=== PATIENT | female | born 1960 | race Caucasian/White ===

== ENCOUNTER 2017-03-30 12:33 | Inpatient (IN) | payer OTHER, MEDICAID, MEDICARE ==
[2017-03-30] VITALS (10 sets, daily range): BP systolic 124–192; BP diastolic 80–114; PULSE 90–115; RESP 10–28; TEMP 98.6–99.6; O2SAT 87–97
[~2017-03-30] VITALS: Ht 167.6 cm; Wt 62.5 kg
[~2017-03-30 12:33] MED LIST: DICL75 PO; HYDR-4347 PO; METO25 PO; OMEP20TA39 PO; PERC5TAB12 PO; VALI10TA PO; ZOFR4TAB3 SL
[2017-03-30] MEDS ORDERED: DIAZ10 PO (13:11)
[2017-03-30] MEDS ORDERED: METO50TA PO (13:19)
[2017-03-30] MEDS ORDERED: ZOFR4TAB PO (13:19)
[2017-03-30] MEDS ORDERED: LORCET HD PO (13:19)
[2017-03-30] MEDS ORDERED: DICL75TA PO (13:19)
[2017-03-30] MEDS ORDERED: OMEP40CA2 PO (13:19)
[2017-03-30] MEDS ORDERED: ALBU.5I NEB (13:22)
[2017-03-30] MEDS ORDERED: VENTAER INH (13:22)
[2017-03-30] MEDS ORDERED: SPIRCAP INH (13:22)
[2017-03-30] MEDS ORDERED: PRED10 PO (13:22)
[2017-03-30] MEDS ORDERED: CEPH-460 PO (13:22)
--- NOTE | 2017-03-30 13:46 | PD ---
HPI Chief Complaint: Abdominal Pain Time Seen by Provider: 13:07 Travel History International Travel<30 days: No Contact w/Intl Traveler<30days: No Traveled to known affect area: No History of Present Illness HPI This 57-year-old female is complaining of abdominal pain. She has a history of Crohn's disease for 38 years. She is having pain throughout her abdomen. She says that her face and hands up and cramping. She had been to Dr. Doshi recently and was diagnosed with neuropathy. She had a very low B12 level and has been on B12 recently. She is having green diarrhea. She is on prednisone for her Crohn's disease which she takes on an as-needed basis. She had been on baclofen for about 2 weeks for pain control. She stopped it last Monday, she is complaining of spasms in her hands and her feet which have been going on for about a day. She does have a history of pancreatitis. She does drink alcohol. She has been taking some Valium for the spasm. PFS Past Medical History Arthritis: Yes Asthma: No Autoimmune Disease: No Blood Disorders: No Anxiety: Yes Depression: No Heart Rhythm Problems: No Cancer: No Cardiac Catheterization: No Cardiovascular Problems: No High Cholesterol: Yes Chemotherapy: No Chest Pain: No Congestive Heart Failure: No COPD: Yes Cerebrovascular Accident: No Diabetes: No Diminished Hearing: No Gastrointestinal Disorders: Yes (Crohn's disease) GERD: Yes Genitourinary: No Headaches: No Hepatitis: No Hiatal Hernia: No Hypertension: Yes Implanted Vascular Access Dvce: Yes Kidney Stones: No Musculoskeletal: No Neurologic: No Psychiatric: No Reproductive: Yes (NOVASURE - uterine ablation) Respiratory: Yes Immunizations Current: Yes Migraines: No Myocardial Infarction: No Pancreatitis: Yes Radiation Therapy: No Renal Failure: No Seizures: No Sickle Cell Disease: No Sleep Apnea: No Ulcer: No Tetanus Vaccination: Unknown Influenza Vaccination: Yes ?: Not Menopausal: Yes Tubal Ligation: Yes Past Surgical History Abdominal Surgery: Yes (Bowel resection X's 3) Appendectomy: Yes (appendix removed during bowel resection surgery) Cardiac Surgery: No Cholecystectomy: No Coronary Artery Bypass Graft: No Ear Surgery: No Endocrine Surgery: No Eye Surgery: No Gynecologic Surgery: Yes (UTERINE WALL SURGERY, TUBAL LIGATION ) Oral Surgery: Yes (RIGHT FACIAL RECONSTRUCTION) Thoracic Surgery: No Other Surgery: Yes (Port placement MELENOMA FACE) Family History Family Myocardial Infarction: Yes (father) Social History Alcohol Use: Yes (2 DAILY) Tobacco Use: Yes (3 cigarettes daily) Substance Use: No Allergies-Medications (Allergen,Severity, Reaction): Coded Allergies: Sulfa (Verified Allergy, Severe, "Shock", nausea, rash, 03/30/17) Uncoded Allergies: HUMIRA (Allergy, Unknown, SKIN LESIONS, 03/30/17) Reported Meds & Prescriptions Reported Meds & Active Scripts Active Reported Albuterol Neb (Albuterol Sulfate) 2.5 Mg/0.5 Ml Neb 2.5 Mg NEB Q4HR NEB PRN Note: The Albuterol Sulfate Inhalation Solution is concentrated and must be diluted. Read complete instructions carefully before using. Spiriva Handihaler (Tiotropium Inh) 18 Mcg Cap 18 Mcg INH DAILY 1 capsule = 18 mcg Ventolin Hfa 18 GM Inh (Albuterol Sulfate) 90 Mcg/Act Aer 2 Puff INH Q4-6H PRN Prednisone 10 Mg Tab 10 Mg PO TID Keflex (Cephalexin) 500 Mg Capsule 500 Mg PO DAILY Zofran (Ondansetron HCl) 4 Mg Tab 4 Mg PO Q6HR PRN Omeprazole 40 Mg Cap 40 Mg PO DAILY Metoprolol Tartrate 50 Mg Tab 50 Mg PO BID [Lorcet Hd] 1 Tab PO QID Diclofenac Sodium DR (Diclofenac Sodium) 75 Mg Tabdr 75 Mg PO BID Valium (Diazepam) 10 Mg Tab 10 Mg PO TID Review of Systems General / Constitutional: No: Fever, Chills Eyes: No: Diploplia, Blurred Vision HENT: No: Headaches Cardiovascular: No: Chest Pain or Discomfort Respiratory: No: Cough Gastrointestinal: Positive: Diarrhea, Abdominal Pain Genitourinary: No: Urgency, Frequency Musculoskeletal: Positive: Myalgias, Cramping Skin: No Rash, No Itching Neurologic: Positive: Weakness Psychiatric: No: Anxiety, Depression Hematologic/Lymphatic: No: Easy Bruising Physical Exam Narrative GENERAL: Well-developed female. She is complaining of pain SKIN: Focused skin assessment warm/dry. HEAD: Atraumatic. Normocephalic. EYES: Pupils equal and round. No scleral icterus. No injection or drainage. ENT: No nasal bleeding or discharge. Mucous membranes pink and moist. NECK: Trachea midline. No JVD. CARDIOVASCULAR: Regular rate and rhythm. No murmur appreciated. RESPIRATORY: No accessory muscle use. Clear to auscultation. Breath sounds equal bilaterally. GASTROINTESTINAL: Abdomen there are multiple midline scars. She complains of some tenderness to palpation in all quadrants. There is no rigidity. Bowel sounds are active. MUSCULOSKELETAL: No obvious deformities. No clubbing. No cyanosis. No edema. NEUROLOGICAL: Awake and alert. No obvious cranial nerve deficits. Motor grossly within normal limits. Normal speech. He is having spasm of the hands and feet PSYCHIATRIC: Appropriate mood and affect; insight and judgment normal. Data Data Last Documented VS Vital Signs Date Time Temp Pulse Resp B/P Pulse Ox O2 Delivery O2 Flow Rate FiO2 03/30/17 14:39 98 18 124/80 95 Room Air 03/30/17 12:50 98.6 Orders Complete Blood Count With Diff (03/30/17 13:41) Comprehensive Metabolic Panel (03/30/17 13:41) Prothrombin Time / Inr (Pt) (03/30/17 13:41) Act Partial Throm Time (Ptt) (03/30/17 13:41) Urinalysis - C+S If Indicated (03/30/17 13:41) Magnesium (Mg) (03/30/17 13:41) Enteric Path (Stool) (03/30/17 13:41) Chest, Single Ap (03/30/17 13:41) Ct Abd/Pel W Iv Contrast(Rout) (03/30/17 13:41) Sodium Chlor 0.9% 1000 Ml Inj (Ns 1000 M (03/30/17 14:00) Ondansetron Inj (Zofran Inj) (03/30/17 14:00) Hydromorphone Pf Inj (Dilaudid Pf Inj) (03/30/17 14:00) Potassium Chlor 20 Meq Premix (Kcl 20 Me (03/30/17 14:44) Calcium Gluconate Inj (Calcium Gluconate (03/30/17 14:45) Magnesium Sulfate 1 Gm Premix (Magnesium (03/30/17 15:00) Lipase (03/30/17 14:55) Hydromorphone Pf Inj (Dilaudid Pf Inj) (03/30/17 15:00) Electrocardiogram (03/30/17 15:09) Labs Laboratory Tests Test 03/30/17 13:30 White Blood Count 10.3 TH/MM3 Red Blood Count 3.06 MIL/MM3 Hemoglobin 11.2 GM/DL Hematocrit 33.5 % Mean Corpuscular Volume 109.6 FL Mean Corpuscular Hemoglobin 36.8 PG Mean Corpuscular Hemoglobin 33.5 % Concent Red Cell Distribution Width 16.7 % Platelet Count 140 TH/MM3 Mean Platelet Volume 7.7 FL Neutrophils (%) (Auto) 79.9 % Lymphocytes (%) (Auto) 12.0 % Monocytes (%) (Auto) 6.9 % Eosinophils (%) (Auto) 0.9 % Basophils (%) (Auto) 0.3 % Neutrophils # (Auto) 8.2 TH/MM3 Lymphocytes # (Auto) 1.2 TH/MM3 Monocytes # (Auto) 0.7 TH/MM3 Eosinophils # (Auto) 0.1 TH/MM3 Basophils # (Auto) 0.0 TH/MM3 CBC Comment DIFF FINAL Differential Comment Prothrombin Time 11.6 SEC Prothromb Time International 1.0 RATIO Ratio Activated Partial 42.5 SEC Thromboplast Time Urine Color YELLOW Urine Turbidity CLEAR Urine pH 6.0 Urine Specific [place] 1.021 Urine Protein 30 mg/dL Urine Glucose (UA) NEG mg/dL Urine Ketones NEG mg/dL Urine Occult Blood NEG Urine Nitrite NEG Urine Bilirubin NEG Urine Leukocyte Esterase TRACE Urine RBC 0-3 /hpf Urine WBC 6-8 /hpf Urine Squamous Epithelial 0-5 /hpf Cells Microscopic Urinalysis Comment CULT NOT INDICATED Sodium Level 142 MEQ/L Potassium Level 2.6 MEQ/L Chloride Level 100 MEQ/L Carbon Dioxide Level 33.1 MEQ/L Anion Gap 9 MEQ/L Blood Urea Nitrogen 3 MG/DL Creatinine 0.68 MG/DL Estimat Glomerular Filtration 89 ML/MIN Rate Random Glucose 98 MG/DL Calcium Level 6.3 MG/DL Protein Corrected Calcium 6.5 MG/DL Magnesium Level 0.8 MG/DL Total Bilirubin 1.2 MG/DL Aspartate Amino Transf 32 U/L (AST/SGOT) Alanine Aminotransferase 13 U/L (ALT/SGPT) Alkaline Phosphatase 105 U/L Total Protein 6.6 GM/DL Albumin 2.9 GM/DL [facility] Medical Decision Making Medical Screen Exam Complete: Yes Emergency Medical Condition: Yes Medical Record Reviewed: Yes Differential Diagnosis Differential includes electrolyte imbalance, drug withdrawal, Crohn's disease, Narrative Course Lab work shows sodium 142. Potassium is 2.6. Calcium is 6.3 with magnesium of 0.8. Patient has multiple left-sided abnormalities most likely related to her short bowel syndrome and diarrhea. Case was discussed with Dr. Boudreaux and she will be admitted to intensive care at [place]. Our Scanner is down and she is being sent to [place] for a CT of the abdomen and pelvis Diagnosis Primary Impression: Hypocalcemia Additional Impressions: Hypomagnesemia Short bowel syndrome Admitting Information Admitting Physician Requests: Admit Denys Salomon MD Mar 30, 2017 13:45
[2017-03-30 13:56] LABS: AUTOMATED NEUTROPHIL # 8.2 TH/MM3 (1.8-7.7); BASOPHIL % 0.3 % (0.0-2.0); EOSINOPHIL # 0.1 TH/MM3 (0-0.4); EOSINOPHIL % 0.9 % (0.0-4.0); HEMATOCRIT 33.5 % (35.0-46.0); HEMO FLAGS DIFF FINAL; LYMPHOCYTE # 1.2 TH/MM3 (1.0-4.8); MEAN CELL VOLUME 109.6 FL (80.0-100.0); MEAN CORPUSCULAR HEMOGLOBIN 36.8 PG (27.0-34.0); MEAN CORPUSCULAR HGB CONC 33.5 % (32.0-36.0); MONO % 6.9 % (0.0-8.0); NEUT % 79.9 % (16.0-70.0); PLATELET COUNT 140 TH/MM3 (150-450); RED BLOOD COUNT 3.06 MIL/MM3 (4.00-5.30); RED CELL DISTRIBUTION WIDTH 16.7 % (11.6-17.2); WHITE BLOOD COUNT 10.3 TH/MM3 (4.0-11.0)
[2017-03-30 13:58] LABS: BLOOD, URINE NEG (NEG); GLUCOSE,URINE NEG (NEG); KETONE, URINE NEG (NEG); NITRITE,URINE NEG (NEG)
[2017-03-30] MEDS ORDERED: ONDANSETRON HCL 4 MG/2 ML VIAL IV PUSH ONE (14:00)
[2017-03-30] MEDS ORDERED: HYDROmorphone HCL PF 1 MG/ML VIAL IV PUSH ONE ×2 (14:00→15:00)
[2017-03-30] MEDS ORDERED: SODIUM CHLOR 0.9% 1000 ML INJ 1,000 ML IV SCH (14:00)
[2017-03-30 14:11] LABS: APTT (PATIENT) 42.5 SEC (24.3-30.1); PROTHROMBIN TIME - PATIENT 11.6 SEC (9.8-11.6)
[2017-03-30 14:16] LABS: COMMENT (UR) CULT NOT INDICATED; CULTURE IF INDICATED CULT NOT INDICATED; RBC, URINE 0-3 /hpf (0-3); SQUAMOUS EPITHELIAL CELL URINE 0-5 /hpf (0-5); URINE COLOR YELLOW (YELLW/STRAW)
[2017-03-30 14:34] LABS: BICARBONATE 33.1 MEQ/L (21.0-32.0); MAGNESIUM 0.8 MG/DL (1.5-2.5); TOTAL BILIRUBIN ADULT 1.2 MG/DL (0.2-1.0)
[2017-03-30 14:38] LABS: CALCIUM-PROTEIN CORRECTED 6.5 MG/DL (8.5-10.1); POTASSIUM 2.6 MEQ/L (3.5-5.1)
--- NOTE | 2017-03-30 14:38 | RADHPO ---
EXAM DATE/TIME: 03/30/2017 14:11 [facility] COMPARISON: No previous studies available for comparison. INDICATIONS : Chest pain, short of breath. MEDICAL HISTORY : Crohn's disease. neuropathy SURGICAL HISTORY : Colon resection. ENCOUNTER: Initial ACUITY: 1 week PAIN SCORE: 7/10 LOCATION: Bilateral chest FINDINGS: There is a left subclavian [id number] in place with tip near the AC junction. Lungs are clear with out significant focal pleural or parenchymal opacities. Cardiomediastinal contours are within normal limits. Bony thorax is intact. CONCLUSION: 1. No acute cardiopulmonary disease. Mandeep Wadsworth MD on March 30, 2017 at 14:35 Board Certified Radiologist. This report was verified electronically.
[2017-03-30] MEDS ORDERED: POTASSIUM CHLOR 20 MEQ PREMIX 100 ML IV STA (14:44)
[2017-03-30] MEDS ORDERED: CALCIUM GLUCONATE INJ 1 GM in DEXTROSE 5% IN WATER 100ML INJ 100 ML IV ONE ×2 (14:45)
[2017-03-30] MEDS ORDERED: MAGNESIUM SULFATE 1 GM PREMIX 100 ML IV ONE (15:00)
[2017-03-30] MEDS ORDERED: CHLORHEXIDINE GLUCONATE 2 % 1 PACK (2 CLOTHS) TOP PRN (15:30)
[2017-03-30] MEDS ORDERED: SODIUM CHLORIDE 0.9% FLUSH 10 ML FLUSH IV FLUSH PRN (15:30)
[2017-03-30] MEDS ORDERED: ACETAMINOPHEN 325 MG TAB PO PRN (15:30)
[2017-03-30] MEDS ORDERED: MISCELLANEOUS NURSING INFORMATION XX SCH (15:30)
[2017-03-30] MEDS ORDERED: METOCLOPRAMIDE HCL 10 MG/2 ML VIAL IV PRN (15:30)
[2017-03-30] MEDS ORDERED: ONDANSETRON HCL 4 MG/2 ML VIAL IV PRN (15:30)
[2017-03-30] MEDS ORDERED: POTASSIUM PHOSPHATE MONOBASIC 500 MG TAB PO/TUBE PRN (16:00)
[2017-03-30] MEDS ORDERED: POTASSIUM CHLOR 20 MEQ PREMIX 100 ML IV PRN ×2 (16:00)
[2017-03-30] MEDS ORDERED: POTASSIUM CHLORIDE 25 MEQ EFFERVESCENT TAB PO PRN (16:00)
[2017-03-30] MEDS ORDERED: MAGNESIUM OXIDE 400 MG TAB PO PRN (16:00)
[2017-03-30] MEDS: MAGNESIUM SULFATE 1 GM PREMIX 100 ML IV SCH ×2 (16:00→17:00)
[2017-03-30] MEDS ORDERED: MAGNESIUM SULFATE INJ 4 GM in SODIUM CHLORIDE 0.9% INJ 92 ML IV PRN (16:00)
[2017-03-30] MEDS ORDERED: MAGNESIUM SULFATE INJ 2 GM in SODIUM CHLORIDE 0.9% INJ 96 ML IV PRN (16:00)
[2017-03-30] MEDS ORDERED: SODIUM PHOSPHATE INJ 30 MMOL in SODIUM CHLOR 0.9% 250 ML INJ 240 ML IV PRN (16:00)
[2017-03-30] MEDS ORDERED: POTASSIUM PHOSPHATE INJ 30 MMOL in SODIUM CHLOR 0.9% 250 ML INJ 250 ML IV PRN (16:00)
[2017-03-30] MEDS ORDERED: POTASSIUM CHLOR 40 MEQ PREMIX 100 ML IV PRN ×2 (16:00)
[2017-03-30] MEDS ORDERED: POTASSIUM PHOSPHATE MONOBASIC 500 MG TAB PO PRN (16:00)
[2017-03-30] MEDS ORDERED: CALCIUM CHLORIDE IV SCH (17:00)
[2017-03-30] MEDS ORDERED: SODIUM CHLOR 0.9% IV SCH (17:00)
[2017-03-30] MEDS ORDERED: IOHEXOL 350 MG/ML 10 ML VIAL (for RAD DIAG) IV ONE (17:13)
[2017-03-30] MEDS ORDERED: CALCIUM CHLORIDE INJ 2 GM in DEXTROSE 5% IN WATER 100ML INJ 100 ML IV ONE ×2 (17:15)
[2017-03-30] MEDS: PANTOPRAZOLE SODIUM 40 MG VIAL IV SCH (17:30)
[2017-03-30] MEDS: ENOXAPARIN SODIUM 40 MG/0.4 ML SYRINGE SQ SCH (17:32)
--- NOTE | 2017-03-30 18:00 | RADRPT ---
EXAM DATE/TIME: 03/30/2017 16:39 [facility] COMPARISON: No previous studies available for comparison. INDICATIONS : History of crohns,diffuse abdomen pain,green dirrhea. IV CONTRAST: 70 cc Omnipaque 350 (iohexol) IV ORAL CONTRAST: No oral contrast ingested. RADIATION DOSE: 9.96 CTDIvol (mGy) MEDICAL HISTORY : Hypertension. Chronic obstructive pulmonary disease. Pancreatitis.Crohns disease SURGICAL HISTORY : Appendectomy. Bowel resection.uterine surgery ENCOUNTER: Initial ACUITY: 1 day PAIN SCALE: 7/10 LOCATION: Abdomen TECHNIQUE: Volumetric scanning of the abdomen and pelvis was performed. Using automated exposure control and ad justment of the mA and/or kV according to patient size, radiation dose was kept as low as reasonably achievable to obtain optimal diagnostic quality images. FINDINGS: LOWER LUNGS: Patchy airspace disease medially in the left base. LIVER: Homogeneous density without lesion. There is no dilation of the biliary tree. No calcified gallston es. SPLEEN: Normal size without lesion. PANCREAS: Within normal limits. KIDNEYS: Normal in size and shape. There is no mass, stone or hydronephrosis. ADRENAL GLANDS: Within normal limits. VASCULAR: There is no aortic aneurysm. BOWEL/MESENTERY: Findings of prior bowel surgery with surgical clips in the mid mesentery and a ring of surgical stapl es in a bowel loop to the left of midline in the mid. No obstruction. The terminal ileum is decompres sed but there are no robert-enteric or pericolonic inflammatory changes to suggest active inflammatory process. ABDOMINAL WALL: Within normal limits. RETROPERITONEUM: There is no lymphadenopathy. BLADDER: No wall thickening or mass. REPRODUCTIVE: Within normal limits. INGUINAL: There is no lymphadenopathy or hernia. MUSCULOSKELETAL: Within normal limits for patient age. CONCLUSION: 1. Postsurgical changes and surgical clips in the mid mesentery and findings of prior bowel surgery l eft para midline. 2. No traction. Terminal ileum is decompressed but there are no perienteric or pericolonic inflammato ry changes to suggest an active enteritis. 3. Patchy airspace disease medially in the left base. This is rather linear and may represent atelect asis although an early infiltrate cannot be excluded. Jerman Herron MD on March 30, 2017 at 17:47 Board Certified Radiologist. This report was verified electronically.
--- NOTE | 2017-03-30 18:14 | HHI.HP ---
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 Patient presented to the ER today with worsening abdominal pain going on for about 5 days along with his past symptoms and tingling over her face and extremities which has been going on for 5 days as well. 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 She was noted to be hypocalcemic and hypomagnesemia as well as hypokalemic in the ER. Patient states that she has tried to 18 bouts of diarrhea daily secondary to her Crohn's and short bowel syndrome. I was contacted by ER physician and accepted patient for admission. On my arrival patient had been [facility] scan and evaluated her subsequently following her arrival at around 5:40 PM. Up to that point she had received potassium and magnesium IV piggyback however had not received any calcium gluconate. At the time of evaluation she denied any chest pain or shortness of breath. Denied any nausea or vomiting. Denied any hematemesis or melena. Denied any fever or chills. Patient has been on prednisone for Crohn's disease and has seen Dr. Tavera from GI regularly for her Crohn's disease. She stated that she takes Valium for spasms and baclofen at times however has stopped the baclofen for a few weeks. History PFSH Past Medical History Arthritis: Yes Asthma: No Autoimmune Disease: No Blood Disorders: No Anxiety: Yes Depression: No Heart Rhythm Problems: No Cancer: No Cardiac Catheterization: No Cardiovascular Problems: No High Cholesterol: Yes Chemotherapy: No Chest Pain: No Congestive Heart Failure: No COPD: Yes Cerebrovascular Accident: No Diabetes: No Diminished Hearing: No Gastrointestinal Disorders: Yes (Crohn's disease) GERD: Yes Genitourinary: No Headaches: No Hepatitis: No Hiatal Hernia: No Hypertension: Yes Implanted Vascular Access Dvce: Yes Kidney Stones: No Musculoskeletal: No Neurologic: No Psychiatric: No Reproductive: Yes (NOVASURE - uterine ablation) Respiratory: Yes Immunizations Current: Yes Migraines: No Myocardial Infarction: No Pancreatitis: Yes Radiation Therapy: No Renal Failure: No Seizures: No Sickle Cell Disease: No Sleep Apnea: No Ulcer: No Tetanus Vaccination: Unknown Influenza Vaccination: Yes ?: Not Menopausal: Yes Tubal Ligation: Yes Past Surgical History Abdominal Surgery: Yes (Bowel resection X's 3) Appendectomy: Yes (appendix removed during bowel resection surgery) Cardiac Surgery: No Cholecystectomy: No Coronary Artery Bypass Graft: No Ear Surgery: No Endocrine Surgery: No Eye Surgery: No Gynecologic Surgery: Yes (UTERINE WALL SURGERY, TUBAL LIGATION ) Oral Surgery: Yes (RIGHT FACIAL RECONSTRUCTION) Thoracic Surgery: No Other Surgery: Yes (Port placement MELENOMA FACE) Family History Family Myocardial Infarction: Yes (father) Social History Alcohol Use: Yes (2 DAILY) Tobacco Use: Yes (3 cigarettes daily) Substance Use: No Allergies-Medications Allergies-Medications (Allergen,Severity, Reaction): Coded Allergies: Sulfa (Verified Allergy, Severe, "Shock", nausea, rash, 03/30/17) Uncoded Allergies: HUMIRA (Allergy, Unknown, SKIN LESIONS, 03/30/17) Reported Meds & Prescriptions Reported Meds & Active Scripts Active Reported Albuterol Neb (Albuterol Sulfate) 2.5 Mg/0.5 Ml Neb 2.5 Mg NEB Q4HR NEB PRN Note: The Albuterol Sulfate Inhalation Solution is concentrated and must be diluted. Read complete instructions carefully before using. Spiriva Handihaler (Tiotropium Inh) 18 Mcg Cap 18 Mcg INH DAILY 1 capsule = 18 mcg Ventolin Hfa 18 GM Inh (Albuterol Sulfate) 90 Mcg/Act Aer 2 Puff INH Q4-6H PRN Prednisone 10 Mg Tab 10 Mg PO TID Keflex (Cephalexin) 500 Mg Capsule 500 Mg PO DAILY Zofran (Ondansetron HCl) 4 Mg Tab 4 Mg PO Q6HR PRN Omeprazole 40 Mg Cap 40 Mg PO DAILY Metoprolol Tartrate 50 Mg Tab 50 Mg PO BID [Lorcet Hd] 1 Tab PO QID Diclofenac Sodium DR (Diclofenac Sodium) 75 Mg Tabdr 75 Mg PO BID Valium (Diazepam) 10 Mg Tab 10 Mg PO TID ROS Review of Systems General / Constitutional: No: Fever, Chills Eyes: No: Diploplia, Blurred Vision HENT: No: Headaches Cardiovascular: No: Chest Pain or Discomfort Respiratory: No: Cough Gastrointestinal: Positive: Diarrhea, Abdominal Pain Genitourinary: No: Urgency, Frequency Musculoskeletal: Positive: Myalgias, Cramping Skin: No Rash, No Itching Neurologic: Positive: Weakness Psychiatric: No: Anxiety, Depression Hematologic/Lymphatic: No: Easy Bruising Review of Systems ROS As per history of present illness otherwise negative. Physical Exam Vital Signs Vital Signs Date Time Temp Pulse Resp B/P Pulse Ox O2 Delivery O2 Flow Rate FiO2 03/30/17 14:39 98 18 124/80 95 Room Air 03/30/17 12:50 98.6 115 15 141/101 95 Physical Exam GENERAL: Well-developed female. She is complaining of abdominal pain SKIN: Focused skin assessment warm/dry. HEAD: Atraumatic. Normocephalic. EYES: Pupils equal and round. No scleral icterus. No injection or drainage. ENT: No nasal bleeding or discharge. Tongue dry. NECK: Trachea midline. No JVD. CARDIOVASCULAR: Regular rate and rhythm. No murmur appreciated. RESPIRATORY: No accessory muscle use. Clear to auscultation. Breath sounds equal bilaterally. GASTROINTESTINAL: Abdomen there are multiple midline scars. Tenderness all over her abdomen with minimal guarding. There is no rigidity. Bowel sounds are active. MUSCULOSKELETAL: No obvious deformities. No clubbing. No cyanosis. No edema. NEUROLOGICAL: Awake and alert. No obvious cranial nerve deficits. Motor grossly within normal limits. Normal speech. Negative Chvostek's/ Trousseau's sign. DTR +/+ bilaterally, no hyperreflexia noted, plantars downgoing bilaterally. PSYCHIATRIC: Appropriate mood and affect; insight and judgment normal. Laboratory Laboratory Tests Test 03/30/17 13:30 White Blood Count 10.3 Red Blood Count 3.06 Hemoglobin 11.2 Hematocrit 33.5 Mean Corpuscular Volume 109.6 Mean Corpuscular Hemoglobin 36.8 Mean Corpuscular Hemoglobin 33.5 Concent Red Cell Distribution Width 16.7 Platelet Count 140 Mean Platelet Volume 7.7 Neutrophils (%) (Auto) 79.9 Lymphocytes (%) (Auto) 12.0 Monocytes (%) (Auto) 6.9 Eosinophils (%) (Auto) 0.9 Basophils (%) (Auto) 0.3 Neutrophils # (Auto) 8.2 Lymphocytes # (Auto) 1.2 Monocytes # (Auto) 0.7 Eosinophils # (Auto) 0.1 Basophils # (Auto) 0.0 CBC Comment DIFF FINAL Differential Comment Prothrombin Time 11.6 Prothromb Time International 1.0 Ratio Activated Partial 42.5 Thromboplast Time Urine Color YELLOW Urine Turbidity CLEAR Urine pH 6.0 Urine Specific [place] 1.021 Urine Protein 30 Urine Glucose (UA) NEG Urine Ketones NEG Urine Occult Blood NEG Urine Nitrite NEG Urine Bilirubin NEG Urine Leukocyte Esterase TRACE Urine RBC 0-3 Urine WBC 6-8 Urine Squamous Epithelial 0-5 Cells Microscopic Urinalysis Comment CULT NOT INDICATED Sodium Level 142 Potassium Level 2.6 Chloride Level 100 Carbon Dioxide Level 33.1 Anion Gap 9 Blood Urea Nitrogen 3 Creatinine 0.68 Estimat Glomerular Filtration 89 Rate Random Glucose 98 Calcium Level 6.3 Protein Corrected Calcium 6.5 Phosphorus Level 4.3 Magnesium Level 0.8 Total Bilirubin 1.2 Aspartate Amino Transf 32 (AST/SGOT) Alanine Aminotransferase 13 (ALT/SGPT) Alkaline Phosphatase 105 Total Protein 6.6 Albumin 2.9 Lipase 63 Date/Time Procedure Status Source Growth 03/30/17 13:08 Received Stool Stool Pending Result Diagram: 03/30/17 1330 03/30/[address] Abd/Pelvis: No evidence of pericolonic or perienteric inflammation. Postsurgical changes. Terminal ileum decompressed. Last Impressions Chest X-Ray 03/30/17 1341 Signed Impressions: Service Date/Time: , March 30, 2017 14:11 - CONCLUSION: 1. No acute cardiopulmonary disease. 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 Replete calcium magnesium and potassium. Patient is on parenteral B-12 as outpatient. Cardiovascular: IV hydration, watch for hypotension. EKG shows sinus rhythm at 98/m. QTc 462 ms Pulmonary: Bronchodilators as needed. Breathing comfortably. GI/liver: Follow up CT abdomen pelvis. GI consult with Dr. Godoy for probable Crohn's disease exacerbation and short-bowel syndrome. Will continue by mouth diet Renal/: IV hydration, strict intake output, monitor and replete electrolytes, follow BUN/creatinine ID: Watch for fever. Hold off on antibiotics at this time. Heme: Follow CBC. Macrocytosis secondary to B-12 deficiency. Continue parenteral B-12. Endocrine: Check vitamin D2, D3, intact PTH. Calcium supplementation ordered. 2 g IV calcium chloride stat ordered earlier along with 1 g calcium gluconate ordered by the ER physician. We'll continue normal saline with calcium chloride as maintenance IV fluid. Check serial calcium and magnesium levels along with other electrolytes. Prophylaxis: PPI/SCDs/Lovenox We'll transfer to hospitalist service in a.m. for further medical management. Discussed with Dr. Estevez. Time spent on critical care excluding procedures 45 minutes Lito Brock MD Mar 30, 2017 18:13
[2017-03-30] MEDS: SODIUM CHLORIDE 0.9% FLUSH 10 ML FLUSH IV FLUSH SCH (21:00)
[2017-03-30 21:27] LABS: BICARBONATE 30.9 MEQ/L (21.0-32.0); MAGNESIUM 1.3 MG/DL (1.5-2.5)
[2017-03-30 21:29] LABS: POTASSIUM 2.6 MEQ/L (3.5-5.1)
[2017-03-30] MEDS: CALCIUM CARBONATE 1.25 GM (CA 500 MG) TAB PO SCH (21:38)
[2017-03-30] MEDS: cloNIDine HCL 0.1 MG TAB PO PRN (21:39)
[2017-03-30] MEDS: MESALAMINE HD 800 MG DELAYED RELEASE TAB PO SCH (21:39)
[2017-03-30] MEDS: ACETAMINOPHEN/HYDROcodone 325 MG/5 MG TAB PO PRN (21:40)
[2017-03-30 21:47] LABS: CALCIUM-PROTEIN CORRECTED 12.5 MG/DL (8.5-10.1)
[2017-03-30] MEDS: HYDROmorphone HCL PF 1 MG/ML VIAL IV PRN (23:18)
[2017-03-31] VITALS (28 sets, daily range): BP systolic 95–152; BP diastolic 69–96; PULSE 80–128; RESP 12–27; TEMP 98–99.1; O2SAT 86–100
[2017-03-31] MEDS: HYDROmorphone HCL PF 1 MG/ML VIAL IV PRN ×7 (02:36→22:29)
[2017-03-31] MEDS: CHLORHEXIDINE GLUCONATE 2 % 1 PACK (2 CLOTHS) TOP SCH (04:00)
[2017-03-31] MEDS: RESP: ALBUTEROL 2.5 MG/IPRATROPIUM 0.5 MG NEB (PRN) INH ×3 (04:41→19:51)
[2017-03-31 04:57] LABS: AUTOMATED NEUTROPHIL # 5.3 TH/MM3 (1.8-7.7); BASOPHIL % 0.4 % (0.0-2.0); EOSINOPHIL # 0.2 TH/MM3 (0-0.4); EOSINOPHIL % 2.3 % (0.0-4.0); HEMATOCRIT 33.7 % (35.0-46.0); LYMPH % 10.8 % (9.0-44.0); LYMPHOCYTE # 0.7 TH/MM3 (1.0-4.8); MEAN CELL VOLUME 108.6 FL (80.0-100.0); MEAN CORPUSCULAR HEMOGLOBIN 35.8 PG (27.0-34.0); MEAN CORPUSCULAR HGB CONC 32.9 % (32.0-36.0); MONO % 6.9 % (0.0-8.0); NEUT % 79.6 % (16.0-70.0); PLATELET COUNT 158 TH/MM3 (150-450); RED CELL DISTRIBUTION WIDTH 15.6 % (11.6-17.2); WHITE BLOOD COUNT 6.7 TH/MM3 (4.0-11.0)
[2017-03-31 04:59] LABS: HEMO FLAGS DIFF FINAL
[2017-03-31 05:16] LABS: BICARBONATE 33.3 MEQ/L (21.0-32.0); MAGNESIUM 1.8 MG/DL (1.5-2.5); POTASSIUM 3.9 MEQ/L (3.5-5.1)
[2017-03-31 05:20] LABS: TOTAL BILIRUBIN ADULT 1.9 MG/DL (0.2-1.0)
[2017-03-31] MEDS: MESALAMINE HD 800 MG DELAYED RELEASE TAB PO SCH ×3 (05:36→21:26)
[2017-03-31] MEDS ORDERED: MAGNESIUM SULFATE 1 GM PREMIX 100 ML IV ONE (06:45)
[2017-03-31] MEDS: SODIUM CHLORIDE 0.9% FLUSH 10 ML FLUSH IV FLUSH SCH ×2 (08:05→21:26)
[2017-03-31] MEDS: CALCIUM CARBONATE 1.25 GM (CA 500 MG) TAB PO SCH (08:05)
[2017-03-31] MEDS: PANTOPRAZOLE SODIUM 40 MG VIAL IV SCH (08:07)
[2017-03-31] MEDS: SODIUM CHLOR 0.9% 1000 ML INJ 1,000 ML IV SCH ×3 (08:09→21:32)
[2017-03-31] MEDS: METOPROLOL TARTRATE 50 MG TAB PO SCH ×2 (08:27→21:26)
--- NOTE | 2017-03-31 10:37 | HHI.PR ---
Subjective Remarks in no acute distress. has some generalized weakness. still with diarrhea and mild abdominal pain. no fever. d/w the RN and no acute issues over night. Objective Vitals Vital Signs Date Time Temp Pulse Resp B/P Pulse Ox O2 Delivery O2 Flow Rate FiO2 03/31/17 09:00 128 16 114/75 87 03/31/17 09:00 15 03/31/17 08:00 98.5 104 13 124/91 98 03/31/17 08:00 103 03/31/17 07:58 97 Nasal Cannula 2.00 03/31/17 07:00 104 12 136/90 95 03/31/17 06:00 101 13 144/96 93 03/31/17 06:00 101 03/31/17 05:00 108 15 147/95 92 03/31/17 04:00 98.0 106 15 136/90 95 03/31/17 04:00 106 03/31/17 03:00 104 17 132/91 96 03/31/17 02:00 98 03/31/17 02:00 98 16 126/93 95 03/31/17 01:00 88 24 115/76 95 03/31/17 00:00 92 03/31/17 00:00 98.7 92 14 130/91 97 03/30/17 23:00 104 25 134/89 97 03/30/17 22:40 15 03/30/17 22:00 102 12 147/92 95 03/30/17 22:00 102 03/30/17 21:00 114 28 179/114 95 03/30/17 20:00 106 03/30/17 20:00 99.6 106 13 173/110 91 03/30/17 19:43 95 Nasal Cannula 2.00 03/30/17 19:42 87 21 03/30/17 19:39 104 10 192/113 94 03/30/17 18:06 90 18 143/97 94 Room Air 03/30/17 14:39 98 18 124/80 95 Room Air 03/30/17 12:50 98.6 115 15 141/101 95 I/O 03/30/17 03/30/17 03/30/17 03/31/17 03/31/17 03/31/17 07:00 15:00 23:00 07:00 15:00 23:00 Intake Total 1200 ml 1300 ml Output Total 200 ml Balance 1000 ml 1300 ml Intake Oral 500 ml IV Total 1200 ml 800 ml Output Stool Total 200 ml # Voids 6 4 Result Diagram: 03/31/17 0430 03/31/17 0430 Imaging Last Impressions Chest X-Ray 03/30/17 1341 Signed Impressions: Service Date/Time: March 14:11 - CONCLUSION: 1. No acute cardiopulmonary disease. Mandeep Wadsworth MD Abdomen/Pelvis CT 03/30/17 1341 Signed Impressions: Service Date/Time: March 16:39 - CONCLUSION: 1. Postsurgical changes and surgical clips in the mid mesentery and findings of prior bowel surgery left para midline. 2. No traction. Terminal ileum is decompressed but there are no perienteric or pericolonic inflammatory changes to suggest an active enteritis. 3. Patchy airspace disease medially in the left base. This is rather linear and may represent atelectasis although an early infiltrate cannot be excluded. Jerman Herron MD Objective Remarks GENERAL: This is a well-nourished, well-developed patient, in no apparent distress. CARDIOVASCULAR: Regular rate and regular rhythm without murmurs, gallops, or rubs. RESPIRATORY: Clear to auscultation. Breath sounds equal bilaterally. No wheezes , rales, or rhonchi. GASTROINTESTINAL: Abdomen soft, non-tender, nondistended. Normal, active bowel sounds MUSCULOSKELETAL: Extremities without clubbing, cyanosis, or edema. NEURO: Alert & Oriented x4 to person, place, time, situation. Moves all ext x4 Procedures none Medications and IVs Current Medications Sodium Chloride (NS 1000 ml Inj) 1,000 ml @ 100 mls/hr Q10H IV Last administered on 03/30/17 14:05; Start 03/30/17 at 14:00; Stop 03/30/17 at 18:54; Status DC Ondansetron HCl (Zofran Inj) 4 mg ONCE ONCE IV PUSH Last administered on 14:06; Start 03/30/17 at 14:00; Stop 03/30/17 at 14:01; Status DC Hydromorphone HCl 1 mg 1 mg ONCE ONCE IV PUSH Last administered on 03/30/17 14 :05; Start 03/30/17 at 14:00; Stop 03/30/17 at 14:01; Status DC Potassium Chloride 100 ml @ 50 mls/hr BOLUS STAT IV Last administered on 15:20; Start 03/30/17 at 14:44; Stop 03/30/17 at 16:43; Status DC Calcium Gluconate 1 gm/Dextrose 110 ml @ 110 mls/hr ONCE ONCE IV Last administered on 03/30/17 18:00; Start 03/30/17 at 14:45; Stop 03/30/17 at 15:44; Status DC Magnesium Sulfate/ Dextrose (Magnesium Sulfate 1 Gm Premix) 100 ml @ 100 mls/ hr ONCE ONCE IV Last administered on 03/30/17 15:21; Start 03/30/17 at 15:00; Stop 03/30/17 at 15:59; Status DC Hydromorphone HCl (Dilaudid Pf Inj) 1 mg ONCE ONCE IV PUSH Last administered on 03/30/17 15:26; Start 03/30/17 at 15:00; Stop 03/30/17 at 15:01; Status DC Sodium Chloride (NS Flush) 2 ml UNSCH PRN IV FLUSH FLUSH AFTER USING IV ACCESS ; Start 03/30/17 at 15:30 Sodium Chloride (NS Flush) 2 ml BID IV FLUSH Last administered on 03/31/17 08: 05; Start 03/30/17 at 21:00 Acetaminophen (Tylenol) 650 mg Q6H PRN PO HEADACHE AND/OR FEVER >101F; Start at 15:30 Acetaminophen/ Hydrocodone Bitart ([place] 5-325 Mg) 1 tab Q4H PRN PO PAIN SCALE 1 TO 5 Last administered on 03/30/17 21:40; Start 03/30/17 at 15:30 Pantoprazole Sodium (Protonix Inj) 40 mg DAILY IV Last administered on 08:07; Start 03/30/17 at 16:00 Ondansetron HCl (Zofran Inj) 4 mg Q6H PRN IV NAUSEA OR VOMITING; Start 03/30/17 at 15:30 Metoclopramide HCl (Reglan Inj) 10 mg Q6H PRN IV NAUSEA OR VOMITING; Start 03/30 at 15:30 Albuterol/ Ipratropium (Duoneb Neb) 1 ampule Q2HR NEB PRN INH WHEEZING Last administered on 03/31/17 07:57; Start 03/30/17 at 15:30 Enoxaparin Sodium (Lovenox Inj) 40 mg Q24H SQ Last administered on 03/30/17 17: 32; Start 03/30/17 at 16:00 Miscellaneous Information 1 Q361D XX Last administered on 03/30/17 08:00; Start 03/30/17 at 15:30 Chlorhexidine Gluconate (Chlorhexidine 2% Cloth) 3 pack Taper DAILY@04 TOP Last administered on 03/31/17 04:00; Start 03/31/17 at 04:00; Stop 03/27/18 at 03 :59 Chlorhexidine Gluconate (Chlorhexidine 2% Cloth) 3 pack UNSCH PRN TOP HYGIENIC CARE; Start 03/30/17 at 15:30 Calcium Carbonate 1000 mg 1,000 mg BID PO Last administered on 03/31/17 08:05; Start 03/30/17 at 21:00 Magnesium Sulfate/ Dextrose 100 ml @ 100 mls/hr Q1H IV ; Start 03/30/17 at 16:00 ; Stop 03/30/17 at 17:59; Status DC Calcium Chloride 5 gm/Sodium Chloride 1,050 ml @ 250 mls/hr Q4H12M IV Last administered on 03/30/17 17:45; Start 03/30/17 at 17:00; Stop 03/31/17 at 06:26; Status DC Potassium Chloride 100 ml @ 50 mls/hr Q2H PRN IV For Potassium 2.8 - 3.2 mEq/ L Last administered on 03/31/17 00:30; Start 03/30/17 at 16:00 Potassium Chloride (KCl 20 Meq Premix Inj) 100 ml @ 50 mls/hr Q2H PRN IV For Potassium 2.8 - 3.2 mEq/L; Start 03/30/17 at 16:00 Potassium Bicarb/ Potassium Chloride 50 meq 50 meq UNSCH PRN PO For Potassium 3.3 - 3.5 mEq/L; Start 03/30/17 at 16:00 Potassium Chloride 100 ml @ 25 mls/hr UNSCH PRN IV For Potassium 3.3 - 3.5 mEq /L; Start 03/30/17 at 16:00 Potassium Chloride 100 ml @ 50 mls/hr Q2H PRN IV For Potassium 3.3 - 3.5 mEq/L ; Start 03/30/17 at 16:00 Magnesium Sulfate/ Sodium Chloride (Magnesium Sulfate Inj/NS Inj) 100 ml @ 50 mls/hr UNSCH PRN IV For Magnesium 0.9 - 1.1 mg/dL; Start 03/30/17 at 16:00 Magnesium Oxide 800 mg 800 mg UNSCH PRN PO For Magnesium 1.2 - 1.6 mg/dL; Start 03/30/17 at 16:00 Magnesium Sulfate/ Sodium Chloride (Magnesium Sulfate Inj/NS Inj) 100 ml @ 50 mls/hr UNSCH PRN IV For Magnesium 1.2 - 1.6 mg/dL Last administered on 23:12; Start 03/30/17 at 16:00 Potassium Phosphate 2000 mg 2,000 mg Q4H PRN PO For Phosphorus < 2.5 mg/dL; Start 03/30/17 at 16:00 Sodium Phosphate/ Sodium Chloride (Sodium Phosphate Inj/NS 250 ml Inj) 250 ml @ 42 mls/hr UNSCH PRN IV For Phosphorus < 2.5 mg/dL; Start 03/30/17 at 16:00 Potassium Phosphate 2000 mg 2,000 mg UNSCH PRN PO/TUBE SEE LABEL COMMENTS; Start 03/30/17 at 16:00 Potassium Phosphate 30 mmol/ Sodium Chloride 260 ml @ 42 mls/hr UNSCH PRN IV SEE LABEL COMMENTS; Start 03/30/17 at 16:00 Calcium Chloride/ Dextrose (Calcium Chloride Inj/D5W 100 ml Inj) 120 ml @ 120 mls/hr STAT ONCE IV Last administered on 03/30/17 17:46; Start 03/30/17 at 17: 15; Stop 03/30/17 at 18:14; Status DC Iohexol (Omnipaque 350 Inj) 70 ml STK-MED ONCE IV ; Start 03/30/17 at 17:13; Stop 03/30/17 at 17:14; Status DC Mesalamine (Asacol Hd Dr) 1,600 mg Q8HR PO Last administered on 03/31/17 05:36 ; Start 03/30/17 at 22:00 Hydromorphone HCl (Dilaudid Pf Inj) 1 mg Q3H PRN IV PAIN 6-10 Last administered on 03/31/17 08:28; Start 03/30/17 at 20:45 Clonidine (Catapres) 0.1 mg Q6H PRN PO SBP > 180, DBP > 100 Last administered on 03/30/17 21:39; Start 03/30/17 at 20:45 Metoprolol Tartrate 50 mg 50 mg BID PO Last administered on 03/30/17 22:00; Start 03/31/17 at 21:20; Stop 03/31/17 at 21:20; Status DC Sodium Chloride 1,000 ml @ 125 mls/hr Q8H IV Last administered on 03/31/17 08: 09; Start 03/31/17 at 06:30 Magnesium Sulfate/ Dextrose (Magnesium Sulfate 1 Gm Premix) 100 ml @ 100 mls/ hr ONCE ONCE IV Last administered on 03/31/17 08:04; Start 03/31/17 at 06:45; Stop 03/31/17 at 07:44; Status DC Metoprolol Tartrate (Lopressor) 50 mg BID PO Last administered on 03/31/17 08: 27; Start 03/31/17 at 09:00 A/P Assessment and Plan A/P - Abdominal pain secondary to Crohn's disease with short-bowel syndrome started on Asacol- continue with supportive care and pain control- GI consulted. Hypocalcemia on presentation - now with hypercalcemia hold calcium supplements- continue IV fluid and check the level tomorrow. Hypokalemia-resolved Hypomagnesemia-resolved COPD with no exacerbation; on neb treatment- keep on oxygen as needed to keep O2 sat >90% hypertension; resumed metoprolol- will monitor and adjust the regimen as needed. Peripheral neuropathy secondary to B-12 deficiency- check the level DVT prophylaxis with lovenox consulted PT transfer to telemetry. d/w the Alanis Douglas MD Mar 31, 2017 10:37
--- NOTE | 2017-03-31 12:49 | EKG ---
Date Performed: 03/30/2017 Time Performed: 15:24:08 PTAGE: 57 years EKG: Sinus rhythm Extensive ST-T changes suggest myocardial injury/ischemia Abnormal ECG Artifact precludes accurate a ssessment ST Depression appears to be more prominent since prior tracing PREVIOUS TRACING : 05/20/2013 16.57 DOCTOR: Marco A Marinelli Interpretating Date/Time 03/31/2017 12:48:44
[2017-03-31 12:57] LABS: POTASSIUM 3.3 MEQ/L (3.5-5.1)
[2017-03-31 14:00] LABS: BICARBONATE 31.4 MEQ/L (21.0-32.0); MAGNESIUM 1.7 MG/DL (1.5-2.5)
[2017-03-31] MEDS: ENOXAPARIN SODIUM 40 MG/0.4 ML SYRINGE SQ SCH (15:24)
--- NOTE | 2017-03-31 17:43 | MB ---
cc: DAT HUDSON M.D., NIMISH K. MD DATE OF CONSULTATION: 03/30/2017 DATE OF : 1960. REFERRING PHYSICIAN Dr. Brock REASON FOR REFERRAL History of Crohn's disease, diarrhea. Thank you for the consultation. HISTORY OF PRESENT ILLNESS A pleasant 67-year-old lady who is known to have Crohn's disease for 38 years. The patient has multiple episodes of bowel resections (at least three times) because of the Crohn's disease, her last one a few years ago. She is being followed by Dr. Godoy. She was taking Remicade but she developed an allergy to it and recently she has been on budesonide, according to her that has been tapered off. The patient stated that in the last five days she started having a tingly symptom with a symptom of neuropathy in her extremities and her head with significant diarrhea. She was found to have electrolyte imbalance. She also is known to have B12 deficiency and vitamin D deficiency because of short gut syndrome. The patient stated that she had about 18 bowel movements in the last few days. She was in the ER a few weeks ago and she had been treated with antibiotic for upper respiratory infection. The patient is laying in bed, comfortable. She denied nausea or vomiting, no hematemesis, no fever. She denied any blood in her stool but she feels weak and very agitated with some tingling of her fingers and her skull. PAST MEDICAL HISTORY Significant for - 1. Reflux symptoms. 2. COPD. 3. Hypercholesterolemia. 4. Arthritis. 5. Pancreatitis. 6. Crohn's diseas. PAST SURGICAL HISTORY 1. Bowel resection x3. 2. Appendectomy. 3. Uterine wall surgery with tubal ligation. 4. Facial reconstruction. 5. Port placement for melanoma of the face. SOCIAL HISTORY Positive for tobacco a small amount and two alcohol drinks a day. FAMILY HISTORY Significant for coronary artery disease. ALLERGIES HUMIRA AND SULFA. REVIEW OF SYSTEMS All 12-point negative except HPI. MEDICATIONS Reviewed in the chart including Prednisone 10 mg t.i.d. PHYSICAL EXAMINATION GENERAL: Alert, oriented, in no acute distress. VITAL SIGNS: Stable. HEAD, EYES, EARS, NOSE AND THROAT: Pupils round and reactive to light. NECK: Supple. CHEST: Clear to auscultation and percussion. CARDIAC: Regular rate and rhythm. ABDOMEN: Soft, nondistended. Positive bowel sounds. Mild discomfort. EXTREMITIES: No edema, clubbing or cyanosis. NEUROLOGIC: Intact with good range of motion. PSYCHIATRIC: Appropriate. LABORATORY DATA Sodium 140, potassium 2.6, BUN 4, creatinine 0.63, calcium 12. Liver functions: Total bilirubin 1.2, AST 32, ALT 13, lipase 63. White count 10.3, hemoglobin 11.2, platelets 140. INR 1.0. IMAGING CT scan: Postsurgical changes. No peritoneal inflammation. ASSESSMENT AND PLAN A 57-year-old lady with Crohn's disease. She has diarrhea which is above her normal where she had usually three to four loose bowels and now she has 15-18 in the last few days with electrolyte imbalance. She is being admitted to the ICU by Dr. Brock for replacement and hydration. I recommend checking stool for C. diff and because she was recently on antibiotic also need to rule other etiology for infection. This could be Crohn's disease exacerbation which does not seem the cause because the patient already on prednisone, she does not have abdominal pain and no blood in the stool, but we will keep that in mind. If the stool cultures are negative and she continues to have symptoms by tomorrow, we have to start her on other medication such as Solu-Medrol or antibiotic if there is any infection. We will continue supportive care and we will see the patient tomorrow. MD PATY Taylor/AMY /3:08 PM /5:18 PM
[2017-03-31] MEDS ORDERED: HYDR-3578 PO (21:12)
[2017-03-31] MEDS ORDERED: METOPROLOL TARTRATE 50 MG TAB PO SCH (21:20)
[2017-04-01] VITALS (26 sets, daily range): BP systolic 121–164; BP diastolic 75–97; PULSE 75–106; RESP 12–40; TEMP 97.9–98.7; O2SAT 84–100
[2017-04-01] MEDS: RESP: ALBUTEROL 2.5 MG/IPRATROPIUM 0.5 MG NEB (PRN) INH ×3 (02:54→16:57)
[2017-04-01] MEDS: HYDROmorphone HCL PF 1 MG/ML VIAL IV PRN ×5 (03:20→22:31)
[2017-04-01] MEDS: CHLORHEXIDINE GLUCONATE 2 % 1 PACK (2 CLOTHS) TOP SCH (04:00)
[2017-04-01 04:46] LABS: AUTOMATED NEUTROPHIL # 2.6 TH/MM3 (1.8-7.7); BASOPHIL % 0.5 % (0.0-2.0); EOSINOPHIL # 0.1 TH/MM3 (0-0.4); EOSINOPHIL % 4.3 % (0.0-4.0); HEMATOCRIT 26.9 % (35.0-46.0); HEMO FLAGS DIFF FINAL; LYMPH % 13.7 % (9.0-44.0); LYMPHOCYTE # 0.5 TH/MM3 (1.0-4.8); MEAN CELL VOLUME 108.5 FL (80.0-100.0); MEAN CORPUSCULAR HEMOGLOBIN 36.6 PG (27.0-34.0); MEAN CORPUSCULAR HGB CONC 33.7 % (32.0-36.0); MONO % 7.6 % (0.0-8.0); NEUT % 73.9 % (16.0-70.0); PLATELET COUNT 135 TH/MM3 (150-450); RED BLOOD COUNT 2.48 MIL/MM3 (4.00-5.30); RED CELL DISTRIBUTION WIDTH 15.7 % (11.6-17.2); WHITE BLOOD COUNT 3.5 TH/MM3 (4.0-11.0)
[2017-04-01 04:55] LABS: CHLORIDE 107 MEQ/L (98-107); POTASSIUM 3.1 MEQ/L (3.5-5.1); SODIUM (NA) 144 MEQ/L (136-145)
[2017-04-01 05:07] LABS: ALKALINE PHOSPHATASE 87 U/L (45-117); ALT (GPT) 14 U/L (10-53); ANION GAP 4 MEQ/L (5-15); AST (GOT) 36 U/L (15-37); BICARBONATE 33.2 MEQ/L (21.0-32.0); BLOOD UREA NITROGEN 1 MG/DL (7-18); GLOMERULAR FILTRATION RATE 113 ML/MIN (>89); MAGNESIUM 1.3 MG/DL (1.5-2.5); TOTAL BILIRUBIN ADULT 0.9 MG/DL (0.2-1.0)
[2017-04-01] MEDS: MESALAMINE HD 800 MG DELAYED RELEASE TAB PO SCH ×3 (05:34→21:25)
[2017-04-01] MEDS: SODIUM CHLOR 0.9% 1000 ML INJ 1,000 ML IV SCH ×3 (05:34→22:31)
[2017-04-01] MEDS ORDERED: POTASSIUM CHLORIDE 20 MEQ CONTROLLED RELEASE TAB PO ONE (06:00)
[2017-04-01] MEDS ORDERED: MAGNESIUM SULFATE 1 GM PREMIX 100 ML IV ONE (06:00)
--- NOTE | 2017-04-01 09:53 | HHI.PR ---
Subjective Remarks looks and feels better today. has mild abdominal pain. no BM since last night. no fever, nausea or vomiting. Objective Vitals Vital Signs Date Time Temp Pulse Resp B/P Pulse Ox O2 Delivery O2 Flow Rate FiO2 04/01/17 08:25 98 Nasal Cannula 4.00 04/01/17 06:02 84 15 149/90 98 04/01/17 06:00 94 04/01/17 05:02 90 14 123/77 96 04/01/17 04:02 97.9 102 24 131/87 84 04/01/17 04:00 102 04/01/17 03:02 90 37 152/97 96 04/01/17 02:02 78 15 124/82 98 04/01/17 02:00 79 04/01/17 01:02 80 13 132/93 97 04/01/17 00:02 98.7 78 14 127/81 100 04/01/17 00:00 75 03/31/17 23:02 80 15 106/74 97 03/31/17 22:02 102 27 128/77 91 03/31/17 22:00 109 03/31/17 21:02 100 12 108/72 96 03/31/17 20:02 98.8 100 27 133/84 96 03/31/17 20:00 97 03/31/17 19:51 97 Nasal Cannula 4.00 03/31/17 19:02 90 18 142/87 97 03/31/17 18:00 92 03/31/17 18:00 96 17 95/70 98 03/31/17 17:00 100 17 111/73 86 03/31/17 16:00 99.1 91 18 142/95 100 03/31/17 16:00 18 03/31/17 16:00 91 03/31/17 15:00 94 15 134/84 99 03/31/17 15:00 99 03/31/17 14:00 97 03/31/17 14:00 96 27 152/92 98 03/31/17 13:00 95 21 133/69 97 03/31/17 12:00 95 03/31/17 12:00 98.3 95 20 137/80 96 03/31/17 11:00 92 20 125/88 96 03/31/17 10:00 89 03/31/17 10:00 112 03/31/17 10:00 112 20 122/79 96 I/O 03/31/17 03/31/17 03/31/17 04/01/17 04/01/17 04/01/17 07:00 15:00 23:00 07:00 15:00 23:00 Intake Total 1300 ml 1275 ml 1000 ml 824 ml Output Total 575 ml 800 ml 400 ml Balance 1300 ml 700 ml 200 ml 424 ml Intake Oral 500 ml 450 ml 1000 ml IV Total 800 ml 825 ml 824 ml Output Urine Total 575 ml 800 ml 400 ml # Voids 4 3 Result Diagram: 04/01/17 0419 04/01/17 0419 Imaging Last Impressions Chest X-Ray 03/30/17 1341 Signed Impressions: Service Date/Time: March 14:11 - CONCLUSION: 1. No acute cardiopulmonary disease. Mandeep Wadsworth MD Abdomen/Pelvis CT 03/30/17 1341 Signed Impressions: Service Date/Time: March 16:39 - CONCLUSION: 1. Postsurgical changes and surgical clips in the mid mesentery and findings of prior bowel surgery left para midline. 2. No traction. Terminal ileum is decompressed but there are no perienteric or pericolonic inflammatory changes to suggest an active enteritis. 3. Patchy airspace disease medially in the left base. This is rather linear and may represent atelectasis although an early infiltrate cannot be excluded. Jerman Herron MD Objective Remarks GENERAL: This is a well-nourished, well-developed patient, in no apparent distress. CARDIOVASCULAR: Regular rate and regular rhythm without murmurs, gallops, or rubs. RESPIRATORY: occasional cough- diminished air entry in bases. GASTROINTESTINAL: Abdomen soft, non-tender, nondistended. Normal, active bowel sounds MUSCULOSKELETAL: Extremities without clubbing, cyanosis, or edema. NEURO: Alert & Oriented x4 to person, place, time, situation. Moves all ext x4 Procedures none Medications and IVs Current Medications Sodium Chloride (NS 1000 ml Inj) 1,000 ml @ 100 mls/hr Q10H IV Last administered on 03/30/17t 14:05; Start 03/30/17 at 14:00; Stop 03/30/17 at 18:54; Status DC Ondansetron HCl (Zofran Inj) 4 mg ONCE ONCE IV PUSH Last administered on 14:06; Start 03/30/17 at 14:00; Stop 03/30/17 at 14:01; Status DC Hydromorphone HCl 1 mg 1 mg ONCE ONCE IV PUSH Last administered on 03/30/17 14 :05; Start 03/30/17 at 14:00; Stop 03/30/17 at 14:01; Status DC Potassium Chloride 100 ml @ 50 mls/hr BOLUS STAT IV Last administered on 15:20; Start 03/30/17 at 14:44; Stop 03/30/17 at 16:43; Status DC Calcium Gluconate 1 gm/Dextrose 110 ml @ 110 mls/hr ONCE ONCE IV Last administered on 03/30/17 18:00; Start 03/30/17 at 14:45; Stop 03/30/17 at 15:44; Status DC Magnesium Sulfate/ Dextrose (Magnesium Sulfate 1 Gm Premix) 100 ml @ 100 mls/ hr ONCE ONCE IV Last administered on 03/30/17 15:21; Start 03/30/17 at 15:00; Stop 03/31/17 at 10:34; Status DC Hydromorphone HCl (Dilaudid Pf Inj) 1 mg ONCE ONCE IV PUSH Last administered on 03/30/17 15:26; Start 03/30/17 at 15:00; Stop 03/30/17 at 15:01; Status DC Sodium Chloride (NS Flush) 2 ml UNSCH PRN IV FLUSH FLUSH AFTER USING IV ACCESS ; Start 03/30/17 at 15:30 Sodium Chloride (NS Flush) 2 ml BID IV FLUSH Last administered on 03/31/17 21: 26; Start 03/30/17 at 21:00 Acetaminophen (Tylenol) 650 mg Q6H PRN PO HEADACHE AND/OR FEVER >101F; Start at 15:30 Acetaminophen/ Hydrocodone Bitart ([place] 5-325 Mg) 1 tab Q4H PRN PO PAIN SCALE 1 TO 5 Last administered on 03/30/17 21:40; Start 03/30/17 at 15:30 Pantoprazole Sodium (Protonix Inj) 40 mg DAILY IV Last administered on 08:07; Start 03/30/17 at 16:00 Ondansetron HCl (Zofran Inj) 4 mg Q6H PRN IV NAUSEA OR VOMITING; Start 03/30/17 at 15:30 Metoclopramide HCl (Reglan Inj) 10 mg Q6H PRN IV NAUSEA OR VOMITING; Start 03/30 at 15:30 Albuterol/ Ipratropium (Duoneb Neb) 1 ampule Q2HR NEB PRN INH WHEEZING Last administered on 04/01/17 08:21; Start 03/30/17 at 15:30 Enoxaparin Sodium (Lovenox Inj) 40 mg Q24H SQ Last administered on 03/31/17 15: 24; Start 03/30/17 at 16:00 Miscellaneous Information 1 Q361D XX Last administered on 03/30/17 08:00; Start 03/30/17 at 15:30 Chlorhexidine Gluconate (Chlorhexidine 2% Cloth) 3 pack Taper DAILY@04 TOP Last administered on 04/01/17 04:00; Start 03/31/17 at 04:00; Stop 03/27/18 at 03 :59 Chlorhexidine Gluconate (Chlorhexidine 2% Cloth) 3 pack UNSCH PRN TOP HYGIENIC CARE; Start 03/30/17 at 15:30 Calcium Carbonate 1000 mg 1,000 mg BID PO Last administered on 03/31/17 08:05; Start 03/30/17 at 21:00; Status Hold Magnesium Sulfate/ Dextrose 100 ml @ 100 mls/hr Q1H IV ; Start 03/30/17 at 16:00 ; Stop 03/30/17 at 17:59; Status DC Calcium Chloride 5 gm/Sodium Chloride 1,050 ml @ 250 mls/hr Q4H12M IV Last administered on 03/30/17 17:45; Start 03/30/17 at 17:00; Stop 03/31/17 at 06:26; Status DC Potassium Chloride 100 ml @ 50 mls/hr Q2H PRN IV For Potassium 2.8 - 3.2 mEq/ L Last administered on 03/31/17 00:30; Start 03/30/17 at 16:00; Stop 03/31/17 at 10:34; Status DC Potassium Chloride (KCl 20 Meq Premix Inj) 100 ml @ 50 mls/hr Q2H PRN IV For Potassium 2.8 - 3.2 mEq/L; Start 03/30/17 at 16:00; Stop 03/31/17 at 10:34; Status DC Potassium Bicarb/ Potassium Chloride 50 meq 50 meq UNSCH PRN PO For Potassium 3.3 - 3.5 mEq/L; Start 03/30/17 at 16:00; Stop 03/31/17 at 10:34; Status DC Potassium Chloride 100 ml @ 25 mls/hr UNSCH PRN IV For Potassium 3.3 - 3.5 mEq /L; Start 03/30/17 at 16:00; Stop 03/31/17 at 10:34; Status DC Potassium Chloride 100 ml @ 50 mls/hr Q2H PRN IV For Potassium 3.3 - 3.5 mEq/L ; Start 03/30/17 at 16:00; Stop 03/31/17 at 10:35; Status DC Magnesium Sulfate/ Sodium Chloride (Magnesium Sulfate Inj/NS Inj) 100 ml @ 50 mls/hr UNSCH PRN IV For Magnesium 0.9 - 1.1 mg/dL; Start 03/30/17 at 16:00; Stop 03/31/17 at 10:35; Status DC Magnesium Oxide 800 mg 800 mg UNSCH PRN PO For Magnesium 1.2 - 1.6 mg/dL; Start 03/30/17 at 16:00; Stop 03/31/17 at 10:35; Status DC Magnesium Sulfate/ Sodium Chloride (Magnesium Sulfate Inj/NS Inj) 100 ml @ 50 mls/hr UNSCH PRN IV For Magnesium 1.2 - 1.6 mg/dL Last administered on t 23:12; Start 03/30/17 at 16:00; Stop 03/31/17 at 10:35; Status DC Potassium Phosphate 2000 mg 2,000 mg Q4H PRN PO For Phosphorus < 2.5 mg/dL; Start 03/30/17 at 16:00; Stop 03/31/17 at 10:35; Status DC Sodium Phosphate/ Sodium Chloride (Sodium Phosphate Inj/NS 250 ml Inj) 250 ml @ 42 mls/hr UNSCH PRN IV For Phosphorus < 2.5 mg/dL; Start 03/30/17 at 16:00 Potassium Phosphate 2000 mg 2,000 mg UNSCH PRN PO/TUBE SEE LABEL COMMENTS; Start 03/30/17 at 16:00; Stop 03/31/17 at 10:35; Status DC Potassium Phosphate 30 mmol/ Sodium Chloride 260 ml @ 42 mls/hr UNSCH PRN IV SEE LABEL COMMENTS; Start 03/30/17 at 16:00; Stop 03/31/17 at 10:35; Status DC Calcium Chloride/ Dextrose (Calcium Chloride Inj/D5W 100 ml Inj) 120 ml @ 120 mls/hr STAT ONCE IV Last administered on 03/30/17 17:46; Start 03/30/17 at 17: 15; Stop 03/30/17 at 18:14; Status DC Iohexol (Omnipaque 350 Inj) 70 ml STK-MED ONCE IV ; Start 03/30/17 at 17:13; Stop 03/30/17 at 17:14; Status DC Mesalamine (Asacol Hd Dr) 1,600 mg Q8HR PO Last administered on 04/01/17 05:34 ; Start 03/30/17 at 22:00 Hydromorphone HCl (Dilaudid Pf Inj) 1 mg Q3H PRN IV PAIN 6-10 Last administered on 04/01/17 06:06; Start 03/30/17 at 20:45 Clonidine (Catapres) 0.1 mg Q6H PRN PO SBP > 180, DBP > 100 Last administered on 03/30/17 21:39; Start 03/30/17 at 20:45 Metoprolol Tartrate 50 mg 50 mg BID PO Last administered on 03/30/17 22:00; Start 03/31/17 at 21:20; Stop 03/31/17 at 21:20; Status DC Sodium Chloride 1,000 ml @ 125 mls/hr Q8H IV Last administered on 04/01/17 05: 34; Start 03/31/17 at 06:30 Magnesium Sulfate/ Dextrose (Magnesium Sulfate 1 Gm Premix) 100 ml @ 100 mls/ hr ONCE ONCE IV Last administered on 03/31/17 08:04; Start 03/31/17 at 06:45; Stop 03/31/17 at 10:35; Status DC Metoprolol Tartrate (Lopressor) 50 mg BID PO Last administered on 03/31/17 21: 26; Start 03/31/17 at 09:00 Potassium Chloride 40 meq 40 meq ONCE ONCE PO Last administered on 04/01/17 06 :04; Start 04/01/17 at 06:00; Stop 04/01/17 at 06:01; Status DC Magnesium Sulfate/ Dextrose (Magnesium Sulfate 1 Gm Premix) 100 ml @ 100 mls/ hr ONCE ONCE IV Last administered on 04/01/17 06:05; Start 04/01/17 at 06:00; Stop 04/01/17 at 06:59; Status DC A/P Assessment and Plan A/P - Abdominal pain secondary to Crohn's disease with short-bowel syndrome started on Asacol- continue with supportive care and pain control- GI consult appreciated. Hypocalcemia on presentation - now with hypercalcemia- this has resolved resume calcium supplements- Hypokalemia-will replace. Hypomagnesemia-will replace. COPD with no exacerbation; on neb treatment- keep on oxygen as needed to keep O2 sat >90% hypertension; resumed metoprolol- will monitor and adjust the regimen as needed. Peripheral neuropathy secondary to B-12 deficiency- DVT prophylaxis with lovenox consulted PT for transfer to telemetry. Alanis Estrada MD Apr 01, 2017 09:53 Alanis Estrada MD Apr 01, 2017 09:53
[2017-04-01] MEDS ORDERED: POTASSIUM CHLORIDE 10 MEQ CONTROLLED RELEASE TAB PO ONE ×2 (10:00→14:00)
[2017-04-01] MEDS: ACETAMINOPHEN/HYDROcodone 325 MG/5 MG TAB PO PRN ×3 (11:23→21:28)
[2017-04-01] MEDS: METOPROLOL TARTRATE 50 MG TAB PO SCH ×2 (13:37→21:25)
[2017-04-01] MEDS: PANTOPRAZOLE SODIUM 40 MG VIAL IV SCH (13:37)
[2017-04-01] MEDS: SODIUM CHLORIDE 0.9% FLUSH 10 ML FLUSH IV FLUSH SCH ×2 (16:47→21:26)
[2017-04-01] MEDS: ENOXAPARIN SODIUM 40 MG/0.4 ML SYRINGE SQ SCH (16:50)
[2017-04-01] MEDS: BENZONATATE 100 MG CAP PO PRN (17:16)
[2017-04-01] MEDS: CALCIUM CARBONATE 1.25 GM (CA 500 MG) TAB PO SCH (21:00)
--- NOTE | 2017-04-02 00:06 | HHI.GIFU ---
Subjective Remarks feels better today no more diarrhea, less abdominal pain Objective Vitals I&O Vital Signs Date Time Temp Pulse Resp B/P Pulse Ox O2 Delivery O2 Flow Rate FiO2 04/01/17 23:01 22 04/01/17 23:00 88 04/01/17 22:30 80 17 134/86 93 04/01/17 22:28 10 04/01/17 22:00 106 40 164/95 88 04/01/17 21:30 98 31 163/89 93 04/01/17 21:00 86 12 131/81 88 04/01/17 20:57 77 04/01/17 20:00 98.4 86 20 136/87 93 04/01/17 19:38 98 Nasal Cannula 2.00 04/01/17 15:30 98.5 84 21 152/89 95 04/01/17 13:02 97.9 86 20 140/76 96 04/01/17 12:00 84 04/01/17 10:30 98 22 121/75 99 04/01/17 08:25 98 Nasal Cannula 4.00 04/01/17 08:02 98.1 88 22 140/88 97 04/01/17 08:00 92 04/01/17 06:02 84 15 149/90 98 04/01/17 06:00 94 04/01/17 05:02 90 14 123/77 96 04/01/17 04:02 97.9 102 24 131/87 84 04/01/17 04:00 102 04/01/17 03:02 90 37 152/97 96 04/01/17 02:02 78 15 124/82 98 04/01/17 02:00 79 04/01/17 01:02 80 13 132/93 97 04/01/17 00:02 98.7 78 14 127/81 100 04/01/17 00:00 75 I/O 03/31/17 03/31/17 03/31/17 04/01/17 04/01/17 04/01/17 07:00 15:00 23:00 07:00 15:00 23:00 Intake Total 1300 ml 1275 ml 1000 ml 824 ml 2656 ml 952 ml Output Total 575 ml 800 ml 400 ml 750 ml Balance 1300 ml 700 ml 200 ml 424 ml 1906 ml 952 ml Intake Oral 500 ml 450 ml 1000 ml 1550 ml 360 ml IV Total 800 ml 825 ml 824 ml 1106 ml 592 ml Output Urine Total 575 ml 800 ml 400 ml 750 ml # Voids 4 3 2 # Bowel Movements 0 Laboratory Laboratory Tests Test 04/01/17 04:19 White Blood Count 3.5 Red Blood Count 2.48 Hemoglobin 9.1 Hematocrit 26.9 Mean Corpuscular Volume 108.5 Mean Corpuscular Hemoglobin 36.6 Mean Corpuscular Hemoglobin 33.7 Concent Red Cell Distribution Width 15.7 Platelet Count 135 Mean Platelet Volume 7.8 Neutrophils (%) (Auto) 73.9 Lymphocytes (%) (Auto) 13.7 Monocytes (%) (Auto) 7.6 Eosinophils (%) (Auto) 4.3 Basophils (%) (Auto) 0.5 Neutrophils # (Auto) 2.6 Lymphocytes # (Auto) 0.5 Monocytes # (Auto) 0.3 Eosinophils # (Auto) 0.1 Basophils # (Auto) 0.0 CBC Comment DIFF FINAL Differential Comment Sodium Level 144 Potassium Level 3.1 Chloride Level 107 Carbon Dioxide Level 33.2 Anion Gap 4 Blood Urea Nitrogen 1 Creatinine 0.55 Estimat Glomerular Filtration 113 Rate Random Glucose 91 Calcium Level 8.3 Phosphorus Level 3.4 Magnesium Level 1.3 Total Bilirubin 0.9 Aspartate Amino Transf 36 (AST/SGOT) Alanine Aminotransferase 14 (ALT/SGPT) Alkaline Phosphatase 87 Total Protein 5.4 Albumin 2.2 Date/Time Procedure Status Source Growth 03/30/17 19:00 Cryptosporidium Exam Resulted Stool Stool Pending 03/30/17 19:00 Stool Pus ([facility]) - Final Resulted Stool Stool NO WBC'S SEEN 03/30/17 19:00 Giardia Antigen ([facility]LMA) Resulted Stool Stool Pending 03/30/17 13:08 - Final Complete Stool Stool NO ENTERIC PATHOGENS DETECTED BY PCR... Physical Exam HEENT: Pupils round and reactive to light; normocephalic; atraumatic; no jaundice. Throat is clear. NECK: Neck is supple, no JVD, no lymphadenopathy. CHEST: Chest is clear to auscultation and percussion. CARDIAC: Regular rate and rhythm with no murmur gallop or rubs. ABDOMEN: Soft, nondistended, nontender; no hepatosplenomegaly; bowel sounds are present in all four quadrants. EXTREMITIES: No clubbing, cyanosis, or edema. SKIN: Normal; no rash; no jaundice. MANAGER DEVELOPMENTAL: No focal deficits; alert and oriented times three. Assessment and Plan Plan patient is doing well no diarrhea and minimal abdominal discomfort most likely no flare up of Crohn,s Dx and most likely gastroenteritis continue Asacol support care RTC in in 1 WK Wood Meek MD Apr 02, 2017 00:06
[2017-04-02] MEDS: RESP: ALBUTEROL 2.5 MG/IPRATROPIUM 0.5 MG NEB (PRN) INH ×2 (00:34→08:03)
[2017-04-02 01:09] VITALS: BP 149/102; PULSE 86; RESP 18; TEMP 98.3; O2SAT 97
[2017-04-02] MEDS: HYDROmorphone HCL PF 1 MG/ML VIAL IV PRN ×3 (02:04→12:34)
[2017-04-02 04:00] VITALS: BP 174/109; PULSE 86; RESP 26; TEMP 98.4; O2SAT 96
[2017-04-02] MEDS: CHLORHEXIDINE GLUCONATE 2 % 1 PACK (2 CLOTHS) TOP SCH (04:00)
[2017-04-02 04:19] LABS: POTASSIUM 3.5 MEQ/L (3.5-5.1)
[2017-04-02 04:23] LABS: BICARBONATE 30.3 MEQ/L (21.0-32.0); MAGNESIUM 1.4 MG/DL (1.5-2.5)
[2017-04-02] MEDS: cloNIDine HCL 0.1 MG TAB PO PRN (04:39)
[2017-04-02] MEDS: ACETAMINOPHEN/HYDROcodone 325 MG/5 MG TAB PO PRN ×3 (04:39→12:26)
[2017-04-02] MEDS: BENZONATATE 100 MG CAP PO PRN (04:43)
[2017-04-02] MEDS: MESALAMINE HD 800 MG DELAYED RELEASE TAB PO SCH (05:33)
[2017-04-02] MEDS: SODIUM CHLOR 0.9% 1000 ML INJ 1,000 ML IV SCH (06:26)
[2017-04-02 07:00] VITALS: PULSE 81
[2017-04-02 08:00] VITALS: BP 133/92; PULSE 81; RESP 24; TEMP 98.3; O2SAT 98
[2017-04-02 08:04] VITALS: O2SAT 97
[2017-04-02] MEDS: CALCIUM CARBONATE 1.25 GM (CA 500 MG) TAB PO SCH (09:00)
[2017-04-02] MEDS: MAGNESIUM SULFATE 1 GM PREMIX 100 ML IV SCH ×2 (10:16→12:26)
[2017-04-02] MEDS: METOPROLOL TARTRATE 50 MG TAB PO SCH (10:18)
[2017-04-02] MEDS: SODIUM CHLORIDE 0.9% FLUSH 10 ML FLUSH IV FLUSH SCH (10:19)
[2017-04-02] MEDS: PANTOPRAZOLE SODIUM 40 MG VIAL IV SCH (10:19)
--- NOTE | 2017-04-02 10:48 | HHI.PR ---
Subjective Remarks in no acute distress. no further diarrhea. no fever. abdominal pain is fairly better. d/w the RN. Objective Vitals Vital Signs Date Time Temp Pulse Resp B/P Pulse Ox O2 Delivery O2 Flow Rate FiO2 04/02/17 08:04 97 Nasal Cannula 2.00 04/02/17 06:03 12 04/02/17 05:39 16 04/02/17 04:00 98.4 86 26 174/109 96 04/02/17 01:09 98.3 86 18 149/102 97 04/01/17 23:00 88 04/01/17 22:30 80 17 134/86 93 04/01/17 22:00 106 40 164/95 88 04/01/17 21:30 98 31 163/89 93 04/01/17 21:00 86 12 131/81 88 04/01/17 20:57 77 04/01/17 20:00 98.4 86 20 136/87 93 04/01/17 19:38 98 Nasal Cannula 2.00 04/01/17 15:30 98.5 84 21 152/89 95 04/01/17 13:02 97.9 86 20 140/76 96 04/01/17 12:00 84 I/O 04/01/17 04/01/17 04/01/17 04/02/17 04/02/17 04/02/17 07:00 15:00 23:00 07:00 15:00 23:00 Intake Total 824 ml 2656 ml 952 ml 1451 ml Output Total 400 ml 750 ml Balance 424 ml 1906 ml 952 ml 1451 ml Intake Oral 1550 ml 360 ml 650 ml IV Total 824 ml 1106 ml 592 ml 801 ml Output Urine Total 400 ml 750 ml # Voids 2 4 # Bowel Movements 0 0 Result Diagram: 04/01/17 0419 04/02/17 0400 Imaging Last Impressions Chest X-Ray 03/30/17 1341 Signed Impressions: Service Date/Time: March 14:11 - CONCLUSION: 1. No acute cardiopulmonary disease. Mandeep Wadsworth MD Abdomen/Pelvis CT 03/30/17 1341 Signed Impressions: Service Date/Time: March 16:39 - CONCLUSION: 1. Postsurgical changes and surgical clips in the mid mesentery and findings of prior bowel surgery left para midline. 2. No traction. Terminal ileum is decompressed but there are no perienteric or pericolonic inflammatory changes to suggest an active enteritis. 3. Patchy airspace disease medially in the left base. This is rather linear and may represent atelectasis although an early infiltrate cannot be excluded. Jerman Herron MD Objective Remarks GENERAL: This is a well-nourished, well-developed patient, in no apparent distress. CARDIOVASCULAR: Regular rate and regular rhythm without murmurs, gallops, or rubs. RESPIRATORY: occasional cough- diminished air entry in bases. mild bilateral wheezing. GASTROINTESTINAL: Abdomen soft, non-tender, nondistended. Normal, active bowel sounds MUSCULOSKELETAL: Extremities without clubbing, cyanosis, or edema. NEURO: Alert & Oriented x4 to person, place, time, situation. Moves all ext x4 Procedures none Medications and IVs Current Medications Sodium Chloride (NS 1000 ml Inj) 1,000 ml @ 100 mls/hr Q10H IV Last administered on 03/30/17 14:05; Start 03/30/17 at 14:00; Stop 03/30/17 at 18:54; Status DC Ondansetron HCl (Zofran Inj) 4 mg ONCE ONCE IV PUSH Last administered on 14:06; Start 03/30/17 at 14:00; Stop 03/30/17 at 14:01; Status DC Hydromorphone HCl 1 mg 1 mg ONCE ONCE IV PUSH Last administered on 03/30/17 14 :05; Start 03/30/17 at 14:00; Stop 03/30/17 at 14:01; Status DC Potassium Chloride 100 ml @ 50 mls/hr BOLUS STAT IV Last administered on 15:20; Start 03/30/17 at 14:44; Stop 03/30/17 at 16:43; Status DC Calcium Gluconate 1 gm/Dextrose 110 ml @ 110 mls/hr ONCE ONCE IV Last administered on 03/30/17 18:00; Start 03/30/17 at 14:45; Stop 03/30/17 at 15:44; Status DC Magnesium Sulfate/ Dextrose (Magnesium Sulfate 1 Gm Premix) 100 ml @ 100 mls/ hr ONCE ONCE IV Last administered on 03/30/17 15:21; Start 03/30/17 at 15:00; Stop 03/31/17 at 10:34; Status DC Hydromorphone HCl (Dilaudid Pf Inj) 1 mg ONCE ONCE IV PUSH Last administered on 03/30/17 15:26; Start 03/30/17 at 15:00; Stop 03/30/17 at 15:01; Status DC Sodium Chloride (NS Flush) 2 ml UNSCH PRN IV FLUSH FLUSH AFTER USING IV ACCESS ; Start 03/30/17 at 15:30 Sodium Chloride (NS Flush) 2 ml BID IV FLUSH Last administered on 04/02/17 10: 19; Start 03/30/17 at 21:00 Acetaminophen (Tylenol) 650 mg Q6H PRN PO HEADACHE AND/OR FEVER >101F; Start at 15:30 Acetaminophen/ Hydrocodone Bitart ([place] 5-325 Mg) 1 tab Q4H PRN PO PAIN SCALE 1 TO 5 Last administered on 04/01/17 16:51; Start 03/30/17 at 15:30 Pantoprazole Sodium (Protonix Inj) 40 mg DAILY IV Last administered on 10:19; Start 03/30/17 at 16:00 Ondansetron HCl (Zofran Inj) 4 mg Q6H PRN IV NAUSEA OR VOMITING; Start 03/30/17 at 15:30 Metoclopramide HCl (Reglan Inj) 10 mg Q6H PRN IV NAUSEA OR VOMITING; Start 03/30 at 15:30 Albuterol/ Ipratropium (Duoneb Neb) 1 ampule Q2HR NEB PRN INH WHEEZING Last administered on 04/02/17 08:03; Start 03/30/17 at 15:30 Enoxaparin Sodium (Lovenox Inj) 40 mg Q24H SQ Last administered on 04/01/17 16: 50; Start 03/30/17 at 16:00 Miscellaneous Information 1 [id number] XX Last administered on 03/30/17 08:00; Start 03/30/17 at 15:30 Chlorhexidine Gluconate (Chlorhexidine 2% Cloth) 3 pack Taper DAILY@04 TOP Last administered on 04/02/17 04:00; Start 03/31/17 at 04:00; Stop 03/27/18 at 03 :59 Chlorhexidine Gluconate (Chlorhexidine 2% Cloth) 3 pack UNSCH PRN TOP HYGIENIC CARE; Start 03/30/17 at 15:30 Calcium Carbonate 1000 mg 1,000 mg BID PO Last administered on 04/01/17 21:00; Start 03/30/17 at 21:00 Magnesium Sulfate/ Dextrose 100 ml @ 100 mls/hr Q1H IV ; Start 03/30/17 at 16:00 ; Stop 03/30/17 at 17:59; Status DC Calcium Chloride 5 gm/Sodium Chloride 1,050 ml @ 250 mls/hr Q4H12M IV Last administered on 03/30/17 17:45; Start 03/30/17 at 17:00; Stop 03/31/17 at 06:26; Status DC Potassium Chloride 100 ml @ 50 mls/hr Q2H PRN IV For Potassium 2.8 - 3.2 mEq/ L Last administered on 03/31/17 00:30; Start 03/30/17 at 16:00; Stop 03/31/17 at 10:34; Status DC Potassium Chloride (KCl 20 Meq Premix Inj) 100 ml @ 50 mls/hr Q2H PRN IV For Potassium 2.8 - 3.2 mEq/L; Start 03/30/17 at 16:00; Stop 03/31/17 at 10:34; Status DC Potassium Bicarb/ Potassium Chloride 50 meq 50 meq UNSCH PRN PO For Potassium 3.3 - 3.5 mEq/L; Start 03/30/17 at 16:00; Stop 03/31/17 at 10:34; Status DC Potassium Chloride 100 ml @ 25 mls/hr UNSCH PRN IV For Potassium 3.3 - 3.5 mEq /L; Start 03/30/17 at 16:00; Stop 03/31/17 at 10:34; Status DC Potassium Chloride 100 ml @ 50 mls/hr Q2H PRN IV For Potassium 3.3 - 3.5 mEq/L ; Start 03/30/17 at 16:00; Stop 03/31/17 at 10:35; Status DC Magnesium Sulfate/ Sodium Chloride (Magnesium Sulfate Inj/NS Inj) 100 ml @ 50 mls/hr UNSCH PRN IV For Magnesium 0.9 - 1.1 mg/dL; Start 03/30/17 at 16:00; Stop 03/31/17 at 10:35; Status DC Magnesium Oxide 800 mg 800 mg UNSCH PRN PO For Magnesium 1.2 - 1.6 mg/dL; Start 03/30/17 at 16:00; Stop 03/31/17 at 10:35; Status DC Magnesium Sulfate/ Sodium Chloride (Magnesium Sulfate Inj/NS Inj) 100 ml @ 50 mls/hr UNSCH PRN IV For Magnesium 1.2 - 1.6 mg/dL Last administered on 23:12; Start 03/30/17 at 16:00; Stop 03/31/17 at 10:35; Status DC Potassium Phosphate 2000 mg 2,000 mg Q4H PRN PO For Phosphorus < 2.5 mg/dL; Start 03/30/17 at 16:00; Stop 03/31/17 at 10:35; Status DC Sodium Phosphate/ Sodium Chloride (Sodium Phosphate Inj/NS 250 ml Inj) 250 ml @ 42 mls/hr UNSCH PRN IV For Phosphorus < 2.5 mg/dL; Start 03/30/17 at 16:00 Potassium Phosphate 2000 mg 2,000 mg UNSCH PRN PO/TUBE SEE LABEL COMMENTS; Start 03/30/17 at 16:00; Stop 03/31/17 at 10:35; Status DC Potassium Phosphate 30 mmol/ Sodium Chloride 260 ml @ 42 mls/hr UNSCH PRN IV SEE LABEL COMMENTS; Start 03/30/17 at 16:00; Stop 03/31/17 at 10:35; Status DC Calcium Chloride/ Dextrose (Calcium Chloride Inj/D5W 100 ml Inj) 120 ml @ 120 mls/hr STAT ONCE IV Last administered on 03/30/17 17:46; Start 03/30/17 at 17: 15; Stop 03/30/17 at 18:14; Status DC Iohexol (Omnipaque 350 Inj) 70 ml STK-MED ONCE IV ; Start 03/30/17 at 17:13; Stop 03/30/17 at 17:14; Status DC Mesalamine (Asacol Hd Dr) 1,600 mg Q8HR PO Last administered on 04/02/17 05:33 ; Start 03/30/17 at 22:00 Hydromorphone HCl (Dilaudid Pf Inj) 1 mg Q3H PRN IV BREAKTHROUGH PAIN Last administered on 04/02/17 05:33; Start 03/30/17 at 20:45 Clonidine (Catapres) 0.1 mg Q6H PRN PO SBP > 180, DBP > 100 Last administered on 04/02/17 04:39; Start 03/30/17 at 20:45 Metoprolol Tartrate 50 mg 50 mg BID PO Last administered on 03/30/17 22:00; Start 03/31/17 at 21:20; Stop 03/31/17 at 21:20; Status DC Sodium Chloride 1,000 ml @ 125 mls/hr Q8H IV Last administered on 04/02/17 06: 26; Start 03/31/17 at 06:30 Magnesium Sulfate/ Dextrose (Magnesium Sulfate 1 Gm Premix) 100 ml @ 100 mls/ hr ONCE ONCE IV Last administered on 03/31/17 08:04; Start 03/31/17 at 06:45; Stop 03/31/17 at 10:35; Status DC Metoprolol Tartrate (Lopressor) 50 mg BID PO Last administered on 04/02/17 10: 18; Start 03/31/17 at 09:00 Potassium Chloride 40 meq 40 meq ONCE ONCE PO Last administered on 04/01/17 06 :04; Start 04/01/17 at 06:00; Stop 04/01/17 at 06:01; Status DC Magnesium Sulfate/ Dextrose (Magnesium Sulfate 1 Gm Premix) 100 ml @ 100 mls/ hr ONCE ONCE IV Last administered on 04/01/17 06:05; Start 04/01/17 at 06:00; Stop 04/01/17 at 06:59; Status DC Potassium Chloride (KCl) 30 meq ONCE ONCE PO Last administered on 04/01/17 11: 24; Start 04/01/17 at 10:00; Stop 04/01/17 at 10:13; Status DC Potassium Chloride (KCl) 30 meq ONCE ONCE PO Last administered on 04/01/17 16: 51; Start 04/01/17 at 14:00; Stop 04/01/17 at 14:01; Status DC Acetaminophen/ Hydrocodone Bitart ([place] 5-325 Mg) 2 tab Q4H PRN PO PAIN 6-10 Last administered on 04/02/17 10:17; Start 04/01/17 at 11:00 Benzonatate 200 mg 200 mg Q8H PRN PO COUGH Last administered on 04/02/17 04:43 ; Start 04/01/17 at 16:30 Magnesium Sulfate/ Dextrose (Magnesium Sulfate 1 Gm Premix) 100 ml @ 100 mls/ hr Q1H IV Last administered on 04/02/17 10:16; Start 04/02/17 at 06:45; Stop 04/02/17 at 08:44; Status DC A/P Assessment and Plan A/P - Abdominal pain secondary to Crohn's disease with short-bowel syndrome started on Asacol- continue with supportive care and pain control- GI consult appreciated. f/u with GI as outpatient. Hypocalcemia on presentation - now with hypercalcemia- this has resolved resume calcium supplements- Hypokalemia-replaced. Hypomagnesemia-replaced. COPD with mild exacerbation ; on neb treatment- keep on oxygen as needed to keep O2 sat >90% walk test today. hypertension; resumed metoprolol- will monitor and adjust the regimen as needed. Peripheral neuropathy secondary to B-12 deficiency- DVT prophylaxis with lovenox consulted PT for transfer to telemetry. Discharge Planning dc home - likely later today if BP is better. see med list. f/u; pcp and GI. d/w the patient and RN. time spent 31 min. Alanis Estrada MD Apr 02, 2017 10:48
[2017-04-02] MEDS ORDERED: MESA1TAB2 PO (10:51)
[2017-04-02] MEDS ORDERED: MAGN400C2 PO (10:51)
[2017-04-02] MEDS ORDERED: POTA-163 PO (10:51)
--- NOTE | 2017-04-02 10:52 | HHI.DS ---
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 Patient presented to the ER today with worsening abdominal pain going on for about 5 days along with his past symptoms and tingling over her face and extremities which has been going on for 5 days as well. 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 She was noted to be hypocalcemic and hypomagnesemia as well as hypokalemic in the ER. Patient states that she has tried to 18 bouts of diarrhea daily secondary to her Crohn's and short bowel syndrome. I was contacted by ER physician and accepted patient for admission. On my arrival patient had been sent to the [facility] for a CAT scan and evaluated her subsequently following her arrival at around 5:40 PM. Up to that point she had received potassium and magnesium IV piggyback however had not received any calcium gluconate. At the time of evaluation she denied any chest pain or shortness of breath. Denied any nausea or vomiting. Denied any hematemesis or melena. Denied any fever or chills. Patient has been on prednisone for Crohn's disease and has seen Dr. Tavera from GI regularly for her Crohn's disease. She stated that she takes Valium for spasms and baclofen at times however has stopped the baclofen for a few weeks. History PFSH Past Medical History Arthritis: Yes Asthma: No Autoimmune Disease: No Blood Disorders: No Anxiety: Yes Depression: No Heart Rhythm Problems: No Cancer: No Cardiac Catheterization: No Cardiovascular Problems: No High Cholesterol: Yes Chemotherapy: No Chest Pain: No Congestive Heart Failure: No COPD: Yes Cerebrovascular Accident: No Diabetes: No Diminished Hearing: No Gastrointestinal Disorders: Yes (Crohn's disease) GERD: Yes Genitourinary: No Headaches: No Hepatitis: No Hiatal Hernia: No Hypertension: Yes Implanted Vascular Access Dvce: Yes Kidney Stones: No Musculoskeletal: No Neurologic: No Psychiatric: No Reproductive: Yes (NOVASURE - uterine ablation) Respiratory: Yes Immunizations Current: Yes Migraines: No Myocardial Infarction: No Pancreatitis: Yes Radiation Therapy: No Renal Failure: No Seizures: No Sickle Cell Disease: No Sleep Apnea: No Ulcer: No Tetanus Vaccination: Unknown Influenza Vaccination: Yes ?: Not Menopausal: Yes Tubal Ligation: Yes Past Surgical History Abdominal Surgery: Yes (Bowel resection X's 3) Appendectomy: Yes (appendix removed during bowel resection surgery) Cardiac Surgery: No Cholecystectomy: No Coronary Artery Bypass Graft: No Ear Surgery: No Endocrine Surgery: No Eye Surgery: No Gynecologic Surgery: Yes (UTERINE WALL SURGERY, TUBAL LIGATION ) Oral Surgery: Yes (RIGHT FACIAL RECONSTRUCTION) Thoracic Surgery: No Other Surgery: Yes (Port placement MELENOMA FACE) Family History Family Myocardial Infarction: Yes (father) Social History Alcohol Use: Yes (2 DAILY) Tobacco Use: Yes (3 cigarettes daily) Substance Use: No Allergies-Medications Allergies-Medications (Allergen,Severity, Reaction): Coded Allergies: Sulfa (Verified Allergy, Severe, "Shock", nausea, rash, 03/30/17) Uncoded Allergies: HUMIRA (Allergy, Unknown, SKIN LESIONS, 03/30/17) Reported Meds & Prescriptions Reported Meds & Active Scripts Active Reported Albuterol Neb (Albuterol Sulfate) 2.5 Mg/0.5 Ml Neb 2.5 Mg NEB Q4HR NEB PRN Note: The Albuterol Sulfate Inhalation Solution is concentrated and must be diluted. Read complete instructions carefully before using. Spiriva Handihaler (Tiotropium Inh) 18 Mcg Cap 18 Mcg INH DAILY 1 capsule = 18 mcg Ventolin Hfa 18 GM Inh (Albuterol Sulfate) 90 Mcg/Act Aer 2 Puff INH Q4-6H PRN Prednisone 10 Mg Tab 10 Mg PO TID Keflex (Cephalexin) 500 Mg Capsule 500 Mg PO DAILY Zofran (Ondansetron HCl) 4 Mg Tab 4 Mg PO Q6HR PRN Omeprazole 40 Mg Cap 40 Mg PO DAILY Metoprolol Tartrate 50 Mg Tab 50 Mg PO BID [Lorcet Hd] 1 Tab PO QID Diclofenac Sodium DR (Diclofenac Sodium) 75 Mg Tabdr 75 Mg PO BID Valium (Diazepam) 10 Mg Tab 10 Mg PO TID ROS Review of Systems General / Constitutional: No: Fever, Chills Eyes: No: Diploplia, Blurred Vision HENT: No: Headaches Cardiovascular: No: Chest Pain or Discomfort Respiratory: No: Cough Gastrointestinal: Positive: Diarrhea, Abdominal Pain Genitourinary: No: Urgency, Frequency Musculoskeletal: Positive: Myalgias, Cramping Skin: No Rash, No Itching Neurologic: Positive: Weakness Psychiatric: No: Anxiety, Depression Hematologic/Lymphatic: No: Easy Bruising CBC/BMP: 04/01/17 0419 04/02/17 0400 Significant Findings Laboratory Tests Test 03/30/17 03/30/17 03/31/17 03/31/17 13:30 20:50 04:30 12:40 Red Blood Count 3.06 MIL/MM3 3.10 MIL/MM3 (4.00-5.30) (4.00-5.30) Hemoglobin 11.2 GM/DL 11.1 GM/DL (11.6-15.3) (11.6-15.3) Hematocrit 33.5 % 33.7 % (35.0-46.0) (35.0-46.0) Mean Corpuscular Volume 109.6 FL 108.6 FL (80.0-100.0) (80.0-100.0) Mean Corpuscular Hemoglobin 36.8 PG 35.8 PG (27.0-34.0) (27.0-34.0) Platelet Count 140 TH/MM3 (150-450) Neutrophils (%) (Auto) 79.9 % 79.6 % (16.0-70.0) (16.0-70.0) Neutrophils # (Auto) 8.2 TH/MM3 (1.8-7.7) Activated Partial 42.5 SEC Thromboplast Time (24.3-30.1) Urine Protein 30 mg/dL (NEG-TRACE) Urine Leukocyte Esterase TRACE (NEG) Urine WBC 6-8 /hpf (0-5) Potassium Level 2.6 MEQ/L 2.6 MEQ/L 3.3 MEQ/L (3.5-5.1) (3.5-5.1) (3.5-5.1) Carbon Dioxide Level 33.1 MEQ/L 33.3 MEQ/L (21.0-32.0) (21.0-32.0) Blood Urea Nitrogen 3 MG/DL (7-18) 4 MG/DL (7-18) 4 MG/DL (7-18) 3 MG/DL (7-18) Calcium Level 6.3 MG/DL 12.0 MG/DL 12.3 MG/DL 10.5 MG/DL (8.5-10.1) (8.5-10.1) (8.5-10.1) (8.5-10.1) Protein Corrected Calcium 6.5 MG/DL 12.5 MG/DL (8.5-10.1) (8.5-10.1) Magnesium Level 0.8 MG/DL 1.3 MG/DL (1.5-2.5) (1.5-2.5) Total Bilirubin 1.2 MG/DL 1.9 MG/DL (0.2-1.0) (0.2-1.0) Albumin 2.9 GM/DL 2.6 GM/DL (3.4-5.0) (3.4-5.0) Lipase 63 U/L (73-393) Lymphocytes # (Auto) 0.7 TH/MM3 (1.0-4.8) Anion Gap 4 MEQ/L (5-15) Phosphorus Level 6.5 MG/DL (2.5-4.9) Aspartate Amino Transf 42 U/L (15-37) (AST/SGOT) Total Protein 6.3 GM/DL (6.4-8.2) Vitamin B12 Level GREATER THAN 2000 PG/ML (193-986) Test 04/01/17 04/02/17 04:19 04:00 White Blood Count 3.5 TH/MM3 (4.0-11.0) Red Blood Count 2.48 MIL/MM3 (4.00-5.30) Hemoglobin 9.1 GM/DL (11.6-15.3) Hematocrit 26.9 % (35.0-46.0) Mean Corpuscular Volume 108.5 FL (80.0-100.0) Mean Corpuscular Hemoglobin 36.6 PG (27.0-34.0) Platelet Count 135 TH/MM3 (150-450) Neutrophils (%) (Auto) 73.9 % (16.0-70.0) Eosinophils (%) (Auto) 4.3 % (0.0-4.0) Lymphocytes # (Auto) 0.5 TH/MM3 (1.0-4.8) Potassium Level 3.1 MEQ/L (3.5-5.1) Carbon Dioxide Level 33.2 MEQ/L (21.0-32.0) Anion Gap 4 MEQ/L (5-15) Blood Urea Nitrogen 1 MG/DL (7-18) 1 MG/DL (7-18) Calcium Level 8.3 MG/DL 7.8 MG/DL (8.5-10.1) (8.5-10.1) Magnesium Level 1.3 MG/DL 1.4 MG/DL (1.5-2.5) (1.5-2.5) Total Protein 5.4 GM/DL (6.4-8.2) Albumin 2.2 GM/DL (3.4-5.0) Chloride Level 109 MEQ/L (98-107) Imaging Last Impressions Chest X-Ray 03/30/171 Signed Impressions: Service Date/Time: March 14:11 - CONCLUSION: 1. No acute cardiopulmonary disease. Mandeep Wadsworth MD Abdomen/Pelvis CT 03/30/171340 Signed Impressions: Service Date/Time: March 16:39 - CONCLUSION: 1. Postsurgical changes and surgical clips in the mid mesentery and findings of prior bowel surgery left para midline. 2. No traction. Terminal ileum is decompressed but there are no perienteric or pericolonic inflammatory changes to suggest an active enteritis. 3. Patchy airspace disease medially in the left base. This is rather linear and may represent atelectasis although an early infiltrate cannot be excluded. Jerman Herron MD PE at Discharge GENERAL: This is a well-nourished, well-developed patient, in no apparent distress. CARDIOVASCULAR: Regular rate and regular rhythm without murmurs, gallops, or rubs. RESPIRATORY: occasional cough- diminished air entry in bases. GASTROINTESTINAL: Abdomen soft, non-tender, nondistended. Normal, active bowel sounds MUSCULOSKELETAL: Extremities without clubbing, cyanosis, or edema. NEURO: Alert & Oriented x4 to person, place, time, situation. Moves all ext x4 Hospital Course - Abdominal pain secondary to Crohn's disease with short-bowel syndrome started on Asacol- continue with supportive care and pain control- GI consult appreciated. f/u with GI as outpatient. Hypocalcemia on presentation - now with hypercalcemia- this has resolved resume calcium supplements- Hypokalemia-replaced. Hypomagnesemia-replaced. COPD with no exacerbation; on neb treatment- keep on oxygen as needed to keep O2 sat >90% hypertension; resumed metoprolol- will monitor and adjust the regimen as needed. Peripheral neuropathy secondary to B-12 deficiency- DVT prophylaxis with lovenox consulted PT Pt Condition on Discharge: Fair Discharge Disposition: Discharge Home Discharge Time: > 30 minutes Discharge Instructions DIET: Follow Instructions for: Heart Healthy Diet Activities you can perform: Regular-No Restrictions Follow up Referrals: Gastroenterology PCP Follow-up New Medications: Magnesium Oxide (Magnesium Oxide) 400 Mg Cap 400 MG PO BID low magnesium Days 3 Ref 0 TAB Potassium Chloride ER (Potassium Chloride ER) 20 Meq Tab 20 MEQ PO DAILY Electrolyte Replacement Days 5 Ref [address] (Mesalamine DR) 800 Mg Tab 1600 MG PO Q8HR colitis Days 14 Ref 0 TAB Continued Medications: Albuterol 18 GM Inh (Ventolin Hfa 18 GM Inh) 90 Mcg/Act Aer 2 PUFF INH Q4-6H PRN SHORTNESS OF BREATH #1 Ref 0 INHALER Albuterol Neb (Albuterol Neb) 2.5 Mg/0.5 Ml Neb 2.5 MG NEB Q4HR NEB Note: The Albuterol Sulfate Inhalation Solution is concentrated and must be diluted. Read complete instructions carefully before using. PRN SHORTNESS OF BREATH EA Cephalexin (Keflex) 500 Mg Capsule 500 MG PO DAILY Infection Ref 0 CAP Diazepam (Valium) 10 Mg Tab 10 MG PO TID Ref [address] Sodium [address] (Diclofenac Sodium DR) 75 Mg Tabdr 75 MG PO BID #60 Ref 0 TAB Hydrocodone-Acetaminophen (Lorcet Hd 10-325 mg) 1 Tab Tab 1 TAB PO QID Metoprolol Tartrate (Metoprolol Tartrate) 50 Mg Tab 50 MG PO BID #60 Ref 0 TAB Omeprazole (Omeprazole) 40 Mg Cap 40 MG PO DAILY #30 Ref 0 CAP Ondansetron (Zofran) 4 Mg Tab 4 MG PO Q6HR PRN NAUSEA OR VOMITING Ref 0 TAB Prednisone (Prednisone) 10 Mg Tab 10 MG PO TID Ref 0 TAB Tiotropium Inh (Spiriva Handihaler) 18 Mcg Cap 18 MCG INH DAILY 1 capsule = 18 mcg COPD #30 Ref 0 CAP Alanis Estrada MD Apr 02, 2017 10:52 Alanis Estrada MD Apr 02, 2017 10:52
--- NOTE | 2017-04-02 10:52 | HHI.DCPOC ---
Discharge Care Plan Diagnosis: (1) Short bowel syndrome (2) Hypomagnesemia (3) Hypocalcemia Your Health Problems Are: Irregular Bowel Function Goals to Promote Your Health * To prevent worsening of your condition and complications * To maintain your health at the optimal level Directions to Meet Your Goals Take your medications as prescribed Follow your dietary instruction Follow activity as directed Keep your appointments as scheduled Take your immunizations and boosters as scheduled If your symptoms worsen call your PCP, if no PCP go to Urgent Care Center or Emergency Room Smoking is Dangerous to Your Health. Avoid second hand smoke Call the 24-hour hour crisis hotline for domestic abuse at Alanis Estrada MD Apr 02, 2017 10:52
[2017-04-02 12:00] VITALS: BP 155/88; PULSE 99; RESP 22; TEMP 97.9; O2SAT 93
[2017-04-02] MEDS ORDERED: RESP: ALBUTEROL 2.5 MG/IPRATROPIUM 0.5 MG NEB (SCH) NEB (14:00)
[2017-04-02] MEDS ORDERED: HYDROmorphone HCL PF 1 MG/ML VIAL IV PRN (16:00)
== END 2017-04-02 16:30 | disposition home or self-care (01) | DRG 386 ==
LOC: PHED 12:33 → PHEDA 15:36 → PHICU 19:30
PROVIDERS: ADMIT Internal Medicine; ATTEND Internal Medicine
DX: K50.90 Crohn's disease, unspecified, without complications (principal); K91.2 Postsurgical malabsorption, not elsewhere classified; E53.8 Deficiency of other specified B group vitamins; E55.9 Vitamin D deficiency, unspecified; I10 Essential (primary) hypertension; E83.42 Hypomagnesemia; E83.51 Hypocalcemia; G62.9 Polyneuropathy, unspecified; J44.9 Chronic obstructive pulmonary disease, unspecified; K21.9 Gastro-esophageal reflux disease without esophagitis; F17.210 Nicotine dependence, cigarettes, uncomplicated; E87.6 Hypokalemia
CPT/HCPCS: 71010; 74177; 80048; 80053; 81001; 82306; 82607; 82652; 83690; 83735; 83970; 84100; 84155; 85025; 85610; 85730; 87205; 87328; 87329; 87506; 87641; 93005; 94620; 94640; 94664; 96361; 96365; 96375; 96376; C9113; J0610; J1170; J1650; J2405; J3475; J3480; J7030; Q9967

== ENCOUNTER 2017-06-20 07:51 | Emergency (ER) | payer OTHER, MEDICAID ==
[~2017-06-20] VITALS: Ht 167.6 cm; Wt 58.0 kg
[~2017-06-20 07:51] MED LIST changes: +ALBU.5I NEB; +CEPH-460 PO; +DIAZ10 PO; -DICL75 PO; +DICL75TA PO; +HYDR-3578 PO; -HYDR-4347 PO; +MAGN400C2 PO; +MESA1TAB2 PO; -METO25 PO; +METO50TA PO; -OMEP20TA39 PO; +OMEP40CA2 PO; -PERC5TAB12 PO; +POTA-163 PO; +PRED10 PO; +SPIRCAP INH; -VALI10TA PO; +VENTAER INH; +ZOFR4TAB PO; -ZOFR4TAB3 SL
[2017-06-20] MEDS ORDERED: IOHEXOL 350 MG/ML 10 ML VIAL (for RAD DIAG) IVCONTRAST ONE (07:52)
[2017-06-20 07:53] VITALS: BP 180/94; PULSE 87; RESP 18; TEMP 98; O2SAT 96
[2017-06-20] MEDS ORDERED: DIAZ10 PO (08:07)
[2017-06-20] MEDS ORDERED: ATOR10TA15 PO (08:10)
[2017-06-20] MEDS ORDERED: SODIUM CHLOR 0.9% 1000 ML INJ 1,000 ML IV SCH (08:15)
[2017-06-20] MEDS ORDERED: ONDANSETRON HCL 4 MG/2 ML VIAL IVP ONE (08:15)
[2017-06-20] MEDS ORDERED: HYDROmorphone HCL PF 1 MG/ML VIAL IVS ONE (08:15)
--- NOTE | 2017-06-20 08:20 | PD ---
HPI Chief Complaint: Abdominal Pain Time Seen by Provider: 08:08 Travel History International Travel<30 days: No Contact w/Intl Traveler<30days: No Traveled to known affect area: No History of Present Illness HPI 57yo F with PMH of Crohns disease (follows with GI Dr. Godoy), chronic pain on hydrocodone, short bowel syndrome s/p 3 bowel resections secondary to bowel obstruction here with c/o epigastric abdominal pain that radiates to the back. States she had pancreatitis before and feels similar. Pain started this morning associated with nausea and NBNB vomiting. States she took hydrocodone but vomited it out. Had nonbloody diarrhea this morning. Pt has chronic diarrhea. +Chills. Denies any fever, chest pain, sob, dysuria, hematuria. PFSH Past Medical History Arthritis: Yes Asthma: Yes Autoimmune Disease: No Blood Disorders: No Anxiety: Yes Depression: No Heart Rhythm Problems: No Cancer: No Cardiac Catheterization: No Cardiovascular Problems: No High Cholesterol: Yes Chemotherapy: No Chest Pain: No Congestive Heart Failure: No COPD: Yes Cerebrovascular Accident: No Diabetes: No Diminished Hearing: No Endocrine: No Gastrointestinal Disorders: Yes (Crohn's disease) GERD: No Genitourinary: No Headaches: No Hepatitis: No Hiatal Hernia: No Hypertension: Yes Immune Disorder: No Implanted Vascular Access Dvce: Yes Kidney Stones: No Musculoskeletal: No Neurologic: No Psychiatric: No Reproductive: No Respiratory: Yes (COPD) Immunizations Current: Yes Migraines: No Myocardial Infarction: No Pancreatitis: Yes Radiation Therapy: No Renal Failure: No Seizures: No Sickle Cell Disease: No Sleep Apnea: No Ulcer: No Menopausal: Yes Tubal Ligation: Yes Past Surgical History Abdominal Surgery: Yes (Bowel resection) AICD: No Appendectomy: Yes (appendix removed during bowel resection surgery) Arteriovenous Shunt: No Cardiac Surgery: No Cholecystectomy: No Coronary Artery Bypass Graft: No Ear Surgery: No Endocrine Surgery: No Eye Surgery: No Genitourinary Surgery: No Gynecologic Surgery: No Insulin Pump: No Joint Replacement: No Oral Surgery: No Pacemaker: No Thoracic Surgery: No Other Surgery: Yes (Port placement MELENOMA FACE) Social History Alcohol Use: Yes (2 DAILY) Tobacco Use: Yes (3 cigarettes daily) Substance Use: No Allergies-Medications (Allergen,Severity, Reaction): Coded Allergies: Sulfa (Sulfonamide Antibiotics) (Unverified Allergy, Severe, "Shock", nausea, rash, 06/20/17) Uncoded Allergies: HUMIRA (Allergy, Unknown, SKIN LESIONS, 03/30/17) Reported Meds & Prescriptions Reported Meds & Active Scripts Active Zofran Odt (Ondansetron Odt) 4 Mg Tab 4 Mg SL Q12HR PRN Magnesium Oxide 400 Mg Cap 400 Mg PO BID 3 Days Potassium Chloride ER (Potassium Chloride) 20 Meq Tab 20 Meq PO DAILY 5 Days Reported Atorvastatin (Atorvastatin Calcium) 10 Mg Tab 10 Mg PO HS Valium (Diazepam) 10 Mg Tab 10 Mg PO HS PRN Lorcet Hd 10-325 mg (Hydrocodone-Acetaminophen) 1 Tab Tab 1 Tab PO QID Albuterol Neb (Albuterol Sulfate) 2.5 Mg/0.5 Ml Neb 2.5 Mg NEB Q4HR NEB PRN Note: The Albuterol Sulfate Inhalation Solution is concentrated and must be diluted. Read complete instructions carefully before using. Spiriva Handihaler (Tiotropium Inh) 18 Mcg Cap 18 Mcg INH DAILY 1 capsule = 18 mcg Ventolin Hfa 18 GM Inh (Albuterol Sulfate) 90 Mcg/Act Aer 2 Puff INH Q4-6H PRN Prednisone 10 Mg Tab 10 Mg PO TID Omeprazole 40 Mg Cap 40 Mg PO DAILY Metoprolol Tartrate 50 Mg Tab 50 Mg PO BID Review of Systems Except as stated in HPI: all other systems reviewed are Neg Physical Exam Narrative GENERAL: 57yo F in moderate distress. SKIN: Focused skin assessment warm/dry. HEAD: Atraumatic. Normocephalic. CARDIOVASCULAR: Regular rate and rhythm. No murmur appreciated. RESPIRATORY: No accessory muscle use. Clear to auscultation. Breath sounds equal bilaterally. GASTROINTESTINAL: Abdomen soft, Diffuse ttp. No rebound tenderness. Nondistended. MUSCULOSKELETAL: No obvious deformities. No clubbing. No cyanosis. No edema. NEUROLOGICAL: Awake and alert. No obvious cranial nerve deficits. Motor grossly within normal limits. Normal speech. PSYCHIATRIC: Appropriate mood and affect; insight and judgment normal. Data Data Last Documented VS Vital Signs Date Time Temp Pulse Resp B/P (MAP) Pulse Ox O2 Delivery O2 Flow Rate FiO2 06/20/17 08:58 20 06/20/17 08:38 83 163/98 (119) Room Air 06/20/17 08:22 99 06/20/17 07:53 98.0 Orders Orders Complete Blood Count With Diff (06/20/17 08:15) Comprehensive Metabolic Panel (06/20/17 08:15) Lipase (06/20/17 08:15) Prothrombin Time / Inr (Pt) (06/20/17 08:15) Act Partial Throm Time (Ptt) (06/20/17 08:15) Urinalysis - C+S If Indicated (06/20/17 08:15) Ct Abd/Pel W Iv Contrast(Rout) (06/20/17 08:15) Iv Access Insert/Monitor (06/20/17 08:15) Ecg Monitoring (06/20/17 08:15) Oximetry (06/20/17 08:15) Ondansetron Inj (Zofran Inj) (06/20/17 08:15) Sodium Chlor 0.9% 1000 Ml Inj (Ns 1000 M (06/20/17 08:15) Sodium Chloride 0.9% Flush (Ns Flush) (06/20/17 08:15) Hydromorphone Pf Inj (Dilaudid Pf Inj) (06/20/17 08:15) Magnesium (Mg) (06/20/17 08:20) Magnesium Sulfate 1 Gm Premix (Magnesium (06/20/17 09:30) Hydromorphone Pf Inj (Dilaudid Pf Inj) (06/20/17 09:45) Iohexol 350 Inj (Omnipaque 350 Inj) (06/20/17 07:52) Labs Laboratory Tests Test 06/20/17 08:33 06/20/17 09:18 White Blood Count 5.8 TH/MM3 Red Blood Count 3.69 MIL/MM3 Hemoglobin 13.4 GM/DL Hematocrit 38.9 % Mean Corpuscular Volume 105.2 FL Mean Corpuscular Hemoglobin 36.3 PG Mean Corpuscular Hemoglobin Concent 34.5 % Red Cell Distribution Width 15.9 % Platelet Count 151 TH/MM3 Mean Platelet Volume 7.7 FL Neutrophils (%) (Auto) 76.7 % Lymphocytes (%) (Auto) 17.2 % Monocytes (%) (Auto) 4.6 % Eosinophils (%) (Auto) 0.9 % Basophils (%) (Auto) 0.6 % Neutrophils # (Auto) 4.4 TH/MM3 Lymphocytes # (Auto) 1.0 TH/MM3 Monocytes # (Auto) 0.3 TH/MM3 Eosinophils # (Auto) 0.1 TH/MM3 Basophils # (Auto) 0.0 TH/MM3 CBC Comment DIFF FINAL Differential Comment Prothrombin Time 11.7 SEC Prothromb Time International Ratio 1.1 RATIO Activated Partial Thromboplast Time 41.7 SEC Blood Urea Nitrogen 13 MG/DL Creatinine 0.64 MG/DL Random Glucose 105 MG/DL Total Protein 6.5 GM/DL Albumin 3.2 GM/DL Calcium Level 7.6 MG/DL Alkaline Phosphatase 118 U/L Aspartate Amino Transf (AST/SGOT) 72 U/L Alanine Aminotransferase (ALT/SGPT) 28 U/L Total Bilirubin 0.5 MG/DL Sodium Level 138 MEQ/L Potassium Level 3.6 MEQ/L Chloride Level 104 MEQ/L Carbon Dioxide Level 22.6 MEQ/L Anion Gap 11 MEQ/L Estimat Glomerular Filtration Rate 95 ML/MIN Magnesium Level 1.2 MG/DL Lipase 200 U/L Urine Color YELLOW Urine Turbidity CLEAR Urine pH 5.5 Urine Specific [place] 1.021 Urine Protein TRACE mg/dL Urine Glucose (UA) NEG mg/dL Urine Ketones 10 mg/dL Urine Occult Blood NEG Urine Nitrite NEG Urine Bilirubin NEG Urine Urobilinogen LESS THAN 2.0 MG/DL Urine Leukocyte Esterase NEG Urine RBC LESS THAN 1 /hpf Urine WBC 1 /hpf Urine Squamous Epithelial Cells 1 /hpf Urine Bacteria RARE /hpf Urine Hyaline Casts 27 /lpf Urine Mucus FEW /lpf Microscopic Urinalysis Comment CULT NOT INDICATED MDM Medical Decision Making Medical Screen Exam Complete: Yes Emergency Medical Condition: Yes Differential Diagnosis Acute pancreatitis vs. partial obstruction vs. electrolyte abnormality Narrative Course 57yo F with crohns disease and chronic pain here with abdominal pain and nausea. Labs reviewed, no leukocytosis. Lipase normal. Magnesium low at 1.2, replaced with magnesium sulfate. UA showed trace ketones. WBC 1. Culture not indicated. CTa/p showed bowel wall thickening involving the large bowel entirely as well as the distal small bowel. Cholelithiasis and hepatic steatosis. Stable dilatation of common bile duct. No adjacent inflammatory changes seen. Pt states she has had the wall thickening before and it is not new. Pt given IV dilaudid and pain has resolved. Attempted to call Dr. Godoy but he is not waterfront director. Pt states she will follow up with Dr. Godoy as an outpatient and has phenergan for nausea. Nausea has resolved. Tolerating PO. Return precautions given. Diagnosis Primary Impression: Abdominal pain Qualified Codes: R10.13 - Epigastric pain Patient Instructions: General Instructions Departure Forms: Tests/Procedures Additional Instructions: Please follow up with Dr. Godoy as soon as possible. Return to the ED if symptoms worsen. Med/Other Pt SpecificInfo: Prescription(s) given Scripts Ondansetron Odt (Zofran Odt) 4 Mg Tab 4 MG SL Q12HR Y for Nausea/Vomiting, #10 TAB 0 Refills Prov: Jania Hicks DO 06/20/17 Disposition: 01 DISCHARGE HOME Condition: Stable Jania Hicks DO Jun 20, 2017 08:20
[2017-06-20 08:22] VITALS: BP 174/111; PULSE 97; RESP 24; O2SAT 99
[2017-06-20 08:38] VITALS: BP 163/98; PULSE 83; RESP 20
[2017-06-20] MEDS: SODIUM CHLORIDE 0.9% FLUSH 10 ML FLUSH IV FLUSH PRN ×2 (08:38→10:12)
[2017-06-20 08:51] LABS: AUTOMATED NEUTROPHIL # 4.4 TH/MM3 (1.8-7.7); BASOPHIL % 0.6 % (0.0-2.0); EOSINOPHIL # 0.1 TH/MM3 (0-0.4); EOSINOPHIL % 0.9 % (0.0-4.0); HEMATOCRIT 38.9 % (35.0-46.0); HEMO FLAGS DIFF FINAL; LYMPH % 17.2 % (9.0-44.0); MEAN CELL VOLUME 105.2 FL (80.0-100.0); MEAN CORPUSCULAR HEMOGLOBIN 36.3 PG (27.0-34.0); MEAN CORPUSCULAR HGB CONC 34.5 % (32.0-36.0); MONO % 4.6 % (0.0-8.0); NEUT % 76.7 % (16.0-70.0); PLATELET COUNT 151 TH/MM3 (150-450); RED BLOOD COUNT 3.69 MIL/MM3 (4.00-5.30); RED CELL DISTRIBUTION WIDTH 15.9 % (11.6-17.2); WHITE BLOOD COUNT 5.8 TH/MM3 (4.0-11.0)
[2017-06-20 09:02] LABS: APTT (PATIENT) 41.7 SEC (24.3-30.1); INTERNATIONAL NORMALIZED RATIO 1.1 RATIO; PROTHROMBIN TIME - PATIENT 11.7 SEC (9.8-11.6)
[2017-06-20 09:09] LABS: ALKALINE PHOSPHATASE 118 U/L (45-117); TOTAL BILIRUBIN ADULT 0.5 MG/DL (0.2-1.0)
[2017-06-20 09:12] LABS: ALT (GPT) 28 U/L (10-53); ANION GAP 11 MEQ/L (5-15); AST (GOT) 72 U/L (15-37); BICARBONATE 22.6 MEQ/L (21.0-32.0); BLOOD UREA NITROGEN 13 MG/DL (7-18); CHLORIDE 104 MEQ/L (98-107); GLOMERULAR FILTRATION RATE 95 ML/MIN (>89); POTASSIUM 3.6 MEQ/L (3.5-5.1); SODIUM (NA) 138 MEQ/L (136-145)
[2017-06-20] MEDS ORDERED: MAGNESIUM SULFATE 1 GM PREMIX 100 ML IV ONE (09:30)
[2017-06-20 09:40] LABS: BACTERIA, URINE RARE /hpf; BLOOD, URINE NEG (NEG); COMMENT (UR) CULT NOT INDICATED; CULTURE IF INDICATED CULT NOT INDICATED; GLUCOSE,URINE NEG (NEG); HYALINE CAST, URINE 27 /lpf (RARE); KETONE, URINE 10 mg/dL (NEG); MUCUS URINE FEW /lpf (OCC); NITRITE,URINE NEG (NEG); PH, URINE 5.5 (5.0-8.5); SQUAMOUS EPITHELIAL CELL URINE 1 /hpf (0-5); URINE COLOR YELLOW (YELLW/STRAW)
[2017-06-20] MEDS ORDERED: HYDROmorphone HCL PF 1 MG/ML VIAL IV PUSH ONE (09:45)
--- NOTE | 2017-06-20 10:02 | RADRPT ---
EXAM DATE/TIME: 06/20/2017 09:33 [facility] COMPARISON: CT ABDOMEN & PELVIS W CONTRAST, March 30, 2017, 16:39. INDICATIONS : Generalized abdominal pain. History of Crohns disease with 3 small bowel obstructions. IV CONTRAST: 95 cc Omnipaque 350 (iohexol) IV ORAL CONTRAST: No oral contrast ingested. RADIATION DOSE: 9.96 CTDIvol (mGy) MEDICAL HISTORY : Crohn's disease. Hypertension. Pancreatitis. SURGICAL HISTORY : Appendectomy. Colon resection. ENCOUNTER: Initial ACUITY: 1 day PAIN SCALE: 5/10 LOCATION: Bilateral abdomen TECHNIQUE: Volumetric scanning of the abdomen and pelvis was performed. Using automated exposure control and ad justment of the mA and/or kV according to patient size, radiation dose was kept as low as reasonably achievable to obtain optimal diagnostic quality images. DICOM format image data is available electro nically for review and comparison. FINDINGS: No pleural or pericardial effusions. The density of the liver is decreased consistent with hepatic st eatosis. Cholelithiasis is identified with numerous gallstones in the dependent portion of the gallbl adder. The kidneys, spleen, pancreas, adrenal glands are unremarkable. Urinary bladder is normal. The patient is status post appendectomy. The uterus, bilateral ovaries are normal in appearance. There i s mild circumferential bowel wall thickening involving the large bowel from the rectum to the ascendi ng colon. There are no adjacent inflammatory changes seen. There is thickening of the distal ileum. T here is an anastomotic staple line involving jejunal loops in the left upper quadrant with adjacent s urgical clips. Lung bases are clear. Osseous structures demonstrate degenerative changes of the spine . There is mild dilatation of the common bile duct identified and this is stable up to 11.4 mm. CONCLUSION: Bowel wall thickening involving the large bowel entirely as well as the distal small bowel. Cholelith iasis and hepatic steatosis. Stable dilatation of the common bile duct. José Tamez MD on June 20, 2017 at 9:58 Board Certified Radiologist. This report was verified electronically.
[2017-06-20] MEDS ORDERED: ZOFR4TAB3 SL (10:57)
[2017-06-20 11:19] VITALS: BP 140/92; PULSE 87; RESP 16; O2SAT 96
== END 2017-06-20 11:52 | disposition home or self-care (01) ==
LOC: NEPC 07:51
DX: R10.13 Epigastric pain (principal); K50.90 Crohn's disease, unspecified, without complications; J45.909 Unspecified asthma, uncomplicated; I10 Essential (primary) hypertension; E78.00 Pure hypercholesterolemia, unspecified; F17.210 Nicotine dependence, cigarettes, uncomplicated
CPT/HCPCS: 74177; 80053; 81001; 83690; 83735; 85025; 85610; 85730; 96361; 96374; 96375; 99285; J1170; J1642; J2405; J3475; J7030; Q9967

== ENCOUNTER 2018-04-20 22:04 | Inpatient (IN) ==
[2018-04-28] MEDS ORDERED: oxyCODONE/Acetaminophen 10/325 Tablet ONE (23:38)
[2018-04-29] MEDS ORDERED: Heparin Central Flush 100 UNIT/ML 5 ML Vial IV.FLUSH SCH (00:01)
[2018-04-29] MEDS ORDERED: Phenol 1.4% 180 ML Spray Bottle OROPHARYNG PRN (00:01)
[2018-04-29] MEDS ORDERED: Chlorhexidine Gluconate 2% 1 Pack (2 Cloths) TOPICAL PRN (00:01)
[2018-04-29] MEDS ORDERED: Bisacodyl 10 MG Supp RECTAL PRN (00:01)
[2018-04-29] MEDS ORDERED: Metoprolol Tartrate 25 MG Tablet PO PRN (00:01)
[2018-04-29] MEDS ORDERED: Acetaminophen 325 MG Tablet PO PRN (00:01)
[2018-04-29] MEDS ORDERED: Sodium Chlor 0.9% Inj 500 ML IV.SIG PRN (01:00)
[2018-04-29] MEDS: Morphine Inj 4 MG/ML Vial IV.PUSH PRN ×5 (02:37→22:17)
[2018-04-29] MEDS: oxyCODONE/Acetaminophen 10/325 Tablet PO PRN ×3 (05:59→20:28)
[2018-04-29 08:18] LABS: Hematocrit 30.4 % (35.0-46.0); Hemoglobin 10.5 gm/dL (11.6-15.3); Mean Corpuscular HGB Conc 34.7 % (32.0-36.0); Mean Corpuscular Hemoglobin 37.6 pg (27.0-34.0); Mean Corpuscular Volume 108.4 fL (80.0-100.0); Platelet Count 230 th/mm3 (150-450)
[2018-04-29 08:40] LABS: Anion Gap 12 meq/L (5-15); Blood Urea Nitrogen 9 mg/dL (7-18); Calcium 8.4 mg/dL (8.5-10.1); Carbon Dioxide 27.3 meq/L (21.0-32.0); Chloride 108 meq/L (98-107); Glomerular Filtration Rate Greater Than 89 mL/min (>89); Glucose,Random 74 mg/dL (74-106); Potassium 3.4 meq/L (3.5-5.1); Sodium 147 meq/L (136-145)
[2018-04-29] MEDS: predniSONE 5 MG Tablet PO SCH (11:50)
[2018-04-29] MEDS: amLODIPine 10 MG Tablet PO SCH (11:50)
[2018-04-29] MEDS: Metoprolol Tartrate 50 MG Tablet PO SCH ×2 (11:51→20:27)
[2018-04-29] MEDS: Senna/Docusate Sodium 8.6/50 MG Tablet PO SCH ×2 (11:52→20:30)
[2018-04-29] MEDS: SODIUM CHLOR 0.9% IV.SIG SCH ×2 (12:03→23:00)
[2018-04-29] MEDS: VORICONAZOLE IV.SIG SCH ×2 (12:03→23:00)
--- NOTE | 2018-04-29 13:39 | P.PN ---
Subjective Interval history: Mrs. Sin was afebrile with stable vital signs overnight. Patient reports that she has continued pain which is predominately in her abdomen; she reports that her pain is controlled as an outpatient by her Hvac Mechanic. No recent vomiting or diarrhea; improving. Patient states that she feels improved relative to when she was first hospitalized; she no longer feels as if she has the "flu." Patient states that it is difficult for her to eat and she is concerned she would not absorb oral antifungal medications. Patient ambulating well. No respiratory, bowel, or urinary concerns Physical Exam Vital signs: Vital Signs 04/29/18 00:00 04/29/18 04:00 04/29/18 08:00 Temperature 97.4 F L 97.8 F 98.3 F Pulse Rate 72 65 62 Respiratory Rate 16 16 18 Blood Pressure 108/76 103/75 105/68 Pulse Oximetry 97 96 94 L 04/29/18 12:00 Temperature 98.3 F Pulse Rate Respiratory Rate 18 Blood Pressure 104/63 Pulse Oximetry Intake & Output 04/28/18 04/29/18 04/29/18 18:59 06:59 18:59 Intake Total 461 / 461 Balance 461 / 461 Weight 54.5 kg 54.1 kg Intake: Oral 461 / 461 Other: # Voids 4 Narrative: GENERAL: no apparent distress, resting in bed Skin: R IJ. No visible lesions CARDIOVASCULAR: Normal rate and regular rhythm without murmurs. Normal peripheral perfusion RESPIRATORY: CTAB; normal rate GASTROINTESTINAL: Abdomen soft, non-tender, non-distended. Normal active bowel sounds MUSCULOSKELETAL: Extremities without edema. Grossly normal ROM and motor function NEURO: Alert & Oriented. Grossly normal cranial nerves. grossly normal peripheral sensory/motor function PSYCH: Appropriate mood and affect Results - Labs CBC & Chem 7: 04/29/18 07:25 04/29/18 07:25 Laboratory Results - last 24 hr 04/27/18 04/27/18 04/29/18 08:07 08:07 07:25 WBC 5.6 5.0 RBC 2.98 L 2.80 L Hgb 10.9 L 10.5 L Hct 32.4 L 30.4 L MCV 108.5 H 108.4 H MCH 36.6 H 37.6 H MCHC 33.7 34.7 RDW 13.2 13.0 Plt Count 241 230 MPV 8.0 8.0 Sodium 145 Potassium 3.5 Chloride 107 Carbon Dioxide 29.0 Anion Gap 9 BUN 7 Creatinine 0.71 Estimated GFR 84 L Random Glucose 72 L Calcium 8.5 04/29/18 07:25 WBC RBC Hgb Hct MCV MCH MCHC RDW Plt Count MPV Sodium 147 H Potassium 3.4 L Chloride 108 H Carbon Dioxide 27.3 Anion Gap 12 BUN 9 Creatinine 0.65 Estimated GFR Random Glucose 74 Calcium 8.4 L - Procedures 04/25- R IJ placed Assessment and Plan - Assessment (1) Fungemia Code(s): B49 - Unspecified mycosis Status: Acute (2) CD (Crohn's disease) Code(s): K50.90 - Crohn's disease, unspecified, without complications Status: Acute (3) Short bowel syndrome Code(s): K91.2 - Postsurgical malabsorption, not elsewhere classified Status: Acute (4) Vomiting Code(s): R11.10 - Vomiting, unspecified Status: Resolved - Plan Fungemia Impression: Patient with multiple blood cultures and port culture growing Imelda Guilliermondii until port removed 04/25; subsequent cultures negative. Immunosuppression from biologic agent (Entyvio) and intermittent Prednisone TTE and OZIEL- no vegetations -ID consulted -IV voriconazole -Monitor sensitivities, cultures Crohns disease/Short gut syndrome Impression: Currently on steroids and vedolizumab -Patient of advanced gastroenterology/Dr. Godoy -Continue home dose chronic pain medications -Continue to follow/support nutrition Nausea/vomiting/Abdominal pain Impression: resolved n/v. Abd pain near baseline. Barium swallow- small esophageal web. Minimal supraglottic larynx w/o tracheal aspiration. GERD, hiatal hernia. -GI consulted -Plan for EGD/colonoscopy as outpatient -Continue ARABELLA, PPI, PO Prednisone (5mg daily for COPD per EMR) Electrolyte abnormalities Impression: Patient with hypomagnesia, hypokalemia, hypocalcemia on admission -resolved with replacement; continue to monitor CV -Continue Metoprolol 50mg BID, Norvasc 10mg daily Anemia Hgb 12.9 04/20-> 10.5 today -Will monitor Hgb DVT PPX-SCD's -Discussed chemical PPX; will reconsider tomorrow Discharge Planning: Continue IV antifungal. Follow sensitivities and repeat blood cultures. Follow ID recommendations
[2018-04-30] MEDS: oxyCODONE/Acetaminophen 10/325 Tablet PO PRN ×3 (02:55→20:35)
[2018-04-30] MEDS: Morphine Inj 4 MG/ML Vial IV.PUSH PRN ×2 (04:46→12:52)
[2018-04-30 06:54] LABS: Hematocrit 32.4 % (35.0-46.0); Hemoglobin 10.9 gm/dL (11.6-15.3); Mean Corpuscular HGB Conc 33.6 % (32.0-36.0); Mean Corpuscular Hemoglobin 36.7 pg (27.0-34.0); Mean Corpuscular Volume 109.2 fL (80.0-100.0); Mean Platelet Volume 8.6 fL (7.0-11.0); Platelet Count 252 th/mm3 (150-450); Red Blood Count 2.96 mil/mm3 (4.00-5.30); Red Cell Distribution Width 13.1 % (11.6-17.2); White Blood Count 5.7 th/mm3 (4.0-11.0)
[2018-04-30 07:36] LABS: Albumin 3.1 g/dL (3.4-5.0); Anion Gap 13 meq/L (5-15); Aspartate Aminotransferase 84 U/L (15-37); Blood Urea Nitrogen 10 mg/dL (7-18); Calcium 8.8 mg/dL (8.5-10.1); Carbon Dioxide 25.2 meq/L (21.0-32.0); Chloride 105 meq/L (98-107); Glomerular Filtration Rate Greater Than 89 mL/min (>89); Glucose,Random 91 mg/dL (74-106); Magnesium 1.5 mg/dL (1.5-2.5); Sodium 143 meq/L (136-145)
[2018-04-30 07:37] LABS: Alanine Aminotransferase 52 U/L (10-53)
[2018-04-30 07:39] LABS: Alkaline Phosphatase 265 U/L (45-117); Total Protein 6.1 g/dL (6.4-8.2)
[2018-04-30] MEDS: SODIUM CHLOR 0.9% IV.SIG SCH (09:55)
[2018-04-30] MEDS: VORICONAZOLE IV.SIG SCH (09:55)
[2018-04-30] MEDS: predniSONE 5 MG Tablet PO SCH (09:56)
[2018-04-30] MEDS: Senna/Docusate Sodium 8.6/50 MG Tablet PO SCH ×2 (09:56→20:38)
[2018-04-30] MEDS: Metoprolol Tartrate 50 MG Tablet PO SCH ×2 (09:56→20:40)
[2018-04-30] MEDS: amLODIPine 10 MG Tablet PO SCH (09:56)
--- NOTE | 2018-04-30 12:17 | P.PN ---
Subjective Interval history: Mrs. Sin was afebrile with stable vital signs overnight. Patient has continued abdominal pain; she also reports continued difficulty swallowing. She has been able to eat some foods during hospitalization. Patient frustrated about her pain regimen; she reports having persistent upper abdominal pain and feels that her pain with swallowing is worsening. Patient also frustrated regarding her sleep and requests starting home Melatonin. Normal bowel movements. No respiratory concerns. Physical Exam Vital signs: Vital Signs 04/29/18 16:00 04/29/18 20:00 04/30/18 00:00 Temperature 98.1 F 98.6 F 98.0 F Pulse Rate 73 68 80 Respiratory Rate 18 18 18 Blood Pressure 126/79 111/65 109/71 Pulse Oximetry 98 98 96 04/30/18 05:54 04/30/18 08:00 Temperature 97.5 F L 98.2 F Pulse Rate 71 77 Respiratory Rate 18 18 Blood Pressure 130/81 111/67 Pulse Oximetry 99 96 Intake & Output 04/29/18 04/30/18 04/30/18 18:59 06:59 18:59 Intake Total 840 / 840 220 / 220 Balance 840 / 840 220 / 220 Weight 55.1 kg Intake: IV 100 / 100 100 / 100 VFend Inj 200 MG In NS Inj 100 100 / 100 100 / 100 ML @ 100 mls/hr IV.SIG Q12H [facility]ERY Rx#:[id number] Oral 740 / 740 120 / 120 Other: # Voids 7 3 # Bowel Movements 1 Narrative: General: Patient appears comfortable; no obvious pain HEENT: normocephalic; atraumatic; slim body build no obvious icterus CHEST: Even, unlabored, no shortness of breath CARDIAC: Regular rate and rhythm, S1-S2 ABDOMEN: Soft, nondistended, nontender to light palpation; no hepatosplenomegaly ; bowel sounds are present. EXTREMITIES: normal SKIN: Normal; no rash; no jaundice IMPLEMENTATION COORDINATOR:Alert and oriented Results - Labs CBC & Chem 7: 04/30/18 04:45 04/30/18 04:45 Laboratory Results - last 24 hr 04/29/18 04/30/18 04/30/18 07:25 04:45 04:45 WBC 5.7 RBC 2.96 L Hgb 10.9 L Hct 32.4 L MCV 109.2 H MCH 36.7 H MCHC 33.6 RDW 13.1 Plt Count 252 MPV 8.6 Sodium 143 Potassium 3.0 L Chloride 105 Carbon Dioxide 25.2 Anion Gap 13 BUN 10 Creatinine 0.59 Estimated GFR Greater than 89 Greater than 89 Random Glucose 91 Calcium 8.8 Magnesium 1.5 Total Bilirubin 0.2 AST 84 H ALT 52 Alkaline Phosphatase 265 H Total Protein 6.1 L Albumin 3.1 L - Procedures 04/25- R IJ placed Assessment and Plan - Assessment (1) Fungemia Code(s): B49 - Unspecified mycosis Status: Acute (2) CD (Crohn's disease) Code(s): K50.90 - Crohn's disease, unspecified, without complications Status: Acute (3) Short bowel syndrome Code(s): K91.2 - Postsurgical malabsorption, not elsewhere classified Status: Acute (4) Vomiting Code(s): R11.10 - Vomiting, unspecified Status: Resolved - Plan Fungemia Impression: Patient with multiple blood cultures and port culture growing Imelda Guilliermondii until port removed 04/25. Immunosuppression from biologic agent (Entyvio) and intermittent Prednisone TTE and OZIEL- no vegetations -ID consulted -Will transition to oral Voriconazole (equal bioavailability with IV; guilliermondi is resistant to other antifungal agents) -Monitor sensitivities, cultures to completion -04/28 fungal culture negative x2 days -Will attempt to avoid IV lines on discharge Crohns disease/Short gut syndrome Impression: Currently on steroids and vedolizumab -Patient of advanced gastroenterology/Dr. Godoy -Continue pain control -Continue Percocet q6hrs PRN -Will switch from Morphine 4mg IV q4 for BRKP to 1.5mg Dilaudid IV q 4hrs while inpatient per discussion with patient -Continue to follow/support nutrition Nausea/vomiting/Abdominal pain Impression: resolved n/v. Abd pain persistent. C/P CT w/o acute process LFT's with mild ALKP, transaminase abnormalities Barium swallow- small esophageal web. Minimal supraglottic larynx w/o tracheal aspiration. GERD, hiatal hernia. -GI consulted -Plan for EGD/colonoscopy as outpatient -Continue ARABELLA, PPI, PO Prednisone (5mg daily for COPD per EMR) Electrolyte abnormalities Impression: Patient with hypomagnesia, hypokalemia, hypocalcemia on admission -resolved with replacement; continue to monitor -Discussed with ID, will monitor need for oral repletion to determine whether IV administration is needed at discharge CV -Continue Metoprolol 50mg BID, Norvasc 10mg daily Anemia Hgb 12.9 04/20-> 10.5 today -Will monitor Hgb DVT PPX-SCD's -Discussed chemical PPX; will reconsider tomorrow Discharge Planning: Continue IV antifungal. Follow sensitivities and repeat blood cultures. Follow ID recommendations
[2018-04-30] MEDS: HYDROmorphone PF Inj 2 MG/ML Vial IV.PUSH PRN ×2 (17:38→23:01)
--- NOTE | 2018-04-30 19:38 | P.PNID ---
Subjective Remarks: Ms. Sin is a 58-year-old female with past medical history significant for Crohn's disease for the last 40 years, who has been on steroids for the most part of her disease. Patient also reports being on Humira in the past but had side effects from it and it was discontinued. Patient more recently was started on Entyvio infusions. Last infusion was on 04/05/2018. She has also been on electrolyte and nutritional supplements using the borderline at home. 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 Patient also reports that she had a port in the past that had to be removed because it was not a PowerPort. She denies any infections related to that prior port. In general she denies any infections despite having port for a long period of time. Patient reports that after she received Entyvio infusion she felt better and her GI symptoms had resolved. Thereafter approximately 1 week prior to admission she started developing nausea vomiting chills fevers and night sweats. Patient was admitted and underwent workup for possible sepsis including blood cultures blood cultures are positive for yeast infectious diseases consulted for management of the same. Overnight events reviewed. Temps ok C/O abdominal pain, her Crohns pain. Saw her earlier in the hallways and at nurses station and appeared comfortable. RN informs me patient eating her meals with no issues. Tolerating other oral meds. Power port placed 2014 and now removed. Doppler US no DVT in BUE OZEIL negative. Port cath tip positive for Imelda G as well. Antibiotics: Voriconazole IV Lines: CL site ok. Prior port site ok. Past Medical History: reviewed Allergies/Adverse Reactions: Allergies Sulfa (Sulfonamide Antibiotics) Allergy (Severe, Verified 04/28/18 12:16) "Shock", nausea, rash HUMIRA Allergy (Unknown, Uncoded 04/28/18 12:16) SKIN LESIONS Objective Vital Signs 04/29/18 20:00 04/30/18 00:00 04/30/18 05:54 Temperature 98.6 F 98.0 F 97.5 F L Pulse Rate 68 80 71 Respiratory Rate 18 18 18 Blood Pressure 111/65 109/71 130/81 Pulse Oximetry 98 96 99 04/30/18 08:00 04/30/18 12:00 04/30/18 16:00 Temperature 98.2 F 98.4 F 98.3 F Pulse Rate 77 68 67 Respiratory Rate 18 Blood Pressure 111/67 118/71 115/72 Pulse Oximetry 96 94 L 98 Intake & Output 04/30/18 04/30/18 05/01/18 06:59 18:59 06:59 Intake Total 220 / 220 580 / 580 Balance 220 / 220 580 / 580 Weight 55.1 kg Intake: IV 100 / 100 100 / 100 VFend Inj 200 MG In NS Inj 100 100 / 100 100 / 100 ML @ 100 mls/hr IV.SIG Q12H [facility]ERY Rx#:[id number] Oral 120 / 120 480 / 480 Other: # Voids 3 4 Lab - Hematology Results 04/27/18 04/29/18 04/30/18 08:07 07:25 04:45 WBC 5.6 5.0 5.7 RBC 2.98 L 2.80 L 2.96 L Hgb 10.9 L 10.5 L 10.9 L Hct 32.4 L 30.4 L 32.4 L MCV 108.5 H 108.4 H 109.2 H MCH 36.6 H 37.6 H 36.7 H MCHC 33.7 34.7 33.6 RDW 13.2 13.0 13.1 Plt Count 241 230 252 MPV 8.0 8.0 8.6 Lab - Chemistry Results 04/27/18 04/29/18 04/30/18 08:07 07:25 04:45 Sodium 145 147 H 143 Potassium 3.5 3.4 L 3.0 L Chloride 107 108 H 105 Carbon Dioxide 29.0 27.3 25.2 Anion Gap 9 12 13 BUN 7 9 10 Creatinine 0.71 0.65 0.59 Estimated GFR 84 L Greater than 89 Greater than 89 Random Glucose 72 L 74 91 Calcium 8.5 8.4 L 8.8 Magnesium 1.5 Total Bilirubin 0.2 AST 84 H ALT 52 Alkaline Phosphatase 265 H Total Protein 6.1 L Albumin 3.1 L Physical Exam: GENERAL: Awake and alert, NAD SKIN: No rashes, ecchymoses or lesions. Cool and dry. HEAD: Atraumatic. Normocephalic. No temporal or scalp tenderness. EYES: Pupils equal round and reactive. Extraocular motions intact. No scleral icterus. No injection or drainage. ENT: Nose without bleeding, purulent drainage or septal hematoma. Throat without erythema, tonsillar hypertrophy or exudate. No oral thrush. NECK: Trachea midline. Supple, nontender, no meningeal signs. CARDIOVASCULAR: HS audible. RESPIRATORY: Clear to auscultation. Breath sounds equal bilaterally. No wheezes , rales, or rhonchi. GASTROINTESTINAL: Abdomen soft, non-tender, nondistended. Surgical scars ok. MUSCULOSKELETAL: Extremities without clubbing, cyanosis, or edema. NEUROLOGICAL: Awake and alert. Non focal Psych cooperative Prior port site ok. Assessment and Plan - Plan High grade Fungemia in a patient with port, now appears controlled post removal of port. Port catheter infected. Imelda guilliermondii fungemia. Crohn's disease on Entyvio infusions which is a biological agent Immune compromised status Was on prednisone off and on Recommendations: Continue voriconazole for Imelda guilliermondii. Based on literature review Imelda guilliermondii is resistant to echinocandins, fluconazole and Ampho. dw micro to send for fungal susceptibilities to specialty lab. Would prefer oral voriconazole as possible DC on oral antifungal due to equal IV and oral bioavailability. Also concern for nephrotoxicity with IV formulation of voriconazole. Voriconazole seems only one that may work. Await fungal sensitivity testing Monitor progress Explained plan to the patient, and answered all her questions dw : would like to avoid IV lines on discharge, would like to assess degree of electrolyte imbalance in hospital and assess need for IV infusions as outpatient. Left message for GI her primary to discuss this further. Concern the port or PICC will get reinfected and lead to endocarditis or endopthalmitis.
[2018-04-30 21:53] LABS: Calcium 8.7 mg/dL (8.5-10.1); Carbon Dioxide 25.1 meq/L (21.0-32.0); Potassium 3.8 meq/L (3.5-5.1)
[2018-04-30] MEDS: Voriconazole 200 MG Tablet PO SCH (22:09)
[2018-05-01] MEDS: oxyCODONE/Acetaminophen 10/325 Tablet PO PRN ×4 (01:20→23:42)
[2018-05-01] MEDS: Melatonin 5 MG Tablet PO PRN (01:26)
[2018-05-01] MEDS: HYDROmorphone PF Inj 2 MG/ML Vial IV.PUSH PRN ×4 (05:48→21:24)
[2018-05-01] MEDS: amLODIPine 10 MG Tablet PO SCH (08:21)
[2018-05-01] MEDS: Voriconazole 200 MG Tablet PO SCH ×2 (08:22→21:22)
[2018-05-01] MEDS: predniSONE 5 MG Tablet PO SCH (08:23)
[2018-05-01] MEDS: Metoprolol Tartrate 50 MG Tablet PO SCH ×2 (08:23→21:22)
[2018-05-01] MEDS: Pantoprazole Inj 40 MG Vial IV.PUSH SCH (08:23)
[2018-05-01] MEDS: Senna/Docusate Sodium 8.6/50 MG Tablet PO SCH ×2 (08:24→21:22)
--- NOTE | 2018-05-01 16:23 | P.PN ---
Subjective Interval history: Mrs. Sin was afebrile with stable vital signs overnight (error on pulse oximetry 05/01 at 1200). Patient reports continued abdominal pain and esophageal pain; she acknowledges that she does not seem to show signs of pain. Patient reports continued poor oral intake but normal bowel movements. No respiratory concerns. Normal urination. Discussed home use of port; patient estimates that she uses approximately weekly for electrolyte replacement. She does not generally take oral supplements but is agreeable to. Physical Exam Vital signs: Vital Signs 04/30/18 20:00 05/01/18 00:00 05/01/18 04:00 Temperature 98.2 F 98.0 F 98.0 F Pulse Rate 74 68 71 Respiratory Rate 17 17 16 Blood Pressure 125/79 97/58 L 94/61 L Pulse Oximetry 99 97 97 05/01/18 04:19 05/01/18 08:00 05/01/18 12:00 Temperature 98.3 F 98 F Pulse Rate 73 72 Respiratory Rate 20 18 20 Blood Pressure 120/66 106/65 Pulse Oximetry 96 68 L Intake & Output 04/30/18 05/01/18 05/01/18 18:59 06:59 18:59 Intake Total 580 / 580 720 / 720 Balance 580 / 580 720 / 720 Weight 55.1 kg Intake: IV 100 / 100 VFend Inj 200 MG In NS Inj 100 100 / 100 ML @ 100 mls/hr IV.SIG Q12H [facility] Rx#:[id number] Oral 480 / 480 720 / 720 Other: # Voids 4 4 Results - Labs CBC & Chem 7: 04/30/18 04:45 04/30/18 20:50 Laboratory Results - last 24 hr 04/30/18 20:50 Sodium 142 Potassium 3.8 D Chloride 107 Carbon Dioxide 25.1 Anion Gap 10 BUN 10 Creatinine 0.78 Estimated GFR 75 L Random Glucose 103 Calcium 8.7 - Procedures 04/25- R IJ placed Assessment and Plan - Assessment (1) Fungemia Code(s): B49 - Unspecified mycosis Status: Acute (2) CD (Crohn's disease) Code(s): K50.90 - Crohn's disease, unspecified, without complications Status: Acute (3) Short bowel syndrome Code(s): K91.2 - Postsurgical malabsorption, not elsewhere classified Status: Acute (4) Vomiting Code(s): R11.10 - Vomiting, unspecified Status: Resolved - Plan Fungemia Impression: Patient with multiple blood cultures and port culture growing Imelda Guilliermondii until port removed 04/25. Immunosuppression from biologic agent (Entyvio) and intermittent Prednisone TTE and OZIEL- no vegetations -ID consulted -Transitioned to oral Voriconazole (equal bioavailability with IV; guilliermondi is resistant to other antifungal agents) -Monitor sensitivities, cultures to completion -04/28 fungal culture negative x2 days -Per discussion between Dr. Brock and Dr. Godoy, patient has had life threatening hypokalemia previously Crohns disease/Short gut syndrome Impression: Currently on steroids and vedolizumab -Patient of advanced gastroenterology/Dr. Godoy -Continue pain control -Continue Percocet q6hrs PRN -Will BRKP to 1.5 _> 2mg Dilaudid IV q 4hrs while inpatient per discussion with patient -Continue to follow/support nutrition Nausea/vomiting/Abdominal pain Impression: resolved n/v. Abd pain persistent. C/P CT w/o acute process LFT's with mild ALKP, transaminase abnormalities Barium swallow- small esophageal web. Minimal supraglottic larynx w/o tracheal aspiration. GERD, hiatal hernia. -GI consulted -Plan for EGD/colonoscopy as outpatient -Continue ARABELLA, PPI, PO Prednisone (5mg daily for COPD per EMR) Electrolyte abnormalities Impression: Patient with hypomagnesia, hypokalemia, hypocalcemia on admission -resolved with replacement; continue to monitor -Discussed with ID; patient has had prior life threatening hypokalemia so will monitor need for oral repletion to determine whether IV administration is needed at discharge -Patient agreeable to oral supplementation; will plan to initiate CV -Continue Metoprolol 50mg BID -Will hold Norvasc 10mg daily due to hypotension Anemia Hgb 12.9 04/20-> 10.5 04/30 -Will monitor Hgb DVT PPX-SCD's -Discussed chemical PPX; will reconsider Discussed Condition With: Dr. Brock Discharge Planning: Continue oral voriconazole. Follow sensitivities and repeat blood cultures. Follow ID recommendations
--- NOTE | 2018-05-01 16:24 | P.PNID ---
Infectious Disease Brief Note dw patients RN for the day: he informs me patient tolerating diet and medications orally. Continue Voriconazole oral dw : patient has had life threatening hypokalemia in past. Will need some iV access on discharge. No PICC or port till cleared by ID. Vital Signs - 24 hr 04/30/18 20:00 05/01/18 00:00 05/01/18 04:00 Temperature 98.2 F 98.0 F 98.0 F Pulse Rate 74 68 71 Respiratory Rate 17 17 16 Blood Pressure 125/79 97/58 L 94/61 L Pulse Oximetry 99 97 97 05/01/18 04:19 05/01/18 08:00 05/01/18 12:00 Temperature 98.3 F 98 F Pulse Rate 73 72 Respiratory Rate 20 18 20 Blood Pressure 120/66 106/65 Pulse Oximetry 96 68 L Laboratory Results - last 24 hr 04/30/18 20:50 Sodium 142 Potassium 3.8 D Chloride 107 Carbon Dioxide 25.1 Anion Gap 10 BUN 10 Creatinine 0.78 Estimated GFR 75 L Random Glucose 103 Calcium 8.7
[2018-05-02] MEDS: HYDROmorphone PF Inj 2 MG/ML Vial IV.PUSH PRN ×5 (02:39→19:56)
[2018-05-02] MEDS: oxyCODONE/Acetaminophen 10/325 Tablet PO PRN ×3 (06:11→18:55)
[2018-05-02 07:43] LABS: Baso # (Auto) 0.1 th/mm3 (0.0-0.2); Baso % (Auto) 0.9 % (0.0-2.0); Eos # (Auto) 0.2 th/mm3 (0.0-0.4); Eos % (Auto) 2.8 % (0.0-4.0); Hematocrit 31.1 % (35.0-46.0); Hemoglobin 10.8 gm/dL (11.6-15.3); Lymph # (Auto) 1.7 th/mm3 (1.0-4.8); Lymph % (Auto) 23.4 % (9.0-44.0); Mean Corpuscular HGB Conc 34.8 % (32.0-36.0); Mean Corpuscular Hemoglobin 37.5 pg (27.0-34.0); Mean Corpuscular Volume 107.8 fL (80.0-100.0); Mean Platelet Volume 8.5 fL (7.0-11.0); Mono # (Auto) 0.6 th/mm3 (0.0-0.9); Mono % (Auto) 8.5 % (0.0-8.0); Neut # (Auto) 4.5 th/mm3 (1.8-7.7); Neut % (Auto) 64.4 % (16.0-70.0); Platelet Count 229 th/mm3 (150-450); Red Blood Count 2.89 mil/mm3 (4.00-5.30); White Blood Count 7.1 th/mm3 (4.0-11.0)
[2018-05-02 08:04] LABS: Alanine Aminotransferase 36 U/L (10-53); Albumin 3.1 g/dL (3.4-5.0); Anion Gap 13 meq/L (5-15); Aspartate Aminotransferase 49 U/L (15-37); Blood Urea Nitrogen 11 mg/dL (7-18); Calcium 8.6 mg/dL (8.5-10.1); Carbon Dioxide 24.3 meq/L (21.0-32.0); Chloride 107 meq/L (98-107); Glomerular Filtration Rate 75 mL/min (>89); Glucose,Random 84 mg/dL (74-106); Potassium 3.6 meq/L (3.5-5.1); Sodium 144 meq/L (136-145)
[2018-05-02 08:30] LABS: Alkaline Phosphatase 223 U/L (45-117); Folate 9.5 ng/mL (3.1-17.5); Total Protein 6.1 g/dL (6.4-8.2); Vitamin B12 906 pg/mL (193-986)
[2018-05-02] MEDS: predniSONE 5 MG Tablet PO SCH (09:55)
[2018-05-02] MEDS: Metoprolol Tartrate 50 MG Tablet PO SCH ×2 (09:57→20:03)
[2018-05-02] MEDS: amLODIPine 10 MG Tablet PO SCH (09:57)
[2018-05-02] MEDS: Pantoprazole Inj 40 MG Vial IV.PUSH SCH (09:58)
[2018-05-02] MEDS: Senna/Docusate Sodium 8.6/50 MG Tablet PO SCH ×2 (09:59→20:04)
[2018-05-02] MEDS: Voriconazole 200 MG Tablet PO SCH ×2 (10:05→20:03)
--- NOTE | 2018-05-02 14:46 | P.PN ---
Subjective Interval history: Mrs. Sin was afebrile with stable vital signs overnight (low respiratory rate documented 05/02 at 0700; will confirm that it is a documentation error). Patient reports continued abdominal pain and difficulty swallowing. Patient has decreased appetite. Normal stools. No respiratory or urinary concerns. Patient reports increase in nasal discharge/allergies while in the hospital. Physical Exam Vital signs: Vital Signs 05/01/18 16:00 05/01/18 20:00 05/02/18 00:00 Temperature 98.1 F 98.3 F 98 F Pulse Rate 69 87 74 Respiratory Rate 18 16 18 Blood Pressure 111/59 L 103/69 116/83 Pulse Oximetry 96 99 05/02/18 03:53 05/02/18 07:00 05/02/18 07:45 Temperature 98.1 F Pulse Rate 68 Respiratory Rate 16 7 L 7 L Blood Pressure 114/72 Pulse Oximetry 97 05/02/18 08:00 05/02/18 12:00 Temperature 97.5 F L 98.3 F Pulse Rate 72 70 Respiratory Rate 18 18 Blood Pressure 123/61 106/68 Pulse Oximetry 96 96 Intake & Output 05/01/18 05/02/18 05/02/18 18:59 06:59 18:59 Weight 56 kg Narrative: General: Patient appears comfortable; no obvious pain HEENT: normocephalic; atraumatic. EOM grossly intact CHEST: Even, unlabored, no shortness of breath CARDIAC: Regular rate and rhythm, S1-S2 ABDOMEN: Soft, nondistended, nontender to light palpation; no hepatosplenomegaly ; bowel sounds are present. EXTREMITIES: normal SKIN: Normal; no rash; no jaundice COMPUTER APPLICATION DEVELOPER:Alert and oriented Results - Labs CBC & Chem 7: 05/02/18 07:25 05/02/18 07:25 Laboratory Results - last 24 hr 05/02/18 05/02/18 07:25 07:25 WBC 7.1 RBC 2.89 L Hgb 10.8 L Hct 31.1 L MCV 107.8 H MCH 37.5 H MCHC 34.8 RDW 13.0 Plt Count 229 MPV 8.5 Neut % (Auto) 64.4 Lymph % (Auto) 23.4 [place] % (Auto) 8.5 H Eos % (Auto) 2.8 Baso % (Auto) 0.9 Neut # (Auto) 4.5 Lymph # (Auto) 1.7 [place] # (Auto) 0.6 Eos # (Auto) 0.2 Baso # (Auto) 0.1 WBC Differential . Differential Comment Auto diff final Sodium 144 Potassium 3.6 Chloride 107 Carbon Dioxide 24.3 Anion Gap 13 BUN 11 Creatinine 0.78 Estimated GFR 75 L Random Glucose 84 Calcium 8.6 Total Bilirubin 0.3 AST 49 H ALT 36 Alkaline Phosphatase 223 H Total Protein 6.1 L Albumin 3.1 L Vitamin B12 906 Folate 9.5 - Procedures 04/25- R IJ placed Assessment and Plan - Assessment (1) Fungemia Code(s): B49 - Unspecified mycosis Status: Acute (2) CD (Crohn's disease) Code(s): K50.90 - Crohn's disease, unspecified, without complications Status: Acute (3) Short bowel syndrome Code(s): K91.2 - Postsurgical malabsorption, not elsewhere classified Status: Acute (4) Vomiting Code(s): R11.10 - Vomiting, unspecified Status: Resolved - Plan Fungemia Impression: Patient with multiple blood cultures and port culture growing Imelda Guilliermondii until port removed 04/25. Immunosuppression from biologic agent (Entyvio) and intermittent Prednisone TTE and OZIEL- no vegetations -ID consulted -Transitioned to oral Voriconazole (equal bioavailability with IV; guilliermondi is resistant to other antifungal agents) -Monitor sensitivities, cultures to completion -04/28 fungal culture negative x4 days -Per discussion between Dr. Brock and Dr. Goody, patient has had life threatening hypokalemia previously Crohns disease/Short gut syndrome Impression: Currently on steroids and vedolizumab -Patient of advanced gastroenterology/Dr. Godoy -Continue pain control -Continue Percocet q6hrs PRN -Continue 2mg Dilaudid IV q 4hrs while inpatient per discussion with patient -Continue to follow/support nutrition Nausea/vomiting/Abdominal pain Impression: resolved n/v. Abd pain persistent. C/P CT w/o acute process LFT's with mild ALKP, transaminase abnormalities Barium swallow- small esophageal web. Minimal supraglottic larynx w/o tracheal aspiration. GERD, hiatal hernia. -GI consulted -Plan for EGD/colonoscopy as outpatient -Continue ARABELLA, PPI, PO Prednisone (5mg daily for COPD per EMR) Electrolyte abnormalities Impression: Patient with hypomagnesia, hypokalemia, hypocalcemia on admission -resolved with replacement; continue to monitor -Discussed with ID; patient has had prior life threatening hypokalemia so will monitor need for oral repletion to determine whether IV administration is needed at discharge -Patient agreeable to oral supplementation; will plan to initiate CV -Continue Metoprolol 50mg BID -Will hold Norvasc 10mg daily due to hypotension Anemia Hgb 12.9 04/20-> 10.8 05/02 -Will monitor Hgb -Will add Benadryl PRN for allergies DVT PPX-SCD's -Discussed chemical PPX; will reconsider Discharge Planning: Continue oral voriconazole. Follow sensitivities and repeat blood cultures. Follow ID recommendations
[2018-05-03] MEDS: Melatonin 5 MG Tablet PO PRN (00:15)
[2018-05-03] MEDS: HYDROmorphone PF Inj 2 MG/ML Vial IV.PUSH PRN ×5 (00:15→22:28)
[2018-05-03] MEDS: oxyCODONE/Acetaminophen 10/325 Tablet PO PRN ×4 (01:37→21:02)
[2018-05-03 06:25] LABS: Baso # (Auto) 0.1 th/mm3 (0.0-0.2); Baso % (Auto) 1.1 % (0.0-2.0); Eos # (Auto) 0.1 th/mm3 (0.0-0.4); Eos % (Auto) 1.8 % (0.0-4.0); Hematocrit 31.8 % (35.0-46.0); Hemoglobin 10.7 gm/dL (11.6-15.3); Lymph # (Auto) 1.7 th/mm3 (1.0-4.8); Mean Corpuscular HGB Conc 33.6 % (32.0-36.0); Mean Corpuscular Hemoglobin 36.1 pg (27.0-34.0); Mean Corpuscular Volume 107.4 fL (80.0-100.0); Mean Platelet Volume 8.5 fL (7.0-11.0); Mono # (Auto) 0.7 th/mm3 (0.0-0.9); Mono % (Auto) 8.5 % (0.0-8.0); Neut # (Auto) 5.5 th/mm3 (1.8-7.7); Neut % (Auto) 67.6 % (16.0-70.0); Platelet Count 215 th/mm3 (150-450); Red Blood Count 2.96 mil/mm3 (4.00-5.30); Red Cell Distribution Width 12.8 % (11.6-17.2); White Blood Count 8.1 th/mm3 (4.0-11.0)
[2018-05-03 06:38] LABS: Alanine Aminotransferase 33 U/L (10-53); Albumin 3.3 g/dL (3.4-5.0); Anion Gap 10 meq/L (5-15); Aspartate Aminotransferase 42 U/L (15-37); Blood Urea Nitrogen 12 mg/dL (7-18); Calcium 8.1 mg/dL (8.5-10.1); Chloride 109 meq/L (98-107); Glomerular Filtration Rate 83 mL/min (>89); Glucose,Random 73 mg/dL (74-106); Potassium 3.8 meq/L (3.5-5.1); Sodium 144 meq/L (136-145)
[2018-05-03 06:41] LABS: Alkaline Phosphatase 204 U/L (45-117); Total Protein 6.3 g/dL (6.4-8.2)
[2018-05-03] MEDS: Voriconazole 200 MG Tablet PO SCH ×2 (08:52→21:03)
[2018-05-03] MEDS: predniSONE 5 MG Tablet PO SCH (08:53)
[2018-05-03] MEDS: Metoprolol Tartrate 50 MG Tablet PO SCH ×2 (08:53→22:27)
[2018-05-03] MEDS: Pantoprazole Inj 40 MG Vial IV.PUSH SCH (08:55)
[2018-05-03] MEDS: amLODIPine 10 MG Tablet PO SCH (09:01)
[2018-05-03] MEDS: Senna/Docusate Sodium 8.6/50 MG Tablet PO SCH ×2 (09:02→21:06)
--- NOTE | 2018-05-03 09:50 | P.PN ---
Subjective Interval history: Mrs. Sni was afebrile with stable vital signs overnight. Patient reports continued abdominal and esophageal pain but states that they are both tolerable and slightly improved. Patient has been able to eat some. No chest pain or shortness of breath. Patient reports continued anxiety about whether she will have a port at discharge due to her concern for abnormal electrolytes at home. Patient reports understanding concern for fungal infection. Physical Exam Vital signs: Vital Signs 05/02/18 12:00 05/02/18 20:06 05/03/18 00:00 Temperature 98.3 F 98 F 97.9 F Pulse Rate 70 77 94 H Respiratory Rate 18 18 16 Blood Pressure 106/68 125/89 130/79 Pulse Oximetry 96 97 95 05/03/18 04:00 Temperature 97.5 F L Pulse Rate 81 Respiratory Rate 16 Blood Pressure 110/67 Pulse Oximetry 95 Intake & Output 05/02/18 05/03/18 05/03/18 18:59 06:59 18:59 Weight 55.5 kg Narrative: General: NAD; no obvious pain HEENT: EOM grossly intact CARDIAC: Regular rate and rhythm; normal peripheral perfusion Respiratory: CTAB; normal rate ABDOMEN: Soft, nondistended, nontender to light palpation; no hepatosplenomegaly ; bowel sounds are present. EXTREMITIES: Ambulating normally. Grossly normal ROM and motor function SKIN: No visible rashes/lesions Neuro: Grossly normal CN; grossly normal peripheral motor/sensory function Results - Labs CBC & Chem 7: 05/03/18 05:53 05/03/18 05:53 Laboratory Results - last 24 hr 05/03/18 05/03/18 05:53 05:53 WBC 8.1 RBC 2.96 L Hgb 10.7 L Hct 31.8 L MCV 107.4 H MCH 36.1 H MCHC 33.6 RDW 12.8 Plt Count 215 MPV 8.5 Neut % (Auto) 67.6 Lymph % (Auto) 21.0 [place] % (Auto) 8.5 H Eos % (Auto) 1.8 Baso % (Auto) 1.1 Neut # (Auto) 5.5 Lymph # (Auto) 1.7 [place] # (Auto) 0.7 Eos # (Auto) 0.1 Baso # (Auto) 0.1 WBC Differential . 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 Immunosuppression from biologic agent (Entyvio) and intermittent Prednisone TTE and OZIEL- no vegetations -ID consulted -Transitioned to oral Voriconazole (equal bioavailability with IV; guilliermondi is resistant to other antifungal agents) -Monitor sensitivities, cultures to completion -04/28 fungal culture negative x4 days -Per discussion between Dr. Brock and Dr. Godoy, patient has had life threatening hypokalemia previously -Per review of ID note today, patient will have central line removed prior to discharge and continued antifungal treatment. If blood cultures negative x72hrs after central line removal, patient can have outpatient PICC. Ideally no port 2+ weeks Crohns disease/Short gut syndrome Impression: Currently on steroids and vedolizumab -Patient of advanced gastroenterology/Dr. Godoy -Continue pain control -Continue Percocet q6hrs PRN -Continue 2mg Dilaudid IV q 4hrs while inpatient per discussion with patient -Continue to follow/support nutrition Nausea/vomiting/Abdominal pain Impression: resolved n/v. Abd pain persistent. C/P CT w/o acute process LFT's with mild ALKP, transaminase abnormalities Barium swallow- small esophageal web. Minimal supraglottic larynx w/o tracheal aspiration. GERD, hiatal hernia. -GI consulted -Plan for EGD/colonoscopy as outpatient -Continue ARABELLA, PPI, PO Prednisone (5mg daily for COPD per EMR) Electrolyte abnormalities 7/5- Mg 1.3 Impression: Patient with hypomagnesia, hypokalemia, hypocalcemia on admission. -resolved with replacement; continue to monitor -Discussed with ID; patient has had prior life threatening hypokalemia so will monitor need for oral repletion to determine whether IV administration is needed at discharge -Patient agreeable to oral supplementation; will plan to initiate -Will add oral magnesium CV -Continue Metoprolol 50mg BID -Will hold Norvasc 10mg daily due to hypotension Anemia Hgb stable ~10.5-11 -Will monitor Hgb -Will add Benadryl PRN for allergies DVT PPX-SCD's -Discussed chemical PPX; will reconsider Discharge Planning: Continue oral voriconazole. Follow sensitivities and repeat blood cultures. Follow ID recommendations
--- NOTE | 2018-05-03 19:02 | P.PNID ---
Subjective Remarks: Ms. Sin is a 58-year-old female with past medical history significant for Crohn's disease for the last 40 years, who has been on steroids for the most part of her disease. Patient also reports being on Humira in the past but had side effects from it and it was discontinued. Patient more recently was started on Entyvio infusions. Last infusion was on 04/05/2018. She has also been on electrolyte and nutritional supplements using the borderline at home. 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 Patient also reports that she had a port in the past that had to be removed because it was not a PowerPort. She denies any infections related to that prior port. In general she denies any infections despite having port for a long period of time. Patient reports that after she received Entyvio infusion she felt better and her GI symptoms had resolved. Thereafter approximately 1 week prior to admission she started developing nausea vomiting chills fevers and night sweats. Patient was admitted and underwent workup for possible sepsis including blood cultures blood cultures are positive for yeast infectious diseases consulted for management of the same. Overnight events reviewed. Temps ok C/O abdominal pain, her Crohns pain. When asked her to move for examining back she jumped up to move her gown and bend forward and appeared comfortable. Tolerating diet and oral meds. Blood cultures from 04/25 last positive the day the port removed. Patient has a CL placed on same day will remove it 2-3 days prior. Power port placed 2014 and now removed. Doppler US no DVT in BUE OZIEL negative. Port cath tip positive for Imelda G as well. Antibiotics: Voriconazole oral Lines: CL site ok. Prior port site ok. Past Medical History: reviewed Allergies/Adverse Reactions: Allergies Sulfa (Sulfonamide Antibiotics) Allergy (Severe, Verified 04/28/18 12:16) "Shock", nausea, rash HUMIRA Allergy (Unknown, Uncoded 04/28/18 12:16) SKIN LESIONS Objective Vital Signs 05/02/18 20:06 05/03/18 00:00 05/03/18 04:00 Temperature 98 F 97.9 F 97.5 F L Pulse Rate 77 94 H 81 Respiratory Rate 18 16 16 Blood Pressure 125/89 130/79 110/67 Pulse Oximetry 97 95 95 05/03/18 08:00 05/03/18 12:00 05/03/18 16:00 Temperature 98.2 F 98.3 F 98.6 F Pulse Rate 71 73 82 Respiratory Rate 18 18 Blood Pressure 102/63 99/75 L 111/83 Pulse Oximetry 98 96 97 Intake & Output 05/02/18 05/03/18 05/03/18 18:59 06:59 18:59 Intake Total 960 / 960 Balance 960 / 960 Weight 55.5 kg Intake: Oral 960 / 960 Other: # Voids 12 Lab - Hematology Results 05/02/18 05/03/18 07:25 05:53 WBC 7.1 8.1 RBC 2.89 L 2.96 L Hgb 10.8 L 10.7 L Hct 31.1 L 31.8 L MCV 107.8 H 107.4 H MCH 37.5 H 36.1 H MCHC 34.8 33.6 RDW 13.0 12.8 Plt Count 229 215 MPV 8.5 8.5 Neut % (Auto) 64.4 67.6 Lymph % (Auto) 23.4 21.0 [place] % (Auto) 8.5 H 8.5 H Eos % (Auto) 2.8 1.8 Baso % (Auto) 0.9 1.1 Neut # (Auto) 4.5 5.5 Lymph # (Auto) 1.7 1.7 [place] # (Auto) 0.6 0.7 Eos # (Auto) 0.2 0.1 Baso # (Auto) 0.1 0.1 WBC Differential . . Differential Comment Auto diff final Auto diff final Lab - Chemistry Results 05/02/18 05/03/18 05/03/18 07:25 05:53 15:12 Sodium 144 144 Potassium 3.6 3.8 Chloride 107 109 H Carbon Dioxide 24.3 25.0 Anion Gap 13 10 BUN 11 12 Creatinine 0.78 0.72 Estimated GFR 75 L 83 L Random Glucose 84 73 L Calcium 8.6 8.1 L Magnesium 1.3 L Total Bilirubin 0.3 0.2 AST 49 H 42 H ALT 36 33 Alkaline Phosphatase 223 H 204 H Total Protein 6.1 L 6.3 L Albumin 3.1 L 3.3 L Vitamin B12 906 Folate 9.5 Physical Exam: GENERAL: Awake and alert, NAD SKIN: No rashes, ecchymoses or lesions. Cool and dry. HEAD: Atraumatic. Normocephalic. No temporal or scalp tenderness. EYES: Pupils equal round and reactive. Extraocular motions intact. No scleral icterus. No injection or drainage. ENT: Nose without bleeding, purulent drainage or septal hematoma. Throat without erythema, tonsillar hypertrophy or exudate. No oral thrush. NECK: Trachea midline. Supple, nontender, no meningeal signs. CARDIOVASCULAR: HS audible. RESPIRATORY: Clear to auscultation. Breath sounds equal bilaterally. No wheezes , rales, or rhonchi. GASTROINTESTINAL: Abdomen soft, non-tender, nondistended. Surgical scars ok. MUSCULOSKELETAL: Extremities without clubbing, cyanosis, or edema. NEUROLOGICAL: Awake and alert. Non focal Psych cooperative Prior port site ok. Assessment and Plan - Plan High grade Fungemia in a patient with port, now appears controlled post removal of port. Port catheter infected. Imelda guilliermondii fungemia. Crohn's disease on Entyvio infusions which is a biological agent Immune compromised status Was on prednisone off and on Recommendations: Continue voriconazole for Imelda guilliermondii. Based on literature review Imelda guilliermondii is resistant to echinocandins, fluconazole and Ampho. jh micro to send for fungal susceptibilities to specialty lab. Would prefer oral voriconazole as possible DC on oral antifungal due to equal IV and oral bioavailability. Also concern for nephrotoxicity with IV formulation of voriconazole. Await fungal sensitivity testing. jh Euceda (who kindly dw me case while on vacation) he tells me patient has had life threatening electrolyte imbalances and dehydration and needs IV access on discharge. dw patient about removing CL 2-3 days prior after trying Vascular access team efforts if possible while continuing antifungal in hospital. She then will need repeat blood cultures which if negative at 72 hrs she will be cleared for PICC line placement. Jh Patient absolutely no PICC during this admission as fungemia could recurr and it is best to have no Port for few weeks and this can be decided as outpatient by . Will follow next on Monday to help with further plan. If any changes in interim please call me through call center.
[2018-05-04] MEDS: HYDROmorphone PF Inj 2 MG/ML Vial IV.PUSH PRN ×3 (05:03→18:41)
[2018-05-04 06:59] LABS: Baso # (Auto) 0.1 th/mm3 (0.0-0.2); Baso % (Auto) 0.9 % (0.0-2.0); Eos # (Auto) 0.2 th/mm3 (0.0-0.4); Eos % (Auto) 2.1 % (0.0-4.0); Hematocrit 30.1 % (35.0-46.0); Hemoglobin 10.3 gm/dL (11.6-15.3); Lymph # (Auto) 1.7 th/mm3 (1.0-4.8); Lymph % (Auto) 23.4 % (9.0-44.0); Mean Corpuscular HGB Conc 34.2 % (32.0-36.0); Mean Corpuscular Hemoglobin 36.7 pg (27.0-34.0); Mean Corpuscular Volume 107.5 fL (80.0-100.0); Mean Platelet Volume 8.7 fL (7.0-11.0); Mono # (Auto) 0.6 th/mm3 (0.0-0.9); Mono % (Auto) 8.3 % (0.0-8.0); Neut # (Auto) 4.9 th/mm3 (1.8-7.7); Neut % (Auto) 65.3 % (16.0-70.0); Platelet Count 209 th/mm3 (150-450); White Blood Count 7.5 th/mm3 (4.0-11.0)
[2018-05-04 07:14] LABS: Alanine Aminotransferase 29 U/L (10-53); Albumin 3.3 g/dL (3.4-5.0); Anion Gap 12 meq/L (5-15); Aspartate Aminotransferase 38 U/L (15-37); Blood Urea Nitrogen 13 mg/dL (7-18); Carbon Dioxide 24.5 meq/L (21.0-32.0); Chloride 109 meq/L (98-107); Glomerular Filtration Rate 83 mL/min (>89); Glucose,Random 70 mg/dL (74-106); Magnesium 1.4 mg/dL (1.5-2.5); Potassium 3.7 meq/L (3.5-5.1); Sodium 145 meq/L (136-145)
[2018-05-04 07:16] LABS: Alkaline Phosphatase 192 U/L (45-117)
[2018-05-04] MEDS: Metoprolol Tartrate 50 MG Tablet PO SCH ×2 (09:32→22:03)
[2018-05-04] MEDS: Senna/Docusate Sodium 8.6/50 MG Tablet PO SCH ×2 (09:32→21:59)
[2018-05-04] MEDS: amLODIPine 10 MG Tablet PO SCH (09:33)
[2018-05-04] MEDS: predniSONE 5 MG Tablet PO SCH (09:34)
[2018-05-04] MEDS: oxyCODONE/Acetaminophen 10/325 Tablet PO PRN ×3 (09:34→22:01)
[2018-05-04] MEDS: Pantoprazole Inj 40 MG Vial IV.PUSH SCH (09:39)
[2018-05-04] MEDS: Voriconazole 200 MG Tablet PO SCH ×2 (09:45→21:59)
--- NOTE | 2018-05-04 14:23 | P.DIET ---
Nutritional Evaluation Type of nutrition evaluation: follow-up Nutrition screening: Weight Loss > 10 lbs (Wt loss from 130#-117# reported on admission) Subjective Subjective Comments: Pt has usually been eating 100%. C/O some abdominal and esophageal pain but improved. Pt is able to make her food preferences known when ordering meals. Objective - Diagnosis Dehydration, R/O Sepsis - Objective % IBW: 94 Body Weight Used for Calculations: Actual (52 kg when admitted) Energy Needs - Lower Range (kCal/kg): 30 Energy Needs - Upper Range (kCal/kg): 35 Lower Limit kCal/kg (kCals): 1,560 Upper Limit kCal/kg (kCals): 1,855 Lower Limit Protein Factor (Grams per Kg): 1.2 Upper Limit Protein Factor (Grams per Kg): 1.5 Lower Protein Needs (Protein): 64 Upper Protein Needs (Protein): 80 Fluid Factor (ml/kg): 30 Estimated Fluid Needs (ml): 1,560 Dietitian Reviewed in Medical Record: Current diet, Curent medications, Intake & Output, Labs, Medical history Oral Diet Intake Amount: Good 75-90% Objective Comments: Hx includes Crohns Disease s/p bowel resection x 3, short bowel syndrome, COPD, HTN Feeding - Current PO Supplement Current Supplement: Ensure Enlive Current Supplement Flavor: Vanilla Current Frequency of Supplement: Three times a day Assessment Assessment: Pt remains at high nutrition risk 2' to Dx and unintentional weight loss. Po intake is good at this time and the pt has shown some wt gain. CBW = 55.5 kg. Unable to assess supplement acceptance because the pt was not receiving it. I have re-ordered Ensure Enlive on trays: each 8 oz serving provides 350 kcals and [address] will continue to follow and monitor po intake as well as supplement acceptance. Pt would also benefit from a daily MVI/min. Recommendations: 1. Continue regular diet 2. Ensure Enlive tid 3. Please order MVI/min q day Dietitian to Monitor: Lab values, Supplement acceptance, Intake & Output, Diet tolerance, Weight change, PO Intake, Medical course
--- NOTE | 2018-05-04 16:13 | P.PN ---
Subjective Interval history: Mrs. Sin was afebrile with stable VS overnight. Patient reports improvement in her esophageal pain. Patient reports continued abdominal pain and frustration regarding her pain regimen. Patient thinks her pain is due to her Crohn's. No chest pain or shortness of breath. Patient reports improvement in nasal congestion. Patient reports loose BM. Normal urination Patient also reports nausea and upset stomach with taking oral medications; she reports anxiety about whether she can continue having IV access on discharge in case of electrolyte abnormalities. Physical Exam Vital signs: Vital Signs 05/03/18 20:00 05/04/18 00:00 05/04/18 04:00 Temperature 98.1 F 98.5 F 98 F Pulse Rate 83 93 H 68 Respiratory Rate 16 16 16 Blood Pressure 122/75 127/74 97/56 L Pulse Oximetry 96 95 95 05/04/18 08:00 05/04/18 12:00 05/04/18 15:12 Temperature 97.8 F 98.1 F Pulse Rate 81 72 82 Respiratory Rate 18 18 18 Blood Pressure 101/72 121/77 Pulse Oximetry 95 97 Intake & Output 05/03/18 05/04/18 05/04/18 18:59 06:59 18:59 Intake Total 960 / 960 960 / 960 Output Total 0 / 0 Balance 960 / 960 960 / 960 Weight 55.5 kg Intake: Oral 960 / 960 960 / 960 Output: Stool 0 / 0 Other: # Voids 12 6 Narrative: General: NAD; no obvious pain HEENT: EOM grossly intact CARDIAC: Regular rate and rhythm; normal perfusion Respiratory: CTAB; normal rate ABDOMEN: Soft, nondistended, mild tenderness to palpation. Normal BS EXTREMITIES: Ambulating normally. Grossly normal ROM and motor function SKIN: No visible rashes/lesions Neuro: Grossly normal CN; grossly normal peripheral motor/sensory function Results - Labs CBC & Chem 7: 05/04/18 06:15 05/04/18 06:15 Laboratory Results - last 24 hr 05/04/18 05/04/18 06:15 06:15 WBC 7.5 RBC 2.80 L Hgb 10.3 L Hct 30.1 L MCV 107.5 H MCH 36.7 H MCHC 34.2 RDW 13.0 Plt Count 209 MPV 8.7 Neut % (Auto) 65.3 Lymph % (Auto) 23.4 [place] % (Auto) 8.3 H Eos % (Auto) 2.1 Baso % (Auto) 0.9 Neut # (Auto) 4.9 Lymph # (Auto) 1.7 [place] # (Auto) 0.6 Eos # (Auto) 0.2 Baso # (Auto) 0.1 WBC Differential . 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 Immunosuppression from biologic agent (Entyvio) and intermittent Prednisone TTE and OZIEL- no vegetations -ID consulted -Transitioned to oral Voriconazole (equal bioavailability with IV; guilliermondi is resistant to other antifungal agents) -Monitor sensitivities, cultures to completion -04/28 fungal culture negative x4 days -Per discussion between Dr. Brock and Dr. Godoy, patient has had life threatening hypokalemia previously -patient will have central line removed prior to discharge and continued antifungal treatment. If blood cultures negative x72hrs after central line removal, patient can be discharged with plans for outpatient PICC. Ideally no port 2+ weeks Crohns disease/Short gut syndrome Impression: Currently on steroids and vedolizumab -Patient of advanced gastroenterology/Dr. Godoy -Continue pain control -Continue Percocet q6hrs PRN -Continue 2mg Dilaudid IV q 4hrs while inpatient per discussion with patient -Continue to follow/support nutrition Nausea/vomiting/Abdominal pain Impression: resolved n/v. Abd pain persistent. C/P CT w/o acute process LFT's with mild ALKP, transaminase abnormalities Barium swallow- small esophageal web. Minimal supraglottic larynx w/o tracheal aspiration. GERD, hiatal hernia. -GI consulted -Plan for EGD/colonoscopy as outpatient -Continue ARABELLA, PPI, PO Prednisone (5mg daily for COPD per EMR) Electrolyte abnormalities 7/5- Mg 1.3 Impression: Patient with hypomagnesia, hypokalemia, hypocalcemia on admission. -resolved with replacement; continue to monitor -Discussed with ID; patient has had prior life threatening hypokalemia so will monitor need for oral repletion to determine whether IV administration is needed at discharge -Patient agreeable to oral supplementation; will plan to initiate -Continue oral magnesium CV -Continue Metoprolol 50mg BID -Will hold Norvasc 10mg daily due to hypotension Anemia Hgb stable ~10.5-11 -Will monitor Hgb -Continue Benadryl PRN, flonase for allergies DVT PPX-SCD's -Discussed chemical PPX; declined Discharge Planning: Continue oral voriconazole. Follow sensitivities and repeat blood cultures. Follow ID recommendations
[2018-05-05] MEDS: Melatonin 5 MG Tablet PO PRN (02:56)
[2018-05-05] MEDS: HYDROmorphone PF Inj 2 MG/ML Vial IV.PUSH PRN ×4 (02:57→18:54)
[2018-05-05] MEDS: oxyCODONE/Acetaminophen 10/325 Tablet PO PRN ×4 (06:56→23:43)
[2018-05-05 08:32] LABS: Baso # (Auto) 0.1 th/mm3 (0.0-0.2); Baso % (Auto) 0.9 % (0.0-2.0); Eos # (Auto) 0.1 th/mm3 (0.0-0.4); Eos % (Auto) 1.7 % (0.0-4.0); Hematocrit 32.1 % (35.0-46.0); Hemoglobin 10.8 gm/dL (11.6-15.3); Lymph # (Auto) 1.5 th/mm3 (1.0-4.8); Lymph % (Auto) 19.1 % (9.0-44.0); Mean Corpuscular HGB Conc 33.7 % (32.0-36.0); Mean Corpuscular Volume 107.1 fL (80.0-100.0); Mean Platelet Volume 9.5 fL (7.0-11.0); Mono # (Auto) 0.7 th/mm3 (0.0-0.9); Neut # (Auto) 5.5 th/mm3 (1.8-7.7); Neut % (Auto) 69.3 % (16.0-70.0); Platelet Count 185 th/mm3 (150-450); Red Cell Distribution Width 13.1 % (11.6-17.2)
[2018-05-05 08:50] LABS: Calcium 7.9 mg/dL (8.5-10.1); Magnesium 1.3 mg/dL (1.5-2.5); Potassium 3.4 meq/L (3.5-5.1)
[2018-05-05] MEDS: predniSONE 5 MG Tablet PO SCH (10:16)
[2018-05-05] MEDS: Metoprolol Tartrate 50 MG Tablet PO SCH ×2 (10:16→22:47)
[2018-05-05] MEDS: Voriconazole 200 MG Tablet PO SCH ×2 (10:16→22:47)
[2018-05-05] MEDS: Pantoprazole Inj 40 MG Vial IV.PUSH SCH (10:17)
[2018-05-05] MEDS: amLODIPine 10 MG Tablet PO SCH (10:32)
[2018-05-05] MEDS: Senna/Docusate Sodium 8.6/50 MG Tablet PO SCH ×2 (10:32→22:50)
--- NOTE | 2018-05-05 16:11 | P.PN ---
Subjective Interval history: taking po intake better no abdominal pain but states stools a little loos today Physical Exam Vital signs: Vital Signs 05/04/18 20:00 05/05/18 00:00 05/05/18 01:05 Temperature 98.4 F 97.9 F 97.9 F Pulse Rate 83 74 74 Respiratory Rate 16 16 Blood Pressure 141/70 H 119/74 Pulse Oximetry 97 96 96 05/05/18 04:00 05/05/18 08:00 05/05/18 12:00 Temperature 97.9 F 98.3 F 98.3 F Pulse Rate 74 80 70 Respiratory Rate 16 18 18 Blood Pressure 116/71 104/62 103/62 Pulse Oximetry 97 95 95 Intake & Output 05/04/18 05/05/18 05/05/18 18:59 06:59 18:59 Intake Total 960 / 960 600 / 600 Balance 960 / 960 600 / 600 Weight 55.6 kg Intake: Oral 960 / 960 600 / 600 Other: # Voids 4 2 Date of Last Bowel Movement 05/04/18 # Bowel Movements 2 1 - Constitutional no acute distress - Routine HEENT Exam Head: Present: normocephalic Eye: Present: PERRL ENT: Present: mucous membranes moist - Routine Respiratory Exam Present: CTA bilaterally - Routine Cardiovascular Exam Present: RRR - Routine Abdominal Exam Present: soft, normoactive bowel sounds - Routine Extremities Exam Present: pulses intact - Routine Skin Exam Comments: some erythematous scaly rashes on both thenar/thumb areas- mild itching Results - Labs CBC & Chem 7: 05/05/18 07:00 05/06/18 05:50 Laboratory Results - last 24 hr 05/05/18 05/05/18 07:00 07:00 WBC 8.0 RBC 3.00 L Hgb 10.8 L Hct 32.1 L MCV 107.1 H MCH 36.0 H MCHC 33.7 RDW 13.1 Plt Count 185 MPV 9.5 Neut % (Auto) 69.3 Lymph % (Auto) 19.1 [place] % (Auto) 9.0 H Eos % (Auto) 1.7 Baso % (Auto) 0.9 Neut # (Auto) 5.5 Lymph # (Auto) 1.5 [place] # (Auto) 0.7 Eos # (Auto) 0.1 Baso # (Auto) 0.1 WBC Differential . 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 Immunosuppression from biologic agent (Entyvio) and intermittent Prednisone TTE and OZIEL- no vegetations -ID ff -Transitioned to oral Voriconazole (equal bioavailability with IV; guilliermondi is resistant to other antifungal agents) -Monitor sensitivities, cultures to completion -04/28 fungal culture negative so far -Per discussion between Dr. Brock and Dr. Godoy,- will keep IV site- with electrolyte abnormalities- - IV replacment -patient will have central line removed prior to discharge and continued antifungal treatment. If blood cultures negative x72hrs after central line removal, patient can be discharged with plans for outpatient PICC. Ideally no port 2+ weeks Crohns disease/Short gut syndrome Impression: Currently on steroids and vedolizumab -Patient of advanced gastroenterology/Dr. Godoy -Continue pain control -Continue Percocet q6hrs PRN -Continue 2mg Dilaudid IV q 4hrs while inpatient per discussion with patient -Continue to follow/support nutrition Nausea/vomiting/Abdominal pain Impression: resolved n/v. Abd pain - IMproved C/P CT w/o acute process LFT's with mild ALKP, transaminase abnormalities Barium swallow- small esophageal web. Minimal supraglottic larynx w/o tracheal aspiration. GERD, hiatal hernia. -GI consulted -Plan for EGD/colonoscopy as outpatient -Continue ARABELLA, PPI, PO Prednisone (5mg daily for COPD per EMR)- per patient maintenance dose by Dr. Godoy Electrolyte abnormalities 7/5- Mg 1.3 Impression: Patient with hypomagnesia, hypokalemia, hypocalcemia on admission. -resolved with replacement; continue to monitor -Discussed with ID; patient has had prior life threatening hypokalemia so will monitor need for oral repletion to determine whether IV administration is needed at discharge -Patient agreeable to oral supplementation; will plan to initiate -Continue oral magnesium, give IV Magnesium - recheck in am CV -Continue Metoprolol 50mg BID + Amlodipine - monitor Anemia Hgb stable ~10.5-11 -Will monitor Hgb -Continue Benadryl PRN, flonase for allergies Bilateral thumb.thenar eminence rashes- possible fungal - trial of steroid/antifungal topical therapy bid DVT PPX-SCD's -Discussed chemical PPX; declined Discharge Planning: Continue oral voriconazole. Follow sensitivities and repeat blood cultures. Follow ID recommendations
[2018-05-05] MEDS ORDERED: Magnesium Sulfate Inj 2 GM in Sodium Chlor 0.9% Inj 96 ML IV.SIG ONE (16:24)
[2018-05-06] MEDS: HYDROmorphone PF Inj 2 MG/ML Vial IV.PUSH PRN ×6 (01:24→23:18)
[2018-05-06] MEDS: Melatonin 5 MG Tablet PO PRN ×2 (01:47→23:17)
[2018-05-06] MEDS: oxyCODONE/Acetaminophen 10/325 Tablet PO PRN ×4 (05:48→22:10)
[2018-05-06 06:49] LABS: Calcium 8.6 mg/dL (8.5-10.1); Carbon Dioxide 24.2 meq/L (21.0-32.0); Potassium 4.4 meq/L (3.5-5.1)
[2018-05-06] MEDS: Senna/Docusate Sodium 8.6/50 MG Tablet PO SCH ×2 (10:24→20:39)
[2018-05-06] MEDS: predniSONE 5 MG Tablet PO SCH (10:24)
[2018-05-06] MEDS: Voriconazole 200 MG Tablet PO SCH ×2 (10:24→20:38)
[2018-05-06] MEDS: amLODIPine 10 MG Tablet PO SCH (10:24)
[2018-05-06] MEDS: Metoprolol Tartrate 50 MG Tablet PO SCH ×2 (10:24→20:38)
[2018-05-06] MEDS: Pantoprazole Inj 40 MG Vial IV.PUSH SCH (10:26)
--- NOTE | 2018-05-06 13:35 | P.PN ---
Subjective Interval history: states good po intake stools soft - no diarrhea dry erythematous rashes on extensor surfaces on both hands Physical Exam Vital signs: Vital Signs 05/05/18 16:00 05/05/18 20:00 05/06/18 00:00 Temperature 97.7 F 97.7 F 98.4 F Pulse Rate 90 73 72 Respiratory Rate 18 18 18 Blood Pressure 103/52 L 115/68 105/68 Pulse Oximetry 96 98 96 05/06/18 04:00 05/06/18 08:00 Temperature 98.3 F 98.3 F Pulse Rate 73 79 Respiratory Rate 17 18 Blood Pressure 112/63 111/68 Pulse Oximetry 95 95 Intake & Output 05/05/18 05/06/18 05/06/18 18:59 06:59 18:59 Intake Total 840 / 840 420 / 420 Balance 840 / 840 420 / 420 Weight 56 kg Intake: Oral 840 / 840 Oral Supplement 420 / 420 Other: # Voids 6 3 - Constitutional no acute distress - Routine HEENT Exam Head: Present: normocephalic Eye: Present: PERRL ENT: Present: mucous membranes moist - Routine Neck Exam Present: supple - Routine Respiratory Exam Present: CTA bilaterally - Routine Cardiovascular Exam Present: RRR - Routine Abdominal Exam Present: soft, normoactive bowel sounds - Routine Extremities Exam Present: full ROM, pulses intact - Routine Skin Exam Present: dry (dry erythematous rashes noted on both extensor surfaces of both hands, no joint swelling, no other skin involvement) Results - Labs CBC & Chem 7: 05/05/18 07:00 05/06/18 05:50 Laboratory Results - last 24 hr 05/06/18 05:50 Sodium 144 Potassium 4.4 D Chloride 110 H Carbon Dioxide 24.2 Anion Gap 10 BUN 12 Creatinine 0.77 Estimated GFR 76 L Random Glucose 80 Calcium 8.6 Magnesium 2.0 D - Procedures 04/25- R IJ placed Assessment and Plan - Assessment (1) Fungemia Code(s): B49 - Unspecified mycosis Status: Acute (2) CD (Crohn's disease) Code(s): K50.90 - Crohn's disease, unspecified, without complications Status: Chronic (3) 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 Immunosuppression from biologic agent (Entyvio) and intermittent Prednisone TTE and OZIEL- no vegetations -ID ff -Transitioned to oral Voriconazole (equal bioavailability with IV; guilliermondi is resistant to other antifungal agents) -Monitor sensitivities, cultures to completion -04/28 fungal culture negative so far -Per discussion between Dr. Brock and Dr. Godoy,- will keep IV site- with electrolyte abnormalities- - IV replacment -patient will have central line removed prior to discharge and continued antifungal treatment. If blood cultures negative x72hrs after central line removal, patient can be discharged with plans for outpatient PICC. Ideally no port 2+ weeks Crohns disease/Short gut syndrome Impression: Currently on steroids and vedolizumab -Patient of advanced gastro[facility]ology/Dr. Godoy -Continue pain control -Continue Percocet q6hrs PRN -Continue 2mg Dilaudid IV q 4hrs while inpatient per discussion with patient -Continue to follow/support nutrition - po intake improving Nausea/vomiting/Abdominal pain Impression: resolved n/v. Abd pain - IMproved C/P CT w/o acute process LFT's with mild ALKP, transaminase abnormalities Barium swallow- small esophageal web. Minimal supraglottic larynx w/o tracheal aspiration. GERD, hiatal hernia. -GI consulted -Plan for EGD/colonoscopy as outpatient -Continue ARABELLA, PPI, PO Prednisone (5mg daily for COPD per EMR)- per patient maintenance dose by Dr. Godoy Electrolyte abnormalities- K and Mg improved 05/03- Mg 1.3 Impression: Patient with hypomagnesia, hypokalemia, hypocalcemia on admission. -resolved with replacement; continue to monitor -Discussed with ID; patient has had prior life threatening hypokalemia so will monitor need for oral repletion to determine whether IV administration is needed at discharge -Patient agreeable to oral supplementation; will plan to initiate -Continue oral magnesium- change to [id number] 400 mg pob id - KCL 40 meq po bid - recheck in am CV -Continue Metoprolol 50mg BID -decrease amlodipine to 5 mg daily Anemia Hgb stable ~10.5-11 -Will monitor Hgb -Continue Benadryl PRN, flonase for allergies Bilateral thumb.thenar eminence rashes- possible fungal vs psoriasis - trial of steroid/antifungal topical therapy bid started 05/05 - monitor - + family history of psoriasis- a sibling DVT PPX-SCD's -Discussed chemical PPX; declined Discharge Planning: Continue oral voriconazole. Follow sensitivities and repeat blood cultures. Follow ID recommendations
[2018-05-06] MEDS: Magnesium Oxide 400 MG Tablet PO SCH (20:38)
[2018-05-07 06:33] LABS: Calcium 8.4 mg/dL (8.5-10.1); Carbon Dioxide 23.7 meq/L (21.0-32.0); Magnesium 1.7 mg/dL (1.5-2.5); Potassium 4.8 meq/L (3.5-5.1)
[2018-05-07] MEDS: oxyCODONE/Acetaminophen 10/325 Tablet PO PRN ×3 (06:54→19:05)
[2018-05-07] MEDS: HYDROmorphone PF Inj 2 MG/ML Vial IV.PUSH PRN ×4 (08:47→22:08)
[2018-05-07] MEDS: Voriconazole 200 MG Tablet PO SCH ×2 (08:53→20:39)
[2018-05-07] MEDS: Senna/Docusate Sodium 8.6/50 MG Tablet PO SCH ×2 (08:53→20:40)
[2018-05-07] MEDS: predniSONE 5 MG Tablet PO SCH (08:53)
[2018-05-07] MEDS: Magnesium Oxide 400 MG Tablet PO SCH ×2 (08:54→20:39)
[2018-05-07] MEDS: Pantoprazole Inj 40 MG Vial IV.PUSH SCH (08:55)
[2018-05-07] MEDS: Metoprolol Tartrate 50 MG Tablet PO SCH (08:55)
[2018-05-07] MEDS ORDERED: amLODIPine 5 MG Tablet PO SCH (09:00)
--- NOTE | 2018-05-07 15:10 | P.PN ---
Subjective Interval history: feels better but still with abdominal discomfort tolerating po + stools Physical Exam Vital signs: Vital Signs 05/06/18 16:00 05/06/18 20:00 05/07/18 00:00 Temperature 97.9 F 98.2 F 97.6 F Pulse Rate 76 73 71 Respiratory Rate 20 17 16 Blood Pressure 110/59 L 121/44 L 99/59 L Pulse Oximetry 94 L 99 93 L 05/07/18 04:00 05/07/18 06:55 05/07/18 08:00 Temperature 98.4 F 98.2 F Pulse Rate 74 77 Respiratory Rate 16 20 Blood Pressure 90/56 L 141/82 H 106/73 Pulse Oximetry 94 L 98 05/07/18 12:00 Temperature 98.2 F Pulse Rate 73 Respiratory Rate 20 Blood Pressure 97/60 L Pulse Oximetry 96 Intake & Output 05/06/18 05/07/18 05/07/18 18:59 06:59 18:59 Intake Total 840 / 840 240 / 240 Output Total 600 / 600 Balance 240 / 240 240 / 240 Weight 53.7 kg Intake: Oral 840 / 840 240 / 240 Output: Urine 600 / 600 Other: # Incontinent Voids 2 Date of Last Bowel Movement 05/06/18 Narrative: General: NAD; no acute distress HEENT: EOM grossly intact CARDIAC: Regular rate and rhythm; normal perfusion Respiratory: CTAB; normal rate ABDOMEN: Soft, nondistended, mild tenderness on deep palaption. + BS EXTREMITIES: Ambulating normally. Grossly normal ROM and motor function SKIN: some scaling ertyhematous rashes extensor surfaces of finger Neuro: Grossly normal CN; grossly normal peripheral motor/sensory function Results - Labs CBC & Chem 7: 05/05/18 07:00 05/12/18 07:42 Laboratory Results - last 24 hr 05/07/18 05:34 Sodium 142 Potassium 4.8 Chloride 110 H Carbon Dioxide 23.7 Anion Gap 8 BUN 12 Creatinine 0.79 Estimated GFR 74 L Random Glucose 73 L Calcium 8.4 L Magnesium 1.7 - Procedures 04/25- R IJ placed Assessment and Plan - Assessment (1) Fungemia Code(s): B49 - Unspecified mycosis Status: Acute (2) CD (Crohn's disease) Code(s): K50.90 - Crohn's disease, unspecified, without complications Status: Acute (3) 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 Immunosuppression from biologic agent (Entyvio) and intermittent Prednisone TTE and OZIEL- no vegetations -ID ff -Transitioned to oral Voriconazole (equal bioavailability with IV; guilliermondi is resistant to other antifungal agents) -Monitor sensitivities, cultures to completion -04/28 fungal culture negative so far -Per discussion between Dr. Brock and Dr. Godoy,- will keep IV site- with electrolyte abnormalities- - IV replacment -patient will have central line removed prior to discharge and continued antifungal treatment. If blood cultures negative x72hrs after central line removal, patient can be discharged with plans for outpatient PICC. Ideally no port 2+ weeks Crohns disease/Short gut syndrome Impression: Currently on steroids and vedolizumab -Patient of advanced gastro[facility]/Dr. Godoy -Continue pain control -Continue Percocet q6hrs PRN -Continue 2mg Dilaudid IV - change to q 6 prn - d/w patient -Continue to follow/support nutrition - po intake improving Nausea/vomiting/Abdominal pain Impression: resolved n/v. Abd pain - IMproved C/P CT w/o acute process LFT's with mild ALKP, transaminase abnormalities Barium swallow- small esophageal web. Minimal supraglottic larynx w/o tracheal aspiration. GERD, hiatal hernia. -GI consulted -Plan for EGD/colonoscopy as outpatient -Continue ARABELLA, PPI, PO Prednisone (5mg daily for COPD per EMR)- per patient maintenance dose by Dr. Godoy Electrolyte abnormalities- K and Mg improved 7/5- Mg 1.3 Impression: Patient with hypomagnesia, hypokalemia, hypocalcemia on admission. -resolved with replacement; continue to monitor -Discussed with ID; patient has had prior life threatening hypokalemia so will monitor need for oral repletion to determine whether IV administration is needed at discharge -Patient agreeable to oral supplementation; will plan to initiate -Continue oral magnesium- change to [id number] 400 mg pob id - KCL 40 meq po bid -continue current regimen CV -Continue Metoprolol = decrease to 25 mg po bid -decrease amlodipine to 2.5 mg daily Anemia Hgb stable ~10.5-11 -Will monitor Hgb -Continue Benadryl PRN, flonase for allergies Bilateral thumb.thenar eminence rashes- possible fungal vs psoriasis - trial of steroid/antifungal topical therapy bid started 05/05 - monitor - + family history of psoriasis- a sibling DVT PPX-SCD's -Discussed chemical PPX; declined Discharge Planning: Continue oral voriconazole. Follow sensitivities and repeat blood cultures. Follow ID recommendations
[2018-05-07] MEDS: Metoprolol Tartrate 25 MG Tablet PO SCH (20:39)
[2018-05-08] MEDS: Melatonin 5 MG Tablet PO PRN (01:01)
[2018-05-08] MEDS: oxyCODONE/Acetaminophen 10/325 Tablet PO PRN ×4 (01:01→19:00)
[2018-05-08] MEDS: HYDROmorphone PF Inj 2 MG/ML Vial IV.PUSH PRN ×4 (04:08→21:52)
[2018-05-08] MEDS: Metoprolol Tartrate 25 MG Tablet PO SCH ×2 (09:34→20:58)
[2018-05-08] MEDS: Voriconazole 200 MG Tablet PO SCH ×2 (09:34→20:58)
[2018-05-08] MEDS: Senna/Docusate Sodium 8.6/50 MG Tablet PO SCH ×2 (09:34→20:59)
[2018-05-08] MEDS: predniSONE 5 MG Tablet PO SCH (09:34)
[2018-05-08] MEDS: Magnesium Oxide 400 MG Tablet PO SCH ×2 (09:35→20:58)
[2018-05-08] MEDS: Pantoprazole Inj 40 MG Vial IV.PUSH SCH (09:35)
[2018-05-08] MEDS: amLODIPine 5 MG Tablet PO SCH (09:35)
--- NOTE | 2018-05-08 15:06 | P.PN ---
Subjective Interval history: patient up and ambuating still with lower abdominal discomfort- "same- my croh'ns + small BMs- no diarrhea Physical Exam Vital signs: Vital Signs 05/07/18 16:00 05/07/18 20:00 05/08/18 00:00 Temperature 97.6 F 98.1 F 97.7 F Pulse Rate 73 76 83 Respiratory Rate 20 16 18 Blood Pressure 98/65 L 127/73 105/67 Pulse Oximetry 97 96 98 05/08/18 04:00 05/08/18 08:00 05/08/18 12:00 Temperature 98.1 F 98.3 F Pulse Rate 78 78 76 Respiratory Rate 16 20 20 Blood Pressure 138/78 130/71 113/70 Pulse Oximetry 97 96 Intake & Output 05/07/18 05/08/18 05/08/18 18:59 06:59 18:59 Intake Total 720 / 720 480 / 480 Balance 720 / 720 480 / 480 Weight 52.9 kg Intake: Oral 720 / 720 480 / 480 Other: # Voids 4 4 Date of Last Bowel Movement 05/06/18 05/06/18 # Bowel Movements 3 1 Narrative: General: NAD; no acute distress HEENT: EOM grossly intact CARDIAC: Regular rate and rhythm; normal perfusion Respiratory: CTAB; normal rate ABDOMEN: Soft, nondistended, mild tenderness on deep palpation. + BS EXTREMITIES: Ambulating normally. 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 Immunosuppression from biologic agent (Entyvio) and intermittent Prednisone TTE and OZIEL- no vegetations -ID ff -Transitioned to oral Voriconazole (equal bioavailability with IV; guiljose franciscoermondi is resistant to other antifungal agents) -Monitor sensitivities, cultures to completion -04/28 fungal culture negative so far -Per discussion between Dr. Brock and Dr. Godoy,- will keep IV site- with electrolyte abnormalities- - IV replacment -patient will have central line removed prior to discharge and continued antifungal treatment. If blood cultures negative x72hrs after central line removal, patient can be discharged with plans for outpatient PICC. Ideally no port 2+ weeks Crohns disease/Short gut syndrome Impression: Currently on steroids and vedolizumab -Patient of advanced gastroenterology/Dr. Godoy -Continue pain control -Continue Percocet q6hrs PRN -Continue 2mg Dilaudid IV - changed to q 6 prn - d/w patient -Continue to follow/support nutrition - po intake improving Nausea/vomiting/Abdominal pain Impression: resolved n/v. Abd pain - IMproved C/P CT w/o acute process LFT's with mild ALKP, transaminase abnormalities Barium swallow- small esophageal web. Minimal supraglottic larynx w/o tracheal aspiration. GERD, hiatal hernia. -GI consulted -Plan for EGD/colonoscopy as outpatient -Continue ARABELLA, PPI, PO Prednisone (5mg daily for COPD per EMR)- per patient maintenance dose by Dr. Godoy Electrolyte abnormalities- K and Mg improved 7/5- Mg 1.3 Impression: Patient with hypomagnesia, hypokalemia, hypocalcemia on admission. -resolved with replacement; continue to monitor -Discussed with ID; patient has had prior life threatening hypokalemia so will monitor need for oral repletion to determine whether IV administration is needed at discharge -Patient agreeable to oral supplementation; will plan to initiate -Continue oral magnesium- change to [id number] 400 mg pob id - KCL 40 meq po bid -continue current regimen BMP in am CV -Continue Metoprolol = decrease to 25 mg po bid -decrease amlodipine to 2.5 mg daily Anemia Hgb stable ~10.5-11 -Will monitor Hgb -Continue Benadryl PRN, flonase for allergies Bilateral thumb.thenar eminence rashes- possible fungal vs psoriasis - trial of steroid/antifungal topical therapy bid started 05/05 - monitor - + family history of psoriasis- a sibling DVT PPX-SCD's -Discussed chemical PPX; declined Discharge Planning: Continue oral voriconazole. Follow sensitivities and repeat blood cultures. Follow ID recommendations
[2018-05-09] MEDS: oxyCODONE/Acetaminophen 10/325 Tablet PO PRN ×4 (00:59→20:52)
[2018-05-09] MEDS: Melatonin 5 MG Tablet PO PRN (02:00)
[2018-05-09] MEDS: HYDROmorphone PF Inj 2 MG/ML Vial IV.PUSH PRN ×4 (03:54→23:40)
[2018-05-09 07:25] LABS: Calcium 8.9 mg/dL (8.5-10.1); Carbon Dioxide 24.9 meq/L (21.0-32.0); Potassium 5.2 meq/L (3.5-5.1)
[2018-05-09] MEDS: Voriconazole 200 MG Tablet PO SCH ×2 (09:12→20:54)
[2018-05-09] MEDS: amLODIPine 5 MG Tablet PO SCH (09:13)
[2018-05-09] MEDS: Magnesium Oxide 400 MG Tablet PO SCH ×2 (09:13→20:54)
[2018-05-09] MEDS: Metoprolol Tartrate 25 MG Tablet PO SCH ×2 (09:13→20:53)
[2018-05-09] MEDS: Pantoprazole Inj 40 MG Vial IV.PUSH SCH (09:14)
[2018-05-09] MEDS: Senna/Docusate Sodium 8.6/50 MG Tablet PO SCH ×2 (09:14→20:53)
[2018-05-09] MEDS: predniSONE 5 MG Tablet PO SCH (09:14)
--- NOTE | 2018-05-09 12:29 | P.PN ---
Subjective Interval history: no complains- d/w pain meds voiding, no diarrhea Physical Exam Vital signs: Vital Signs 05/08/18 18:00 05/08/18 20:00 05/09/18 00:00 Temperature 98.2 F 98.5 F 98.2 F Pulse Rate 79 82 77 Respiratory Rate 20 18 16 Blood Pressure 110/64 148/87 H 114/64 Pulse Oximetry 96 95 05/09/18 04:00 05/09/18 08:00 Temperature 98.2 F 98.4 F Pulse Rate 75 96 H Respiratory Rate 16 18 Blood Pressure 106/58 L 144/88 H Pulse Oximetry 96 96 Intake & Output 05/08/18 05/09/18 05/09/18 18:59 06:59 18:59 Intake Total 600 / 600 720 / 720 Balance 600 / 600 720 / 720 Weight 54.2 kg Intake: Oral 600 / 600 720 / 720 Other: # Voids 4 4 Date of Last Bowel Movement 05/07/18 05/09/18 # Bowel Movements 2 1 Narrative: General: NAD; no acute distress HEENT: EOM grossly intact CARDIAC: Regular rate and rhythm; normal perfusion Respiratory: CTAB; normal rate ABDOMEN: Soft, nondistended, mild tenderness on deep palpation. + BS EXTREMITIES: Ambulating normally. Grossly normal ROM and motor function SKIN: some scaling erythematous rashes extensor surfaces of finger- improved Neuro: Grossly normal CN; grossly normal peripheral motor/sensory function Results - Labs CBC & Chem 7: 05/05/18 07:00 05/09/18 06:48 Laboratory Results - last 24 hr 05/09/18 06:48 Sodium 142 Potassium 5.2 H Chloride 107 Carbon Dioxide 24.9 Anion Gap 10 BUN 11 Creatinine 0.81 Estimated GFR 72 L Random Glucose 79 Calcium 8.9 - Procedures 04/25- R IJ placed Assessment and Plan - Assessment (1) Fungemia Code(s): B49 - Unspecified mycosis Status: Acute (2) CD (Crohn's disease) Code(s): K50.90 - Crohn's disease, unspecified, without complications Status: Acute (3) 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 Immunosuppression from biologic agent (Entyvio) and intermittent Prednisone TTE and OZIEL- no vegetations -ID ff -Transitioned to oral Voriconazole (equal bioavailability with IV; guilliermondi is resistant to other antifungal agents) -Monitor sensitivities, cultures to completion -04/28 fungal culture negative so far -Per discussion between Dr. Brock and Dr. Godoy,- will keep IV site- with electrolyte abnormalities- - IV replacment -patient will have central line removed prior to discharge and continued antifungal treatment. If blood cultures negative x72hrs after central line removal, patient can be discharged with plans for outpatient PICC. Ideally no port 2+ weeks Crohns disease/Short gut syndrome Protein calorie malnutrtion Impression: Currently on steroids and vedolizumab -Patient of advanced gastro[facility]ology/Dr. Godoy -Continue pain control -Continue Percocet q6hrs PRN -Continue 2mg Dilaudid IV - changed to q 6 prn - d/w patient -Continue to follow/support nutrition - enlive supplements. dietary ff - po intake improving Nausea/vomiting/Abdominal pain Impression: resolved n/v. Abd pain - IMproved C/P CT w/o acute process LFT's with mild ALKP, transaminase abnormalities Barium swallow- small esophageal web. Minimal supraglottic larynx w/o tracheal aspiration. GERD, hiatal hernia. -GI consulted -Plan for EGD/colonoscopy as outpatient -Continue ARABELLA, PPI, PO Prednisone (5mg daily for COPD per EMR)- per patient maintenance dose by Dr. Godoy Electrolyte abnormalities- K and Mg improved /5- Mg 1.3 Impression: Patient with hypomagnesia, hypokalemia, hypocalcemia on admission. -resolved with replacement; continue to monitor -Discussed with ID; patient has had prior life threatening hypokalemia so will monitor need for oral repletion to determine whether IV administration is needed at discharge -Patient agreeable to oral supplementation; -Continue oral magnesium- change to [id number] 400 mg pob id K today 5.4 -hold KCL today and decrease to once daily starting radha - recheck BMP in am CV -Continue Metoprolol = decrease to 25 mg po bid -decrease amlodipine to 2.5 mg daily Anemia Hgb stable ~10.5-11 -Will monitor Hgb -Continue Benadryl PRN, flonase for allergies Bilateral thumb.thenar eminence rashes- possible fungal vs psoriasis - trial of steroid/antifungal topical therapy bid started 05/05 - monitor - + family history of psoriasis- a sibling DVT PPX-SCD's -Discussed chemical PPX; declined Discharge Planning: Continue oral voriconazole. Follow sensitivities and repeat blood cultures. Follow ID recommendations
[2018-05-10] MEDS: oxyCODONE/Acetaminophen 10/325 Tablet PO PRN ×4 (03:05→21:01)
[2018-05-10] MEDS: HYDROmorphone PF Inj 2 MG/ML Vial IV.PUSH PRN ×4 (06:01→23:59)
[2018-05-10] MEDS: amLODIPine 5 MG Tablet PO SCH (08:58)
[2018-05-10] MEDS: Magnesium Oxide 400 MG Tablet PO SCH ×2 (08:59→22:24)
[2018-05-10] MEDS: Metoprolol Tartrate 25 MG Tablet PO SCH ×2 (08:59→22:25)
[2018-05-10] MEDS: Voriconazole 200 MG Tablet PO SCH ×2 (08:59→22:24)
[2018-05-10] MEDS: Senna/Docusate Sodium 8.6/50 MG Tablet PO SCH ×2 (10:03→22:24)
[2018-05-10] MEDS: predniSONE 5 MG Tablet PO SCH (10:06)
--- NOTE | 2018-05-10 11:30 | P.PN ---
Subjective Interval history: states taking po- tolerating ensure appetite- "so- so" no diarrhea no complains of pain Physical Exam Vital signs: Vital Signs 05/09/18 12:00 05/09/18 15:21 05/09/18 16:00 Temperature 97.6 F 98.2 F Pulse Rate 80 72 Respiratory Rate 18 18 Blood Pressure 138/85 114/72 Pulse Oximetry 95 95 96 05/09/18 20:00 05/10/18 00:00 05/10/18 04:00 Temperature 98.1 F 97.5 F L 98.2 F Pulse Rate 75 87 80 Respiratory Rate 16 17 16 Blood Pressure 126/75 152/84 H 112/74 Pulse Oximetry 96 97 95 05/10/18 08:00 Temperature 97.7 F Pulse Rate 78 Respiratory Rate 18 Blood Pressure 105/62 Pulse Oximetry 96 Intake & Output 05/09/18 05/10/18 05/10/18 18:59 06:59 18:59 Intake Total 960 / 960 880 / 880 Balance 960 / 960 880 / 880 Weight 54.2 kg Intake: Oral 960 / 960 880 / 880 Other: # Voids 4 4 Date of Last Bowel Movement 05/09/18 # Bowel Movements 2 Narrative: General: NAD; no acute distress HEENT: EOM grossly intact right neck- previous central line - site- no signs of infection CARDIAC: Regular rate and rhythm; normal perfusion Respiratory: CTAB; normal rate ABDOMEN: Soft, nondistended, mild tenderness on deep palpation. + BS EXTREMITIES: Ambulating normally. 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 Immunosuppression from biologic agent (Entyvio) and intermittent Prednisone TTE and OZIEL- no vegetations -ID ff -Transitioned to oral Voriconazole (equal bioavailability with IV; guilliermondi is resistant to other antifungal agents) -Monitor sensitivities, cultures to completion -04/28 fungal culture negative so far -Per discussion between Dr. Brock and Dr. Godoy,- will keep IV site- with electrolyte abnormalities- -patient will have central line removed prior to discharge and continued antifungal treatment. - central line removed. patient can be discharged with plans for outpatient PICC. Ideally no port 2+ weeks Crohns disease/Short gut syndrome Impression: Currently on steroids and vedolizumab -Patient of advanced gastroenterology/Dr. Godoy -Continue pain control -Continue Percocet q6hrs PRN -Continue 2mg Dilaudid IV - changed to q 6 prn - d/w patient -Continue to follow/support nutrition - enlive supplements. dietary ff - po intake improving Nausea/vomiting/Abdominal pain Impression: resolved n/v. Abd pain - IMproved C/P CT w/o acute process LFT's with mild ALKP, transaminase abnormalities Barium swallow- small esophageal web. Minimal supraglottic larynx w/o tracheal aspiration. GERD, hiatal hernia. -GI consulted -Plan for EGD/colonoscopy as outpatient -Continue ARABELLA, PPI, PO Prednisone (5mg daily for COPD per EMR)- per patient maintenance dose by Dr. Godoy Electrolyte abnormalities- K and Mg improved 7/5- Mg 1.3 Impression: Patient with hypomagnesia, hypokalemia, hypocalcemia on admission. -resolved with replacement; continue to monitor -Discussed with ID; patient has had prior life threatening hypokalemia so will monitor need for oral repletion to determine whether IV administration is needed at discharge -Patient agreeable to oral supplementation; -Continue oral magnesium- change to [id number] 400 mg pob id - BMP now - hold KCL supplements Potassium up -hold KCL - BMP ordered- patient initially refused blood draw- now agrees CV -Continue Metoprolol = decrease to 25 mg po bid -decrease amlodipine to 2.5 mg daily Anemia Hgb stable ~10.5-11 -Will monitor Hgb -Continue Benadryl PRN, flonase for allergies Bilateral thumb.thenar eminence rashes- possible fungal vs psoriasis - trial of steroid/antifungal topical therapy bid started 05/05 - monitor - + family history of psoriasis- a sibling DVT PPX-SCD's -Discussed chemical PPX; declined Discharge Planning: Continue oral voriconazole. Follow sensitivities and repeat blood cultures. Follow ID recommendations
[2018-05-10 15:36] LABS: Calcium 9.2 mg/dL (8.5-10.1); Carbon Dioxide 28.6 meq/L (21.0-32.0); Magnesium 1.8 mg/dL (1.5-2.5); Potassium 5.3 meq/L (3.5-5.1)
--- NOTE | 2018-05-10 18:48 | P.DIET ---
Nutritional Evaluation Type of nutrition evaluation: follow-up Nutrition screening: Weight Loss > 10 lbs (Wt loss from 130#-117# reported on admission) Subjective Subjective Comments: Pt states she's not eating well, but then states she's eating "great for her". Pt was able to describe her eating habits. She is knowledgeable about her Crohn' s disease and the recommended diet for that. Drinking Enlive. Objective - Diagnosis Dehydration, R/O Sepsis - Objective % IBW: 92 (MTC=206#) Body Weight Used for Calculations: Actual (52 kg when admitted) Energy Needs - Lower Range (kCal/kg): 30 Energy Needs - Upper Range (kCal/kg): 35 Lower Limit kCal/kg (kCals): 1,560 Upper Limit kCal/kg (kCals): 1,855 Lower Limit Protein Factor (Grams per Kg): 1.2 Upper Limit Protein Factor (Grams per Kg): 1.5 Lower Protein Needs (Protein): 64 Upper Protein Needs (Protein): 80 Fluid Factor (ml/kg): 30 Estimated Fluid Needs (ml): 1,560 Dietitian Reviewed in Medical Record: Current diet, Curent medications, Intake & Output, Labs, Medical history Oral Diet Intake Amount: Good 75-90% Objective Comments: LBM 05/09 Hx of Crohns disease and SBS. Feeding - Current PO Supplement Current Supplement: Ensure Enlive Current Supplement Flavor: Vanilla Current Frequency of Supplement: Three times a day Assessment Assessment: Pt is eating better, although she states her appetite is poor. Pt confirms that she's eating 100% of her meals, plus drinking the Enlive as often as she can. Educated on potential discomfort w/ drinking the Ensure. Pt denies trouble chewing/swallowing/feeding herself. Pt says her usually brings her dinner and she eats 100% of it. Pt is knowledgeable about her Crohn's disease and SBS. She was able to verbally tell me the diet recs she follows and they were accurate. Continue current POC. Consult dietitian if needed. Recommendations: 1. Continue current POC. 2. Consult RD if needed.
[2018-05-11] MEDS: oxyCODONE/Acetaminophen 10/325 Tablet PO PRN ×4 (03:26→21:54)
[2018-05-11] MEDS: HYDROmorphone PF Inj 2 MG/ML Vial IV.PUSH PRN ×2 (06:56→13:02)
[2018-05-11] MEDS: Voriconazole 200 MG Tablet PO SCH (08:38)
[2018-05-11] MEDS: Magnesium Oxide 400 MG Tablet PO SCH ×2 (08:38→21:28)
[2018-05-11] MEDS: predniSONE 5 MG Tablet PO SCH (08:39)
[2018-05-11] MEDS: Metoprolol Tartrate 25 MG Tablet PO SCH ×2 (08:39→21:30)
[2018-05-11] MEDS: Senna/Docusate Sodium 8.6/50 MG Tablet PO SCH ×2 (08:40→21:31)
[2018-05-11] MEDS: amLODIPine 5 MG Tablet PO SCH (08:40)
[2018-05-11 10:04] LABS: Calcium 9.7 mg/dL (8.5-10.1); Carbon Dioxide 28.5 meq/L (21.0-32.0); Potassium 4.3 meq/L (3.5-5.1)
--- NOTE | 2018-05-11 14:14 | P.PN ---
Subjective Interval history: patient has been off IVF for 5 days good po intake 100% no nausea or vomiting Physical Exam Vital signs: Vital Signs 05/10/18 16:00 05/10/18 20:00 05/11/18 00:00 Temperature 98.2 F 97.5 F L 97 F L Pulse Rate 81 87 91 H Respiratory Rate 18 16 16 Blood Pressure 132/81 126/82 114/63 Pulse Oximetry 97 95 96 05/11/18 04:00 05/11/18 08:00 05/11/18 12:00 Temperature 98.5 F 97.7 F 97.7 F Pulse Rate 88 94 H 77 Respiratory Rate 16 18 Blood Pressure 126/80 148/102 H 125/70 Pulse Oximetry 93 L 96 95 Intake & Output 05/10/18 05/11/18 05/11/18 18:59 06:59 18:59 Intake Total 960 / 960 960 / 960 Balance 960 / 960 960 / 960 Weight 53.2 kg Intake: Oral 960 / 960 960 / 960 Other: # Voids 4 5 Date of Last Bowel Movement 05/10/18 05/10/18 # Bowel Movements 1 0 Narrative: General: NAD; no acute distress HEENT: EOM grossly intact right neck- previous central line - site- no signs of infection CARDIAC: Regular rate and rhythm; normal perfusion Respiratory: CTAB; normal rate ABDOMEN: Soft, nondistended,soft, good bowel sounds,nontender EXTREMITIES: Ambulating normally. Grossly normal ROM and motor function SKIN: some scaling erythematous rashes extensor surfaces of finger- improved Neuro: Grossly normal CN; grossly normal peripheral motor/sensory function Results - Labs CBC & Chem 7: 05/05/18 07:00 05/12/18 07:42 Laboratory Results - last 24 hr 05/10/18 05/11/18 14:23 07:14 Sodium 138 136 Potassium 5.3 H 4.3 D Chloride 102 97 L Carbon Dioxide 28.6 28.5 Anion Gap 7 11 BUN 16 13 Creatinine 0.94 0.93 Estimated GFR 61 L 61 L Random Glucose 104 71 L Calcium 9.2 9.7 Magnesium 1.8 - Procedures 04/25- R IJ placed Assessment and Plan - Assessment (1) Fungemia Code(s): B49 - Unspecified mycosis Status: Acute (2) CD (Crohn's disease) Code(s): K50.90 - Crohn's disease, unspecified, without complications Status: Acute (3) 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 Immunosuppression from biologic agent (Entyvio) and intermittent Prednisone TTE and OZIEL- no vegetations -ID ff -Transitioned to oral Voriconazole (equal bioavailability with IV; guilliermondi is resistant to other antifungal agents) -Monitor sensitivities, cultures to completion -04/28 fungal culture negative so far -Per discussion between Dr. Gao and Dr. Godoy,- will keep IV site- with electrolyte abnormalities- -patient will have central line removed prior to discharge and continued antifungal treatment. - central line removed. patient can be discharged with plans for outpatient PICC. Ideally no port 2+ weeks Crohns disease/Short gut syndrome Impression: Currently on steroids and vedolizumab -Patient of advanced gastroenterology/Dr. Godoy -Continue pain control -Continue Percocet q6hrs PRN -Continue 2mg Dilaudid IV - changed to q 6 prn - d/w patient -Continue to follow/support nutrition - enlive supplements. dietary ff - po intake improving Nausea/vomiting/Abdominal pain Impression: resolved n/v. Abd pain - IMproved C/P CT w/o acute process LFT's with mild ALKP, transaminase abnormalities Barium swallow- small esophageal web. Minimal supraglottic larynx w/o tracheal aspiration. GERD, hiatal hernia. -GI consulted -Plan for EGD/colonoscopy as outpatient -Continue ARABELLA, PPI, PO Prednisone (5mg daily for COPD per EMR)- per patient maintenance dose by Dr. Godoy Electrolyte abnormalities- K and Mg improved 7/5- Mg 1.3 Impression: Patient with hypomagnesia, hypokalemia, hypocalcemia on admission. -resolved with replacement; continue to monitor -Discussed with ID; patient has had prior life threatening hypokalemia so will monitor need for oral repletion to determine whether IV administration is needed at discharge -Patient agreeable to oral supplementation; -Continue oral magnesium- change to [id number] 400 mg pob id - BMP good consistently Potassium up - resolved CV -Continue Metoprolol = decrease to 25 mg po bid -decrease amlodipine to 2.5 mg daily Anemia Hgb stable ~10.5-11 -Will monitor Hgb -Continue Benadryl PRN, flonase for allergies Bilateral thumb.thenar eminence rashes- possible fungal vs psoriasis - trial of steroid/antifungal topical therapy bid started 05/05 - monitor - + family history of psoriasis- a sibling DVT PPX-SCD's -Discussed chemical PPX; declined Discharge Planning: Continue oral voriconazole. negative will toy=uch base with Dr. gao- - how long treatment for voriconzaole po after I left the room- she came out running along the hallway to tell me that she would need some pain meds with good energy
--- NOTE | 2018-05-11 21:02 | P.PNID ---
Subjective Remarks: Ms. Sin is a 58-year-old female with past medical history significant for Crohn's disease for the last 40 years, who has been on steroids for the most part of her disease. Patient also reports being on Humira in the past but had side effects from it and it was discontinued. Patient more recently was started on Entyvio infusions. Last infusion was on 04/05/2018. She has also been on electrolyte and nutritional supplements using the borderline at home. 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 Patient also reports that she had a port in the past that had to be removed because it was not a PowerPort. She denies any infections related to that prior port. In general she denies any infections despite having port for a long period of time. Patient reports that after she received Entyvio infusion she felt better and her GI symptoms had resolved. Thereafter approximately 1 week prior to admission she started developing nausea vomiting chills fevers and night sweats. Patient was admitted and underwent workup for possible sepsis including blood cultures blood cultures are positive for yeast infectious diseases consulted for management of the same. Overnight events reviewed. Temps ok C/O abdominal pain, her Crohns pain. When asked her to move for examining back she jumped up to move her gown and bend forward and appeared comfortable. Tolerating diet and oral meds. Blood cultures from 04/25 last positive the day the port removed. Patient has a CL placed on same day will remove it 2-3 days prior. Power port placed 2014 and now removed. Doppler US no DVT in BUE OZIEL negative. Port cath tip positive for Imelda G as well. Antibiotics: Voriconazole oral Lines: CL site ok. Prior port site ok. Past Medical History: reviewed Allergies/Adverse Reactions: Allergies Sulfa (Sulfonamide Antibiotics) Allergy (Severe, Verified 04/28/18 12:16) "Shock", nausea, rash HUMIRA Allergy (Unknown, Uncoded 04/28/18 12:16) SKIN LESIONS Objective Vital Signs 05/11/18 00:00 05/11/18 04:00 05/11/18 08:00 Temperature 97 F L 98.5 F 97.7 F Pulse Rate 91 H 88 94 H Respiratory Rate 16 16 Blood Pressure 114/63 126/80 148/102 H Pulse Oximetry 96 93 L 96 05/11/18 12:00 05/11/18 16:00 Temperature 97.7 F 97.8 F Pulse Rate 77 80 Respiratory Rate 18 18 Blood Pressure 125/70 141/79 H Pulse Oximetry 95 95 Intake & Output 05/11/18 05/11/18 05/12/18 06:59 18:59 06:59 Intake Total 960 / 960 960 / 960 Balance 960 / 960 960 / 960 Weight 53.2 kg Intake: Oral 960 / 960 960 / 960 Other: # Voids 5 5 Date of Last Bowel Movement 05/10/18 # Bowel Movements 0 Lab - Chemistry Results 05/10/18 05/11/18 14:23 07:14 Sodium 138 136 Potassium 5.3 H 4.3 D Chloride 102 97 L Carbon Dioxide 28.6 28.5 Anion Gap 7 11 BUN 16 13 Creatinine 0.94 0.93 Estimated GFR 61 L 61 L Random Glucose 104 71 L Calcium 9.2 9.7 Magnesium 1.8 Physical Exam: GENERAL: Awake and alert, NAD SKIN: No rashes, ecchymoses or lesions. Cool and dry. HEAD: Atraumatic. Normocephalic. No temporal or scalp tenderness. EYES: Pupils equal round and reactive. Extraocular motions intact. No scleral icterus. No injection or drainage. ENT: Nose without bleeding, purulent drainage or septal hematoma. Throat without erythema, tonsillar hypertrophy or exudate. No oral thrush. NECK: Trachea midline. Supple, nontender, no meningeal signs. CARDIOVASCULAR: HS audible. RESPIRATORY: Clear to auscultation. Breath sounds equal bilaterally. No wheezes , rales, or rhonchi. GASTROINTESTINAL: Abdomen soft, non-tender, nondistended. Surgical scars ok. MUSCULOSKELETAL: Extremities without clubbing, cyanosis, or edema. NEUROLOGICAL: Awake and alert. Non focal Psych cooperative Prior port site ok. Assessment and Plan - Plan High grade Fungemia in a patient with port, now appears controlled post removal of port. Port catheter infected. Imelda guilliermondii fungemia. Crohn's disease on Entyvio infusions which is a biological agent Immune compromised status Was on prednisone off and on Recommendations: LAURA voriconazole jaimie Euceda (who kindly dw me case while on vacation) he tells me patient has had life threatening electrolyte imbalances and dehydration and needs IV access on discharge. dw patient will stop voriconazole. Blood cultures x 2. If blood cultures negative at 72 hours please call ID to dw if Port or PICC access needed. If thinks port needed and ID clears Gen Surgery will need consulted. to cover for me 05/14/2018. Over the weekend available prn.
[2018-05-12] MEDS: HYDROmorphone PF Inj 2 MG/ML Vial IV.PUSH PRN ×4 (01:01→18:56)
[2018-05-12] MEDS: Melatonin 5 MG Tablet PO PRN ×2 (01:20→22:24)
[2018-05-12] MEDS: oxyCODONE/Acetaminophen 10/325 Tablet PO PRN ×4 (04:11→22:24)
[2018-05-12 08:35] LABS: Potassium 3.8 meq/L (3.5-5.1)
--- NOTE | 2018-05-12 09:17 | P.PN ---
Subjective Interval history: seen in no distress po intake improving no nausea or vomiting d/w her chronic pain - meds tapering Physical Exam Vital signs: Vital Signs 05/11/18 12:00 05/11/18 16:00 05/11/18 20:00 Temperature 97.7 F 97.8 F 97.3 F L Pulse Rate 77 80 86 Respiratory Rate 18 18 18 Blood Pressure 125/70 141/79 H 116/79 Pulse Oximetry 95 95 96 05/12/18 00:00 05/12/18 04:00 05/12/18 08:00 Temperature 97.7 F 98.1 F 98.4 F Pulse Rate 75 93 H 84 Respiratory Rate 18 18 18 Blood Pressure 108/63 110/70 122/83 Pulse Oximetry 96 96 97 Intake & Output 05/11/18 05/12/18 05/12/18 18:59 06:59 18:59 Intake Total 960 / 960 720 / 720 Balance 960 / 960 720 / 720 Weight 53.6 kg Intake: Oral 960 / 960 720 / 720 Other: # Voids 5 5 Date of Last Bowel Movement 05/10/18 # Bowel Movements 0 Narrative: General: NAD; no acute distress HEENT: EOM grossly intact right neck- previous central line - site- no signs of infection CARDIAC: Regular rate and rhythm; normal perfusion Respiratory: CTAB; normal rate ABDOMEN: Soft, mild tenderness, good bowel sounds, EXTREMITIES: Ambulating normally. Grossly normal ROM and motor function SKIN: some scaling erythematous rashes extensor surfaces of finger- almost resolved Neuro: Grossly normal CN; grossly normal peripheral motor/sensory function Results - Labs CBC & Chem 7: 05/05/18 07:00 05/12/18 07:42 Laboratory Results - last 24 hr 05/11/18 05/12/18 07:14 07:42 Sodium 136 132 L Potassium 4.3 D 3.8 Chloride 97 L 93 L Carbon Dioxide 28.5 24.0 Anion Gap 11 15 BUN 13 13 Creatinine 0.93 0.85 Estimated GFR 61 L 68 L Random Glucose 71 L 107 H Calcium 9.7 9.0 - Procedures 04/25- R IJ placed Assessment and Plan - Assessment (1) Fungemia Code(s): B49 - Unspecified mycosis Status: Acute (2) CD (Crohn's disease) Code(s): K50.90 - Crohn's disease, unspecified, without complications Status: Acute (3) 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 Immunosuppression from biologic agent (Entyvio) and intermittent Prednisone TTE and OZIEL- no vegetations -ID ff -Transitioned to oral Voriconazole (equal bioavailability with IV; guilliermondi is resistant to other antifungal agents) -Monitor sensitivities, cultures to completion -04/28 fungal culture negative so far -Per discussion between Dr. Brock and Dr. Godoy,- will keep IV site- with electrolyte abnormalities- -patient will have central line removed prior to discharge and continued antifungal treatment. - central line removed. patient can be discharged with plans for outpatient PICC. Ideally no port 2+ weeks Voriconazole DC- 05/11 blood cultures repeated- if negative x 48 hours- may proceed with central line or port placement if Dr. Godoy deems necessary- history of severe electrolyte imbalance when Croh's exacerbates in the past Crohns disease/Short gut syndrome Impression: Currently on steroids and vedolizumab -Patient of advanced gastroenterology/Dr. Godoy -Continue pain control -Continue Percocet q6hrs PRN -Continue Dilaudid 0.5 mg IV - changed to q 6 prn - d/w patient -Continue to follow/support nutrition - enlive supplements. dietary ff - po intake improving Nausea/vomiting/Abdominal pain Impression: resolved n/v. Abd pain - IMproved C/P CT w/o acute process LFT's with mild ALKP, transaminase abnormalities Barium swallow- small esophageal web. Minimal supraglottic larynx w/o tracheal aspiration. GERD, hiatal hernia. -GI ff -Plan for EGD/colonoscopy will deger to GI- timing- inpt vs OP -Continue ARABELLA, PPI, PO Prednisone (5mg daily for COPD per EMR)- per patient maintenance dose by Dr. Godoy Electrolyte abnormalities- K and Mg improved 7/5- Mg 1.3 Impression: Patient with hypomagnesia, hypokalemia, hypocalcemia on admission. -resolved with replacement; continue to monitor -Discussed with ID; patient has had prior life threatening hypokalemia so will monitor need for oral repletion to determine whether IV administration is needed at discharge -Continue oral magnesium- change to Ap6izxst 400 mg pob id - BMP good consistently CV -Continue Metoprolol = decrease to 25 mg po bid -decrease amlodipine to 2.5 mg daily Anemia Hgb stable ~10.5-11 -Will monitor Hgb -Continue Benadryl PRN, flonase for allergies Bilateral thumb.thenar eminence rashes- possible fungal vs psoriasis - trial of steroid/antifungal topical therapy bid started 05/05 - monitor - + family history of psoriasis- a sibling DVT PPX-SCD's -Discussed chemical PPX; declined Discharge Plannin/13 after I left the room- she came out running along the hallway energetically to tell me that she would need some pain meds
[2018-05-12] MEDS: predniSONE 5 MG Tablet PO SCH (09:54)
[2018-05-12] MEDS: Senna/Docusate Sodium 8.6/50 MG Tablet PO SCH ×2 (09:55→20:47)
[2018-05-12] MEDS: amLODIPine 5 MG Tablet PO SCH (09:55)
[2018-05-12] MEDS: Metoprolol Tartrate 25 MG Tablet PO SCH ×2 (09:56→20:45)
[2018-05-12] MEDS: Magnesium Oxide 400 MG Tablet PO SCH ×2 (09:56→20:46)
[2018-05-13] MEDS: HYDROmorphone PF Inj 2 MG/ML Vial IV.PUSH PRN ×3 (02:09→16:30)
[2018-05-13] MEDS: oxyCODONE/Acetaminophen 10/325 Tablet PO PRN ×3 (04:11→21:46)
[2018-05-13] MEDS: Senna/Docusate Sodium 8.6/50 MG Tablet PO SCH ×2 (08:43→21:47)
[2018-05-13] MEDS: Magnesium Oxide 400 MG Tablet PO SCH ×2 (08:44→21:47)
[2018-05-13] MEDS: predniSONE 5 MG Tablet PO SCH (08:44)
[2018-05-13] MEDS: Metoprolol Tartrate 25 MG Tablet PO SCH ×2 (08:44→21:47)
[2018-05-13] MEDS: amLODIPine 5 MG Tablet PO SCH (08:46)
--- NOTE | 2018-05-13 13:29 | P.PN ---
Subjective Interval history: patient up and ambulating- going all the way to the [facility] nurse station to ask for pain medicine long idscussion with her regarding pain neds Physical Exam Vital signs: Vital Signs 05/12/18 16:00 05/12/18 20:00 05/13/18 00:00 Temperature 98.1 F 98.2 F 98.0 F Pulse Rate 69 79 77 Respiratory Rate 18 18 18 Blood Pressure 125/78 128/93 H 129/95 H Pulse Oximetry 98 96 96 05/13/18 04:00 Temperature 98.3 F Pulse Rate 74 Respiratory Rate 18 Blood Pressure 100/76 Pulse Oximetry 96 Intake & Output 05/12/18 05/13/18 05/13/18 18:59 06:59 18:59 Intake Total 480 / 480 340 / 340 Balance 480 / 480 340 / 340 Weight 53.4 kg Intake: Oral 480 / 480 340 / 340 Other: # Voids 2 Date of Last Bowel Movement 05/10/18 # Bowel Movements 2 0 Narrative: General: NAD; no acute distress HEENT: EOM grossly intact right neck- previous central line - site- no signs of infection CARDIAC: Regular rate and rhythm; normal perfusion Respiratory: CTAB; normal rate ABDOMEN: Soft, nontender, no guarding, good bowel sounds, EXTREMITIES: Ambulating normally. Grossly normal ROM and motor function SKIN: some scaling erythematous rashes extensor surfaces of finger- resolved Neuro: Grossly normal CN; grossly normal peripheral motor/sensory function Results - Labs CBC & Chem 7: 05/05/18 07:00 05/12/18 07:42 Microbiology 05/12/18 00:30 Blood - Peripheral Aerobic Blood Culture - Preliminary No growth in 1 day 05/12/18 00:30 Blood - Peripheral Anaerobic Blood Culture - Preliminary No growth in 1 day 05/12/18 00:38 Blood - Peripheral Aerobic Blood Culture - Preliminary No growth in 1 day 05/12/18 00:38 Blood - Peripheral Anaerobic Blood Culture - Preliminary No growth in 1 day - Procedures 04/25- R IJ placed Assessment and Plan - Assessment (1) Fungemia Code(s): B49 - Unspecified mycosis Status: Acute (2) CD (Crohn's disease) Code(s): K50.90 - Crohn's disease, unspecified, without complications Status: Acute (3) 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 Immunosuppression from biologic agent (Entyvio) and intermittent Prednisone TTE and OZIEL- no vegetations -ID ff -S/P oral Voriconazole course 05/11 . fungal culture negative so far -Per discussion between Dr. Brock and Dr. Godoy,- will keep IV site- with history of life threatening electrolyte abnormalities- - central line removed. patient can be discharged with plans for outpatient PICC. Ideally no port 2+ weeks blood cultures repeated- negative x 48 hours- may proceed with central line or port placement if Dr. Godoy deems necessary- severe electrolyte imbalance when Crohn' s exacerbates in the past by history- Crohns disease/Short gut syndrome Impression: Currently on steroids and vedolizumab -Patient of advanced gastroenterology/Dr. Godoy -Continue pain control long discussion with her change dilaudid to 2 mg po q 8 pain >6 Lortab 10 q 6 prn for pain -Continue to follow/support nutrition - enlive supplements. dietary ff - po intake improving - patient with drug seeking component - Nausea/vomiting/Abdominal pain- Improved C/P CT w/o acute process LFT's with mild ALKP, transaminase abnormalities Barium swallow- small esophageal web. Minimal supraglottic larynx w/o tracheal aspiration. GERD, hiatal hernia. -GI ff -Plan for EGD/colonoscopy will defer to GI- timing- inpt vs OP -Continue ARABELLA, PPI, PO Prednisone - per patient maintenance dose by Dr. Gdooy for Crohns) Electrolyte abnormalities- K and Mg improved Hypomagnesemia- on Mg0xde 400 mg po bid Hypokalemia- improved - last K >5.2. KCL DC. - recheck K and Mg in am -Per GI- patient has had prior life threatening hypokalemia - and will need IV access for future use - BMP and po good consistently - will need to d/w and confirm with Dr. Godoy if he still thinks we need to central line/port placed for future use in events of exacerbations that cause elec.[email or web address] per patient "He knows my case very well" CV -Continue Metoprolol 25 mg po bid - amlodipine to 2.5 mg daily Anemia Hgb stable ~10.5-11 -Will monitor Hgb -Continue Benadryl PRN, flonase for allergies Bilateral thumb.thenar eminence rashes- possible fungal vs psoriasis - trial of steroid/antifungal topical therapy bid started 05/05 - monitor - + family history of psoriasis- a sibling DVT PPX-SCD's -Discussed chemical PPX; declined Discharge Plannin/13 after I left the room- she came out running along the hallway energetically to tell me that she would need some pain meds
[2018-05-14] MEDS: oxyCODONE/Acetaminophen 10/325 Tablet PO PRN ×3 (05:31→21:15)
[2018-05-14] MEDS: Magnesium Oxide 400 MG Tablet PO SCH ×2 (09:12→21:13)
[2018-05-14] MEDS: amLODIPine 5 MG Tablet PO SCH (09:13)
[2018-05-14] MEDS: predniSONE 5 MG Tablet PO SCH (09:13)
[2018-05-14] MEDS: Senna/Docusate Sodium 8.6/50 MG Tablet PO SCH ×2 (09:13→21:14)
[2018-05-14] MEDS: Metoprolol Tartrate 25 MG Tablet PO SCH ×2 (09:13→21:14)
[2018-05-14 11:56] LABS: Calcium 8.6 mg/dL (8.5-10.1)
--- NOTE | 2018-05-14 13:00 | P.PNIM ---
Subjective Interval history: 7-15 patient up and ambulating- going all the way to the from nurse station to ask for pain medicine long discussion with her regarding pain meds 7-16 wants to have port placed wants GI TO BE CONSULTED SURGERY CONSULTED PER ID RECOMMENDATIONS REGARDING NEED FOR PORT CONTINUE CURRENT REGIMEN DW RN AND PT AND CM AM LABS Physical Exam Vital signs: Vital Signs 05/13/18 20:00 05/14/18 00:00 05/14/18 04:00 Temperature 97.8 F 97.8 F 97.7 F Pulse Rate 96 H 77 71 Respiratory Rate 17 17 18 Blood Pressure 124/83 120/69 119/73 Pulse Oximetry 96 95 94 L 05/14/18 08:00 Temperature 98.8 F Pulse Rate 73 Respiratory Rate 18 Blood Pressure 120/74 Pulse Oximetry 93 L Intake & Output 05/13/18 05/14/18 05/14/18 18:59 06:59 18:59 Intake Total 480 / 480 222 / 222 Balance 480 / 480 222 / 222 Weight 53.2 kg Intake: Oral 480 / 480 222 / 222 Other: # Voids 5 3 # Bowel Movements 1 0 Narrative: GENERAL: AWAKE AND ALERT AND ORIENTED X3 TALKATIVE AND COOPERATIVE SKIN: Warm and dry. SCALY SKIN ON KNUCKLES OF FINGERS HEAD: Atraumatic. Normocephalic. EYES: Pupils equal and round. No scleral icterus. No injection or drainage. ENT: No nasal bleeding or discharge. Mucous membranes pink and moist. NECK: Trachea midline. No JVD. CARDIOVASCULAR: Regular rate and rhythm. S1, S2 NO S3 OR S4 RESPIRATORY: No accessory muscle use. Clear to auscultation. Breath sounds equal bilaterally. GASTROINTESTINAL: Abdomen soft, MILDLY-tender, nondistended. Hepatic and splenic margins not palpable. MUSCULOSKELETAL: Extremities without clubbing, cyanosis, or edema. No obvious deformities. NEUROLOGICAL: Awake and alert. No obvious cranial nerve deficits. Motor grossly within normal limits. Five out of 5 muscle strength in the arms and legs. Normal speech. PSYCHIATRIC: INAppropriate mood and affect; insight and judgment ABnormal. Results - Labs CBC & Chem 7: 05/05/18 07:00 05/14/18 10:35 Laboratory Results - last 24 hr 05/14/18 10:35 Sodium 134 L Potassium 4.0 Chloride 97 L Carbon Dioxide 28.0 Anion Gap 9 BUN 14 Creatinine 0.85 Estimated GFR 68 L Random Glucose 114 H Calcium 8.6 Magnesium 2.0 Microbiology 05/12/18 00:30 Blood - Peripheral Aerobic Blood Culture - Preliminary No growth in 2 days 05/12/18 00:30 Blood - Peripheral Anaerobic Blood Culture - Preliminary No growth in 2 days 05/12/18 00:38 Blood - Peripheral Aerobic Blood Culture - Preliminary No growth in 2 days 05/12/18 00:38 Blood - Peripheral Anaerobic Blood Culture - Preliminary No growth in 2 days - Procedures 04/25- R IJ placed Assessment and Plan - Assessment (1) Fungemia Code(s): B49 - Unspecified mycosis Status: Acute (2) CD (Crohn's disease) Code(s): K50.90 - Crohn's disease, unspecified, without complications Status: Acute (3) 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 Immunosuppression from biologic agent (Entyvio) and intermittent Prednisone TTE and OZIEL- no vegetations -ID ff -S/P oral Voriconazole course 05/11 . fungal culture negative so far -Per discussion between Dr. Brock and Dr. Godoy,- will keep IV site- with history of life threatening electrolyte abnormalities- - central line removed. patient can be discharged with plans for outpatient PICC. Ideally no port 2+ weeks blood cultures repeated- negative x 48 hours- may proceed with central line or port placement if Dr. Godoy deems necessary- severe electrolyte imbalance when Crohn' s exacerbates in the past by history- Crohns disease/Short gut syndrome Impression: Currently on steroids and vedolizumab -Patient of advanced gastroenterology/Dr. Godoy -Continue pain control long discussion with her change dilaudid to 2 mg po q 8 pain >6 Lortab 10 q 6 prn for pain -Continue to follow/support nutrition - enlive supplements. dietary ff - po intake improving - patient with drug seeking component - Nausea/vomiting/Abdominal pain- Improved C/P CT w/o acute process LFT's with mild ALKP, transaminase abnormalities Barium swallow- small esophageal web. Minimal supraglottic larynx w/o tracheal aspiration. GERD, hiatal hernia. -GI ff -Plan for EGD/colonoscopy will defer to GI- timing- inpt vs OP -Continue ARABELLA, PPI, PO Prednisone - per patient maintenance dose by Dr. Godoy for Crohns) Electrolyte abnormalities- K and Mg improved Hypomagnesemia- on Mg0xde 400 mg po bid Hypokalemia- improved - last K >5.2. KCL DC. - recheck K and Mg in am -Per GI- patient has had prior life threatening hypokalemia - and will need IV access for future use - BMP and po good consistently - will need to d/w and confirm with Dr. Godoy if he still thinks we need to central line/port placed for future use in events of exacerbations that cause elec.abn per patient "He knows my case very well" CV -Continue Metoprolol 25 mg po bid - amlodipine to 2.5 mg daily Anemia Hgb stable ~10.5-11 -Will monitor Hgb -Continue Benadryl PRN, Flonase for allergies Bilateral thumb.thenar eminence rashes- possible fungal vs psoriasis - trial of steroid/antifungal topical therapy bid started 05/05 - monitor - + family history of psoriasis- a sibling PATIENT WANTS PORT AND GI CONSULT. WILL CONSULT GI AND SURGERY FOR PORT PLACEMENT DVT PPX-SCD's -Discussed chemical PPX; declined Code Status: FULL CODE Discussed Condition With: RN AND PT AND CM Discharge Planning: PENDING GI AND SURGERY CLEARANCE
--- NOTE | 2018-05-14 14:13 | P.CONGI ---
History of Present Illness Consult date: 05/14/18 Consult reason: Crohns disease Chief complaint: Dehydration, Rule Out Sepsis History of Present Illness: This is a 58 yo F with GI history significant for Crohns disease and has previously had 3 bowel resections and currently with short gut syndrome. Pt reports mineral infusions at home through her port. Currently admitted to hospital with fungemia from port, she is concerned about the immunosuppressive effects of the Entyvio she is on and would like to discuss this. Pt is known to Dr. Godoy. She has previously failed multiple treatments for Crohns disease, including an allergic reaction to Humira and she is currently being managed on Entyvio. Reports she has received 3 doses, last dose was April 03. Pt does report improvement in symptoms since starting the Entyvio. States her BMs have become more formed and she is no longer having explosive diarrhea. However, for the past two weeks pt states her stools have become loose again although not associated with incontinence. Denies hematochezia. Pt also reports chronic abdominal pain, takes Hydrocodone at home for pain, pain is located all over her abdomen but worse on the right side. Also reports dysphagia with both solids and liquids, feels the food gets stuck and takes her longer to swallow. Denies coughing after melas or regurgitation of the food. Pt had barium swallow to evaluate on 04/23 which revealed minimal penetration of the supraglottic larynx without jaspreet tracheal aspiration, small esophageal web noted anteriorly at C5-C6 level, small sliding-type hernia, minimal gastroesophageal reflux. Last EGD and colonoscopy April 2016 --> Mucosal hyperplasia consistent with chronic reflux, gastritis, short segment of stricture in the TI with mild erythema and a small ulcer, sessile polyp in the ascending colon, sessile polyp in the proximal transverse colon, erythema and edema in the sigmoid colon. Pathology (antrum) chronic inactive gastritis, mild (distal esopahgus) squamocolumnar mucosa with mild chronic esophagitis and reflux associated mucosal changes (TI) focal chronic active enterocolitis with ulceration ( ascending colon polyp) polypoid fragment of colonic mucosa with lymphoid aggregates (ascending colon) colonic mucosa without significant histopathologic findings (sigmoid colon) colonic mucosa with lymphoid aggregates. <Heaven Gunter - Last Filed: 05/14/18 13:54> Review of Systems Gastrointestinal: Reports abdominal pain, Reports difficulty swallowing, Reports loose stools, Reports pain with swallowing, Denies black, tarry stools, Denies bright, red blood in stools, Denies nausea, Denies vomiting <Heaven Gunter - Last Filed: 05/14/18 13:54> Medications and Allergies Active Medications: Active Medications Acetaminophen (Tylenol) 650 mg PO Q6H PRN PRN Reason: HEADACHE, FEVER, PAIN 1-4 Al Hydroxide/Mg Hydroxide (Milk Of Magnesia Liq) 30 ml PO Q12H PRN PRN Reason: MILD CONSTIPATION Albuterol (Albuterol Neb (Prn)) 2.5 mg NEB Q4HR NEB PRN PRN Reason: SHORTNESS OF BREATH Last Admin: 05/04/18 15:07 Dose: 2.5 mg Amlodipine Besylate (Norvasc) 2.5 mg PO DAILY [facility] Last Admin: 05/14/18 09:13 Dose: Not Given Betamethasone/Clotrimazole (Lotrisone Cream) 1 applicatio TOPICAL BID [facility] Last Admin: 05/14/18 09:14 Dose: 1 applicatio Bisacodyl (Dulcolax Supp) 10 mg RECTAL DAILY PRN PRN Reason: SEVERE CONSTIPATION Diazepam (Valium) 10 mg PO HS PRN PRN Reason: ANXIETY Diphenhydramine HCl (Benadryl) 25 mg PO Q6H PRN PRN Reason: ALLERGIES Diphenoxylate HCl/Atropine (Lomotil) 1 tab PO Q6H PRN PRN Reason: DIARRHEA Fluticasone Propionate (Flonase Nasal Bath) 2 spray NASAL DAILY [facility] Last Admin: 05/14/18 09:14 Dose: 2 spray Heparin Sodium (Porcine) (Heparin Central Flush) [facility]; Protocol Hydromorphone HCl (Dilaudid) 2 mg PO Q8H PRN PRN Reason: PAIN 6-10;IF UNABLE TO TAKE PO Last Admin: 05/14/18 09:21 Dose: 2 mg Lactulose (Lactulose Liq) 30 ml PO DAILY PRN PRN Reason: SEVERE CONSITIPATION Magnesium Oxide (Mag-Ox) 400 mg PO BID [facility] Last Admin: 05/14/18 09:12 Dose: 400 mg Melatonin (Melatonin) 5 mg PO HS PRN PRN Reason: INSOMNIA Last Admin: 05/12/18 22:24 Dose: 5 mg Metoclopramide HCl (Reglan Inj) 5 mg IV.PUSH Q6H PRN PRN Reason: NAUSEA OR VOMITING Last Admin: 05/01/18 01:27 Dose: 5 mg Metoprolol Tartrate (Lopressor) 25 mg PO BID [facility] Last Admin: 05/14/18 09:13 Dose: 25 mg Nicotine (Habitrol 7 Mg Patch.24 Hr) 1 patch T-DERMAL DAILY [facility] Last Admin: 05/14/18 09:13 Dose: 1 patch Oxycodone/Acetaminophen (Percocet 10/325 Mg) 1 tab PO Q6H PRN Last Admin: 05/14/18 12:00 Dose: 1 tab Pantoprazole Sodium (Protonix) 40 mg PO DAILY [facility] Last Admin: 05/14/18 09:13 Dose: 40 mg Prednisone (Deltasone) 5 mg PO DAILY [facility] Last Admin: 05/14/18 09:13 Dose: 5 mg Senna/Docusate Sodium (Zahra-Colace) 1 tab PO BID [facility] Last Admin: 05/14/18 09:13 Dose: Not Given Sennosides (Senokot) 17.2 mg PO Q12H PRN PRN Reason: MODERATE - CONSTIPATION Sodium Chloride (Ns Flush) 2 ml IV.FLUSH UNSCH PRN PRN Reason: FLUSH AFTER USING IV ACCESS Last Admin: 04/30/18 23:03 Dose: 2 ml Sodium Chloride (Ns Flush) 2 ml IV.FLUSH BID [facility] Last Admin: 05/14/18 09:14 Dose: 2 ml Throat Lozenges (Chloraseptic Bath) 2 spray OROPHARYNG Q2H PRN PRN Reason: SORE THROAT Last Admin: 05/03/18 01:39 Dose: 2 spray <Heaven Gunter - Last Filed: 05/14/18 13:54> Active Medications: Active Medications Acetaminophen (Tylenol) 650 mg PO Q6H PRN PRN Reason: HEADACHE, FEVER, PAIN 1-4 Al Hydroxide/Mg Hydroxide (Milk Of Magnesia Liq) 30 ml PO Q12H PRN PRN Reason: MILD CONSTIPATION Albuterol (Albuterol Neb (Prn)) 2.5 mg NEB Q4HR NEB PRN PRN Reason: SHORTNESS OF BREATH Last Admin: 05/04/18 15:07 Dose: 2.5 mg Amlodipine Besylate (Norvasc) 2.5 mg PO DAILY [facility] Last Admin: 05/14/18 09:13 Dose: Not Given Betamethasone/Clotrimazole (Lotrisone Cream) 1 applicatio TOPICAL BID [facility] Last Admin: 05/14/18 09:14 Dose: 1 applicatio Bisacodyl (Dulcolax Supp) 10 mg RECTAL DAILY PRN PRN Reason: SEVERE CONSTIPATION Diazepam (Valium) 10 mg PO HS PRN PRN Reason: ANXIETY Diphenhydramine HCl (Benadryl) 25 mg PO Q6H PRN PRN Reason: ALLERGIES Diphenoxylate HCl/Atropine (Lomotil) 1 tab PO Q6H PRN PRN Reason: DIARRHEA Fluticasone Propionate (Flonase Nasal Bath) 2 spray NASAL DAILY [facility] Last Admin: 05/14/18 09:14 Dose: 2 spray Heparin Sodium (Porcine) (Heparin Central Flush) 500 unit IV.FLUSH UNSCH [facility]; Protocol Hydromorphone HCl (Dilaudid) 2 mg PO Q8H PRN PRN Reason: PAIN 6-10;IF UNABLE TO TAKE PO Last Admin: 05/14/18 17:24 Dose: 2 mg Lactulose (Lactulose Liq) 30 ml PO DAILY PRN PRN Reason: SEVERE CONSITIPATION Magnesium Oxide (Mag-Ox) 400 mg PO BID [facility] Last Admin: 05/14/18 09:12 Dose: 400 mg Melatonin (Melatonin) 5 mg PO HS PRN PRN Reason: INSOMNIA Last Admin: 05/12/18 22:24 Dose: 5 mg Metoclopramide HCl (Reglan Inj) 5 mg IV.PUSH Q6H PRN PRN Reason: NAUSEA OR VOMITING Last Admin: 05/01/18 01:27 Dose: 5 mg Metoprolol Tartrate (Lopressor) 25 mg PO BID [facility] Last Admin: 05/14/18 09:13 Dose: 25 mg Nicotine (Habitrol 7 Mg Patch.24 Hr) 1 patch T-DERMAL DAILY [facility] Last Admin: 05/14/18 09:13 Dose: 1 patch Oxycodone/Acetaminophen (Percocet 10/325 Mg) 1 tab PO Q6H PRN Last Admin: 05/14/18 12:00 Dose: 1 tab Pantoprazole Sodium (Protonix) 40 mg PO DAILY [facility] Last Admin: 05/14/18 09:13 Dose: 40 mg Prednisone (Deltasone) 5 mg PO DAILY [facility] Last Admin: 05/14/18 09:13 Dose: 5 mg Senna/Docusate Sodium (Zahra-Colace) 1 tab PO BID [facility] Last Admin: 05/14/18 09:13 Dose: Not Given Sennosides (Senokot) 17.2 mg PO Q12H PRN PRN Reason: MODERATE - CONSTIPATION Sodium Chloride (Ns Flush) 2 ml IV.FLUSH UNSCH PRN PRN Reason: FLUSH AFTER USING IV ACCESS Last Admin: 04/30/18 23:03 Dose: 2 ml Sodium Chloride (Ns Flush) 2 ml IV.FLUSH BID [facility] Last Admin: 05/14/18 09:14 Dose: 2 ml Throat Lozenges (Chloraseptic Bath) 2 spray OROPHARYNG Q2H PRN PRN Reason: SORE THROAT Last Admin: 05/03/18 01:39 Dose: 2 spray <Ajay Godoy E - Last Filed: 05/14/18 18:55> Allergies Allergy/AdvReac Type Severity Reaction Status Date / Time Sulfa (Sulfonamide Allergy Severe "Shock", Verified 04/28/18 12:16 Antibiotics) nausea, rash HUMIRA Allergy Unknown SKIN Uncoded 04/28/18 12:16 LESIONS Home Medications Medication Instructions Recorded Confirmed Type albuterol sulfate 2.5 mg CONTINUOUS NEBULIZATION Q4H 04/28/18 04/28/18 History PRN albuterol sulfate [Ventolin HFA] 2 puff INHALATION Q4-6H PRN 04/28/18 04/28/18 History amlodipine 10 mg PO DAILY 04/28/18 04/28/18 History cyanocobalamin (vitamin B-12) 1,000 mcg IM QMONTH 04/28/18 04/28/18 History diazepam 10 mg PO HS 04/28/18 04/28/18 History diphenoxylate-atropine 1 tab PO Q6H PRN 04/28/18 04/28/18 History hydrocodone-acetaminophen 1 tab PO QID PRN 04/28/18 04/28/18 History melatonin 5 mg PO HS 04/28/18 04/28/18 History metoprolol tartrate 50 mg PO BID 04/28/18 04/28/18 History omeprazole 40 mg PO EVERY OTHER DAY 04/28/18 04/28/18 History prednisone 5 mg PO DAILY 04/28/18 04/28/18 History promethazine 25 mg PO Q6H PRN 04/28/18 04/28/18 History vedolizumab 300 mg IV ONCE 04/28/18 04/28/18 History Exam Vital signs: Vital Signs 05/13/18 20:00 05/14/18 00:00 05/14/18 04:00 Temperature 97.8 F 97.8 F 97.7 F Pulse Rate 96 H 77 71 Respiratory Rate 17 17 18 Blood Pressure 124/83 120/69 119/73 Pulse Oximetry 96 95 94 L 05/14/18 08:00 05/14/18 12:00 Temperature 98.8 F 98.3 F Pulse Rate 73 88 Respiratory Rate 18 22 Blood Pressure 120/74 133/60 Pulse Oximetry 93 L 96 Intake & Output 05/13/18 05/14/18 05/14/18 18:59 06:59 18:59 Intake Total 480 / 480 222 / 222 Balance 480 / 480 222 / 222 Weight 53.2 kg Intake: Oral 480 / 480 222 / 222 Other: # Voids 5 3 # Bowel Movements 1 0 - Constitutional no acute distress - Routine HEENT Exam Head: Present: normocephalic, atraumatic - Routine Respiratory Exam Absent: accessory muscle use - Routine Cardiovascular Exam Present: RRR - Routine Abdominal Exam Present: soft, normoactive bowel sounds. Absent: distended, rebound, guarding, firm, rigid - Routine Skin Exam Present: dry, warm - Routine Neurological Exam Present: alert, oriented X3 <Heaven Gunter - Last Filed: 05/14/18 13:54> Vital signs: Vital Signs 05/13/18 20:00 05/14/18 00:00 05/14/18 04:00 Temperature 97.8 F 97.8 F 97.7 F Pulse Rate 96 H 77 71 Respiratory Rate 17 17 18 Blood Pressure 124/83 120/69 119/73 Pulse Oximetry 96 95 94 L 05/14/18 08:00 05/14/18 12:00 Temperature 98.8 F 98.3 F Pulse Rate 73 88 Respiratory Rate 18 22 Blood Pressure 120/74 133/60 Pulse Oximetry 93 L 96 Intake & Output 05/13/18 05/14/18 05/14/18 18:59 06:59 18:59 Intake Total 480 / 480 222 / 222 Balance 480 / 480 222 / 222 Weight 53.2 kg Intake: Oral 480 / 480 222 / 222 Other: # Voids 5 3 Date of Last Bowel Movement 05/13/18 # Bowel Movements 1 0 <Ajay Godoy - Last Filed: 05/14/18 18:55> Results - Labs CBC & Chem 7: 05/05/18 07:00 05/14/18 10:35 Labs: Laboratory Results - last 24 hr 05/14/18 10:35 Sodium 134 L Potassium 4.0 Chloride 97 L Carbon Dioxide 28.0 Anion Gap 9 BUN 14 Creatinine 0.85 Estimated GFR 68 L Random Glucose 114 H Calcium 8.6 Magnesium 2.0 <Heaven Gunter - Last Filed: 05/14/18 13:54> - Labs CBC & Chem 7: 05/05/18 07:00 05/14/18 10:35 Labs: Laboratory Results - last 24 hr 05/14/18 10:35 Sodium 134 L Potassium 4.0 Chloride 97 L Carbon Dioxide 28.0 Anion Gap 9 BUN 14 Creatinine 0.85 Estimated GFR 68 L Random Glucose 114 H Calcium 8.6 Magnesium 2.0 <Ajay Godoy E - Last Filed: 05/14/18 18:55> Assessment and Plan (1) Dysphagia Status: Acute Code(s): R13.10 - Dysphagia, unspecified (2) CD (Crohn's disease) Status: Acute Code(s): K50.90 - Crohn's disease, unspecified, without complications - Plan Assessment: - Crohns disease S/P 3 bowel resections and short gut syndrome Previously failed multiple treatments, currently being managed with Entyvio, has received 3 doses, last dose was April 03. Reports improvement in symptoms after starting Entyvio, BMs seemed more formed, no continued explosive diarrhea, approx 2 weeks ago began having 1-2 episodes of loose stools daily. Denies hematochezia. Concerned about immunosuppressant effects of Entyvio and would like to discuss - Dysphagia with both liquids and solids- feels the food gets stuck and takes her longer to swallow. Denies coughing after melas or regurgitation of the food. Pt had barium swallow to evaluate on 04/23 which revealed minimal penetration of the supraglottic larynx without jaspreet tracheal aspiration, small esophageal web noted anteriorly at C5-C6 level, small sliding-type hernia, minimal gastroesophageal reflux. Last EGD and colonoscopy April 2016 --> Mucosal hyperplasia consistent with chronic reflux, gastritis, short segment of stricture in the TI with mild erythema and a small ulcer, sessile polyp in the ascending colon, sessile polyp in the proximal transverse colon, erythema and edema in the sigmoid colon. Pathology (antrum) chronic inactive gastritis, mild (distal esopahgus) squamocolumnar mucosa with mild chronic esophagitis and reflux associated mucosal changes (TI) focal chronic active enterocolitis with ulceration (ascending colon polyp) polypoid fragment of colonic mucosa with lymphoid aggregates (ascending colon) colonic mucosa without significant histopathologic findings (sigmoid colon) colonic mucosa with lymphoid aggregates. - Fungemia secondary to port infection- pt has port for electrolyte replacement Plan: EGD with possible dilatation and colonoscopy tomorrow Obtain consent Clear liquids Mag Citrate prep NPO after MN Continue Prednisone Monitor stool count Repeat C Diff testing Further recommendations based on clinical course and results of above Pt has been seen and examined by myself and Dr. Godoy and this note is written on his behalf <Heaven Gunter - Last Filed: 05/14/18 13:54> (1) Dysphagia Status: Acute Code(s): R13.10 - Dysphagia, unspecified (2) CD (Crohn's disease) Status: Acute Code(s): K50.90 - Crohn's disease, unspecified, without complications - Attending Attestation Patient was seen and examined Agree with above Continue with current supportive care Monitor labs The patient's Entyvio infusion was back in March so she is way overdue at this point She reports to me that her vision in her right eye is worsening and it is due to a cataract that needs to be operated on and as such she is requesting that we continue to hold off on the Entyvio infusion until after she is done with her cataract surgery Further recommendations shall depend on the findings of endoscopy tomorrow <Ajay Godoy - Last Filed: 05/14/18 18:55>
[2018-05-14] MEDS ORDERED: Magnesium Citrate Liq 300 ML Bottle PO ONE ×2 (16:00→18:00)
[2018-05-15] MEDS: Melatonin 5 MG Tablet PO PRN ×2 (01:26→23:29)
[2018-05-15] MEDS: oxyCODONE/Acetaminophen 10/325 Tablet PO PRN ×4 (01:29→23:29)
[2018-05-15] MEDS: Magnesium Oxide 400 MG Tablet PO SCH ×2 (08:01→20:05)
[2018-05-15] MEDS: predniSONE 5 MG Tablet PO SCH (08:01)
[2018-05-15] MEDS: Metoprolol Tartrate 25 MG Tablet PO SCH ×2 (08:02→20:05)
[2018-05-15] MEDS: amLODIPine 5 MG Tablet PO SCH (08:03)
[2018-05-15] MEDS: Senna/Docusate Sodium 8.6/50 MG Tablet PO SCH ×2 (08:03→20:06)
[2018-05-15 09:45] LABS: Baso # (Auto) 0.1 th/mm3 (0.0-0.2); Baso % (Auto) 0.7 % (0.0-2.0); Eos # (Auto) 0.1 th/mm3 (0.0-0.4); Eos % (Auto) 1.6 % (0.0-4.0); Hematocrit 40.9 % (35.0-46.0); Hemoglobin 13.5 gm/dL (11.6-15.3); Lymph # (Auto) 1.5 th/mm3 (1.0-4.8); Lymph % (Auto) 20.1 % (9.0-44.0); Mean Corpuscular HGB Conc 33.1 % (32.0-36.0); Mean Corpuscular Hemoglobin 34.8 pg (27.0-34.0); Mean Corpuscular Volume 105.1 fL (80.0-100.0); Mean Platelet Volume 9.4 fL (7.0-11.0); Mono # (Auto) 0.5 th/mm3 (0.0-0.9); Mono % (Auto) 7.3 % (0.0-8.0); Neut # (Auto) 5.1 th/mm3 (1.8-7.7); Neut % (Auto) 70.3 % (16.0-70.0); Platelet Count 226 th/mm3 (150-450); Red Blood Count 3.89 mil/mm3 (4.00-5.30); Red Cell Distribution Width 13.1 % (11.6-17.2); White Blood Count 7.2 th/mm3 (4.0-11.0)
[2018-05-15 09:50] LABS: Prothrombin Time 9.9 sec (9.8-11.6)
[2018-05-15 10:32] LABS: Albumin 3.4 g/dL (3.4-5.0); Anion Gap 12 meq/L (5-15); Aspartate Aminotransferase 120 U/L (15-37); Blood Urea Nitrogen 13 mg/dL (7-18); Calcium 9.4 mg/dL (8.5-10.1); Carbon Dioxide 29.5 meq/L (21.0-32.0); Chloride 97 meq/L (98-107); Glomerular Filtration Rate 64 mL/min (>89); Glucose,Random 78 mg/dL (74-106); Magnesium 2.6 mg/dL (1.5-2.5); Potassium 3.8 meq/L (3.5-5.1); Sodium 138 meq/L (136-145)
[2018-05-15 10:42] LABS: Alanine Aminotransferase 57 U/L (10-53); Alkaline Phosphatase 419 U/L (45-117); Free T4 (Free Thyroxine) 0.98 ng/dL (0.76-1.46); Phosphorus 3.4 mg/dL (2.5-4.9); Total Protein 7.2 g/dL (6.4-8.2)
[2018-05-15] MEDS ORDERED: Lidocaine PF 1% Inj 5 ML Syringe INFILTRATN ONE (12:00)
[2018-05-15 13:02] LABS: Hemoglobin A1c 4.2 % (4.3-6.0)
--- NOTE | 2018-05-15 13:02 | P.CONGS ---
HPI Gen Surgery Consult Note Consult date: 05/15/18 Reason for consult: other (Port Placement) Requesting physician: James Ma Narrative: This is a 58 year old female with a past medical history of Crohn's disease and short sacha syndrome who presented the ED several weeks ago and found to have fungemia from port. It has been removed in IR. The patient's port was place by Dr. Maciel in 2014. She has been on Entyvio infusions for her Crohn's disease. The patient is scheduled for an EGD/colonoscopy today. A General Surgery consultation has been requested for consideration for port placement. Review of Systems Constitutional: Denies body ache(s) Eyes: Denies blurry vision Ears, Nose, Mouth, and Throat: Denies nasal congestion Cardiovascular: Denies chest pain, Denies chest pain at rest, Denies chest pain with activity Respiratory: Denies chest congestion, Denies cough Gastrointestinal: Reports cramping, Denies abdominal pain Genitourinary: Denies dribbling after urination Musculoskeletal: Denies abnormal walking, Denies back pain Skin/Breast: Denies bleeding lesions Neurologic: Denies abnormal hearing Psychiatric: Reports anxiety, Denies abnormal sleep pattern Endocrine: Denies cold intolerance, Denies heat intolerance Hematologic/Lymphatic: Denies easy bleeding Allergic/Immunologic: Reports GI upset with certain foods PMFSH - Medical History Medical History: Medical History (Last Updated 05/15/18 @ 12:55 by TRACY Paz) At risk for fluid and electrolyte imbalance Crohns disease - Surgical History Surgical History: Surgical History (Last Updated 05/15/18 @ 12:55 by TRACY Paz) History of bowel resection - Tobacco History Tobacco Use In Past 30 Days: No - Alcohol History How Often Do You Have a Drink Containing Alcohol: Never - Substance Use History Substance History: No History of Abuse - Travel History History of Recent Travel: No Recent Travel in the [place] Within the Last 8 Weeks: No Recent Travel Out of the Country Within the Last 8 Weeks: No Medications and Allergies Active Medications: Active Medications Acetaminophen (Tylenol) 650 mg PO Q6H PRN PRN Reason: HEADACHE, FEVER, PAIN 1-4 Al Hydroxide/Mg Hydroxide (Milk Of Magnesia Liq) 30 ml PO Q12H PRN PRN Reason: MILD CONSTIPATION Albuterol (Albuterol Neb (Prn)) 2.5 mg NEB Q4HR NEB PRN PRN Reason: SHORTNESS OF BREATH Last Admin: 05/04/18 15:07 Dose: 2.5 mg Amlodipine Besylate (Norvasc) 2.5 mg PO DAILY [facility] Last Admin: 05/15/18 08:03 Dose: Not Given Betamethasone/Clotrimazole (Lotrisone Cream) 1 applicatio TOPICAL BID [facility] Last Admin: 05/15/18 08:02 Dose: 1 applicatio Bisacodyl (Dulcolax Supp) 10 mg RECTAL DAILY PRN PRN Reason: SEVERE CONSTIPATION Diazepam (Valium) 10 mg PO HS PRN PRN Reason: ANXIETY Diphenhydramine HCl (Benadryl) 25 mg PO Q6H PRN PRN Reason: ALLERGIES Diphenoxylate HCl/Atropine (Lomotil) 1 tab PO Q6H PRN PRN Reason: DIARRHEA Fluticasone Propionate (Flonase Nasal [place]) 2 spray NASAL DAILY [facility] Last Admin: 05/15/18 08:02 Dose: 2 spray Heparin Sodium (Porcine) (Heparin Central Flush) 500 unit IV.FLUSH UNSCH [facility]; Protocol Hydromorphone HCl (Dilaudid) 2 mg PO Q8H PRN PRN Reason: PAIN 6-10;IF UNABLE TO TAKE PO Last Admin: 05/15/18 11:19 Dose: 2 mg Lactulose (Lactulose Liq) 30 ml PO DAILY PRN PRN Reason: SEVERE CONSITIPATION Magnesium Oxide (Mag-Ox) 400 mg PO BID [facility] Last Admin: 05/15/18 08:01 Dose: 400 mg Melatonin (Melatonin) 5 mg PO HS PRN PRN Reason: INSOMNIA Last Admin: 05/15/18 01:26 Dose: 5 mg Metoclopramide HCl (Reglan Inj) 5 mg IV.PUSH Q6H PRN PRN Reason: NAUSEA OR VOMITING Last Admin: 05/15/18 07:03 Dose: 5 mg Metoprolol Tartrate (Lopressor) 25 mg PO BID [facility] Last Admin: 05/15/18 08:02 Dose: 25 mg Nicotine (Habitrol 7 Mg Patch.24 Hr) 1 patch T-DERMAL DAILY [facility] Last Admin: 05/14/18 09:13 Dose: 1 patch Oxycodone/Acetaminophen (Percocet 10/325 Mg) 1 tab PO Q6H PRN Last Admin: 05/15/18 07:00 Dose: 1 tab Pantoprazole Sodium (Protonix) 40 mg PO DAILY [facility] Last Admin: 05/15/18 08:01 Dose: 40 mg Prednisone (Deltasone) 5 mg PO DAILY [facility] Last Admin: 05/15/18 08:01 Dose: 5 mg Senna/Docusate Sodium (Zahra-Colace) 1 tab PO BID [facility] Last Admin: 05/15/18 08:03 Dose: Not Given Sennosides (Senokot) 17.2 mg PO Q12H PRN PRN Reason: MODERATE - CONSTIPATION Sodium Chloride (Ns Flush) 2 ml IV.FLUSH UNSCH PRN PRN Reason: FLUSH AFTER USING IV ACCESS Last Admin: 04/30/18 23:03 Dose: 2 ml Sodium Chloride (Ns Flush) 2 ml IV.FLUSH BID [facility] Last Admin: 05/15/18 08:03 Dose: 2 ml Throat Lozenges (Chloraseptic [place]) 2 spray OROPHARYNG Q2H PRN PRN Reason: SORE THROAT Last Admin: 05/03/18 01:39 Dose: 2 spray Allergies Allergy/AdvReac Type Severity Reaction Status Date / Time Sulfa (Sulfonamide Allergy Severe "Shock", Verified 04/28/18 12:16 Antibiotics) nausea, rash HUMIRA Allergy Unknown SKIN Uncoded 04/28/18 12:16 LESIONS Home Medications Medication Instructions Recorded Confirmed Type albuterol sulfate 2.5 mg CONTINUOUS NEBULIZATION Q4H 04/28/18 04/28/18 History PRN albuterol sulfate [Ventolin HFA] 2 puff INHALATION Q4-6H PRN 04/28/18 04/28/18 History amlodipine 10 mg PO DAILY 04/28/18 04/28/18 History cyanocobalamin (vitamin B-12) 1,000 mcg IM QMONTH 04/28/18 04/28/18 History diazepam 10 mg PO HS 04/28/18 04/28/18 History diphenoxylate-atropine 1 tab PO Q6H PRN 04/28/18 04/28/18 History hydrocodone-acetaminophen 1 tab PO QID PRN 04/28/18 04/28/18 History melatonin 5 mg PO HS 04/28/18 04/28/18 History metoprolol tartrate 50 mg PO BID 04/28/18 04/28/18 History omeprazole 40 mg PO EVERY OTHER DAY 04/28/18 04/28/18 History prednisone 5 mg PO DAILY 04/28/18 04/28/18 History promethazine 25 mg PO Q6H PRN 04/28/18 04/28/18 History vedolizumab 300 mg IV ONCE 04/28/18 04/28/18 History Exam Vital signs: Vital Signs 05/14/18 16:00 05/14/18 20:00 05/15/18 00:00 Temperature 98.3 F 98.0 F 98.1 F Pulse Rate 91 H 99 H 85 Respiratory Rate 22 18 18 Blood Pressure 135/70 136/92 H 140/91 H Pulse Oximetry 95 95 97 05/15/18 04:00 05/15/18 08:00 Temperature 98 F 98.4 F Pulse Rate 88 85 Respiratory Rate 18 18 Blood Pressure 134/80 127/81 Pulse Oximetry 98 96 Intake & Output 05/14/18 05/15/18 05/15/18 18:59 06:59 18:59 Intake Total 380 / 380 Balance 380 / 380 Intake: Oral 380 / 380 Other: # Voids 4 Date of Last Bowel Movement 05/13/18 05/14/18 # Bowel Movements 0 Narrative: GENERAL: Resting in bed in no acute distress. SKIN: Warm and dry. Prior chest port removal--incision healing without signs of infection. HEAD: Atraumatic. Normocephalic. EYES: Pupils equal and round. No scleral icterus. No injection or drainage. ENT: No nasal bleeding or discharge. Mucous membranes pink and moist. NECK: Trachea midline. CARDIOVASCULAR: Regular rate and rhythm. RESPIRATORY: No accessory muscle use. Clear to auscultation. Breath sounds equal bilaterally. GASTROINTESTINAL: Abdomen soft, non-tender, nondistended. MUSCULOSKELETAL: Extremities without clubbing, cyanosis, or edema. No obvious deformities. NEUROLOGICAL: Awake and alert. No obvious cranial nerve deficits. Motor grossly within normal limits. Five out of 5 muscle strength in the arms and legs. Normal speech. PSYCHIATRIC: Appropriate mood and affect; insight and judgment normal. Results - Labs 05/15/18 07:37 05/15/18 07:37 Abnormal lab results 05/15/18 05/15/18 Range/Units 07:37 07:37 RBC 3.89 L (4.00-5.30) mil/mm3 MCV 105.1 H (80.0-100.0) fL MCH 34.8 H (27.0-34.0) pg Neut % (Auto) 70.3 H (16.0-70.0) % Chloride 97 L (98-107) meq/L Estimated GFR 64 L (>89) mL/min Magnesium 2.6 H D (1.5-2.5) mg/dL Total Bilirubin 1.3 H (0.2-1.0) mg/dL AST 120 H (15-37) U/L ALT 57 H (10-53) U/L Alkaline Phosphatase 419 H (45-117) U/L Diabetes panel 05/15/18 Range/Units 07:37 Sodium 138 (136-145) meq/L Potassium 3.8 (3.5-5.1) meq/L Chloride 97 L (98-107) meq/L Carbon Dioxide 29.5 (21.0-32.0) meq/L BUN 13 (7-18) mg/dL Creatinine 0.90 (0.50-1.00) mg/dL Calcium 9.4 D (8.5-10.1) mg/dL AST 120 H (15-37) U/L ALT 57 H (10-53) U/L Alkaline Phosphatase 419 H (45-117) U/L Total Protein 7.2 (6.4-8.2) g/dL Albumin 3.4 (3.4-5.0) g/dL Thyroid panel 05/15/18 Range/Units 07:37 TSH 2.860 (0.358-3.740) uIU/mL Calcium panel 05/15/18 Range/Units 07:37 Calcium 9.4 D (8.5-10.1) mg/dL Phosphorus 3.4 (2.5-4.9) mg/dL Albumin 3.4 (3.4-5.0) g/dL Pituitary panel 05/15/18 Range/Units 07:37 Sodium 138 (136-145) meq/L Potassium 3.8 (3.5-5.1) meq/L Chloride 97 L (98-107) meq/L Carbon Dioxide 29.5 (21.0-32.0) meq/L BUN 13 (7-18) mg/dL Creatinine 0.90 (0.50-1.00) mg/dL Calcium 9.4 D (8.5-10.1) mg/dL TSH 2.860 (0.358-3.740) uIU/mL Adrenal panel 05/15/18 Range/Units 07:37 Sodium 138 (136-145) meq/L Potassium 3.8 (3.5-5.1) meq/L Chloride 97 L (98-107) meq/L Carbon Dioxide 29.5 (21.0-32.0) meq/L BUN 13 (7-18) mg/dL Creatinine 0.90 (0.50-1.00) mg/dL Calcium 9.4 D (8.5-10.1) mg/dL Total Bilirubin 1.3 H (0.2-1.0) mg/dL AST 120 H (15-37) U/L ALT 57 H (10-53) U/L Alkaline Phosphatase 419 H (45-117) U/L Total Protein 7.2 (6.4-8.2) g/dL Albumin 3.4 (3.4-5.0) g/dL All other labs normal. Assessment and Plan - Plan 58 year old female with port removal after fungemia; in need of port placement -Discussed with Dr. Espinoza --- best plan is for the patient to get PICC line inpatient and plan for elective port as outpatient -Patient planned for EGD/Colonoscopy today -Patient to follow up as outpatient with Dr. Maciel for port placement -Thank you for this consult; We will sign off Discussed Condition With: Dr. Raheem Sin
[2018-05-15] MEDS ORDERED: Chlorhexidine Gluconate 2% 1 Pack (2 Cloths) TOPICAL SCH (14:15)
[2018-05-15] MEDS ORDERED: Metoprolol Tartrate 25 MG Tablet PO SCH (14:15)
--- NOTE | 2018-05-15 14:38 | P.PNIM ---
Subjective Interval history: 05-13 patient up and ambulating- going all the way to the from nurse station to ask for pain medicine long discussion with her regarding pain meds - wants to have port placed wants GI TO BE CONSULTED SURGERY CONSULTED PER ID RECOMMENDATIONS REGARDING NEED FOR PORT CONTINUE CURRENT REGIMEN DW RN AND PT AND CM AM LABS 05-15 TO HAVE EGD TODAY PICC BEFORE DC NEEDS PICC LINE DW RN AND PATIENT Physical Exam Vital signs: Vital Signs 05/14/18 16:00 05/14/18 20:00 05/15/18 00:00 Temperature 98.3 F 98.0 F 98.1 F Pulse Rate 91 H 99 H 85 Respiratory Rate 22 18 18 Blood Pressure 135/70 136/92 H 140/91 H Pulse Oximetry 95 95 97 05/15/18 04:00 05/15/18 08:00 Temperature 98 F 98.4 F Pulse Rate 88 85 Respiratory Rate 18 18 Blood Pressure 134/80 127/81 Pulse Oximetry 98 96 Intake & Output 05/14/18 05/15/18 05/15/18 18:59 06:59 18:59 Intake Total 380 / 380 Balance 380 / 380 Intake: Oral 380 / 380 Other: # Voids 4 Date of Last Bowel Movement 05/13/18 05/14/18 # Bowel Movements 0 Narrative: GENERAL: AWAKE AND ALERT AND ORIENTED X3 TALKATIVE AND COOPERATIVE SKIN: Warm and dry. SCALY SKIN ON KNUCKLES OF FINGERS HEAD: Atraumatic. Normocephalic. EYES: Pupils equal and round. No scleral icterus. No injection or drainage. ENT: No nasal bleeding or discharge. Mucous membranes pink and moist. NECK: Trachea midline. No JVD. CARDIOVASCULAR: Regular rate and rhythm. S1, S2 NO S3 OR S4 RESPIRATORY: No accessory muscle use. Clear to auscultation. Breath sounds equal bilaterally. GASTROINTESTINAL: Abdomen soft, MILDLY-tender, nondistended. Hepatic and splenic margins not palpable. MUSCULOSKELETAL: Extremities without clubbing, cyanosis, or edema. No obvious deformities. NEUROLOGICAL: Awake and alert. No obvious cranial nerve deficits. Motor grossly within normal limits. Five out of 5 muscle strength in the arms and legs. Normal speech. PSYCHIATRIC: INAppropriate mood and affect; insight and judgment ABnormal. Results - Labs CBC & Chem 7: 05/15/18 07:37 05/15/18 07:37 Laboratory Results - last 24 hr 05/14/18 05/15/18 05/15/18 20:15 07:37 07:37 WBC 7.2 RBC 3.89 L Hgb 13.5 Hct 40.9 MCV 105.1 H MCH 34.8 H MCHC 33.1 RDW 13.1 Plt Count 226 MPV 9.4 Neut % (Auto) 70.3 H Lymph % (Auto) 20.1 [place] % (Auto) 7.3 Eos % (Auto) 1.6 Baso % (Auto) 0.7 Neut # (Auto) 5.1 Lymph # (Auto) 1.5 [place] # (Auto) 0.5 Eos # (Auto) 0.1 Baso # (Auto) 0.1 WBC Differential . Differential Comment Auto diff final PT 9.9 INR 1.0 Sodium Potassium Chloride Carbon Dioxide Anion Gap BUN Creatinine Estimated GFR Random Glucose Hemoglobin A1c Calcium Phosphorus Magnesium Total Bilirubin AST ALT Alkaline Phosphatase Total Protein Albumin TSH Free T4 Stl C.difficile Tox PCR Negative St C. diff Tox Epid 027 Negative 05/15/18 05/15/18 07:37 07:37 WBC RBC Hgb Hct MCV MCH MCHC RDW Plt Count MPV Neut % (Auto) Lymph % (Auto) [place] % (Auto) Eos % (Auto) Baso % (Auto) Neut # (Auto) Lymph # (Auto) [place] # (Auto) Eos # (Auto) Baso # (Auto) WBC Differential Differential Comment PT INR Sodium 138 Potassium 3.8 Chloride 97 L Carbon Dioxide 29.5 Anion Gap 12 BUN 13 Creatinine 0.90 Estimated GFR 64 L Random Glucose 78 Hemoglobin A1c 4.2 L Calcium 9.4 D Phosphorus 3.4 Magnesium 2.6 H D Total Bilirubin 1.3 H AST 120 H ALT 57 H Alkaline Phosphatase 419 H Total Protein 7.2 Albumin 3.4 TSH 2.860 Free T4 0.98 Stl C.difficile Tox PCR St C. diff Tox Epid 027 Microbiology 05/12/18 00:30 Blood - Peripheral Aerobic Blood Culture - Preliminary No growth in 3 days 05/12/18 00:30 Blood - Peripheral Anaerobic Blood Culture - Preliminary No growth in 3 days 05/12/18 00:38 Blood - Peripheral Aerobic Blood Culture - Preliminary No growth in 3 days 05/12/18 00:38 Blood - Peripheral Anaerobic Blood Culture - Preliminary No growth in 3 days - Procedures 04/25- R IJ placed 05-15 EGD Assessment and Plan - Assessment (1) Fungemia Code(s): B49 - Unspecified mycosis Status: Acute (2) CD (Crohn's disease) Code(s): K50.90 - Crohn's disease, unspecified, without complications Status: Acute (3) 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 Immunosuppression from biologic agent (Entyvio) and intermittent Prednisone TTE and OZIEL- no vegetations -ID ff -S/P oral Voriconazole course 05/11 . fungal culture negative so far -Per discussion between Dr. Brock and Dr. Godoy,- will keep IV site- with history of life threatening electrolyte abnormalities- - central line removed. patient can be discharged with plans for outpatient PICC. Ideally no port 2+ weeks blood cultures repeated- negative x 48 hours- may proceed with central line or port placement if Dr. Godoy deems necessary- severe electrolyte imbalance when Crohn' s exacerbates in the past by history- Crohns disease/Short gut syndrome Impression: Currently on steroids and vedolizumab -Patient of advanced gastroenterology/Dr. Godoy -Continue pain control long discussion with her change dilaudid to 2 mg po q 8 pain >6 Lortab 10 q 6 prn for pain -Continue to follow/support nutrition - enlive supplements. dietary ff - po intake improving - patient with drug seeking component - Nausea/vomiting/Abdominal pain- Improved C/P CT w/o acute process LFT's with mild ALKP, transaminase abnormalities Barium swallow- small esophageal web. Minimal supraglottic larynx w/o tracheal aspiration. GERD, hiatal hernia. -GI ff -Plan for EGD/colonoscopy will defer to GI- timing- inpt vs OP -Continue ARABELLA, PPI, PO Prednisone - per patient maintenance dose by Dr. Godoy for Crohns) Electrolyte abnormalities- K and Mg improved Hypomagnesemia- on Mg0xde 400 mg po bid Hypokalemia- improved - last K >5.2. KCL DC. - recheck K and Mg in am -Per GI- patient has had prior life threatening hypokalemia - and will need IV access for future use - BMP and po good consistently - will need to d/w and confirm with Dr. Godoy if he still thinks we need to central line/port placed for future use in events of exacerbations that cause elec.abn per patient "He knows my case very well" CV -Continue Metoprolol 25 mg po bid - amlodipine to 2.5 mg daily Anemia Hgb stable ~10.5-11 -Will monitor Hgb -Continue Benadryl PRN, Flonase for allergies Bilateral thumb.thenar eminence rashes- possible fungal vs psoriasis - trial of steroid/antifungal topical therapy bid started 05/05 - monitor - + family history of psoriasis- a sibling PATIENT WANTS PORT AND GI CONSULT. WILL CONSULT GI AND SURGERY FOR PORT PLACEMENT DVT PPX-SCD's -Discussed chemical PPX; declined Code Status: FULL CODE Discussed Condition With: RN AND PT AND CM Discharge Planning: PENDING GI AND SURGERY CLEARANCE
[2018-05-15] MEDS ORDERED: Sodium Chlor 0.9% Inj 500 ML IV.SIG SCH (15:00)
--- NOTE | 2018-05-15 16:11 | P.PCN ---
Date of procedure: 05/15/18 Pre-op diagnosis: Dysphagia, history of Crohn's disease, diarrhea Post-op diagnosis: other Procedure: PROCEDURE PERFORMED EGD with dilation and biopsy followed by colonoscopy INDICATION FOR PROCEDURE Dysphagia, history of Crohn's disease, diarrhea PROCEDURE: The procedure, risks and benefits were discussed with Patient/POA and informed consent was obtained. Anesthesia sedated Patient with Diprivan. Patient was placed in the left lateral decubitus position. EGD: The Pentax videoscope was introduced through the oropharynx and advanced to the second portion of the duodenum under direct visualization. Retroflexion was performed in the stomach. FINDINGS: The esophagus there was a mild proximal esophageal stricture this was dilated with a size 16 savory dilator postdilatation view reveals a small rent the rest of the esophagus was otherwise unremarkable distal esophageal biopsy was taken for further evaluation The stomach this appeared to be unremarkable and within normal limits The duodenum this to appear to be unremarkable and within normal limits Colonoscopy: The Pentax videoscope was introduced through the rectum and advanced to cecum where the ileocecal valve and appendiceal orifice were identified and thereafter the scope was further advanced into the ileum. Retroflexion was performed in the rectum. Colonic prep was good FINDINGS: Colonic withdrawal time greater than 6 minutes. As the scope was slowly withdrawn colonic mucosa was carefully inspected the terminal ileum appeared to be within normal limits so did the whole colon so is retroflexion and rectal examination ESTIMATED BLOOD LOSS: None SPECIMENS REMOVED: Esophageal biopsy COMPLICATIONS: None IMPRESSION: Mild proximal esophageal stricture Otherwise unremarkable EGD and colonoscopy with ileal view PLAN: Await biopsies Recommend PPI Continue with current supportive care Monitor labs Once port is placed patient should be ready to go home Anesthesia: MAC Surgeon: Ajay Godoy Pathology: other Condition: stable Disposition: floor
[2018-05-16 07:03] LABS: Baso % (Auto) 0.4 % (0.0-2.0); Eos # (Auto) 0.1 th/mm3 (0.0-0.4); Eos % (Auto) 1.1 % (0.0-4.0); Hematocrit 39.3 % (35.0-46.0); Hemoglobin 13.4 gm/dL (11.6-15.3); Lymph # (Auto) 1.1 th/mm3 (1.0-4.8); Lymph % (Auto) 12.8 % (9.0-44.0); Mean Corpuscular Hemoglobin 35.3 pg (27.0-34.0); Mean Corpuscular Volume 103.8 fL (80.0-100.0); Mean Platelet Volume 8.8 fL (7.0-11.0); Mono # (Auto) 0.4 th/mm3 (0.0-0.9); Mono % (Auto) 5.1 % (0.0-8.0); Neut # (Auto) 6.6 th/mm3 (1.8-7.7); Neut % (Auto) 80.6 % (16.0-70.0); Platelet Count 196 th/mm3 (150-450); Red Blood Count 3.79 mil/mm3 (4.00-5.30); Red Cell Distribution Width 12.9 % (11.6-17.2); White Blood Count 8.2 th/mm3 (4.0-11.0)
[2018-05-16 07:34] LABS: Albumin 3.4 g/dL (3.4-5.0); Anion Gap 7 meq/L (5-15); Aspartate Aminotransferase 105 U/L (15-37); Blood Urea Nitrogen 12 mg/dL (7-18); Calcium 8.9 mg/dL (8.5-10.1); Carbon Dioxide 29.9 meq/L (21.0-32.0); Chloride 100 meq/L (98-107); Glomerular Filtration Rate 60 mL/min (>89); Glucose,Random 75 mg/dL (74-106); Magnesium 2.3 mg/dL (1.5-2.5); Potassium 4.4 meq/L (3.5-5.1); Sodium 137 meq/L (136-145)
[2018-05-16 07:38] LABS: Alanine Aminotransferase 50 U/L (10-53); Alkaline Phosphatase 475 U/L (45-117); Phosphorus 4.5 mg/dL (2.5-4.9); Total Protein 7.3 g/dL (6.4-8.2)
[2018-05-16] MEDS: Senna/Docusate Sodium 8.6/50 MG Tablet PO SCH ×2 (10:19→21:31)
[2018-05-16] MEDS: Magnesium Oxide 400 MG Tablet PO SCH ×2 (10:19→21:31)
[2018-05-16] MEDS: Metoprolol Tartrate 25 MG Tablet PO SCH ×2 (10:20→21:31)
[2018-05-16] MEDS: amLODIPine 5 MG Tablet PO SCH (10:20)
[2018-05-16] MEDS: predniSONE 5 MG Tablet PO SCH (10:20)
[2018-05-16] MEDS: oxyCODONE/Acetaminophen 10/325 Tablet PO PRN ×2 (10:21→19:03)
--- NOTE | 2018-05-16 14:42 | P.PNIM ---
Subjective Interval history: 05-13 patient up and ambulating- going all the way to the from nurse station to ask for pain medicine long discussion with her regarding pain meds 05-14 wants to have port placed wants GI TO BE CONSULTED SURGERY CONSULTED PER ID RECOMMENDATIONS REGARDING NEED FOR PORT CONTINUE CURRENT REGIMEN DW RN AND PT AND CM AM LABS 05-15 TO HAVE EGD TODAY PICC BEFORE DC NEEDS PICC LINE DW RN AND PATIENT 05-16 HAD EGD YESTERDAY NOW HAVING FEVERS TODAY DW RN AND PT Physical Exam Vital signs: Vital Signs 05/15/18 16:05 05/15/18 16:34 05/15/18 20:00 Temperature 98.0 F 96.6 F L 98.5 F Pulse Rate 86 87 83 Respiratory Rate 18 20 14 Blood Pressure 111/76 142/75 H 117/71 Pulse Oximetry 96 98 95 05/16/18 00:00 05/16/18 04:00 05/16/18 08:00 Temperature 98.2 F 97.3 F L 102.4 F H Pulse Rate 75 73 97 H Respiratory Rate 20 18 17 Blood Pressure 111/73 130/80 133/85 Pulse Oximetry 93 L 95 93 L 05/16/18 10:18 05/16/18 11:25 05/16/18 12:00 Temperature 102.4 F H 101.0 F H 101.6 F H Pulse Rate 108 H Respiratory Rate 17 Blood Pressure 106/79 Pulse Oximetry 94 L Intake & Output 05/15/18 05/16/18 05/16/18 18:59 06:59 18:59 Intake Total 300 / 300 480 / 480 Balance 300 / 300 480 / 480 Intake: Oral 480 / 480 Anesthesia Amount 300 / 300 Other: # Voids 3 3 Date of Last Bowel Movement 05/15/18 05/15/18 # Bowel Movements 1 Narrative: GENERAL: AWAKE AND ALERT AND ORIENTED X3 TALKATIVE AND COOPERATIVE SKIN: Warm and dry. SCALY SKIN ON KNUCKLES OF FINGERS HEAD: Atraumatic. Normocephalic. EYES: Pupils equal and round. No scleral icterus. No injection or drainage. ENT: No nasal bleeding or discharge. Mucous membranes pink and moist. NECK: Trachea midline. No JVD. CARDIOVASCULAR: Regular rate and rhythm. S1, S2 NO S3 OR S4 RESPIRATORY: No accessory muscle use. Clear to auscultation. Breath sounds equal bilaterally. GASTROINTESTINAL: Abdomen soft, MILDLY-tender, nondistended. Hepatic and splenic margins not palpable. MUSCULOSKELETAL: Extremities without clubbing, cyanosis, or edema. No obvious deformities. NEUROLOGICAL: Awake and alert. No obvious cranial nerve deficits. Motor grossly within normal limits. Five out of 5 muscle strength in the arms and legs. Normal speech. PSYCHIATRIC: INAppropriate mood and affect; insight and judgment ABnormal. Results - Labs CBC & Chem 7: 05/16/18 06:15 05/16/18 06:15 Laboratory Results - last 24 hr 05/16/18 05/16/18 06:15 06:15 WBC 8.2 RBC 3.79 L Hgb 13.4 Hct 39.3 MCV 103.8 H MCH 35.3 H MCHC 34.0 RDW 12.9 Plt Count 196 MPV 8.8 Neut % (Auto) 80.6 H Lymph % (Auto) 12.8 [place] % (Auto) 5.1 Eos % (Auto) 1.1 Baso % (Auto) 0.4 Neut # (Auto) 6.6 Lymph # (Auto) 1.1 [place] # (Auto) 0.4 Eos # (Auto) 0.1 Baso # (Auto) 0.0 WBC Differential . Differential Comment Auto diff final Sodium 137 Potassium 4.4 Chloride 100 Carbon Dioxide 29.9 Anion Gap 7 BUN 12 Creatinine 0.95 Estimated GFR 60 L Random Glucose 75 Calcium 8.9 Phosphorus 4.5 D Magnesium 2.3 Total Bilirubin 1.0 AST 105 H ALT 50 Alkaline Phosphatase 475 H Total Protein 7.3 Albumin 3.4 Microbiology 05/12/18 00:30 Blood - Peripheral Aerobic Blood Culture - Preliminary No growth in 4 days 05/12/18 00:30 Blood - Peripheral Anaerobic Blood Culture - Preliminary No growth in 4 days 05/12/18 00:38 Blood - Peripheral Aerobic Blood Culture - Preliminary No growth in 4 days 05/12/18 00:38 Blood - Peripheral Anaerobic Blood Culture - Preliminary No growth in 4 days - Procedures 04/25- R IJ placed 05-15 EGD Date of procedure: 05/15/18 Pre-op diagnosis: Dysphagia, history of Crohn's disease, diarrhea Post-op diagnosis: other Procedure: PROCEDURE PERFORMED EGD with dilation and biopsy followed by colonoscopy INDICATION FOR PROCEDURE Dysphagia, history of Crohn's disease, diarrhea PROCEDURE: The procedure, risks and benefits were discussed with Patient/POA and informed consent was obtained. Anesthesia sedated Patient with Diprivan. Patient was placed in the left lateral decubitus position. EGD: The Pentax videoscope was introduced through the oropharynx and advanced to the second portion of the duodenum under direct visualization. Retroflexion was performed in the stomach. FINDINGS: The esophagus there was a mild proximal esophageal stricture this was dilated with a size 16 savory dilator postdilatation view reveals a small rent the rest of the esophagus was otherwise unremarkable distal esophageal biopsy was taken for further evaluation The stomach this appeared to be unremarkable and within normal limits The duodenum this to appear to be unremarkable and within normal limits Colonoscopy: The Pentax videoscope was introduced through the rectum and advanced to cecum where the ileocecal valve and appendiceal orifice were identified and thereafter the scope was further advanced into the ileum. Retroflexion was performed in the rectum. Colonic prep was good FINDINGS: Colonic withdrawal time greater than 6 minutes. As the scope was slowly withdrawn colonic mucosa was carefully inspected the terminal ileum appeared to be within normal limits so did the whole colon so is retroflexion and rectal examination ESTIMATED BLOOD LOSS: None SPECIMENS REMOVED: Esophageal biopsy COMPLICATIONS: None IMPRESSION: Mild proximal esophageal stricture Otherwise unremarkable EGD and colonoscopy with ileal view PLAN: Await biopsies Recommend PPI Continue with current supportive care Monitor labs Once port is placed patient should be ready to go home Anesthesia: MAC Surgeon: Ajay Godoy Pathology: other Condition: stable Disposition: floor Documented By: Ajay Godoy MD Assessment and Plan - Assessment (1) Fungemia Code(s): B49 - Unspecified mycosis Status: Acute (2) CD (Crohn's disease) Code(s): K50.90 - Crohn's disease, unspecified, without complications Status: Acute (3) 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 Immunosuppression from biologic agent (Entyvio) and intermittent Prednisone TTE and OZIEL- no vegetations -ID ff -S/P oral Voriconazole course 05/11 . fungal culture negative so far -Per discussion between Dr. Brock and Dr. Godoy,- will keep IV site- with history of life threatening electrolyte abnormalities- - central line removed. patient can be discharged with plans for outpatient PICC. Ideally no port 2+ weeks blood cultures repeated- negative x 48 hours- may proceed with central line or port placement if Dr. Godoy deems necessary- severe electrolyte imbalance when Crohn' s exacerbates in the past by history- FEVERS WILL ALERT ID DW RN AND PT Crohns disease/Short gut syndrome Impression: Currently on steroids and vedolizumab -Patient of advanced gastroenterology/Dr. Godoy -Continue pain control long discussion with her change dilaudid to 2 mg po q 8 pain >6 Lortab 10 q 6 prn for pain -Continue to follow/support nutrition - enlive supplements. dietary ff - po intake improving - patient with drug seeking component - Nausea/vomiting/Abdominal pain- Improved C/P CT w/o acute process LFT's with mild ALKP, transaminase abnormalities Barium swallow- small esophageal web. Minimal supraglottic larynx w/o tracheal aspiration. GERD, hiatal hernia. -GI ff -Plan for EGD/colonoscopy will defer to GI- timing- inpt vs OP -Continue ARABELLA, PPI, PO Prednisone - per patient maintenance dose by Dr. Godoy for Crohns) Electrolyte abnormalities- K and Mg improved Hypomagnesemia- on Mg0xde 400 mg po bid Hypokalemia- improved - last K >5.2. KCL DC. - recheck K and Mg in am -Per GI- patient has had prior life threatening hypokalemia - and will need IV access for future use - BMP and po good consistently - will need to d/w and confirm with Dr. Godoy if he still thinks we need to central line/port placed for future use in events of exacerbations that cause elec.abn per patient "He knows my case very well" CV -Continue Metoprolol 25 mg po bid - amlodipine to 2.5 mg daily Anemia Hgb stable ~10.5-11 -Will monitor Hgb -Continue Benadryl PRN, Flonase for allergies Bilateral thumb.thenar eminence rashes- possible fungal vs psoriasis - trial of steroid/antifungal topical therapy bid started 7/7 - monitor - + family history of psoriasis- a sibling PATIENT WANTS PORT AND GI CONSULT. WILL CONSULT GI AND SURGERY FOR PORT PLACEMENT DVT PPX-SCD's -Discussed chemical PPX; declined Code Status: FULL CODE Discussed Condition With: RN AND PT AND CM Discharge Planning: PENDING GI AND SURGERY CLEARANCE
--- NOTE | 2018-05-16 15:04 | P.PNGI ---
Subjective Interval history: Pt woke up today febrile. States has noticed some improvement in her swelling. Some abdominal pain but states typical of her chronic pains. <Heaven Gunter - Last Filed: 05/16/18 15:00> Physical Exam Vital signs: Vital Signs 05/15/18 16:05 05/15/18 16:34 05/15/18 20:00 Temperature 98.0 F 96.6 F L 98.5 F Pulse Rate 86 87 83 Respiratory Rate 18 20 14 Blood Pressure 111/76 142/75 H 117/71 Pulse Oximetry 96 98 95 05/16/18 00:00 05/16/18 04:00 05/16/18 08:00 Temperature 98.2 F 97.3 F L 102.4 F H Pulse Rate 75 73 97 H Respiratory Rate 20 18 17 Blood Pressure 111/73 130/80 133/85 Pulse Oximetry 93 L 95 93 L 05/16/18 10:18 05/16/18 11:25 05/16/18 12:00 Temperature 102.4 F H 101.0 F H 101.6 F H Pulse Rate 108 H Respiratory Rate 17 Blood Pressure 106/79 Pulse Oximetry 94 L Intake & Output 05/15/18 05/16/18 05/16/18 18:59 06:59 18:59 Intake Total 300 / 300 480 / 480 Balance 300 / 300 480 / 480 Intake: Oral 480 / 480 Anesthesia Amount 300 / 300 Other: # Voids 3 3 Date of Last Bowel Movement 05/15/18 05/15/18 # Bowel Movements 1 - Constitutional no acute distress, diaphoretic - Routine HEENT Exam Head: Present: normocephalic, atraumatic - Routine Respiratory Exam Absent: accessory muscle use - Routine Cardiovascular Exam Present: RRR - Routine Abdominal Exam Present: soft, normoactive bowel sounds, tenderness (mild diffuse abdominal tenderness ). Absent: distended - Routine Skin Exam Present: dry, warm - Routine Neurological Exam Present: alert, oriented X3 <Heaven Gunter - Last Filed: 05/16/18 15:00> Vital signs: Vital Signs 05/16/18 00:00 05/16/18 04:00 05/16/18 08:00 Temperature 98.2 F 97.3 F L 102.4 F H Pulse Rate 75 73 97 H Respiratory Rate 20 18 17 Blood Pressure 111/73 130/80 133/85 Pulse Oximetry 93 L 95 93 L 05/16/18 10:18 05/16/18 11:25 05/16/18 12:00 Temperature 102.4 F H 101.0 F H 101.6 F H Pulse Rate 108 H Respiratory Rate 17 Blood Pressure 106/79 Pulse Oximetry 94 L 05/16/18 16:00 05/16/18 20:00 Temperature 99.5 F 99 F Pulse Rate 95 H 86 Respiratory Rate 18 18 Blood Pressure 123/82 112/82 Pulse Oximetry 96 99 Intake & Output 05/16/18 05/16/18 05/17/18 06:59 18:59 06:59 Intake Total 480 / 480 240 / 240 Balance 480 / 480 240 / 240 Intake: Oral 480 / 480 240 / 240 Other: # Voids 3 2 Date of Last Bowel Movement 05/15/18 # Bowel Movements 0 <Ajay Godoy E - Last Filed: 05/16/18 22:13> Results - Labs CBC & Chem 7: 05/16/18 06:15 05/16/18 06:15 Laboratory Results - last 24 hr 05/16/18 05/16/18 06:15 06:15 WBC 8.2 RBC 3.79 L Hgb 13.4 Hct 39.3 MCV 103.8 H MCH 35.3 H MCHC 34.0 RDW 12.9 Plt Count 196 MPV 8.8 Neut % (Auto) 80.6 H Lymph % (Auto) 12.8 [place] % (Auto) 5.1 Eos % (Auto) 1.1 Baso % (Auto) 0.4 Neut # (Auto) 6.6 Lymph # (Auto) 1.1 [place] # (Auto) 0.4 Eos # (Auto) 0.1 Baso # (Auto) 0.0 WBC Differential . Differential Comment Auto diff final Sodium 137 Potassium 4.4 Chloride 100 Carbon Dioxide 29.9 Anion Gap 7 BUN 12 Creatinine 0.95 Estimated GFR 60 L Random Glucose 75 Calcium 8.9 Phosphorus 4.5 D Magnesium 2.3 Total Bilirubin 1.0 AST 105 H ALT 50 Alkaline Phosphatase 475 H Total Protein 7.3 Albumin 3.4 Microbiology 05/12/18 00:30 Blood - Peripheral Aerobic Blood Culture - Preliminary No growth in 4 days 05/12/18 00:30 Blood - Peripheral Anaerobic Blood Culture - Preliminary No growth in 4 days 05/12/18 00:38 Blood - Peripheral Aerobic Blood Culture - Preliminary No growth in 4 days 05/12/18 00:38 Blood - Peripheral Anaerobic Blood Culture - Preliminary No growth in 4 days - Procedures 04/25- R IJ placed 05-15 EGD Date of procedure: 05/15/18 Pre-op diagnosis: Dysphagia, history of Crohn's disease, diarrhea Post-op diagnosis: other Procedure: PROCEDURE PERFORMED EGD with dilation and biopsy followed by colonoscopy INDICATION FOR PROCEDURE Dysphagia, history of Crohn's disease, diarrhea PROCEDURE: The procedure, risks and benefits were discussed with Patient/POA and informed consent was obtained. Anesthesia sedated Patient with Diprivan. Patient was placed in the left lateral decubitus position. EGD: The Pentax videoscope was introduced through the oropharynx and advanced to the second portion of the duodenum under direct visualization. Retroflexion was performed in the stomach. FINDINGS: The esophagus there was a mild proximal esophageal stricture this was dilated with a size 16 savory dilator postdilatation view reveals a small rent the rest of the esophagus was otherwise unremarkable distal esophageal biopsy was taken for further evaluation The stomach this appeared to be unremarkable and within normal limits The duodenum this to appear to be unremarkable and within normal limits Colonoscopy: The Pentax videoscope was introduced through the rectum and advanced to cecum where the ileocecal valve and appendiceal orifice were identified and thereafter the scope was further advanced into the ileum. Retroflexion was performed in the rectum. Colonic prep was good FINDINGS: Colonic withdrawal time greater than 6 minutes. As the scope was slowly withdrawn colonic mucosa was carefully inspected the terminal ileum appeared to be within normal limits so did the whole colon so is retroflexion and rectal examination ESTIMATED BLOOD LOSS: None SPECIMENS REMOVED: Esophageal biopsy COMPLICATIONS: None IMPRESSION: Mild proximal esophageal stricture Otherwise unremarkable EGD and colonoscopy with ileal view PLAN: Await biopsies Recommend PPI Continue with current supportive care Monitor labs Once port is placed patient should be ready to go home Anesthesia: MAC Surgeon: Ajay Godoy Pathology: other Condition: stable Disposition: floor Documented By: Ajay Godoy MD <Heaven Gunter - Last Filed: 05/16/18 15:00> - Labs CBC & Chem 7: 05/16/18 06:15 05/16/18 06:15 Laboratory Results - last 24 hr 05/16/18 05/16/18 06:15 06:15 WBC 8.2 RBC 3.79 L Hgb 13.4 Hct 39.3 MCV 103.8 H MCH 35.3 H MCHC 34.0 RDW 12.9 Plt Count 196 MPV 8.8 Neut % (Auto) 80.6 H Lymph % (Auto) 12.8 [place] % (Auto) 5.1 Eos % (Auto) 1.1 Baso % (Auto) 0.4 Neut # (Auto) 6.6 Lymph # (Auto) 1.1 [place] # (Auto) 0.4 Eos # (Auto) 0.1 Baso # (Auto) 0.0 WBC Differential . Differential Comment Auto diff final Sodium 137 Potassium 4.4 Chloride 100 Carbon Dioxide 29.9 Anion Gap 7 BUN 12 Creatinine 0.95 Estimated GFR 60 L Random Glucose 75 Calcium 8.9 Phosphorus 4.5 D Magnesium 2.3 Total Bilirubin 1.0 AST 105 H ALT 50 Alkaline Phosphatase 475 H Total Protein 7.3 Albumin 3.4 Microbiology 05/12/18 00:30 Blood - Peripheral Aerobic Blood Culture - Preliminary No growth in 4 days 05/12/18 00:30 Blood - Peripheral Anaerobic Blood Culture - Preliminary No growth in 4 days 05/12/18 00:38 Blood - Peripheral Aerobic Blood Culture - Preliminary No growth in 4 days 05/12/18 00:38 Blood - Peripheral Anaerobic Blood Culture - Preliminary No growth in 4 days - Imaging Impressions Chest X-Ray 05/16/18 00:00 CONCLUSION: No acute intrathoracic disease. Stable examination. <Ajay Godoy - Last Filed: 05/16/18 22:13> Assessment and Plan (1) Dysphagia Status: Acute Code(s): R13.10 - Dysphagia, unspecified (2) CD (Crohn's disease) Status: Acute Code(s): K50.90 - Crohn's disease, unspecified, without complications - Plan Assessment: - Crohns disease S/P 3 bowel resections and short gut syndrome Previously failed multiple treatments, currently being managed with Entyvio, has received 3 doses, last dose was April 03. Reports improvement in symptoms after starting Entyvio, BMs seemed more formed, no continued explosive diarrhea, approx 2 weeks ago began having 1-2 episodes of loose stools daily. Denies hematochezia. Concerned about immunosuppressant effects of Entyvio and would like to discuss - Dysphagia with both liquids and solids- feels the food gets stuck and takes her longer to swallow. Denies coughing after melas or regurgitation of the food. Pt had barium swallow to evaluate on 04/23 which revealed minimal penetration of the supraglottic larynx without jaspreet tracheal aspiration, small esophageal web noted anteriorly at C5-C6 level, small sliding-type hernia, minimal gastroesophageal reflux. Last EGD and colonoscopy April 2016 --> Mucosal hyperplasia consistent with chronic reflux, gastritis, short segment of stricture in the TI with mild erythema and a small ulcer, sessile polyp in the ascending colon, sessile polyp in the proximal transverse colon, erythema and edema in the sigmoid colon. Pathology (antrum) chronic inactive gastritis, mild (distal esopahgus) squamocolumnar mucosa with mild chronic esophagitis and reflux associated mucosal changes (TI) focal chronic active enterocolitis with ulceration (ascending colon polyp) polypoid fragment of colonic mucosa with lymphoid aggregates (ascending colon) colonic mucosa without significant histopathologic findings (sigmoid colon) colonic mucosa with lymphoid aggregates. - Fungemia secondary to port infection- pt has port for electrolyte replacement (05/16) S/P EGD with dilatation and colonoscopy yesterday. Pt reports some improvement in her swallowing today. Woke up with fever and can not have PICC line placed, states disappointed because this delays her discharge. EGD --> Mild proximal esopahgeal stricture that was dilated with size 16 savory dilator Normal colonoscopy Plan: EGD biopsy pending Continue Prednisone PICC line before DC, pt to follow up outpatient for port placement GI will sign off, have pt follow up with GI after DC regarding Crohns medication Pt has been seen and examined by myself and Dr. Godoy and this note is written on his behalf <Heaven Gunter - Last Filed: 05/16/18 15:00> (1) Dysphagia Status: Acute Code(s): R13.10 - Dysphagia, unspecified (2) CD (Crohn's disease) Status: Acute Code(s): K50.90 - Crohn's disease, unspecified, without complications - Attending Attestation Patient seen and examined Agree with above Continue with current supportive care Monitor labs We will sign off Follow-up with GI post discharge to discuss continuation of Crohn's medication <Ajay Godoy E - Last Filed: 05/16/18 22:13>
--- NOTE | 2018-05-16 15:38 | XR ---
EXAM DATE: 05/16/2018 3:12 PM EDT AGE/SEX: 58 years / Female INDICATIONS: . Fever starting today CLINICAL DATA: This is the patient's initial encounter. Patient reports that signs and symptoms have been present for 1 day and indicates a pain score of 0/10. MEDICAL/SURGICAL HISTORY: . Crohn's disease, Short bowel syndrome, COPD, Hypertension . Multip le bowel resections COMPARISON: [facility], CHEST SINGLE AP, 04/20/2018. . FINDINGS: PA and lateral views of the chest demonstrate the lungs to be symmetrically aerated without evidence of mass, infiltrate or effusion. There is hyperaeration bilaterally. The cardiomediastinal contours a re unremarkable. Osseous structures are intact. CONCLUSION: No acute intrathoracic disease. Stable examination. Electronically signed by: Emerson Reyes MD 05/16/2018 3:37 PM EDT
--- NOTE | 2018-05-16 20:25 | P.PNID ---
Subjective Remarks: chart reviewed ID was reconsulted for fever Up to 101-102, now down to 99 Ms. Sin is a 58-year-old female with past medical history significant for Crohn's disease for the last 40 years, who has been on steroids for the most part of her disease. Patient also reports being on Humira in the past but had side effects from it and it was discontinued. Patient more recently was started on Entyvio infusions. Last infusion was on 04/05/2018. She has also been on electrolyte and nutritional supplements using the borderline at home. 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 Patient also reports that she had a port in the past that had to be removed because it was not a PowerPort. She denies any infections related to that prior port. In general she denies any infections despite having port for a long period of time. Patient reports that after she received Entyvio infusion she felt better and her GI symptoms had resolved. Thereafter approximately 1 week prior to admission she started developing nausea vomiting chills fevers and night sweats. Patient was admitted and underwent workup for possible sepsis including blood cultures blood cultures are positive for yeast infectious diseases consulted for management of the same. Pt developped fugemia 2/2 Imelda guilliermondii POrt that is believed tyo be the sourece was removed She has been doing OK untill today when noted to have fever of 102.4 T max blood clx were redrawn today Previous blood clx no growth 4 days Doppler US no DVT in BUE OZIEL negative. Port cath tip positive for Imelda G as well. CXR negative from today Antibiotics: Voriconazole oral - completed Lines: CL site ok. Prior port site ok. Past Medical History: reviewed Allergies/Adverse Reactions: Allergies Sulfa (Sulfonamide Antibiotics) Allergy (Severe, Verified 04/28/18 12:16) "Shock", nausea, rash HUMIRA Allergy (Unknown, Uncoded 04/28/18 12:16) SKIN LESIONS Objective Vital Signs 05/16/18 00:00 05/16/18 04:00 05/16/18 08:00 Temperature 98.2 F 97.3 F L 102.4 F H Pulse Rate 75 73 97 H Respiratory Rate 20 18 17 Blood Pressure 111/73 130/80 133/85 Pulse Oximetry 93 L 95 93 L 05/16/18 10:18 05/16/18 11:25 05/16/18 12:00 Temperature 102.4 F H 101.0 F H 101.6 F H Pulse Rate 108 H Respiratory Rate 17 Blood Pressure 106/79 Pulse Oximetry 94 L 05/16/18 16:00 Temperature 99.5 F Pulse Rate 95 H Respiratory Rate 18 Blood Pressure 123/82 Pulse Oximetry 96 Intake & Output 05/16/18 05/16/18 05/17/18 06:59 18:59 06:59 Intake Total 480 / 480 240 / 240 Balance 480 / 480 240 / 240 Intake: Oral 480 / 480 240 / 240 Other: # Voids 3 2 Date of Last Bowel Movement 05/15/18 # Bowel Movements 0 05/16/18 15:59 Blood - Peripheral Blood Fungal Culture - Pending 05/16/18 15:59 Blood - Peripheral Blood Fungal Culture - Pending 05/12/18 00:30 Blood - Peripheral Aerobic Blood Culture - Preliminary No growth in 4 days 05/12/18 00:30 Blood - Peripheral Anaerobic Blood Culture - Preliminary No growth in 4 days 05/12/18 00:38 Blood - Peripheral Aerobic Blood Culture - Preliminary No growth in 4 days 05/12/18 00:38 Blood - Peripheral Anaerobic Blood Culture - Preliminary No growth in 4 days Lab - Hematology Results 05/15/18 05/16/18 07:37 06:15 WBC 7.2 8.2 RBC 3.89 L 3.79 L Hgb 13.5 13.4 Hct 40.9 39.3 MCV 105.1 H 103.8 H MCH 34.8 H 35.3 H MCHC 33.1 34.0 RDW 13.1 12.9 Plt Count 226 196 MPV 9.4 8.8 Neut % (Auto) 70.3 H 80.6 H Lymph % (Auto) 20.1 12.8 [place] % (Auto) 7.3 5.1 Eos % (Auto) 1.6 1.1 Baso % (Auto) 0.7 0.4 Neut # (Auto) 5.1 6.6 Lymph # (Auto) 1.5 1.1 [place] # (Auto) 0.5 0.4 Eos # (Auto) 0.1 0.1 Baso # (Auto) 0.1 0.0 WBC Differential . . Differential Comment Auto diff final Auto diff final Lab - Chemistry Results 05/15/18 05/15/18 05/16/18 07:37 07:37 06:15 Sodium 138 137 Potassium 3.8 4.4 Chloride 97 L 100 Carbon Dioxide 29.5 29.9 Anion Gap 12 7 BUN 13 12 Creatinine 0.90 0.95 Estimated GFR 64 L 60 L Random Glucose 78 75 Hemoglobin A1c 4.2 L Calcium 9.4 D 8.9 Phosphorus 3.4 4.5 D Magnesium 2.6 H D 2.3 Total Bilirubin 1.3 H 1.0 AST 120 H 105 H ALT 57 H 50 Alkaline Phosphatase 419 H 475 H Total Protein 7.2 7.3 Albumin 3.4 3.4 TSH 2.860 Free T4 0.98 Imaging: ITS Impressions Chest X-Ray 05/16/18 00:00 CONCLUSION: No acute intrathoracic disease. Stable examination. Physical Exam: GENERAL: Awake and alert, NAD SKIN: No rashes, ecchymoses or lesions. Cool and dry. HEAD: Atraumatic. Normocephalic. No temporal or scalp tenderness. EYES: Pupils equal round and reactive. Extraocular motions intact. No scleral icterus. No injection or drainage. ENT: Nose without bleeding, purulent drainage or septal hematoma. Oral mucosae moist w/o thrush NECK: Trachea midline. Supple, nontender, no meningeal signs. CARDIOVASCULAR: HS audible. RESPIRATORY: Clear to auscultation. Breath sounds equal bilaterally. No wheezes , rales, or rhonchi. GASTROINTESTINAL: Abdomen soft, mildly tender, mildly distended. Surgical scars ok. MUSCULOSKELETAL: Extremities without clubbing, cyanosis, or edema. NEUROLOGICAL: Awake and alert. Non focal Psych cooperative Prior port site L chest - healed. Assessment and Plan - Plan High grade Fungemia in a patient with port, now appears controlled post removal of port. Port catheter infected. Imelda guilliermondii fungemia. completed voriconazole Crohn's disease on Entyvio infusions which is a biological agent Immune compromised status New fever, non localizing Recommendations: will start cefepime, vancomycin fu blood clx antifungal treatment if cont to have fever despite empiric abx further rec's to follow cancell PORT placement 2/2 new fever dw pt dw RN
[2018-05-16] MEDS ORDERED: Vancomycin Consult Pharmacy 1 EACH OTHER SCH (21:00)
[2018-05-16] MEDS: Vancomycin Inj 1,000 MG in Sodium Chlor 0.9% Inj 250 ML IV.SIG SCH (21:30)
[2018-05-17] MEDS: oxyCODONE/Acetaminophen 10/325 Tablet PO PRN ×3 (05:24→18:42)
[2018-05-17 07:49] LABS: Baso % (Auto) 0.5 % (0.0-2.0); Eos # (Auto) 0.1 th/mm3 (0.0-0.4); Eos % (Auto) 1.6 % (0.0-4.0); Hematocrit 34.2 % (35.0-46.0); Hemoglobin 11.6 gm/dL (11.6-15.3); Lymph % (Auto) 12.2 % (9.0-44.0); Mean Corpuscular Hemoglobin 35.6 pg (27.0-34.0); Mean Corpuscular Volume 104.6 fL (80.0-100.0); Mean Platelet Volume 9.1 fL (7.0-11.0); Mono # (Auto) 0.6 th/mm3 (0.0-0.9); Mono % (Auto) 8.1 % (0.0-8.0); Neut # (Auto) 6.2 th/mm3 (1.8-7.7); Neut % (Auto) 77.6 % (16.0-70.0); Platelet Count 167 th/mm3 (150-450); Red Blood Count 3.27 mil/mm3 (4.00-5.30); Red Cell Distribution Width 12.9 % (11.6-17.2)
[2018-05-17] MEDS: amLODIPine 5 MG Tablet PO SCH (08:22)
[2018-05-17] MEDS: Senna/Docusate Sodium 8.6/50 MG Tablet PO SCH ×2 (08:22→20:37)
[2018-05-17 08:25] LABS: Alanine Aminotransferase 33 U/L (10-53); Albumin 3.1 g/dL (3.4-5.0); Anion Gap 14 meq/L (5-15); Aspartate Aminotransferase 46 U/L (15-37); Blood Urea Nitrogen 12 mg/dL (7-18); Calcium 8.6 mg/dL (8.5-10.1); Carbon Dioxide 21.2 meq/L (21.0-32.0); Chloride 101 meq/L (98-107); Glomerular Filtration Rate 70 mL/min (>89); Glucose,Random 99 mg/dL (74-106); Magnesium 2.1 mg/dL (1.5-2.5); Phosphorus 3.3 mg/dL (2.5-4.9); Potassium 3.4 meq/L (3.5-5.1); Sodium 136 meq/L (136-145)
[2018-05-17 08:28] LABS: Alkaline Phosphatase 351 U/L (45-117); Total Protein 6.6 g/dL (6.4-8.2)
[2018-05-17 08:43] LABS: Bacteria,Urine Rare /hpf; Bilirubin,Urine Negative (Negative); Clarity,Urine Clear (Clear); Color,Urine Yellow (Yellw/Straw); Glucose,Urine (UA) Negative (Negative); Leukocyte Esterase,Urine Negative (Negative); Mucus,Urine Few /lpf (Occasional); Nitrite,Urine Negative (Negative); Specific Gravity,Urine 1.011 (1.002-1.035); Squamous Epithelial Cell,Urine 1 /hpf (0-5)
[2018-05-17] MEDS: predniSONE 5 MG Tablet PO SCH (09:38)
[2018-05-17] MEDS: Magnesium Oxide 400 MG Tablet PO SCH ×2 (09:39→20:37)
[2018-05-17] MEDS: Metoprolol Tartrate 25 MG Tablet PO SCH ×2 (09:39→20:39)
--- NOTE | 2018-05-17 12:07 | P.PNIM ---
Subjective Interval history: 05-13 patient up and ambulating- going all the way to the from nurse station to ask for pain medicine long discussion with her regarding pain meds 05-14 wants to have port placed wants GI TO BE CONSULTED SURGERY CONSULTED PER ID RECOMMENDATIONS REGARDING NEED FOR PORT CONTINUE CURRENT REGIMEN DW RN AND PT AND CM AM LABS 05-15 TO HAVE EGD TODAY PICC BEFORE DC NEEDS PICC LINE DW RN AND PATIENT 05-16 HAD EGD YESTERDAY NOW HAVING FEVERS TODAY DW RN AND PT 05-17 MEDS ADJUSTED BY ID- ON VANCO AND CEFEPIME --GRAM NEGATIVE RODS NO PORT AT THIS TIME LESS FEVERS DW RN AND PT AND CM NOT CLEARED FOR DC NOW Physical Exam Vital signs: Vital Signs 05/16/18 16:00 05/16/18 20:00 05/17/18 00:00 Temperature 99.5 F 99 F 98.0 F Pulse Rate 95 H 86 71 Respiratory Rate 18 18 18 Blood Pressure 123/82 112/82 101/65 Pulse Oximetry 96 99 96 05/17/18 04:00 05/17/18 08:00 Temperature 98.9 F 98.2 F Pulse Rate 88 85 Respiratory Rate 18 17 Blood Pressure 114/80 109/77 Pulse Oximetry 95 96 Intake & Output 05/16/18 05/17/18 05/17/18 18:59 06:59 18:59 Intake Total 240 / 240 450 / 450 Balance 240 / 240 450 / 450 Weight 52.6 kg Intake: IV 450 / 450 Maxipime Inj 2,000 MG In NS Inj 200 / 200 100 ML @ 200 mls/hr IV.SIG Q8H AVERY Rx#:[id number] Vancomycin Inj 1,000 MG In NS 250 / 250 Inj 250 ML @ 250 mls/hr IV.SIG Q24H AVERY Rx#:[id number] Oral 240 / 240 Other: # Voids 2 # Bowel Movements 0 Narrative: GENERAL: AWAKE AND ALERT AND ORIENTED X3 TALKATIVE AND COOPERATIVE SKIN: Warm and dry. SCALY SKIN ON KNUCKLES OF FINGERS HEAD: Atraumatic. Normocephalic. EYES: Pupils equal and round. No scleral icterus. No injection or drainage. ENT: No nasal bleeding or discharge. Mucous membranes pink and moist. NECK: Trachea midline. No JVD. CARDIOVASCULAR: Regular rate and rhythm. S1, S2 NO S3 OR S4 RESPIRATORY: No accessory muscle use. Clear to auscultation. Breath sounds equal bilaterally. GASTROINTESTINAL: Abdomen soft, MILDLY-tender, nondistended. Hepatic and splenic margins not palpable. MUSCULOSKELETAL: Extremities without clubbing, cyanosis, or edema. No obvious deformities. NEUROLOGICAL: Awake and alert. No obvious cranial nerve deficits. Motor grossly within normal limits. Five out of 5 muscle strength in the arms and legs. Normal speech. PSYCHIATRIC: INAppropriate mood and affect; insight and judgment ABnormal. Results - Labs CBC & Chem 7: 05/17/18 06:45 05/17/18 06:45 Laboratory Results - last 24 hr 05/17/18 05/17/18 05/17/18 05:10 06:45 06:45 WBC 8.0 RBC 3.27 L Hgb 11.6 Hct 34.2 L MCV 104.6 H MCH 35.6 H MCHC 34.0 RDW 12.9 Plt Count 167 MPV 9.1 Neut % (Auto) 77.6 H Lymph % (Auto) 12.2 [place] % (Auto) 8.1 H Eos % (Auto) 1.6 Baso % (Auto) 0.5 Neut # (Auto) 6.2 Lymph # (Auto) 1.0 [place] # (Auto) 0.6 Eos # (Auto) 0.1 Baso # (Auto) 0.0 WBC Differential . Differential Comment Auto diff final Sodium 136 Potassium 3.4 L D Chloride 101 Carbon Dioxide 21.2 Anion Gap 14 BUN 12 Creatinine 0.83 Estimated GFR 70 L Random Glucose 99 Calcium 8.6 Phosphorus 3.3 D Magnesium 2.1 Total Bilirubin 0.7 AST 46 H ALT 33 Alkaline Phosphatase 351 H Total Protein 6.6 D Albumin 3.1 L Urine Color Yellow Urine Clarity Clear Urine pH 7.0 Ur Specific [place] 1.011 Urine Protein Negative Urine Glucose (UA) Negative Urine Ketones Negative Urine Occult Blood Negative Urine Nitrate Negative Urine Bilirubin Negative Urine Urobilinogen Less than 2 Ur Leukocyte Esterase Negative Urine RBC Less than 1 Urine WBC Less than 1 Ur Squamous Epith Cells 1 Urine Bacteria Rare H Urine Mucus Few H Micro UA Comment Culture not ind Urine Culture Comments Culture not ind Microbiology 05/16/18 20:25 Blood - Peripheral Aerobic Blood Culture - Preliminary No growth in 1 day 05/16/18 20:25 Blood - Peripheral Anaerobic Blood Culture - Preliminary gram negative rods 05/16/18 20:30 Blood - Peripheral Aerobic Blood Culture - Preliminary No growth in 1 day 05/16/18 20:30 Blood - Peripheral Anaerobic Blood Culture - Preliminary No growth in 1 day 05/12/18 00:30 Blood - Peripheral Aerobic Blood Culture - Final No growth in 5 days 05/12/18 00:30 Blood - Peripheral Anaerobic Blood Culture - Final No growth in 5 days 05/12/18 00:38 Blood - Peripheral Aerobic Blood Culture - Final No growth in 5 days 05/12/18 00:38 Blood - Peripheral Anaerobic Blood Culture - Final No growth in 5 days - Imaging Impressions Chest X-Ray 05/16/18 00:00 CONCLUSION: No acute intrathoracic disease. Stable examination. - Procedures 04/25- R IJ placed 05-15 EGD Date of procedure: 05/15/18 Pre-op diagnosis: Dysphagia, history of Crohn's disease, diarrhea Post-op diagnosis: other Procedure: PROCEDURE PERFORMED EGD with dilation and biopsy followed by colonoscopy INDICATION FOR PROCEDURE Dysphagia, history of Crohn's disease, diarrhea PROCEDURE: The procedure, risks and benefits were discussed with Patient/POA and informed consent was obtained. Anesthesia sedated Patient with Diprivan. Patient was placed in the left lateral decubitus position. EGD: The Pentax videoscope was introduced through the oropharynx and advanced to the second portion of the duodenum under direct visualization. Retroflexion was performed in the stomach. FINDINGS: The esophagus there was a mild proximal esophageal stricture this was dilated with a size 16 savory dilator postdilatation view reveals a small rent the rest of the esophagus was otherwise unremarkable distal esophageal biopsy was taken for further evaluation The stomach this appeared to be unremarkable and within normal limits The duodenum this to appear to be unremarkable and within normal limits Colonoscopy: The Pentax videoscope was introduced through the rectum and advanced to cecum where the ileocecal valve and appendiceal orifice were identified and thereafter the scope was further advanced into the ileum. Retroflexion was performed in the rectum. Colonic prep was good FINDINGS: Colonic withdrawal time greater than 6 minutes. As the scope was slowly withdrawn colonic mucosa was carefully inspected the terminal ileum appeared to be within normal limits so did the whole colon so is retroflexion and rectal examination ESTIMATED BLOOD LOSS: None SPECIMENS REMOVED: Esophageal biopsy COMPLICATIONS: None IMPRESSION: Mild proximal esophageal stricture Otherwise unremarkable EGD and colonoscopy with ileal view PLAN: Await biopsies Recommend PPI Continue with current supportive care Monitor labs Once port is placed patient should be ready to go home Anesthesia: MAC Surgeon: Ajay Godoy Pathology: other Condition: stable Disposition: floor Documented By: Ajay Godoy MD Assessment and Plan - Assessment (1) Fungemia Code(s): B49 - Unspecified mycosis Status: Acute (2) CD (Crohn's disease) Code(s): K50.90 - Crohn's disease, unspecified, without complications Status: Acute (3) 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 Immunosuppression from biologic agent (Entyvio) and intermittent Prednisone TTE and OZIEL- no vegetations -ID ff -S/P oral Voriconazole course 05/11 . fungal culture negative so far -Per discussion between Dr. Brock and Dr. Godoy,- will keep IV site- with history of life threatening electrolyte abnormalities- - central line removed. patient can be discharged with plans for outpatient PICC. Ideally no port 2+ weeks blood cultures repeated- negative x 48 hours- may proceed with central line or port placement if Dr. Godoy deems necessary- severe electrolyte imbalance when Crohn' s exacerbates in the past by history- FEVERS WILL ALERT ID STARTED BACK ON VANCO AND CEFEPIME --DW DR DUDLEY OF ID NO PORT DC ON HOLD DW RN AND PT Crohns disease/Short gut syndrome Impression: Currently on steroids and vedolizumab -Patient of advanced gastroenterology/Dr. Godoy -Continue pain control long discussion with her change dilaudid to 2 mg po q 8 pain >6 Lortab 10 q 6 prn for pain -Continue to follow/support nutrition - enlive supplements. dietary ff - po intake improving - patient with drug seeking component - Nausea/vomiting/Abdominal pain- Improved C/P CT w/o acute process LFT's with mild ALKP, transaminase abnormalities Barium swallow- small esophageal web. Minimal supraglottic larynx w/o tracheal aspiration. GERD, hiatal hernia. -GI ff -Plan for EGD/colonoscopy will defer to GI- timing- inpt vs OP -Continue ARABELLA, PPI, PO Prednisone - per patient maintenance dose by Dr. Godoy for Crohns) Electrolyte abnormalities- K and Mg improved Hypomagnesemia- on Mg0xde 400 mg po bid Hypokalemia- improved - last K >5.2. KCL DC. - recheck K and Mg in am -Per GI- patient has had prior life threatening hypokalemia - and will need IV access for future use - BMP and po good consistently - will need to d/w and confirm with Dr. Godoy if he still thinks we need to central line/port placed for future use in events of exacerbations that cause elec.abn per patient "He knows my case very well" CV -Continue Metoprolol 25 mg po bid - amlodipine to 2.5 mg daily Anemia Hgb stable ~10.5-11 -Will monitor Hgb -Continue Benadryl PRN, Flonase for allergies Bilateral thumb.thenar eminence rashes- possible fungal vs psoriasis - trial of steroid/antifungal topical therapy bid started 05/05 - monitor - + family history of psoriasis- a sibling CANNOT HAVE PORT THIS ADMISSION DUE TO FEVERS AND POSITIVE CULTURES AGAIN DW ID DVT PPX-SCD's -Discussed chemical PPX; declined Code Status: FULL CODE Discussed Condition With: RN AND PT AND CM AND ID Discharge Planning: PENDING ID CLEARANCE
--- NOTE | 2018-05-17 16:02 | P.PNID ---
Subjective Remarks: chart reviewed DISREGARD THIS NOTE PLEASE SEE OTHER NOTE ID was reconsulted for fever Up to 101-102, now down to 99 Ms. Sin is a 58-year-old female with past medical history significant for Crohn's disease for the last 40 years, who has been on steroids for the most part of her disease. Patient also reports being on Humira in the past but had side effects from it and it was discontinued. Patient more recently was started on Entyvio infusions. Last infusion was on 04/05/2018. She has also been on electrolyte and nutritional supplements using the borderline at home. 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 Patient also reports that she had a port in the past that had to be removed because it was not a PowerPort. She denies any infections related to that prior port. In general she denies any infections despite having port for a long period of time. Patient reports that after she received Entyvio infusion she felt better and her GI symptoms had resolved. Thereafter approximately 1 week prior to admission she started developing nausea vomiting chills fevers and night sweats. Patient was admitted and underwent workup for possible sepsis including blood cultures blood cultures are positive for yeast infectious diseases consulted for management of the same. Pt developped fugemia 2/2 Imelda guilliermondii POrt that is believed tyo be the sourece was removed She has been doing OK untill today when noted to have fever of 102.4 T max blood clx were redrawn today Previous blood clx no growth 4 days Doppler US no DVT in BUE OZIEL negative. Port cath tip positive for Imelda G as well. CXR negative from today Antibiotics: Voriconazole oral - completed Lines: CL site ok. Prior port site ok. Past Medical History: reviewed Allergies/Adverse Reactions: Allergies Sulfa (Sulfonamide Antibiotics) Allergy (Severe, Verified 04/28/18 12:16) "Shock", nausea, rash HUMIRA Allergy (Unknown, Uncoded 04/28/18 12:16) SKIN LESIONS Objective Vital Signs 05/16/18 16:00 05/16/18 20:00 05/17/18 00:00 Temperature 99.5 F 99 F 98.0 F Pulse Rate 95 H 86 71 Respiratory Rate 18 Blood Pressure 123/82 112/82 101/65 Pulse Oximetry 96 99 96 05/17/18 04:00 05/17/18 08:00 05/17/18 12:00 Temperature 98.9 F 98.2 F 98.2 F Pulse Rate 88 85 72 Respiratory Rate 18 17 17 Blood Pressure 114/80 109/77 103/71 Pulse Oximetry 95 96 96 Intake & Output 05/16/18 05/17/18 05/17/18 18:59 06:59 18:59 Intake Total 240 / 240 450 / 450 Balance 240 / 240 450 / 450 Weight 52.6 kg Intake: IV 450 / 450 Maxipime Inj 2,000 MG In NS Inj 200 / 200 100 ML @ 200 mls/hr IV.SIG Q8H [facility] Rx#:[id number] Vancomycin Inj 1,000 MG In NS 250 / 250 Inj 250 ML @ 250 mls/hr IV.SIG Q24H [facility]ERY Rx#:[id number] Oral 240 / 240 Other: # Voids 2 Date of Last Bowel Movement 05/15/18 # Bowel Movements 0 05/16/18 20:25 Blood - Peripheral Aerobic Blood Culture - Preliminary No growth in 1 day 05/16/18 20:25 Blood - Peripheral Anaerobic Blood Culture - Preliminary gram negative rods 05/16/18 20:30 Blood - Peripheral Aerobic Blood Culture - Preliminary No growth in 1 day 05/16/18 20:30 Blood - Peripheral Anaerobic Blood Culture - Preliminary No growth in 1 day 05/12/18 00:30 Blood - Peripheral Aerobic Blood Culture - Final No growth in 5 days 05/12/18 00:30 Blood - Peripheral Anaerobic Blood Culture - Final No growth in 5 days 05/12/18 00:38 Blood - Peripheral Aerobic Blood Culture - Final No growth in 5 days 05/12/18 00:38 Blood - Peripheral Anaerobic Blood Culture - Final No growth in 5 days 05/16/18 15:59 Blood - Peripheral Blood Fungal Culture - Pending 05/16/18 15:59 Blood - Peripheral Blood Fungal Culture - Pending Lab - Hematology Results 05/16/18 05/17/18 06:15 06:45 WBC 8.2 8.0 RBC 3.79 L 3.27 L Hgb 13.4 11.6 Hct 39.3 34.2 L MCV 103.8 H 104.6 H MCH 35.3 H 35.6 H MCHC 34.0 34.0 RDW 12.9 12.9 Plt Count 196 167 MPV 8.8 9.1 Neut % (Auto) 80.6 H 77.6 H Lymph % (Auto) 12.8 12.2 [place] % (Auto) 5.1 8.1 H Eos % (Auto) 1.1 1.6 Baso % (Auto) 0.4 0.5 Neut # (Auto) 6.6 6.2 Lymph # (Auto) 1.1 1.0 [place] # (Auto) 0.4 0.6 Eos # (Auto) 0.1 0.1 Baso # (Auto) 0.0 0.0 WBC Differential . . Differential Comment Auto diff final Auto diff final Lab - Chemistry Results 05/16/18 05/17/18 06:15 06:45 Sodium 137 136 Potassium 4.4 3.4 L D Chloride 100 101 Carbon Dioxide 29.9 21.2 Anion Gap 7 14 BUN 12 12 Creatinine 0.95 0.83 Estimated GFR 60 L 70 L Random Glucose 75 99 Calcium 8.9 8.6 Phosphorus 4.5 D 3.3 D Magnesium 2.3 2.1 Total Bilirubin 1.0 0.7 AST 105 H 46 H ALT 50 33 Alkaline Phosphatase 475 H 351 H Total Protein 7.3 6.6 D Albumin 3.4 3.1 L Imaging: ITS Impressions Chest X-Ray 05/16/18 00:00 CONCLUSION: No acute intrathoracic disease. Stable examination. Physical Exam: GENERAL: Awake and alert, NAD SKIN: No rashes, ecchymoses or lesions. Cool and dry. HEAD: Atraumatic. Normocephalic. No temporal or scalp tenderness. EYES: Pupils equal round and reactive. Extraocular motions intact. No scleral icterus. No injection or drainage. ENT: Nose without bleeding, purulent drainage or septal hematoma. Oral mucosae moist w/o thrush NECK: Trachea midline. Supple, nontender, no meningeal signs. CARDIOVASCULAR: HS audible. RESPIRATORY: Clear to auscultation. Breath sounds equal bilaterally. No wheezes , rales, or rhonchi. GASTROINTESTINAL: Abdomen soft, mildly tender, mildly distended. Surgical scars ok. MUSCULOSKELETAL: Extremities without clubbing, cyanosis, or edema. NEUROLOGICAL: Awake and alert. Non focal Psych cooperative Prior port site L chest - healed.
--- NOTE | 2018-05-17 16:50 | P.PNID ---
Subjective Remarks: chart reviewed Philomena is growing a GNB from blood clx she denies any new issues Antibiotics: Voriconazole oral - completed cefpeime vancomycin Lines: CL site ok. Prior port site ok. Past Medical History: reviewed Allergies/Adverse Reactions: Allergies Sulfa (Sulfonamide Antibiotics) Allergy (Severe, Verified 04/28/18 12:16) "Shock", nausea, rash HUMIRA Allergy (Unknown, Uncoded 04/28/18 12:16) SKIN LESIONS Objective Vital Signs 05/16/18 20:00 05/17/18 00:00 05/17/18 04:00 Temperature 99 F 98.0 F 98.9 F Pulse Rate 86 71 88 Respiratory Rate 18 18 18 Blood Pressure 112/82 101/65 114/80 Pulse Oximetry 99 96 95 05/17/18 08:00 05/17/18 12:00 05/17/18 16:00 Temperature 98.2 F 98.2 F 98.2 F Pulse Rate 85 72 82 Respiratory Rate 17 17 17 Blood Pressure 109/77 103/71 117/81 Pulse Oximetry 96 96 98 Intake & Output 05/16/18 05/17/18 05/17/18 18:59 06:59 18:59 Intake Total 240 / 240 450 / 450 Balance 240 / 240 450 / 450 Weight 52.6 kg Intake: IV 450 / 450 Maxipime Inj 2,000 MG In NS Inj 200 / 200 100 ML @ 200 mls/hr IV.SIG Q8H [facility] Rx#:[id number] Vancomycin Inj 1,000 MG In NS 250 / 250 Inj 250 ML @ 250 mls/hr IV.SIG Q24H [facility] Rx#:[id number] Oral 240 / 240 Other: # Voids 2 Date of Last Bowel Movement 05/15/18 # Bowel Movements 0 05/16/18 20:25 Blood - Peripheral Aerobic Blood Culture - Preliminary No growth in 1 day 05/16/18 20:25 Blood - Peripheral Anaerobic Blood Culture - Preliminary gram negative rods 05/16/18 20:30 Blood - Peripheral Aerobic Blood Culture - Preliminary No growth in 1 day 05/16/18 20:30 Blood - Peripheral Anaerobic Blood Culture - Preliminary No growth in 1 day 05/12/18 00:30 Blood - Peripheral Aerobic Blood Culture - Final No growth in 5 days 05/12/18 00:30 Blood - Peripheral Anaerobic Blood Culture - Final No growth in 5 days 05/12/18 00:38 Blood - Peripheral Aerobic Blood Culture - Final No growth in 5 days 05/12/18 00:38 Blood - Peripheral Anaerobic Blood Culture - Final No growth in 5 days 05/16/18 15:59 Blood - Peripheral Blood Fungal Culture - Pending 05/16/18 15:59 Blood - Peripheral Blood Fungal Culture - Pending Lab - Hematology Results 05/16/18 05/17/18 06:15 06:45 WBC 8.2 8.0 RBC 3.79 L 3.27 L Hgb 13.4 11.6 Hct 39.3 34.2 L MCV 103.8 H 104.6 H MCH 35.3 H 35.6 H MCHC 34.0 34.0 RDW 12.9 12.9 Plt Count 196 167 MPV 8.8 9.1 Neut % (Auto) 80.6 H 77.6 H Lymph % (Auto) 12.8 12.2 [place] % (Auto) 5.1 8.1 H Eos % (Auto) 1.1 1.6 Baso % (Auto) 0.4 0.5 Neut # (Auto) 6.6 6.2 Lymph # (Auto) 1.1 1.0 [place] # (Auto) 0.4 0.6 Eos # (Auto) 0.1 0.1 Baso # (Auto) 0.0 0.0 WBC Differential . . Differential Comment Auto diff final Auto diff final Lab - Chemistry Results 05/16/18 05/17/18 06:15 06:45 Sodium 137 136 Potassium 4.4 3.4 L D Chloride 100 101 Carbon Dioxide 29.9 21.2 Anion Gap 7 14 BUN 12 12 Creatinine 0.95 0.83 Estimated GFR 60 L 70 L Random Glucose 75 99 Calcium 8.9 8.6 Phosphorus 4.5 D 3.3 D Magnesium 2.3 2.1 Total Bilirubin 1.0 0.7 AST 105 H 46 H ALT 50 33 Alkaline Phosphatase 475 H 351 H Total Protein 7.3 6.6 D Albumin 3.4 3.1 L Imaging: ITS Impressions Chest X-Ray 05/16/18 00:00 CONCLUSION: No acute intrathoracic disease. Stable examination. Physical Exam: GENERAL: Awake and alert, NAD LINES: PIV i L forearm =- OK SKIN: No rashes, ecchymoses or lesions. Cool and dry. HEAD: Atraumatic. Normocephalic. No temporal or scalp tenderness. EYES: Pupils equal round and reactive. Extraocular motions intact. No scleral icterus. No injection or drainage. ENT: Nose without bleeding, purulent drainage or septal hematoma. Oral mucosae moist w/o thrush NECK: Trachea midline. Supple, nontender, no meningeal signs. CARDIOVASCULAR: HS audible. RESPIRATORY: Clear to auscultation. Breath sounds equal bilaterally. No wheezes , rales, or rhonchi. GASTROINTESTINAL: Abdomen soft, mildly tender, mildly distended. Surgical scars ok. MUSCULOSKELETAL: Extremities without clubbing, cyanosis, or edema. NEUROLOGICAL: Awake and alert. Non focal Psych cooperative Prior port site L chest - healed. Assessment and Plan - Plan High grade Fungemia in a patient with port, now appears controlled post removal of port. sp completed treatment Port catheter infected. Imelda guilliermondii fungemia. completed voriconazole Crohn's disease on Entyvio infusions which is a biological agent Immune compromised status New gram-negative sepsis ? line Recommendations: will contt cefepime, vancomycin for now will dc vanco if no MRSA coinfx fu blood clx antifungal treatment if cont to have fever despite empiric abx further rec's to follow cancell PORT placement 2/2 new fever dw pt jaimie RN
[2018-05-17] MEDS: Vancomycin Inj 1,000 MG in Sodium Chlor 0.9% Inj 250 ML IV.SIG SCH (20:40)
[2018-05-18] MEDS: Melatonin 5 MG Tablet PO PRN (01:22)
[2018-05-18] MEDS: oxyCODONE/Acetaminophen 10/325 Tablet PO PRN ×3 (06:19→20:22)
[2018-05-18] MEDS: predniSONE 5 MG Tablet PO SCH (08:07)
[2018-05-18] MEDS: Metoprolol Tartrate 25 MG Tablet PO SCH ×2 (08:07→20:22)
[2018-05-18] MEDS: Magnesium Oxide 400 MG Tablet PO SCH ×2 (08:08→20:24)
[2018-05-18] MEDS: amLODIPine 5 MG Tablet PO SCH (08:08)
[2018-05-18] MEDS: Senna/Docusate Sodium 8.6/50 MG Tablet PO SCH ×3 (08:08→20:27)
--- NOTE | 2018-05-18 08:39 | P.PNID ---
Subjective Remarks: chart reviewed afebrile co L forearm pain at previous IV site abd discomfort at baseline Antibiotics: Voriconazole oral - completed cefpeime vancomycin Lines: Prior port site ok. Past Medical History: reviewed Allergies/Adverse Reactions: Allergies Sulfa (Sulfonamide Antibiotics) Allergy (Severe, Verified 04/28/18 12:16) "Shock", nausea, rash HUMIRA Allergy (Unknown, Uncoded 04/28/18 12:16) SKIN LESIONS Objective Vital Signs 05/17/18 12:00 05/17/18 16:00 05/17/18 20:00 Temperature 98.2 F 98.2 F 97.8 F Pulse Rate 72 82 19 L Respiratory Rate 17 17 18 Blood Pressure 103/71 117/81 113/69 Pulse Oximetry 96 98 97 05/17/18 22:25 05/18/18 00:00 05/18/18 04:00 Temperature 98.0 F 97.9 F Pulse Rate 84 71 Respiratory Rate 18 18 Blood Pressure 105/63 94/65 L Pulse Oximetry 96 96 97 05/18/18 08:00 Temperature 98.2 F Pulse Rate 83 Respiratory Rate 18 Blood Pressure 118/68 Pulse Oximetry 95 Intake & Output 05/17/18 05/18/18 05/18/18 18:59 06:59 18:59 Intake Total 1060 / 1060 590 / 590 Balance 1060 / 1060 590 / 590 Weight 52.3 kg Intake: IV 100 / 100 350 / 350 Maxipime Inj 2,000 MG In NS Inj 100 / 100 100 / 100 100 ML @ 200 mls/hr IV.SIG Q8H [facility] Rx#:[id number] Vancomycin Inj 1,000 MG In NS 250 / 250 Inj 250 ML @ 250 mls/hr IV.SIG Q24H [facility] Rx#:[id number] Oral 960 / 960 240 / 240 Other: # Voids 3 3 Date of Last Bowel Movement 05/15/18 # Bowel Movements 0 0 05/16/18 20:25 Blood - Peripheral Aerobic Blood Culture - Preliminary No growth in 1 day 05/16/18 20:25 Blood - Peripheral Anaerobic Blood Culture - Preliminary gram negative rods 05/16/18 20:30 Blood - Peripheral Aerobic Blood Culture - Preliminary No growth in 1 day 05/16/18 20:30 Blood - Peripheral Anaerobic Blood Culture - Preliminary No growth in 1 day 05/12/18 00:30 Blood - Peripheral Aerobic Blood Culture - Final No growth in 5 days 05/12/18 00:30 Blood - Peripheral Anaerobic Blood Culture - Final No growth in 5 days 05/12/18 00:38 Blood - Peripheral Aerobic Blood Culture - Final No growth in 5 days 05/12/18 00:38 Blood - Peripheral Anaerobic Blood Culture - Final No growth in 5 days 05/16/18 15:59 Blood - Peripheral Blood Fungal Culture - Pending 05/16/18 15:59 Blood - Peripheral Blood Fungal Culture - Pending Lab - Hematology Results 05/17/18 06:45 WBC 8.0 RBC 3.27 L Hgb 11.6 Hct 34.2 L MCV 104.6 H MCH 35.6 H MCHC 34.0 RDW 12.9 Plt Count 167 MPV 9.1 Neut % (Auto) 77.6 H Lymph % (Auto) 12.2 [place] % (Auto) 8.1 H Eos % (Auto) 1.6 Baso % (Auto) 0.5 Neut # (Auto) 6.2 Lymph # (Auto) 1.0 [place] # (Auto) 0.6 Eos # (Auto) 0.1 Baso # (Auto) 0.0 WBC Differential . Differential Comment Auto diff final Lab - Chemistry Results 05/17/18 06:45 Sodium 136 Potassium 3.4 L D Chloride 101 Carbon Dioxide 21.2 Anion Gap 14 BUN 12 Creatinine 0.83 Estimated GFR 70 L Random Glucose 99 Calcium 8.6 Phosphorus 3.3 D Magnesium 2.1 Total Bilirubin 0.7 AST 46 H ALT 33 Alkaline Phosphatase 351 H Total Protein 6.6 D Albumin 3.1 L Imaging: ITS Impressions Chest X-Ray 05/16/18 00:00 CONCLUSION: No acute intrathoracic disease. Stable examination. Physical Exam: GENERAL: Awake and alert, NAD LINES: PIV i L forearm =- OK SKIN: No rashes, ecchymoses or lesions. Cool and dry. HEAD: Atraumatic. Normocephalic. No temporal or scalp tenderness. EYES: Pupils equal round and reactive. Extraocular motions intact. No scleral icterus. No injection or drainage. ENT: Nose without bleeding, purulent drainage or septal hematoma. Oral mucosae moist w/o thrush NECK: Trachea midline. Supple, nontender, no meningeal signs. CARDIOVASCULAR: HS audible. RESPIRATORY: Clear to auscultation. Breath sounds equal bilaterally. No wheezes , rales, or rhonchi. GASTROINTESTINAL: Abdomen soft, mildly tender, mildly distended. Surgical scars ok. MUSCULOSKELETAL: Extremities without clubbing, cyanosis, or edema. L forearm has some ill defined swelling and is tender to palpation no palpable cords NEUROLOGICAL: Awake and alert. Non focal Psych cooperative Prior port site L chest - healed. Assessment and Plan - Plan High grade Fungemia in a patient with port, now appears controlled post removal of port. sp completed treatment Port catheter infected. Imelda guilliermondii fungemia. completed voriconazole Crohn's disease on Entyvio infusions which is a biological agent Immune compromised status New gram-negative sepsis ? line ? L forearm thrombosis Recommendations: will cont cefepime dc vancomycin US of L forearm will dc vanco if no MRSA coinfx fu blood clx antifungal treatment if cont to have fever despite empiric abx further rec's to follow cancell PORT placement 2/2 new fever US of L forearm dw pt
[2018-05-18] MEDS: Diphenoxylate/Atropine 2.5/0.025 MG Tablet PO PRN (08:46)
--- NOTE | 2018-05-18 09:41 | US ---
EXAM DATE: 05/18/2018 9:32 AM EDT AGE/SEX: 58 years / Female INDICATIONS: Left arm pain with recent IV removal. CLINICAL DATA: This is the patient's subsequent encounter. Patient reports that signs and symptoms h ave been present for 2 days and indicates a pain score of 4/10. MEDICAL/SURGICAL HISTORY: Crohn's disease. Hypercholesterolemia. Chronic obstructive pulmonar y disease. Hypertension. Asthma. Pancreatitis. Appendectomy. Tubal ligation. Multiple bowel re sections. COMPARISON: [facility], US ARM BILATERAL VENOUS DOPPLER, 04/24/2018. . FINDINGS: There are abnormal intraluminal echoes with lack of normal compression within the mid left radial vein. This vessel also demonstrates lack of normal blood flow characteristic of acute thrombu s. The remaining veins of the left upper extremity are patent. Other: None. CONCLUSION: 1. There is thrombus within the left radial vein. 2. Remaining veins of the left upper extremity are patent. Electronically signed by: Olegario Long MD 05/18/2018 9:40 AM EDT
[2018-05-18 10:15] LABS: Baso % (Auto) 0.5 % (0.0-2.0); Eos # (Auto) 0.2 th/mm3 (0.0-0.4); Eos % (Auto) 2.9 % (0.0-4.0); Hematocrit 37.8 % (35.0-46.0); Hemoglobin 12.6 gm/dL (11.6-15.3); Lymph # (Auto) 0.9 th/mm3 (1.0-4.8); Lymph % (Auto) 16.1 % (9.0-44.0); Mean Corpuscular HGB Conc 33.2 % (32.0-36.0); Mean Corpuscular Hemoglobin 34.8 pg (27.0-34.0); Mean Corpuscular Volume 104.6 fL (80.0-100.0); Mean Platelet Volume 9.1 fL (7.0-11.0); Mono # (Auto) 0.5 th/mm3 (0.0-0.9); Mono % (Auto) 8.9 % (0.0-8.0); Neut # (Auto) 4.1 th/mm3 (1.8-7.7); Neut % (Auto) 71.6 % (16.0-70.0); Platelet Count 191 th/mm3 (150-450); Red Blood Count 3.61 mil/mm3 (4.00-5.30); Red Cell Distribution Width 12.6 % (11.6-17.2); White Blood Count 5.7 th/mm3 (4.0-11.0)
[2018-05-18 10:39] LABS: Albumin 3.3 g/dL (3.4-5.0); Anion Gap 9 meq/L (5-15); Aspartate Aminotransferase 40 U/L (15-37); Blood Urea Nitrogen 11 mg/dL (7-18); Calcium 9.1 mg/dL (8.5-10.1); Carbon Dioxide 24.7 meq/L (21.0-32.0); Chloride 106 meq/L (98-107); Glomerular Filtration Rate 78 mL/min (>89); Glucose,Random 81 mg/dL (74-106); Magnesium 2.2 mg/dL (1.5-2.5); Potassium 3.9 meq/L (3.5-5.1); Sodium 140 meq/L (136-145)
[2018-05-18 10:48] LABS: Alanine Aminotransferase 30 U/L (10-53); Alkaline Phosphatase 333 U/L (45-117); Phosphorus 4.1 mg/dL (2.5-4.9); Total Protein 7.3 g/dL (6.4-8.2)
--- NOTE | 2018-05-18 11:20 | P.PNIM ---
Subjective Interval history: f/u; bacteremia resting comfortably with no distress. no fever this morning. but complaining of pain to the left forearm. Physical Exam Vital signs: Vital Signs 05/17/18 12:00 05/17/18 16:00 05/17/18 20:00 Temperature 98.2 F 98.2 F 97.8 F Pulse Rate 72 82 19 L Respiratory Rate 17 17 18 Blood Pressure 103/71 117/81 113/69 Pulse Oximetry 96 98 97 05/17/18 22:25 05/18/18 00:00 05/18/18 04:00 Temperature 98.0 F 97.9 F Pulse Rate 84 71 Respiratory Rate 18 18 Blood Pressure 105/63 94/65 L Pulse Oximetry 96 96 97 05/18/18 08:00 Temperature 98.2 F Pulse Rate 83 Respiratory Rate 18 Blood Pressure 118/68 Pulse Oximetry 95 Intake & Output 05/17/18 05/18/18 05/18/18 18:59 06:59 18:59 Intake Total 1060 / 1060 590 / 590 Balance 1060 / 1060 590 / 590 Weight 52.3 kg Intake: IV 100 / 100 350 / 350 Maxipime Inj 2,000 MG In NS Inj 100 / 100 100 / 100 100 ML @ 200 mls/hr IV.SIG Q8H [facility] Rx#:[id number] Vancomycin Inj 1,000 MG In NS 250 / 250 Inj 250 ML @ 250 mls/hr IV.SIG Q24H [facility] Rx#:[id number] Oral 960 / 960 240 / 240 Other: # Voids 3 3 Date of Last Bowel Movement 05/15/18 # Bowel Movements 0 0 - Constitutional no acute distress - Routine Respiratory Exam Present: CTA bilaterally - Routine Cardiovascular Exam Present: RRR - Routine Abdominal Exam Present: soft - Routine Extremities Exam Present: tenderness (left forearm.) - Routine Neurological Exam Present: alert, oriented X3 Results - Labs CBC & Chem 7: 05/18/18 09:01 05/18/18 09:01 Laboratory Results - last 24 hr 05/18/18 05/18/18 09:01 09:01 WBC 5.7 RBC 3.61 L Hgb 12.6 Hct 37.8 MCV 104.6 H MCH 34.8 H MCHC 33.2 RDW 12.6 Plt Count 191 MPV 9.1 Neut % (Auto) 71.6 H Lymph % (Auto) 16.1 [place] % (Auto) 8.9 H Eos % (Auto) 2.9 Baso % (Auto) 0.5 Neut # (Auto) 4.1 Lymph # (Auto) 0.9 L [place] # (Auto) 0.5 Eos # (Auto) 0.2 Baso # (Auto) 0.0 WBC Differential . Differential Comment Auto diff final Sodium 140 Potassium 3.9 Chloride 106 Carbon Dioxide 24.7 Anion Gap 9 BUN 11 Creatinine 0.76 Estimated GFR 78 L Random Glucose 81 Calcium 9.1 Phosphorus 4.1 Magnesium 2.2 Total Bilirubin 0.4 AST 40 H ALT 30 Alkaline Phosphatase 333 H Total Protein 7.3 D Albumin 3.3 L Microbiology 05/16/18 20:30 Blood - Peripheral Aerobic Blood Culture - Preliminary No growth in 2 days 05/16/18 20:30 Blood - Peripheral Anaerobic Blood Culture - Preliminary No growth in 2 days 05/16/18 20:25 Blood - Peripheral Aerobic Blood Culture - Preliminary No growth in 2 days 05/16/18 20:25 Blood - Peripheral Anaerobic Blood Culture - Preliminary gram negative rods 05/12/18 00:30 Blood - Peripheral Aerobic Blood Culture - Final No growth in 5 days 05/12/18 00:30 Blood - Peripheral Anaerobic Blood Culture - Final No growth in 5 days 05/12/18 00:38 Blood - Peripheral Aerobic Blood Culture - Final No growth in 5 days 05/12/18 00:38 Blood - Peripheral Anaerobic Blood Culture - Final No growth in 5 days - Imaging Impressions Venous Doppler Study 05/18/18 00:00 CONCLUSION: 1. There is thrombus within the left radial vein. 2. Remaining veins of the left upper extremity are patent. - Procedures 04/25- R IJ placed 05-15 EGD Date of procedure: 05/15/18 Pre-op diagnosis: Dysphagia, history of Crohn's disease, diarrhea Post-op diagnosis: other Procedure: PROCEDURE PERFORMED EGD with dilation and biopsy followed by colonoscopy INDICATION FOR PROCEDURE Dysphagia, history of Crohn's disease, diarrhea PROCEDURE: The procedure, risks and benefits were discussed with Patient/POA and informed consent was obtained. Anesthesia sedated Patient with Diprivan. Patient was placed in the left lateral decubitus position. EGD: The Pentax videoscope was introduced through the oropharynx and advanced to the second portion of the duodenum under direct visualization. Retroflexion was performed in the stomach. FINDINGS: The esophagus there was a mild proximal esophageal stricture this was dilated with a size 16 savory dilator postdilatation view reveals a small rent the rest of the esophagus was otherwise unremarkable distal esophageal biopsy was taken for further evaluation The stomach this appeared to be unremarkable and within normal limits The duodenum this to appear to be unremarkable and within normal limits Colonoscopy: The Pentax videoscope was introduced through the rectum and advanced to cecum where the ileocecal valve and appendiceal orifice were identified and thereafter the scope was further advanced into the ileum. Retroflexion was performed in the rectum. Colonic prep was good FINDINGS: Colonic withdrawal time greater than 6 minutes. As the scope was slowly withdrawn colonic mucosa was carefully inspected the terminal ileum appeared to be within normal limits so did the whole colon so is retroflexion and rectal examination ESTIMATED BLOOD LOSS: None SPECIMENS REMOVED: Esophageal biopsy COMPLICATIONS: None IMPRESSION: Mild proximal esophageal stricture Otherwise unremarkable EGD and colonoscopy with ileal view PLAN: Await biopsies Recommend PPI Continue with current supportive care Monitor labs Once port is placed patient should be ready to go home Anesthesia: MAC Surgeon: Ajay Godoy Pathology: other Condition: stable Disposition: floor Documented By: Ajay Godoy MD Assessment and Plan - Assessment (1) Fungemia Code(s): B49 - Unspecified mycosis Status: Acute (2) CD (Crohn's disease) Code(s): K50.90 - Crohn's disease, unspecified, without complications Status: Acute (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 Immunosuppression from biologic agent ( Entyvio) and intermittent Prednisone TTE and OZIEL- no vegetations -ID ff -S/P oral Voriconazole course 05/11 . fungal culture negative so far -one bottle of blood cultures from 05/16 with gram negative [place]. -currently on Cefepime -Per discussion between Dr. Brock and Dr. Godoy,- will keep IV site- with history of life threatening electrolyte abnormalities- - central line removed. patient can be discharged with plans for outpatient PICC. Ideally no port 2+ weeks if Dr. Godoy deems necessary- severe electrolyte imbalance when Crohn's exacerbates in the past by history- -no port at this time. -DVT of the left forearm- will start on subq Lovenox for now and will switch to po anticoagulation upon discharge. Crohns disease/Short gut syndrome Currently on steroids and vedolizumab -Patient of advanced gastroenterology/Dr. Godoy -Continue pain control -Continue to follow/support nutrition - enlive supplements. dietary ff - po intake improving - patient with drug seeking component - Nausea/vomiting/Abdominal pain- Improved C/P CT w/o acute process LFT's with mild ALKP, transaminase abnormalities Barium swallow- small esophageal web. Minimal supraglottic larynx w/o tracheal aspiration. GERD, hiatal hernia. -GI ff -s/p EGD/ colonoscopy with mild proximal esophageal stricture- otherwise no other acute abnormalities. -Continue ARABELLA, PPI, PO Prednisone - per patient maintenance dose by Dr. Godoy for Crohns) Electrolyte abnormalities- K and Mg improved Hypomagnesemia- on Mg0xde 400 mg po bid Hypokalemia- improved -Per GI- patient has had prior life threatening hypokalemia - and will need IV access for future use - will need to d/w and confirm with Dr. Godoy if he still thinks we need to central line/port placed for future use in events of exacerbations that cause [email or web address] per patient "He knows my case very well" Hypertension -Continue Metoprolol 25 mg po bid - amlodipine to 2.5 mg daily Anemia Hgb stable -Will monitor Hgb -Continue Benadryl PRN, Flonase for allergies DVT PPX-SCD's -Discussed chemical PPX; declined Discharge Planning: when cleared by ID.
[2018-05-18] MEDS: Enoxaparin Inj 60 MG/0.6 ML Syringe SQ SCH (20:22)
[2018-05-19] MEDS: oxyCODONE/Acetaminophen 10/325 Tablet PO PRN ×3 (06:18→18:30)
[2018-05-19] MEDS: amLODIPine 5 MG Tablet PO SCH (10:02)
[2018-05-19] MEDS: Senna/Docusate Sodium 8.6/50 MG Tablet PO SCH ×2 (10:02→21:23)
[2018-05-19] MEDS: Magnesium Oxide 400 MG Tablet PO SCH ×2 (10:04→21:23)
[2018-05-19] MEDS: predniSONE 5 MG Tablet PO SCH (10:04)
[2018-05-19] MEDS: Metoprolol Tartrate 25 MG Tablet PO SCH ×2 (10:04→21:24)
[2018-05-19] MEDS: Enoxaparin Inj 60 MG/0.6 ML Syringe SQ SCH ×2 (10:04→21:25)
--- NOTE | 2018-05-19 11:08 | P.PNIM ---
Subjective Interval history: f/u; bacteremia/ DVT looks comfortable. no fever. pain to the left forearm is better. Physical Exam Vital signs: Vital Signs 05/18/18 12:00 05/18/18 16:00 05/18/18 20:00 Temperature 97.6 F 98.1 F 98.4 F Pulse Rate 71 89 75 Respiratory Rate 18 18 18 Blood Pressure 124/81 111/72 126/88 Pulse Oximetry 98 98 97 05/18/18 20:31 05/19/18 00:00 05/19/18 04:00 Temperature 98.1 F 98.3 F Pulse Rate 73 66 Respiratory Rate 18 18 Blood Pressure 100/78 106/75 Pulse Oximetry 97 94 L 96 05/19/18 08:00 Temperature 98.2 F Pulse Rate 84 Respiratory Rate 18 Blood Pressure 116/92 H Pulse Oximetry 95 Intake & Output 05/18/18 05/19/18 05/19/18 18:59 06:59 18:59 Intake Total 920 / 920 1780 / 1780 Balance 920 / 920 1780 / 1780 Weight 52.4 kg Intake: IV 200 / 200 100 / 100 Maxipime Inj 2,000 MG In NS Inj 200 / 200 100 / 100 100 ML @ 200 mls/hr IV.SIG Q8H [facility]ERY Rx#:[id number] Oral 720 / 720 1680 / 1680 Other: # Voids 3 4 Date of Last Bowel Movement 05/18/18 05/18/18 # Bowel Movements 1 1 - Constitutional no acute distress - Routine Respiratory Exam Present: CTA bilaterally - Routine Cardiovascular Exam Present: RRR - Routine Abdominal Exam Present: soft - Routine Extremities Exam Present: edema Comments: mild swelling but improved tenderness of the left forearm. - Routine Neurological Exam Present: alert, oriented X3 Results - Labs CBC & Chem 7: 05/18/18 09:01 05/18/18 09:01 Microbiology 05/16/18 20:30 Blood - Peripheral Aerobic Blood Culture - Preliminary No growth in 3 days 05/16/18 20:30 Blood - Peripheral Anaerobic Blood Culture - Preliminary No growth in 3 days 05/16/18 20:25 Blood - Peripheral Aerobic Blood Culture - Preliminary No growth in 3 days 05/16/18 20:25 Blood - Peripheral Anaerobic Blood Culture - Final Escherichia coli - Procedures 04/25- R IJ placed 05-15 EGD Date of procedure: 05/15/18 Pre-op diagnosis: Dysphagia, history of Crohn's disease, diarrhea Post-op diagnosis: other Procedure: PROCEDURE PERFORMED EGD with dilation and biopsy followed by colonoscopy INDICATION FOR PROCEDURE Dysphagia, history of Crohn's disease, diarrhea PROCEDURE: The procedure, risks and benefits were discussed with Patient/POA and informed consent was obtained. Anesthesia sedated Patient with Diprivan. Patient was placed in the left lateral decubitus position. EGD: The Pentax videoscope was introduced through the oropharynx and advanced to the second portion of the duodenum under direct visualization. Retroflexion was performed in the stomach. FINDINGS: The esophagus there was a mild proximal esophageal stricture this was dilated with a size 16 savory dilator postdilatation view reveals a small rent the rest of the esophagus was otherwise unremarkable distal esophageal biopsy was taken for further evaluation The stomach this appeared to be unremarkable and within normal limits The duodenum this to appear to be unremarkable and within normal limits Colonoscopy: The Pentax videoscope was introduced through the rectum and advanced to cecum where the ileocecal valve and appendiceal orifice were identified and thereafter the scope was further advanced into the ileum. Retroflexion was performed in the rectum. Colonic prep was good FINDINGS: Colonic withdrawal time greater than 6 minutes. As the scope was slowly withdrawn colonic mucosa was carefully inspected the terminal ileum appeared to be within normal limits so did the whole colon so is retroflexion and rectal examination ESTIMATED BLOOD LOSS: None SPECIMENS REMOVED: Esophageal biopsy COMPLICATIONS: None IMPRESSION: Mild proximal esophageal stricture Otherwise unremarkable EGD and colonoscopy with ileal view PLAN: Await biopsies Recommend PPI Continue with current supportive care Monitor labs Once port is placed patient should be ready to go home Anesthesia: MAC Surgeon: Ajay Godoy Pathology: other Condition: stable Disposition: floor Documented By: Ajay Godoy MD Assessment and Plan - Assessment (1) Fungemia Code(s): B49 - Unspecified mycosis Status: Acute (2) CD (Crohn's disease) Code(s): K50.90 - Crohn's disease, unspecified, without complications Status: Acute (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 Immunosuppression from biologic agent ( Entyvio) and intermittent Prednisone TTE and OZIEL- no vegetations -ID ff -S/P oral Voriconazole course 05/11 . fungal culture negative so far -one bottle of blood cultures from 05/16 with e-coli. -currently on Cefepime -Per discussion between Dr. Brokc and Dr. Godoy,- will keep IV site- with history of life threatening electrolyte abnormalities- - central line removed. patient can be discharged with plans for outpatient PICC. Ideally no port 2+ weeks if Dr. Godoy deems necessary- severe electrolyte imbalance when Crohn's exacerbates in the past by history- -no port at this time. -DVT of the left forearm- continue subq Lovenox for now and will switch to po anticoagulation upon discharge. Crohns disease/Short gut syndrome Currently on steroids and vedolizumab -Patient of advanced gastroenterology/Dr. Godoy -Continue pain control -Continue to follow/support nutrition - enlive supplements. dietary ff - po intake improving - patient with drug seeking component - Nausea/vomiting/Abdominal pain- Improved C/P CT w/o acute process LFT's with mild ALKP, transaminase abnormalities Barium swallow- small esophageal web. Minimal supraglottic larynx w/o tracheal aspiration. GERD, hiatal hernia. -GI ff -s/p EGD/ colonoscopy with mild proximal esophageal stricture- otherwise no other acute abnormalities. -Continue ARABELLA, PPI, PO Prednisone - per patient maintenance dose by Dr. Godoy for Crohns) Electrolyte abnormalities- K and Mg improved Hypomagnesemia- on Mg0xde 400 mg po bid Hypokalemia- improved -Per GI- patient has had prior life threatening hypokalemia - and will need IV access for future use - will need to d/w and confirm with Dr. Godoy if he still thinks we need to central line/port placed for future use in events of exacerbations that cause elec.abn per patient "He knows my case very well" Hypertension -Continue Metoprolol 25 mg po bid - amlodipine to 2.5 mg daily Anemia Hgb stable -Will monitor Hgb -Continue Benadryl PRN, Flonase for allergies DVT PPX-SCD's -Discussed chemical PPX; declined Discharge Planning: when cleared by ID.
[2018-05-19] MEDS: Diphenoxylate/Atropine 2.5/0.025 MG Tablet PO PRN (13:42)
--- NOTE | 2018-05-19 18:30 | P.PNID ---
Subjective Remarks: chart reviewed afebrile L forearm pain - better US + for thrombosis abd discomfort at baseline Antibiotics: Voriconazole oral - completed cefpeime vancomycin Lines: Prior port site ok. Past Medical History: reviewed Allergies/Adverse Reactions: Allergies Sulfa (Sulfonamide Antibiotics) Allergy (Severe, Verified 04/28/18 12:16) "Shock", nausea, rash HUMIRA Allergy (Unknown, Uncoded 04/28/18 12:16) SKIN LESIONS Objective Vital Signs 05/18/18 20:00 05/18/18 20:31 05/19/18 00:00 Temperature 98.4 F 98.1 F Pulse Rate 75 73 Respiratory Rate 18 18 Blood Pressure 126/88 100/78 Pulse Oximetry 97 97 94 L 05/19/18 04:00 05/19/18 08:00 05/19/18 12:00 Temperature 98.3 F 98.2 F 98.3 F Pulse Rate 66 84 83 Respiratory Rate 18 18 18 Blood Pressure 106/75 116/92 H 121/82 Pulse Oximetry 96 95 98 Intake & Output 05/18/18 05/19/18 05/19/18 18:59 06:59 18:59 Intake Total 920 / 920 1880 / 1880 Balance 920 / 920 1880 / 1880 Weight 52.4 kg Intake: IV 200 / 200 200 / 200 Maxipime Inj 2,000 MG In NS Inj 200 / 200 200 / 200 100 ML @ 200 mls/hr IV.SIG Q8H [facility] Rx#:[id number] Oral 720 / 720 1680 / 1680 Other: # Voids 3 4 Date of Last Bowel Movement 05/18/18 05/18/18 # Bowel Movements 1 1 05/16/18 20:30 Blood - Peripheral Aerobic Blood Culture - Preliminary No growth in 3 days 05/16/18 20:30 Blood - Peripheral Anaerobic Blood Culture - Preliminary No growth in 3 days 05/16/18 20:25 Blood - Peripheral Aerobic Blood Culture - Preliminary No growth in 3 days 05/16/18 20:25 Blood - Peripheral Anaerobic Blood Culture - Final Escherichia coli 05/12/18 00:30 Blood - Peripheral Aerobic Blood Culture - Final No growth in 5 days 05/12/18 00:30 Blood - Peripheral Anaerobic Blood Culture - Final No growth in 5 days 05/12/18 00:38 Blood - Peripheral Aerobic Blood Culture - Final No growth in 5 days 05/12/18 00:38 Blood - Peripheral Anaerobic Blood Culture - Final No growth in 5 days 05/16/18 15:59 Blood - Peripheral Blood Fungal Culture - Pending 05/16/18 15:59 Blood - Peripheral Blood Fungal Culture - Pending Lab - Hematology Results 05/18/18 09:01 WBC 5.7 RBC 3.61 L Hgb 12.6 Hct 37.8 MCV 104.6 H MCH 34.8 H MCHC 33.2 RDW 12.6 Plt Count 191 MPV 9.1 Neut % (Auto) 71.6 H Lymph % (Auto) 16.1 Churchill % (Auto) 8.9 H Eos % (Auto) 2.9 Baso % (Auto) 0.5 Neut # (Auto) 4.1 Lymph # (Auto) 0.9 L [place] # (Auto) 0.5 Eos # (Auto) 0.2 Baso # (Auto) 0.0 WBC Differential . Differential Comment Auto diff final Lab - Chemistry Results 05/18/18 09:01 Sodium 140 Potassium 3.9 Chloride 106 Carbon Dioxide 24.7 Anion Gap 9 BUN 11 Creatinine 0.76 Estimated GFR 78 L Random Glucose 81 Calcium 9.1 Phosphorus 4.1 Magnesium 2.2 Total Bilirubin 0.4 AST 40 H ALT 30 Alkaline Phosphatase 333 H Total Protein 7.3 D Albumin 3.3 L Imaging: ITS Impressions Chest X-Ray 05/16/18 00:00 CONCLUSION: No acute intrathoracic disease. Stable examination. Venous Doppler Study 05/18/18 00:00 CONCLUSION: 1. There is thrombus within the left radial vein. 2. Remaining veins of the left upper extremity are patent. Physical Exam: GENERAL: Awake and alert, NAD LINES: PIV R a/c area OK SKIN: No rashes, ecchymoses or lesions. Cool and dry. CARDIOVASCULAR: HS audible. RESPIRATORY: Clear to auscultation. Breath sounds equal bilaterally. No wheezes , rales, or rhonchi. GASTROINTESTINAL: Abdomen soft, mildly tender, mildly distended. Surgical scars ok. MUSCULOSKELETAL: Extremities without clubbing, cyanosis, or edema. NEUROLOGICAL: Awake and alert. Non focal Psych cooperative Prior port site L chest - healed. Assessment and Plan - Plan High grade Fungemia in a patient with port, now appears controlled post removal of port. sp completed treatment Port catheter infected. Imelda guilliermondii fungemia. completed voriconazole Crohn's disease on Entyvio infusions which is a biological agent Immune compromised status New E.coli sepsis ? line ? L forearm thrombosis Recommendations: change cefepime to CFTX and complete 14 days of tx Midline OPAT with [facility] OK to place new PORT after tx completed dw pt dw GI
[2018-05-19] MEDS ORDERED: Pharmacy Ordered Lab Info OTHER ONE (20:45)
[2018-05-20] MEDS: oxyCODONE/Acetaminophen 10/325 Tablet PO PRN ×3 (00:33→15:22)
[2018-05-20] MEDS: Melatonin 5 MG Tablet PO PRN (00:34)
[2018-05-20 00:46] VITALS: RESP 18
[2018-05-20] MEDS: Senna/Docusate Sodium 8.6/50 MG Tablet PO SCH (09:09)
[2018-05-20] MEDS: Enoxaparin Inj 60 MG/0.6 ML Syringe SQ SCH ×2 (09:10→20:21)
[2018-05-20] MEDS: Metoprolol Tartrate 25 MG Tablet PO SCH ×2 (09:10→20:21)
[2018-05-20] MEDS: predniSONE 5 MG Tablet PO SCH (09:10)
[2018-05-20] MEDS: Magnesium Oxide 400 MG Tablet PO SCH ×2 (09:11→20:21)
[2018-05-20] MEDS: amLODIPine 5 MG Tablet PO SCH (09:11)
--- NOTE | 2018-05-20 10:52 | P.PNIM ---
Subjective Interval history: in no acute distress. resting comfortably. no fever. no new complaints. hoping that she could go home soon. Physical Exam Vital signs: Vital Signs 05/19/18 12:00 05/19/18 16:00 05/19/18 20:00 Temperature 98.3 F 98.3 F 97.7 F Pulse Rate 83 86 100 H Respiratory Rate 18 18 16 Blood Pressure 121/82 131/78 141/98 H Pulse Oximetry 98 98 96 05/20/18 00:00 05/20/18 04:00 05/20/18 08:00 Temperature 97.9 F 97.5 F L 97.6 F Pulse Rate 68 70 62 Respiratory Rate 18 18 Blood Pressure 130/96 H 98/67 L 118/73 Pulse Oximetry 97 97 96 Intake & Output 05/19/18 05/20/18 05/20/18 18:59 06:59 18:59 Intake Total 720 / 720 420 / 420 Balance 720 / 720 420 / 420 Weight 52.1 kg Intake: Oral 720 / 720 420 / 420 Other: # Voids 4 4 Date of Last Bowel Movement 05/18/18 # Bowel Movements 2 1 - Constitutional no acute distress - Routine Respiratory Exam Present: CTA bilaterally - Routine Cardiovascular Exam Present: RRR - Routine Abdominal Exam Present: soft - Routine Extremities Exam Comments: no pedal edema. mild swelling of the left forearm but is better. - Routine Neurological Exam Present: alert, oriented X3 Results - Labs CBC & Chem 7: 05/18/18 09:01 05/18/18 09:01 Microbiology 05/16/18 20:30 Blood - Peripheral Aerobic Blood Culture - Preliminary No growth in 3 days 05/16/18 20:30 Blood - Peripheral Anaerobic Blood Culture - Preliminary No growth in 3 days 05/16/18 20:25 Blood - Peripheral Aerobic Blood Culture - Preliminary No growth in 3 days 05/16/18 20:25 Blood - Peripheral Anaerobic Blood Culture - Final Escherichia coli - Procedures 04/25- R IJ placed 05-15 EGD Date of procedure: 05/15/18 Pre-op diagnosis: Dysphagia, history of Crohn's disease, diarrhea Post-op diagnosis: other Procedure: PROCEDURE PERFORMED EGD with dilation and biopsy followed by colonoscopy INDICATION FOR PROCEDURE Dysphagia, history of Crohn's disease, diarrhea PROCEDURE: The procedure, risks and benefits were discussed with Patient/POA and informed consent was obtained. Anesthesia sedated Patient with Diprivan. Patient was placed in the left lateral decubitus position. EGD: The Pentax videoscope was introduced through the oropharynx and advanced to the second portion of the duodenum under direct visualization. Retroflexion was performed in the stomach. FINDINGS: The esophagus there was a mild proximal esophageal stricture this was dilated with a size 16 savory dilator postdilatation view reveals a small rent the rest of the esophagus was otherwise unremarkable distal esophageal biopsy was taken for further evaluation The stomach this appeared to be unremarkable and within normal limits The duodenum this to appear to be unremarkable and within normal limits Colonoscopy: The Pentax videoscope was introduced through the rectum and advanced to cecum where the ileocecal valve and appendiceal orifice were identified and thereafter the scope was further advanced into the ileum. Retroflexion was performed in the rectum. Colonic prep was good FINDINGS: Colonic withdrawal time greater than 6 minutes. As the scope was slowly withdrawn colonic mucosa was carefully inspected the terminal ileum appeared to be within normal limits so did the whole colon so is retroflexion and rectal examination ESTIMATED BLOOD LOSS: None SPECIMENS REMOVED: Esophageal biopsy COMPLICATIONS: None IMPRESSION: Mild proximal esophageal stricture Otherwise unremarkable EGD and colonoscopy with ileal view PLAN: Await biopsies Recommend PPI Continue with current supportive care Monitor labs Once port is placed patient should be ready to go home Anesthesia: MAC Surgeon: Ajay Godoy Pathology: other Condition: stable Disposition: floor Documented By: Ajay Godoy MD Assessment and Plan - Assessment (1) Fungemia Code(s): B49 - Unspecified mycosis Status: Acute (2) CD (Crohn's disease) Code(s): K50.90 - Crohn's disease, unspecified, without complications Status: Acute (3) Short bowel syndrome Code(s): 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 Patient with multiple blood cultures and port culture growing Imelda Guilliermondii until port removed 04/25. Immunosuppression from biologic agent ( Entyvio) and intermittent Prednisone TTE and OZIEL- no vegetations -ID ff -S/P oral Voriconazole course 05/11 . fungal culture negative so far -one bottle of blood cultures from 05/16 with gram negative [place]. -started on Cefepime- now has been switched to Rocephin. - patient will be discharged with midline- port can be reinserted after the completion of IV antibiotics- per ID. -no port at this time. -DVT of the left forearm- started on subq Lovenox -will switch to po anticoagulation upon discharge. Crohns disease/Short gut syndrome Currently on steroids and vedolizumab -Patient of advanced gastroenterology/Dr. Godoy -Continue pain control -Continue to follow/support nutrition - enlive supplements. dietary ff - po intake improving - patient with drug seeking component - Nausea/vomiting/Abdominal pain- Improved C/P CT w/o acute process LFT's with mild ALKP, transaminase abnormalities Barium swallow- small esophageal web. Minimal supraglottic larynx w/o tracheal aspiration. GERD, hiatal hernia. -GI ff -s/p EGD/ colonoscopy with mild proximal esophageal stricture- otherwise no other acute abnormalities. -Continue ARABELLA, PPI, PO Prednisone - per patient maintenance dose by Dr. Godoy for Crohns) Electrolyte abnormalities- K and Mg improved Hypomagnesemia- on Mg0xde 400 mg po bid Hypokalemia- improved -Per GI- patient has had prior life threatening hypokalemia - and will need IV access for future use - will need to d/w and confirm with Dr. Godoy if he still thinks we need to central line/port placed for future use in events of exacerbations that cause elec.abn per patient "He knows my case very well" Hypertension -Continue Metoprolol 25 mg po bid - amlodipine to 2.5 mg daily Anemia Hgb stable -Continue Benadryl PRN, Flonase for allergies Discharge Planning: when midline/ outpatient IV antibiotic regimen in place. see med list. d/w the patient and previously with the case management. time spent 35 min.
--- NOTE | 2018-05-20 10:59 | P.DCO ---
- Home Health Nursing Order: Medical education, Signs/symptoms of disease process, Medication education-adverse effect, Nursing assessment with vital signs, IV medication administration - Certification I have seen patient Sherley Sin on 05/20/18. My clinical findings support the need for the requested home health care services because: Infection with risk of complications I certify that my clinical findings support that this patient is homebound because: Unsteady gait/balance
--- NOTE | 2018-05-20 11:04 | P.DS ---
Date of admission: 04/23/18 17:52 Primary care physician: Jorge Alberto Yeung Brief History from admission: Ms. Sin is a 58-year-old female with past medical history significant for Crohn's disease for the last 40 years, who has been on steroids for the most part of her disease. Patient also reports being on Humira in the past but had side effects from it and it was discontinued. Patient more recently was started on Entyvio infusions. Last infusion was on 04/05/2018. She has also been on electrolyte and nutritional supplements using the borderline at home. Patient also reports that she had a port in the past that had to be removed because it was not a PowerPort. She denies any infections related to that prior port. In general she denies any infections despite having port for a long period of time. Patient reports that after she received Entyvio infusion she felt better and her GI symptoms had resolved. Thereafter approximately 1 week prior to admission she started developing nausea vomiting chills fevers and night sweats. Patient was admitted and underwent workup for possible sepsis including blood cultures blood cultures are positive for yeast infectious diseases consulted for management of the same. Pt developed fungemia 2/2 Imelda guilliermondii Port that is believed to be the source was removed. DS: Diagnosis - Discharge Diagnosis (1) Fungemia Status: Acute (2) CD (Crohn's disease) Status: Acute (3) Short bowel syndrome Status: Chronic (4) Vomiting Status: Resolved DS: Medications - Discharge Medications Prescriptions: amlodipine 2.5 mg PO DAILY 30 Days #30 tab apixaban [Eliquis] 5 mg PO DIRECTED 30 Days #30 tab metoprolol tartrate 25 mg PO BID 30 Days #60 tab DS: Summary Hospital Course: patient is 58 y/o female who was treated with Fungemia S/P completed course voriconazole 05/11. Patient with multiple blood cultures and port culture growing Imelda Guilliermondii until port removed 04/25. Immunosuppression from biologic agent ( Entyvio) and intermittent Prednisone -one bottle of blood cultures from 05/16 with gram negative akilah.patient was initially treated with Cefepime which was later switched to Rocephin. - patient will be discharged with midline- port can be reinserted after the completion of IV antibiotics- per ID. she was found to have DVT of the left forearm for which she will be placed on oral anticoagulation. she has a history of Crohns disease/Short gut syndrome and currently on steroids and vedolizumab. -she had Barium swallow which showed small esophageal web. Minimal supraglottic larynx w/o tracheal aspiration. GERD, hiatal hernia. -she underwent EGD/ colonoscopy with mild proximal esophageal stricture- otherwise no other acute abnormalities. - she will have a f/u with her GI as outpatient. - Time Spent with Patient Total time spent providing and/or coordinating discharge services: Greater than 30 minutes (35 min.) Exam Vital signs: Vital Signs 05/19/18 12:00 05/19/18 16:00 05/19/18 20:00 Temperature 98.3 F 98.3 F 97.7 F Pulse Rate 83 86 100 H Respiratory Rate 18 18 16 Blood Pressure 121/82 131/78 141/98 H Pulse Oximetry 98 98 96 05/20/18 00:00 05/20/18 04:00 05/20/18 08:00 Temperature 97.9 F 97.5 F L 97.6 F Pulse Rate 68 70 62 Respiratory Rate 18 18 18 Blood Pressure 130/96 H 98/67 L 118/73 Pulse Oximetry 97 97 96 Intake & Output 05/19/18 05/20/18 05/20/18 18:59 06:59 18:59 Intake Total 720 / 720 420 / 420 Balance 720 / 720 420 / 420 Weight 52.1 kg Intake: Oral 720 / 720 420 / 420 Other: # Voids 4 4 Date of Last Bowel Movement 05/18/18 # Bowel Movements 2 1 Results Procedures completed during hospitalization: 04/25- R IJ placed 05-15 EGD Date of procedure: 05/15/18 Pre-op diagnosis: Dysphagia, history of Crohn's disease, diarrhea Post-op diagnosis: other Procedure: PROCEDURE PERFORMED EGD with dilation and biopsy followed by colonoscopy INDICATION FOR PROCEDURE Dysphagia, history of Crohn's disease, diarrhea PROCEDURE: The procedure, risks and benefits were discussed with Patient/POA and informed consent was obtained. Anesthesia sedated Patient with Diprivan. Patient was placed in the left lateral decubitus position. EGD: The Pentax videoscope was introduced through the oropharynx and advanced to the second portion of the duodenum under direct visualization. Retroflexion was performed in the stomach. FINDINGS: The esophagus there was a mild proximal esophageal stricture this was dilated with a size 16 savory dilator postdilatation view reveals a small rent the rest of the esophagus was otherwise unremarkable distal esophageal biopsy was taken for further evaluation The stomach this appeared to be unremarkable and within normal limits The duodenum this to appear to be unremarkable and within normal limits Colonoscopy: The Pentax videoscope was introduced through the rectum and advanced to cecum where the ileocecal valve and appendiceal orifice were identified and thereafter the scope was further advanced into the ileum. Retroflexion was performed in the rectum. Colonic prep was good FINDINGS: Colonic withdrawal time greater than 6 minutes. As the scope was slowly withdrawn colonic mucosa was carefully inspected the terminal ileum appeared to be within normal limits so did the whole colon so is retroflexion and rectal examination ESTIMATED BLOOD LOSS: None SPECIMENS REMOVED: Esophageal biopsy COMPLICATIONS: None IMPRESSION: Mild proximal esophageal stricture Otherwise unremarkable EGD and colonoscopy with ileal view PLAN: Await biopsies Recommend PPI Continue with current supportive care Monitor labs Once port is placed patient should be ready to go home Anesthesia: MAC Surgeon: Ajay Godoy Pathology: other Condition: stable Disposition: floor Documented By: Ajay Godoy MD Completed studies during hospitalization: Pending at discharge 05/15/18 08:18 Surgical [PTH] Routine Labs on day of discharge: Preliminary micro results at discharge 05/16/18 20:30 Aerobic Blood Culture - Preliminary Blood - Peripheral No growth in 3 days Anaerobic Blood Culture - Preliminary No growth in 3 days 05/16/18 20:25 Aerobic Blood Culture - Preliminary Blood - Peripheral No growth in 3 days - Impressions ITS Impressions Chest X-Ray 05/16/18 00:00 CONCLUSION: No acute intrathoracic disease. Stable examination. Venous Doppler Study 05/18/18 00:00 CONCLUSION: 1. There is thrombus within the left radial vein. 2. Remaining veins of the left upper extremity are patent. Discharge Plan - Discharge Disposition Patient Disposition: /Home Health Service - Discharge Condition Condition: Stable - Discharge Order Discharge Orders: Discharge Order (Routine); Ordered 05/20/18 Ordered By: Adilson Estrada - Physicians Team Primary Care Provider: Jorge Alberto Yeung Attending Provider: Adilson Estrada Other Providers: Malissa Gutierrez MD ; Mary Jo Brock MD ; Gisele Moreland MD ; Collins Catherine DO ; [facility] ; [employer] ; Ajay Godoy MD ; Anika Koch MD - Rxs /Orders / Referrals /Forms Prescriptions: New amlodipine 2.5 mg Tablet 2.5 mg PO DAILY 30 Days Qty: 30 RF: 0 apixaban [Eliquis] 5 mg Tablet 5 mg PO DIRECTED 30 Days Qty: 30 RF: 0 ceftriaxone 2 gram Recon Soln 2 g IV Q24H 10 Days RF: 0 metoprolol tartrate 25 mg Tablet 25 mg PO BID 30 Days Qty: 60 RF: 0 Continue albuterol sulfate 2.5 mg/0.5 mL Solution For Nebulization 2.5 mg Continuous Nebulization Q4H PRN (Reason: Shortness Of Breath) albuterol sulfate [Ventolin HFA] 90 mcg/actuation Hfa Aerosol Inhaler 2 puff INHALATION Q4-6H PRN (Reason: Shortness Of Breath) cyanocobalamin (vitamin B-12) 1,000 mcg/mL Solution 1,000 mcg IM QMONTH diazepam 10 mg Tablet 10 mg PO HS diphenoxylate-atropine 2.5-0.025 mg Tablet 1 tab PO Q6H PRN (Reason: Diarrhea) hydrocodone-acetaminophen 10-325 mg Tablet 1 tab PO QID PRN (Reason: Pain) melatonin 5 mg Tablet 5 mg PO HS omeprazole 40 mg Capsule,Delayed Release(Dr/Ec) 40 mg PO EVERY OTHER DAY prednisone 5 mg Tablet 5 mg PO DAILY Discontinued amlodipine 10 mg Tablet 10 mg PO DAILY metoprolol tartrate 50 mg Tablet 50 mg PO BID promethazine 25 mg Tablet 25 mg PO Q6H PRN (Reason: Nausea) vedolizumab 300 mg Recon Soln 300 mg IV ONCE Referrals: Jorge Alberto Yeung MD [Primary Care Provider] - See Instructions Cuauhtemoc Maciel MD [Physician] - See Instructions (Follow up with Dr. Maciel in 2 weeks )
--- NOTE | 2018-05-20 12:10 | P.DCO ---
Post Hospital Infusion Therapy Patient Weight: 52.1 kg - Diagnosis (1) Sepsis Code(s): A41.9 - Sepsis, unspecified organism - Administer Medication Ceftriaxone Dose: 2 grams IV Directions: q 24 hours Start Treatment: 05/20/18 Stop Treatment: 05/29/18 - Additional Information Venous Access: Other (midline) Additional Instructions: [x] Peripheral flush and dressing changes per protocol [x] Implanted port and central telecommunications line mechanic: * Implanted port: 10 ml Normal Saline followed by 5 ml Heparin 100 units/ml Heparin flush after each use and monthly to maintain. [] May leave port accessed during therapy. [] May leave peripheral site accessed for duration of therapy. [x] If patient has SOB or respiratory distress, check oxygen saturation. If less than 90% or clinical signs of respiratory distress, administer oxygen at 2 L/min. via nasal cannula and notify physician. [x] Anaphylaxis/Reaction orders: * Stop infusion. * Keep IV line open with saline flush. * Notify physician. * Monitor vital signs every 15 minutes until symptoms resolve. * Check Oxygen saturation; Oxygen at 2 L/min. via nasal cannula if less than 90% or clinical signs of respiratory distress. * Administer diphenhydramine (Benadryl) 25 mg IV STAT, (unless patient has received as pre-med). May repeat once, if necessary. * Solu-Cortef 250 mg IVP over 30-60 seconds, use 100 mg vials for each dissolution. * Epinephrine (1mg/1 ml) 0.3 mg subcutaneously or IVP now with any signs of respiratory distress. * Check with physician for new additional pre-med orders if patient is re- challenged or re-treated. [x] May remove PICC line when treatment complete, after confirming with Physician. [x] If the patient is admitted to the hospital, the ED, or transferred via [facility] , complete transfer form including medication reconciliation order sheet. Weekly Labs: CBC w/diff, CMP Allergies Sulfa (Sulfonamide Antibiotics) Allergy (Severe, Verified 04/28/18 12:16) "Shock", nausea, rash HUMIRA Allergy (Unknown, Uncoded 04/28/18 12:16) SKIN LESIONS (1) Sepsis Qualifiers: Sepsis type: Escherichia coli Qualified Code(s): A41.51 - Sepsis due to Escherichia coli [E. coli]
[2018-05-20 18:04] VITALS: BP 122/80; PULSE 77; TEMP 98.4; O2SAT 96
== END 2018-05-20 20:30 | disposition home health service (06) ==
LOC: N04 04-23 17:52
PROVIDERS: ADMIT Internal Medicine; ATTEND Internal Medicine

== ENCOUNTER 2018-07-22 14:21 | Inpatient (IN) ==
[2018-07-22] MEDS ORDERED: Sod Chloride 0.9% Inj 1,000 ML IV.SIG ONE (14:37)
[2018-07-22] MEDS ORDERED: *HYDROmorphone PF 0.5 MG/0.5 ML PERIprocedure ONLY IV PUSH ONE (14:41)
--- NOTE | 2018-07-22 14:51 | ED ---
HPI General Chief complaint: Abdominal Pain Stated complaint: abd pain -n/v Time Seen by Provider: 07/22/18 14:28 Source: patient Mode of arrival: ambulatory Limitations: no limitations History of Present Illness HPI narrative: This is a 58-year-old female who has a history of Crohns disease status post 3 bowel resections complicated by short gut syndrome as well as history of alcoholic pancreatitis who presents to the emergency department with severe abdominal pain that started at 630 this morning, constant, radiating to the back associated with an episode of vomiting. She says she always has diarrhea and her bowels are unchanged today. She denies any fevers or chills. She says this feels very similar to when she had pancreatitis several years ago. She does take hydrocodone 10 mg 3-4 times a day as needed for pain which is prescribed by Dr. Godoy exclusively. Related Data Home Medications Medication Instructions Recorded Confirmed albuterol sulfate 2.5 mg CONTINUOUS NEBULIZATION Q4H 04/28/18 07/22/18 PRN albuterol sulfate [Ventolin HFA] 2 puff INHALATION Q4-6H PRN 04/28/18 07/22/18 cyanocobalamin (vitamin B-12) 1,000 mcg IM QMONTH 04/28/18 07/22/18 diazepam 10 mg PO HS 04/28/18 07/22/18 diphenoxylate-atropine 1 tab PO Q6H PRN 04/28/18 07/22/18 hydrocodone-acetaminophen 1 tab PO QID PRN 04/28/18 07/22/18 melatonin 5 mg PO HS 04/28/18 07/22/18 omeprazole 40 mg PO EVERY OTHER DAY 04/28/18 07/22/18 prednisone 20 mg PO DAILY 07/22/18 07/22/18 Allergies Allergy/AdvReac Type Severity Reaction Status Date / Time Sulfa (Sulfonamide Allergy Severe "Shock", Verified 07/22/18 14:22 Antibiotics) nausea, rash HUMIRA Allergy Unknown SKIN Uncoded 07/22/18 14:22 LESIONS Review of Systems ROS: all other systems reviewed are negative PMFSH History History Provided By: Patient and Significant Other Medical History Medical History Crohns disease (Acute) Pancreatitis (Acute) Short gut syndrome (Acute) Fungemia (Resolved) Surgical History Surgical History History of bowel resection (Acute) Social History Social History Substance History: No History of Abuse Second Hand Smoke Exposure: No Smoking Status: Current every day smoker Tobacco Type: E-Cigarettes How Often Do You Have a Drink Containing Alcohol: 4 or more times a week Hx Recent Travel: No Recent Travel in [facility] within the Last 8 Weeks: No Recent Out of Country Travel within the Last 8 Weeks: No Exam Narrative Exam Narrative: GENERAL: Uncomfortable, moaning in pain SKIN: Focused skin assessment warm and dry. HEAD: Atraumatic. Normocephalic. EYES: Pupils equal and round. No injection or drainage. ENT: Moist mucous membranes NECK: Trachea midline. CARDIOVASCULAR: Regular rate and rhythm. No murmur appreciated. RESPIRATORY: Clear to auscultation. Breath sounds equal bilaterally. GASTROINTESTINAL: Abdomen soft, diffusely tender to palpation, diffuse guarding. Multiple abdominal surgical scars. MUSCULOSKELETAL: No obvious deformities. NEUROLOGICAL: Awake and alert. No obvious cranial nerve deficits. Moving all extremities. PSYCHIATRIC: Tearful Course Initial Documented Vital Signs Pulse Rate 68 07/22/18 14:22 Respiratory Rate 28 H 07/22/18 14:22 Blood Pressure 205/99 H 07/22/18 14:22 Last Documented Vital Signs Temperature 97.3 F L 07/22/18 15:25 Pulse Rate 100 H 07/22/18 16:34 Respiratory Rate 18 07/22/18 16:34 Blood Pressure 186/110 H 07/22/18 16:34 Pulse Oximetry 98 07/22/18 16:34 Medical Decision Making MDM Narrative Medical decision making narrative: This is a 58-year-old female who has a history of Crohn's disease, short gut syndrome and pancreatitis who presents to the emergency department with severe abdominal pain and clinical symptoms consistent for classic pancreatitis. Labs were obtained which demonstrate a lipase of 3000. CT scan was obtained which demonstrates no evidence of necrosis or pseudocyst but does demonstrate gallstones which may be contributing to her pancreatitis. Patient was given IV fluids and 2 mg of Dilaudid in the emergency department. Her pain improved. She will be admitted for continued pain management and IV hydration. Medical Screen Exam Complete: Yes Emergency Medical Condition: Yes Differential Diagnosis Differential Diagnosis: Alcoholic pancreatitis, gallstone pancreatitis, necrotizing pancreatitis, small bowel obstruction, perforation Medical Records Medical records reviewed: Yes I reviewed the patient's medical records. The patient was most recently admitted in April of this year with fungemia in the setting of an infected port Lab Data Lab results reviewed: Yes I reviewed the patient's lab results. Lab results narrative: Lipase elevated consistent with pancreatitis, no leukocytosis and normal lactic acid argue against necrotizing pancreatitis. MCV 103 consistent with malabsorption and reported history of heavy alcohol use. Result diagrams: 07/22/18 15:05 07/22/18 15:05 Lab Results 07/22/18 07/22/18 07/22/18 Range/Units 15:05 15:05 15:05 CBC w Diff Auto diff final WBC 11.0 (4.0-11.0) th/mm3 RBC 4.00 (4.00-5.30) mil/mm3 Hgb 14.3 (11.6-15.3) gm/dL Hct 41.5 (35.0-46.0) % MCV 103.7 H (80.0-100.0) fL MCH 35.8 H (27.0-34.0) pg MCHC 34.5 (32.0-36.0) % RDW 18.6 H (11.6-17.2) % Plt Count 127 L (150-450) th/mm3 MPV 7.7 (7.0-11.0) fL Neut % (Auto) 91.1 H (16.0-70.0) % Lymph % (Auto) 5.1 L (9.0-44.0) % [place] % (Auto) 3.5 (0.0-8.0) % Eos % (Auto) 0.0 (0.0-4.0) % Baso % (Auto) 0.3 (0.0-2.0) % Neut # (Auto) 10.0 H (1.8-7.7) th/mm3 Lymph # (Auto) 0.6 L (1.0-4.8) th/mm3 [place] # (Auto) 0.4 (0.0-0.9) th/mm3 Eos # (Auto) 0.0 (0.0-0.4) th/mm3 Baso # (Auto) 0.0 (0.0-0.2) th/mm3 WBC Differential . Differential Comment . Sodium 136 (136-145) meq/L Potassium 3.6 (3.5-5.1) meq/L Chloride 102 (98-107) meq/L Carbon Dioxide 22.2 (21.0-32.0) meq/L Anion Gap 12 (5-15) meq/L BUN 22 H (7-18) mg/dL Creatinine 1.00 (0.50-1.00) mg/dL Estimated GFR 57 L (>89) mL/min Random Glucose 141 H (74-106) mg/dL Lactic Acid 1.4 (0.4-2.0) mmol/L Calcium 8.5 (8.5-10.1) mg/dL Total Bilirubin 0.8 (0.2-1.0) mg/dL AST 23 (15-37) U/L ALT 17 (10-53) U/L Alkaline Phosphatase 69 (45-117) U/L Total Protein 6.9 (6.4-8.2) g/dL Albumin 3.7 (3.4-5.0) g/dL Lipase 3432 H (73-393) U/L Imaging Data Attestation: I personally reviewed and interpreted this imaging study as follows : Radiologist's impression: Abdomen/Pelvis CT 07/22/18 14:37 CONCLUSION: 1. Acute pancreatitis. 2. Cholelithiasis. Discharge Plan Discharge Disposition Patient Disposition: 30 Still Patient Discharge Condition Condition: Stable Discharge Details Diagnosis: Pancreatitis Physicians Team ED Provider: Christina Shipman Primary Care Provider: UNKNOWN, Rxs /Orders / Referrals /Forms Prescriptions: No Action diphenoxylate-atropine 2.5-0.025 mg Tablet 1 tab PO Q6H PRN (Reason: Diarrhea) RF: 0 hydrocodone-acetaminophen 10-325 mg Tablet 1 tab PO QID PRN (Reason: Pain) RF: 0 omeprazole 40 mg Capsule,Delayed Release(Dr/Ec) 40 mg PO EVERY OTHER DAY RF: 0 cyanocobalamin (vitamin B-12) 1,000 mcg/mL Solution 1,000 mcg IM QMONTH RF: 0 diazepam 10 mg Tablet 10 mg PO HS RF: 0 albuterol sulfate [Ventolin HFA] 90 mcg/actuation Hfa Aerosol Inhaler 2 puff INHALATION Q4-6H PRN (Reason: Shortness Of Breath) RF: 0 albuterol sulfate 2.5 mg/0.5 mL Solution For Nebulization 2.5 mg Continuous Nebulization Q4H PRN (Reason: Shortness Of Breath) RF: 0 melatonin 5 mg Tablet 5 mg PO HS RF: 0 prednisone 20 mg Tablet 20 mg PO DAILY RF: 0 Discharge Interventions Interventions: Vital Signs Last Done: 07/22/18 16:34 Status ED Status: With Doctor
[2018-07-22 15:19] LABS: Baso % (Auto) 0.3 % (0.0-2.0); Hematocrit 41.5 % (35.0-46.0); Hemoglobin 14.3 gm/dL (11.6-15.3); Lymph # (Auto) 0.6 th/mm3 (1.0-4.8); Lymph % (Auto) 5.1 % (9.0-44.0); Mean Corpuscular HGB Conc 34.5 % (32.0-36.0); Mean Corpuscular Hemoglobin 35.8 pg (27.0-34.0); Mean Corpuscular Volume 103.7 fL (80.0-100.0); Mean Platelet Volume 7.7 fL (7.0-11.0); Mono # (Auto) 0.4 th/mm3 (0.0-0.9); Mono % (Auto) 3.5 % (0.0-8.0); Neut % (Auto) 91.1 % (16.0-70.0); Platelet Count 127 th/mm3 (150-450); Red Cell Distribution Width 18.6 % (11.6-17.2)
[2018-07-22] MEDS ORDERED: HYDROmorphone PF Inj 2 MG/ML Vial IV.PUSH ONE ×2 (15:30→15:45)
[2018-07-22 15:32] LABS: Chloride 102 meq/L (98-107); Potassium 3.6 meq/L (3.5-5.1); Sodium 136 meq/L (136-145)
[2018-07-22 15:35] LABS: Calcium 8.5 mg/dL (8.5-10.1)
[2018-07-22] MEDS ORDERED: HYDROmorphone PF Inj 0.5 MG/0.5 ML Syringe IV.PUSH ONE (15:35)
[2018-07-22 15:36] LABS: Albumin 3.7 g/dL (3.4-5.0); Anion Gap 12 meq/L (5-15); Blood Urea Nitrogen 22 mg/dL (7-18); Carbon Dioxide 22.2 meq/L (21.0-32.0); Glucose,Random 141 mg/dL (74-106)
[2018-07-22 15:39] LABS: Alanine Aminotransferase 17 U/L (10-53); Aspartate Aminotransferase 23 U/L (15-37); Glomerular Filtration Rate 57 mL/min (>89)
[2018-07-22 15:40] LABS: Total Protein 6.9 g/dL (6.4-8.2)
[2018-07-22 15:41] LABS: Alkaline Phosphatase 69 U/L (45-117); Lipase 3432 U/L (73-393)
--- NOTE | 2018-07-22 16:31 | CT ---
EXAM DATE: 07/22/2018 4:24 PM EDT AGE/SEX: 58 years / Female INDICATIONS: Diffuse abdominal pain. CLINICAL DATA: This is the patient's initial encounter. Patient reports that signs and symptoms have been present for 1 day and indicates a pain score of 5/10. MEDICAL/SURGICAL HISTORY: Crohn's disease. Pancreatitis. . Bowel resection. ORAL CONTRAST: No oral contrast ingested. RADIATION DOSE: 4.85 CTDI (mGy) COMPARISON: [facility], CT ABDOMEN & PELVIS W CONTRAST, 04/20/2018. . TECHNIQUE: Multiple contiguous axial images were obtained through the abdomen and pelvis following b olus infusion of 85 ml Omnipaque 350 (iohexol) nonionic water-soluble contrast as a single exam dos e. No oral contrast ingested. Using automated exposure control and adjustment of the mA and/or kV ac cording to patient size, radiation dose was kept as low as reasonably achievable to obtain optimal di agnostic quality images. DICOM format image data is available electronically for review and comparis on. FINDINGS: Lung bases are clear. Osseous structures demonstrate degenerative changes of the spine. No pleural or pericardial effusions are seen. Cholelithiasis is noted. Liver, kidneys, adrenals, spleen unremarkab le. There is abnormal inflammatory stranding surrounding the pancreas as well as fluid in the left an terior pararenal space. The pancreas is mildly inhomogeneous. The appearance is characteristic of acu te pancreatitis. The urinary bladder, uterus and adnexa are unremarkable. There is no evidence of bow el obstruction. No adenopathy or aneurysm. There is previous partial colectomy and appendectomy. CONCLUSION: 1. Acute pancreatitis. 2. Cholelithiasis. Electronically signed by: José Tamez MD 07/22/2018 4:30 PM EDT
[2018-07-22] MEDS ORDERED: Bisacodyl 10 MG Supp RECTAL PRN (16:55)
[2018-07-22] MEDS ORDERED: Acetaminophen 325 MG Tablet PO PRN (16:55)
[2018-07-22 17:11] LABS: Bilirubin,Urine Negative (Negative); Clarity,Urine Clear (Clear); Color,Urine Yellow (Yellw/Straw); Glucose,Urine (UA) Negative (Negative); Leukocyte Esterase,Urine Negative (Negative); Nitrite,Urine Negative (Negative); PH,Urine 5.5 (5.0-8.5); Urobilinogen,Urine 0.2 mg/dL (Less than 2)
[2018-07-22 17:17] LABS: RBC,Urine 0-3 /hpf (0-3); Squamous Epithelial Cell,Urine 0-5 /hpf (0-5)
--- NOTE | 2018-07-22 17:44 | US ---
EXAM DATE: 07/22/2018 5:38 PM EDT AGE/SEX: 58 years / Female INDICATIONS: Gallstones. CLINICAL DATA: This is the patient's initial encounter. Patient reports that signs and symptoms have been present for 1 day and indicates a pain score of 8/10. MEDICAL/SURGICAL HISTORY: Crohn's disease. Pancreatitis. Short gun syndrome. Fungemia. . [place] el resection. COMPARISON: [facility], CT ABDOMEN & PELVIS W CONTRAST, 07/22/2018. . MEASUREMENTS: Liver:__ 17.5 cm. Common Bile Duct:__ 9mm. FINDINGS: Liver: Increased echotexture without focal lesion or ductal dilation. Portal Vein: Hepatopedal flow seen in portal vein. Common Duct: No intraluminal mass or stone visualized. Gallbladder: All cholelithiasis is noted. There is no wall thickening or pericholecystic fluid. Pancreas: Pancreatic duct measures up to 3 mm. There is peripancreatic edema. Right Kidney: Normal echotexture and cortical thickness. No mass or hydronephrosis. Other: None. CONCLUSION: 1. Cholelithiasis. 2. Hepatomegaly. 3. Hepatic steatosis. 4. Peripancreatic edema. Electronically signed by: José Tamez MD 07/22/2018 5:42 PM EDT
--- NOTE | 2018-07-22 17:49 | P.HP ---
History of Present Illness Primary Care Physician: UNKNOWN Chief Complaint: Abdominal pain History of Present Illness: This is a 58-year-old female patient with a known medical history of alcoholism , Crohn's disease, COPD, chronic pain and GERD who presented to the ED with complaints of abdominal pain and emesis. Patient states that the pain started roughly around 630 this morning, she states that the pain has been diffuse and constant, throbbing and aching in nature she does state that the pain radiates to her back with one episode of vomiting this morning. She denies eating or drinking anything this morning or today secondary to abdominal pain. Patient is a current alcoholic, she states her last drink was last evening around 9 PM. She drinks roughly 6 shots of rum a day. She denies ever having history of withdrawals in the past. It should be noted that patient follows with Dr. Godoy, and has just recently been admitted from 04/24/18 to 05/20/18 at that time an EGD, colonoscopy, barium swallow and OZIEL as well as liver biopsy were all done. She does admit to having a history of pancreatitis roughly 3 years ago. It should also be noted that patient has a history of Crohn's disease and is status post bowel resection x3 complicated by short gut syndrome with the last bowel resection being done in 2007. Patient does admit to subjective fevers although she has not taken her temperature at home, does admit to chills as well. Denies any chest pain or headache, shortness of breath, diarrhea, dysuria, black or bloody stools. The bloody or coffee-ground emesis. On assessment this afternoon patient's bowel sounds are active x4, when palpated patient complains of right lower quadrant pain. Patient's CBC is not showing any leukocytosis. UA is negative. Abdominal CT showing pancreatitis and cholelithiasis. Ultrasound gallbladder showing pancreatitis, hepatomegaly with presence of cholelithiasis although the duct is clean as well as no fluid. - Diagnosis (1) Pancreatitis Inpatient Certification: I certify that the inpatient services were ordered in accordance with Medicare regulations governing the order. This includes certification that hospital inpatient services are reasonable and necessary and in the case of services not specified as inpatient-only under 42 CFR 419.22(n), that they are appropriately provided as inpatient services in accordance to with the 2-midnight benchmark under 43 CFR 412.3(e) Estimated Total Length of Stay (Days): 3 Plans for Post Hospital Care: Home Review of Systems All other systems reviewed negative except as stated in HPI [facility] - History History Provided By: Patient, Significant Other - Medical History Medical History: Medical History (Last Reviewed 07/22/18 @ 17:57 by Senait Sparks) Crohns disease Pancreatitis Short gut syndrome Fungemia - Surgical History Surgical History: Surgical History (Last Updated 07/22/18 @ 17:57 by Senait Sparks) History of knee surgery History of bowel resection - Family History Family History: Family History (Last Updated 07/22/18 @ 17:57 by Senait Sparks) Other Family history in first degree relatives is unremarkable - Tobacco History Second Hand Smoke Exposure: No Tobacco Use In Past 30 Days: Yes Smoking Status: Current every day smoker Tobacco Type: E-Cigarettes - Alcohol History How Often Do You Have a Drink Containing Alcohol: 4 or more times a week - Substance Use History Substance History: No History of Abuse - Travel History History of Recent Travel: No Recent Travel in the [place] Within the Last 8 Weeks: No Recent Travel Out of the Country Within the Last 8 Weeks: No - Immunization History Tetanus Immunization: <5 Years Hx Influenza Vaccine This Season: Yes Medications and Allergies Active Medications: Active Medications Acetaminophen (Tylenol) 650 mg PO Q4H PRN PRN Reason: Temp > 100.4 Al Hydroxide/Mg Hydroxide (Milk Of Magnesia Liq) 30 ml PO Q12H PRN PRN Reason: Mild Constipation Albuterol (Ventolin Hfa Inh) 2 puff INH Q4H PRN PRN Reason: SHORTNESS OF BREATH Bisacodyl (Dulcolax Supp) 10 mg RECTAL DAILY PRN PRN Reason: SEVERE CONSITIPATION Diazepam (Valium) 10 mg PO HS [facility] Enalaprilat (Vasotec Inj) 1.25 mg IV.PUSH Q6H PRN PRN Reason: SBP>160, DBP>90 Hydromorphone HCl (Dilaudid Pf Inj) 1 mg IV.PUSH Q4H PRN PRN Reason: PAIN SCALE 1 TO 10 Sodium Chloride (Ns Inj) 1,000 mls @ 100 mls/hr IV.CONT .Q10H AVERY Lactulose (Lactulose Liq) 30 ml PO DAILY PRN PRN Reason: SEVERE CONSITIPATION Melatonin (Melatonin) 5 mg PO HS [facility]ERY Metoprolol Tartrate (Lopressor) 50 mg PO BID [facility] Senna/Docusate Sodium (Zahra-Colace) 1 tab PO BID [facility] Sennosides (Senokot) 17.2 mg PO Q12H PRN PRN Reason: Moderate Constipation Sodium Chloride (Ns Flush) 2 ml IV.FLUSH PRN PRN PRN Reason: FLUSH AFTER USING IV ACCESS Allergies Allergy/AdvReac Type Severity Reaction Status Date / Time Sulfa (Sulfonamide Allergy Severe "Shock", Verified 07/22/18 14:22 Antibiotics) nausea, rash HUMIRA Allergy Unknown SKIN Uncoded 07/22/18 14:22 LESIONS Home Medications Medication Instructions Recorded Confirmed Type albuterol sulfate 2.5 mg CONTINUOUS NEBULIZATION Q4H 04/28/18 07/22/18 History PRN albuterol sulfate [Ventolin HFA] 2 puff INHALATION Q4-6H PRN 04/28/18 07/22/18 History cyanocobalamin (vitamin B-12) 1,000 mcg IM QMONTH 04/28/18 07/22/18 History diazepam 10 mg PO HS 04/28/18 07/22/18 History diphenoxylate-atropine 1 tab PO Q6H PRN 04/28/18 07/22/18 History hydrocodone-acetaminophen 1 tab PO QID PRN 04/28/18 07/22/18 History melatonin 5 mg PO HS 04/28/18 07/22/18 History omeprazole 40 mg PO EVERY OTHER DAY 04/28/18 07/22/18 History prednisone 20 mg PO DAILY 07/22/18 07/22/18 History Exam Vital signs: Vital Signs 07/22/18 14:22 07/22/18 15:25 07/22/18 16:34 Temperature 97.3 F L Pulse Rate 68 70 100 H Respiratory Rate 28 H 18 18 Blood Pressure 205/99 H 173/132 H 186/110 H Pulse Oximetry 100 98 07/22/18 17:04 Temperature Pulse Rate 106 H Respiratory Rate 16 Blood Pressure 185/104 H Pulse Oximetry 96 Intake & Output 07/21/18 07/22/18 07/22/18 18:59 06:59 18:59 Intake Total 1000 / 1000 Balance 1000 / 1000 Weight 52.3 kg Intake: IV 1000 / 1000 NS Inj 1,000 ML @ Wide Open IV. 1000 / 1000 SIG BOLUS ONE Rx#:[id number] Narrative: GENERAL: Well-developed, well-nourished patient in NAD. Right chest Infuse-a- Port. SKIN: Warm and dry. No rash. HEAD: Normocephalic. Atraumatic. EYES: Pupils equal and round. No scleral icterus. No injection or drainage. ENT: No nasal bleeding or discharge. Mucous membranes pink and moist. NECK: Supple. Trachea midline. CARDIOVASCULAR: Regular rate and rhythm. S1, S2 noted. No murmur appreciated. RESPIRATORY: No accessory muscle use. Clear to auscultation. Breath sounds equal bilaterally. GASTROINTESTINAL: Abdomen soft, nondistended. Normoactive bowel sounds x4. Mild tenderness to right lower quadrant to palpation. Previous midline abdominal scar healed. MUSCULOSKELETAL: No obvious deformities. Extremities without clubbing, cyanosis , or edema. NEUROLOGICAL: Awake and alert. No obvious cranial nerve deficits. Motor grossly within normal limits. 5/5 muscle strength in bilateral upper and lower extremities. Normal speech. PSYCHIATRIC: Appropriate mood and affect; insight and judgment normal. Results - Labs CBC & Chem 7: 07/22/18 15:05 07/22/18 15:05 Labs: Laboratory Results - last 24 hr 07/22/18 07/22/18 07/22/18 15:05 15:05 15:05 CBC w Diff Auto diff final WBC 11.0 RBC 4.00 Hgb 14.3 Hct 41.5 MCV 103.7 H MCH 35.8 H MCHC 34.5 RDW 18.6 H Plt Count 127 L MPV 7.7 Neut % (Auto) 91.1 H Lymph % (Auto) 5.1 L [place] % (Auto) 3.5 Eos % (Auto) 0.0 Baso % (Auto) 0.3 Neut # (Auto) 10.0 H Lymph # (Auto) 0.6 L [place] # (Auto) 0.4 Eos # (Auto) 0.0 Baso # (Auto) 0.0 WBC Differential . Differential Comment . Sodium 136 Potassium 3.6 Chloride 102 Carbon Dioxide 22.2 Anion Gap 12 BUN 22 H Creatinine 1.00 Estimated GFR 57 L Random Glucose 141 H Lactic Acid 1.4 Calcium 8.5 Total Bilirubin 0.8 AST 23 ALT 17 Alkaline Phosphatase 69 Total Protein 6.9 Albumin 3.7 Lipase 3432 H Ur Collection Type Urine Color Urine Clarity Urine pH Ur Specific [place] Urine Protein Urine Glucose (UA) Urine Ketones Urine Occult Blood Urine Nitrate Urine Bilirubin Urine Urobilinogen Ur Leukocyte Esterase Urine RBC Ur Squamous Epith Cells Micro UA Comment Ur Microscopic Review Urine Culture Comments 07/22/18 17:00 CBC w Diff WBC RBC Hgb Hct MCV MCH MCHC RDW Plt Count MPV Neut % (Auto) Lymph % (Auto) [place] % (Auto) Eos % (Auto) Baso % (Auto) Neut # (Auto) Lymph # (Auto) [place] # (Auto) Eos # (Auto) Baso # (Auto) WBC Differential Differential Comment Sodium Potassium Chloride Carbon Dioxide Anion Gap BUN Creatinine Estimated GFR Random Glucose Lactic Acid Calcium Total Bilirubin AST ALT Alkaline Phosphatase Total Protein Albumin Lipase Ur Collection Type Clean catch Urine Color Yellow Urine Clarity Clear Urine pH 5.5 Ur Specific [place] 1.010 Urine Protein Negative Urine Glucose (UA) Negative Urine Ketones Negative Urine Occult Blood Negative Urine Nitrate Negative Urine Bilirubin Negative Urine Urobilinogen 0.2 Ur Leukocyte Esterase Negative Urine RBC 0-3 Ur Squamous Epith Cells 0-5 Micro UA Comment Culture not ind Ur Microscopic Review Microscopic reviewed Urine Culture Comments Culture not ind - Imaging Impressions Gallbladder Ultrasound 07/22/18 00:00 CONCLUSION: 1. Cholelithiasis. 2. Hepatomegaly. 3. Hepatic steatosis. 4. Peripancreatic edema. Abdomen/Pelvis CT 07/22/18 14:37 CONCLUSION: 1. Acute pancreatitis. 2. Cholelithiasis. Caprini VTE Risk Assessment Caprini VTE Risk Assessment: Moderate/High Risk (score >= 2) Caprini Risk Assessment Model: Point Value = 1 Point Value = 2 Point Value = 3 Point Value = 5 Age 41-60 Minor surgery BMI > 25 kg/m2 Swollen legs Varicose veins or History of unexplained or recurrent spontaneous Oral contraceptives or hormone replacement Sepsis (< 1 month) Serious lung disease, including pneumonia (< 1 month) Abnormal pulmonary function Acute myocardial infarction Congestive heart failure (< 1 month) History of inflammatory bowel disease Medical patient at bed rest Age 61-74 Arthroscopic surgery Major open surgery (> 45 min) Laparoscopic surgery (> 45 min) Malignancy Confined to bed (> 72 hours) Immobilizing plaster cast Central venous access Age >= 75 History of VTE Family history of VTE Factor V Leiden Prothrombin [id number] Lupus anticoagulant Anticardiolipin antibodies Elevated serum homocysteine Heparin-induced thrombocytopenia Other congenital or acquired thrombophilia Stroke (< 1 month) Elective arthroplasty Hip, pelvis, or leg fracture Acute spinal cord injury (< 1 month) Prophylaxis Regimen: Total Risk Factor Score Risk Level Prophylaxis Regimen 0-1 Low Early ambulation 2 Moderate Order ONE of the following: *Sequential Compression Device (SCD) *Heparin 5000 units SQ BID 3-4 Higher Order ONE of the following medications: *Heparin 5000 units SQ TID *Enoxaparin/Lovenox 40 mg SQ daily (WT < 150 kg, CrCl > 30 mL/min) *Enoxaparin/Lovenox 30 mg SQ daily (WT < 150 kg, CrCl > 10-29 mL/min) *Enoxaparin/Lovenox 30 mg SQ BID (WT < 150 kg, CrCl > 30 mL/min) AND/OR *Sequential Compression Device (SCD) 5 or more Highest Order ONE of the following medications: *Heparin 5000 units SQ TID (Preferred with Epidurals) *Enoxaparin/Lovenox 40 mg SQ daily (WT < 150 kg, CrCl > 30 mL/min) *Enoxaparin/Lovenox 30 mg SQ daily (WT < 150 kg, CrCl > 10-29 mL/min) *Enoxaparin/Lovenox 30 mg SQ BID (WT < 150 kg, CrCl > 30 mL/min) AND *Sequential Compression Device (SCD) Assessment and Plan - Assessment (1) Pancreatitis Code(s): K85.90 - Acute pancreatitis without necrosis or infection, unspecified Status: Acute - Plan This is a 58-year-old female patient with Acute pancreatitis suspect secondary to chronic alcoholism History of bowel resection x3 with subsequent short gut syndrome History of Crohn's disease -Patient presented with abdominal pain as well as emesis. -Abdominal/pelvis CT done and reviewed showing acute pancreatitis and possible cholelithiasis. An ultrasound gallbladder done showing cholelithiasis, hepatomegaly and pancreatitis. There is no gallbladder wall thickening and common bile duct clean. -Lipase over 3000 upon presentation. -Will allow for clear liquid diets. Continue IV fluid. Ensure hydration. -Pain control with IV Dilaudid as needed -Alcohol cessation encouraged. Patient does not show a desire to stop alcohol at this time. -Assess for withdrawal. Place on CIWA protocol. Monitor for any seizures. -Added thiamine, folate. -Supportive care.Assess for resolution of symptoms. Hypertension, uncontrolled -Will restart home metoprolol. -Vasotec as needed. -Monitor blood pressure trends. Insomnia: Will continue home Valium as well as melatonin. E-[employer] database reviewed and patient is prescribed this medication. Patient also takes hydrocodone 10/325 mg tablets these will be placed on hold. Patient will be given IV medications for now. History of COPD: This is stable at this time. On room air. No wheezing. Will continue home inhalers. DVT prophylaxis: SCDs. Ambulation. (1) Pancreatitis Qualifiers: Chronicity: acute Pancreatitis type: unspecified pancreatitis type Acute pancreatitis complication: no infection or necrosis Qualified Code(s): K85.90 - Acute pancreatitis without necrosis or infection, unspecified
[2018-07-22] MEDS: Sod Chloride 0.9% Inj 1,000 ML IV.CONT SCH (17:54)
[2018-07-22] MEDS: HYDROmorphone PF Inj 2 MG/ML Vial IV.PUSH PRN (20:00)
[2018-07-22] MEDS: Senna/Docusate Sodium 8.6/50 MG Tablet PO SCH (21:31)
[2018-07-22] MEDS: Melatonin 5 MG Tablet PO SCH (21:31)
[2018-07-22] MEDS: Metoprolol Tartrate 50 MG Tablet PO SCH (21:31)
[2018-07-22] MEDS ORDERED: Haloperidol Inj 5 MG/ML Ampul IV.PUSH PRN (22:05)
[2018-07-22] MEDS ORDERED: LORazepam 1 MG Tablet PO PRN (22:05)
[2018-07-23] MEDS: HYDROmorphone PF Inj 2 MG/ML Vial IV.PUSH PRN ×6 (00:02→22:10)
[2018-07-23] MEDS: Sod Chloride 0.9% Inj 1,000 ML IV.CONT SCH ×3 (04:08→22:12)
--- NOTE | 2018-07-23 08:32 | P.PNIM ---
Subjective Interval history: Follow up acute on chronic pancreatitis. Patient seen and examined, lying in bed with complaint of uncontrolled pain overnight. States that pain improves with pain medication, although does not last more than 20 minutes. Tolerating clear liquids at this time. Denies any shortness of breath and chest pain, nausea or vomiting. Physical Exam Vital signs: Vital Signs 07/22/18 14:22 07/22/18 15:25 07/22/18 16:34 Temperature 97.3 F L Pulse Rate 68 70 100 H Respiratory Rate 28 H 18 18 Blood Pressure 205/99 H 173/132 H 186/110 H Pulse Oximetry 100 98 07/22/18 17:04 07/22/18 17:50 07/22/18 20:00 Temperature 97.6 F 97.1 F L Pulse Rate 106 H 99 H 80 Respiratory Rate 16 16 22 Blood Pressure 185/104 H 186/107 H Pulse Oximetry 96 97 99 07/22/18 23:51 07/23/18 04:00 07/23/18 08:00 Temperature 84 F L 97.4 F L Pulse Rate 84 111 H Respiratory Rate 20 20 Blood Pressure 185/92 H 142/91 H 138/81 Pulse Oximetry 98 93 L Intake & Output 07/22/18 07/23/18 07/23/18 18:59 06:59 18:59 Intake Total 1480 / 1480 1500 / 1500 Balance 1480 / 1480 1500 / 1500 Weight 52.3 kg 53.5 kg Intake: IV 1000 / 1000 1000 / 1000 NS Inj 1,000 ML @ 100 mls/hr IV 1000 / 1000 .CONT .Q10H AVERY Rx#:[id number] NS Inj 1,000 ML @ Wide Open IV. 1000 / 1000 SIG BOLUS ONE Rx#:[id number] Oral 480 / 480 500 / 500 Other: # Voids 1 4 Date of Last Bowel Movement 07/21/18 07/21/18 # Bowel Movements 1 1 Weight On Admission 52.3 kg Narrative: GENERAL: Well-developed, well-nourished elderly female patient with complaints of diffuse abdominal pain. SKIN: Warm and dry. No rash. Port accessed and in placed, dressing clean/d/i. HEAD: Normocephalic. Atraumatic. EYES: Pupils equal and round. No scleral icterus. No injection or drainage. ENT: No nasal bleeding or discharge. Mucous membranes pink and moist. NECK: Supple. Trachea midline. CARDIOVASCULAR: Regular rate and rhythm. S1, S2 noted. No murmur appreciated. RESPIRATORY: No accessory muscle use. Clear to auscultation. Breath sounds equal bilaterally. GASTROINTESTINAL: Abdomen soft, nondistended. Normoactive bowel sounds x4. Diffuse tenderness to palpation. MUSCULOSKELETAL: No obvious deformities. Extremities without clubbing, cyanosis , or edema. NEUROLOGICAL: Awake and alert. No obvious cranial nerve deficits. Motor grossly within normal limits. 5/5 muscle strength in bilateral upper and lower extremities. Normal speech. PSYCHIATRIC: Appropriate mood and affect; insight and judgment normal. Results - Labs CBC & Chem 7: 07/22/18 15:05 07/22/18 15:05 Laboratory Results - last 24 hr 07/22/18 07/22/18 07/22/18 15:05 15:05 15:05 CBC w Diff Auto diff final WBC 11.0 RBC 4.00 Hgb 14.3 Hct 41.5 MCV 103.7 H MCH 35.8 H MCHC 34.5 RDW 18.6 H Plt Count 127 L MPV 7.7 Neut % (Auto) 91.1 H Lymph % (Auto) 5.1 L [place] % (Auto) 3.5 Eos % (Auto) 0.0 Baso % (Auto) 0.3 Neut # (Auto) 10.0 H Lymph # (Auto) 0.6 L [place] # (Auto) 0.4 Eos # (Auto) 0.0 Baso # (Auto) 0.0 WBC Differential . Differential Comment . Sodium 136 Potassium 3.6 Chloride 102 Carbon Dioxide 22.2 Anion Gap 12 BUN 22 H Creatinine 1.00 Estimated GFR 57 L Random Glucose 141 H Lactic Acid 1.4 Calcium 8.5 Total Bilirubin 0.8 AST 23 ALT 17 Alkaline Phosphatase 69 Total Protein 6.9 Albumin 3.7 Lipase 3432 H Ur Collection Type Urine Color Urine Clarity Urine pH Ur Specific [place] Urine Protein Urine Glucose (UA) Urine Ketones Urine Occult Blood Urine Nitrate Urine Bilirubin Urine Urobilinogen Ur Leukocyte Esterase Urine RBC Ur Squamous Epith Cells Micro UA Comment Ur Microscopic Review Urine Culture Comments 07/22/18 17:00 CBC w Diff WBC RBC Hgb Hct MCV MCH MCHC RDW Plt Count MPV Neut % (Auto) Lymph % (Auto) [place] % (Auto) Eos % (Auto) Baso % (Auto) Neut # (Auto) Lymph # (Auto) [place] # (Auto) Eos # (Auto) Baso # (Auto) WBC Differential Differential Comment Sodium Potassium Chloride Carbon Dioxide Anion Gap BUN Creatinine Estimated GFR Random Glucose Lactic Acid Calcium Total Bilirubin AST ALT Alkaline Phosphatase Total Protein Albumin Lipase Ur Collection Type Clean catch Urine Color Yellow Urine Clarity Clear Urine pH 5.5 Ur Specific [place] 1.010 Urine Protein Negative Urine Glucose (UA) Negative Urine Ketones Negative Urine Occult Blood Negative Urine Nitrate Negative Urine Bilirubin Negative Urine Urobilinogen 0.2 Ur Leukocyte Esterase Negative Urine RBC 0-3 Ur Squamous Epith Cells 0-5 Micro UA Comment Culture not ind Ur Microscopic Review Microscopic reviewed Urine Culture Comments Culture not ind - Imaging Impressions Gallbladder Ultrasound 07/22/18 00:00 CONCLUSION: 1. Cholelithiasis. 2. Hepatomegaly. 3. Hepatic steatosis. 4. Peripancreatic edema. Abdomen/Pelvis CT 07/22/18 14:37 CONCLUSION: 1. Acute pancreatitis. 2. Cholelithiasis. Assessment and Plan - Assessment (1) Pancreatitis Code(s): K85.90 - Acute pancreatitis without necrosis or infection, unspecified Status: Acute - Plan This is a 58-year-old female patient with Acute pancreatitis suspect secondary to chronic alcoholism History of bowel resection x3 with subsequent short gut syndrome History of Crohn's disease -Patient presented with abdominal pain as well as emesis. -Abdominal/pelvis CT done and reviewed showing acute pancreatitis and possible cholelithiasis. -An ultrasound gallbladder done showing cholelithiasis, hepatomegaly and pancreatitis. There is no gallbladder wall thickening and common bile duct clean. -Lipase over 3000 upon presentation. Trending down, still elevated with symptoms. -Will allow for clear liquid diet. Continue IV fluid. Ensure hydration. -Pain control with IV Dilaudid as needed. -Alcohol cessation encouraged. Patient does not show a desire to stop alcohol at this time. -Assess for withdrawal. Place on CIWA protocol. Monitor for any seizures. -Added thiamine, folate. -Supportive care. Assess for resolution of symptoms. Hypertension, uncontrolled -Trends noted overnight, improving. -Will restart home metoprolol. -Vasotec as needed. -Monitor blood pressure trends. Insomnia, chronic -Will continue home Valium as well as melatonin. -[employer] database reviewed and patient is prescribed this medication. -Patient also takes hydrocodone 10/325 mg tablets these will be placed on hold. -Patient will be given IV medications for now. History of COPD: This is stable at this time. On room air. No wheezing. Will continue home inhalers. On chronic prednisone, will continue. DVT prophylaxis: SCDs. Ambulation. Discharge Planning: Await clinical improvement. (1) Pancreatitis Qualifiers: Chronicity: acute Pancreatitis type: unspecified pancreatitis type Acute pancreatitis complication: no infection or necrosis Qualified Code(s): K85.90 - Acute pancreatitis without necrosis or infection, unspecified
[2018-07-23] MEDS: Senna/Docusate Sodium 8.6/50 MG Tablet PO SCH ×2 (08:35→20:52)
[2018-07-23] MEDS: Metoprolol Tartrate 50 MG Tablet PO SCH ×2 (08:35→20:52)
[2018-07-23] MEDS: predniSONE 20 MG Tablet PO SCH (13:02)
[2018-07-23] MEDS: Melatonin 5 MG Tablet PO SCH (20:52)
[2018-07-24] MEDS: HYDROmorphone PF Inj 2 MG/ML Vial IV.PUSH PRN ×3 (01:57→09:59)
[2018-07-24] MEDS: predniSONE 20 MG Tablet PO SCH (09:59)
[2018-07-24] MEDS: Sod Chloride 0.9% Inj 1,000 ML IV.CONT SCH (09:59)
[2018-07-24] MEDS: Senna/Docusate Sodium 8.6/50 MG Tablet PO SCH (09:59)
[2018-07-24] MEDS: Metoprolol Tartrate 50 MG Tablet PO SCH (09:59)
--- NOTE | 2018-07-24 11:41 | P.PN ---
Subjective Interval history: 58-year-old female who is seen and examined today for follow-up on acute pancreatitis. Patient states that her pain is not controlled with the Dilaudid 1 mg every 4 hours. She states it is very painful whenever she moves, twists, tries to get out of bed. Patient states that she is so painful she cannot get out of bed at this time. Patient is tolerating liquid diet at this time and is requesting full food diet. Patient had long conversation about her need for pain medicine and indicates that Dr. Venegas usually provides her with her pain control and is very liberal with his medication that will help. She is on [place] 10 mg 4 times daily as needed for pain. I did discuss with her that since she is tolerating diet that we will resume her home pain medication, patient did not have any argument against that at this time. Vital signs are stable. Patient remains afebrile. Physical Exam Vital signs: Vital Signs 07/23/18 12:00 07/23/18 16:00 07/23/18 20:00 Temperature 98.4 F 95.4 F L 99.5 F Pulse Rate 91 H 92 H 108 H Respiratory Rate 20 20 16 Blood Pressure 160/91 H 136/82 130/69 Pulse Oximetry 100 98 97 07/24/18 00:00 Temperature 99.4 F Pulse Rate 102 H Respiratory Rate 16 Blood Pressure 123/92 H Pulse Oximetry 96 Intake & Output 07/23/18 07/24/18 07/24/18 18:59 06:59 18:59 Intake Total 1550 / 1550 2080 / 2080 Output Total 350 / 350 Balance 1550 / 1550 1730 / 1730 Weight 53.5 kg Intake: IV 1000 / 1000 1000 / 1000 NS Inj 1,000 ML @ 100 mls/hr IV 1000 / 1000 1000 / 1000 .CONT .Q10H [facility] Rx#:[id number] Oral 550 / 550 1080 / 1080 Output: Urine 350 / 350 Other: Date of Last Bowel Movement 07/21/18 Narrative: GENERAL: Well-developed, well-nourished, in no acute distress. alert and orientated HEENT: Head is normocephalic without any lesions or masses noted. Facial features are symmetric. Eyes: Extraocular muscles are intact. Conjunctivae were clear. NECK: Supple without any masses. Trachea midline no deviation. No JVD, CARDIAC: Regular rhythm, regular rate. S1/S2 are heard. No murmurs gallops or rubs. LUNGS: Clear to auscultation bilaterally. No wheeze, rhonchi or rales. No use of accessory muscles on inspiration or expiration. ABDOMEN: Soft, nontender. Nondistended. Bowel sounds heard in all 4 quadrants. No organomegaly or masses. Negative rebound, negative guarding. While talking to the patient I did do abdominal examination and there did any objective finding of pain. Patient was indicating there is subjective tenderness noted in the lower abdomen. However when palpating the epigastric region there was no flinching, guarding, rebound. EXTREMITIES: No edema, pulses are equal bilaterally. No cyanosis or clubbing NEUROLOGY: Mood and affect appear appropriate. Cranial nerves II through XII grossly intact. Moving all extremities, speech is clear Results - Labs CBC & Chem 7: 07/22/18 15:05 07/22/18 15:05 Assessment and Plan - Assessment (1) Pancreatitis Code(s): K85.90 - Acute pancreatitis without necrosis or infection, unspecified Status: Acute - Plan Acute pancreatitis -Likely secondary to alcohol abuse -Continue IV fluids, continue liquid diet -Adjusted pain medication to oral medication, since patient is tolerating diet. This was discussed with the patient and she did not have any objection. We will plan to resume patient's home medications hydrocodone 10/325 4 times daily as needed for pain -Discontinue IV pain medicine -Continue monitor lipase level History of Crohn's disease with multiple surgeries, possible short gut syndrome -Patient will need follow-up with her public health representative upon discharge Chronic alcohol abuse -Continue monitor for withdrawal symptoms -CIWA protocol, CIWA scores were at 6 yesterday now have only been 0 -Consider discontinuation of Ativan tomorrow if patient continues to remain stable -Continue thiamine and folic acid Hypertension -Home medications have been continued -Blood pressure has appear to be stable since continuation of home medications Chronic obstructive pulmonary disease -Continue O2 sat mentation maintain O2 sat greater than 92% -DuoNeb as needed Insomnia -Patient continued on her home medication of Valium as well as addition of melatonin -Pigmentation indicates that E force database was reviewed and the patient is prescribed that medication DVT prevention -Sequential compression devices Discharge Planning: Anticipate discharge in 24-48 hours pending outpatient response to treatment and therapy (1) Pancreatitis Qualifiers: Chronicity: acute Pancreatitis type: unspecified pancreatitis type Acute pancreatitis complication: no infection or necrosis Qualified Code(s): K85.90 - Acute pancreatitis without necrosis or infection, unspecified
[2018-07-24] MEDS ORDERED: Heparin Central Flush 100 UNIT/ML 5 ML Vial IV.FLUSH PRN ×2 (16:43)
--- NOTE | 2018-07-24 17:00 | P.DS ---
Date of admission: 07/22/18 16:54 Primary care physician: UNKNOWN Attending physician on discharge: Efren Hills Anticipated date of discharge: 07/24/18 Brief History from admission: This is a 58-year-old female patient with a known medical history of alcoholism , Crohn's disease, COPD, chronic pain and GERD who presented to the ED with complaints of abdominal pain and emesis. Patient states that the pain started roughly around 630 this morning, she states that the pain has been diffuse and constant, throbbing and aching in nature she does state that the pain radiates to her back with one episode of vomiting this morning. She denies eating or drinking anything this morning or today secondary to abdominal pain. Patient is a current alcoholic, she states her last drink was last evening around 9 PM. She drinks roughly 6 shots of rum a day. She denies ever having history of withdrawals in the past. It should be noted that patient follows with Dr. Godoy, and has just recently been admitted from 04/24/18 to 05/20/18 at that time an EGD, colonoscopy, barium swallow and OZIEL as well as liver biopsy were all done. She does admit to having a history of pancreatitis roughly 3 years ago. It should also be noted that patient has a history of Crohn's disease and is status post bowel resection x3 complicated by short gut syndrome with the last bowel resection being done in 2007. Patient does admit to subjective fevers although she has not taken her temperature at home, does admit to chills as well. Denies any chest pain or headache, shortness of breath, diarrhea, dysuria, black or bloody stools. The bloody or coffee-ground emesis. On assessment this afternoon patient's bowel sounds are active x4, when palpated patient complains of right lower quadrant pain. Patient's CBC is not showing any leukocytosis. UA is negative. Abdominal CT showing pancreatitis and cholelithiasis. Ultrasound gallbladder showing pancreatitis, hepatomegaly with presence of cholelithiasis although the duct is clean as well as no fluid. DS: Diagnosis - Discharge Diagnosis (1) Pancreatitis Status: Acute (2) Acute pancreatitis Status: Acute DS: Summary Hospital Course: 58-year-old female with known history of alcoholism, Crohn's disease, history of pancreatitis, chronic pain, chronic obstructive pulmonary disease, gastroesophageal reflux who presented to the hospital originally because of abdominal pain and emesis. Patient states that she started developing pain diffusely now is radiating into her back with one episode of nausea and vomiting. Patient came to emergency department for evaluation she was found to have pancreatitis by CT scan as well as significant elevated lipase level. Patient indicates that she was drinking roughly 6 shots of rum daily. Patient is concerned about her Crohn's disease with multiple surgeries with short gut syndrome. Patient was admitted the hospital with IV fluids, pain control, n.p.o., trending of lipase level. Her lipase level has significantly improved and now normal at 262. Patient indicates that she is only had one episode of pancreatitis before but whenever she gets her abdominal pain her GI physician Dr. Godoy, controlled her pain with Lortab 10/325 4 times daily. Patient was taken to medication him however was not controlling the pain completely so she states that she usually comes in the hospital for these episodes and gets put on IV Dilaudid until her pain is controlled and then she goes back home. Patient was able to tolerate diet during her stay in the hospital. There is been no recurrent nausea or vomiting. Patient was asking to advance her diet. Patient was making multiple complaints about her pain control that it was not adequate. Requesting increased pain medication and shortening of the duration. Objectively the patient's abdominal exam was rather benign given the patient' s clinical condition. Patient states that she had not had any liquid bowel movements or diarrhea during her stay because she is not really ate anything in order to produce any stool. Patient clinically improved at this time. Patient is very eager to go home. Patient indicates that since her lipase level is normal she would like to go home so she can eat real food, and start taking her Imodium and Lomotil. We will plan discharge accordingly. Patient to follow-up with her GI physician upon discharge. - Time Spent with Patient Total time spent providing and/or coordinating discharge services: Greater than 30 minutes - Quality: VTE Deep Vein Thrombosis/Pulmonary Embolism Present on Admission: No Exam Vital signs: Vital Signs 07/23/18 20:00 07/24/18 00:00 Temperature 99.5 F 99.4 F Pulse Rate 108 H 102 H Respiratory Rate 16 16 Blood Pressure 130/69 123/92 H Pulse Oximetry 97 96 Intake & Output 07/23/18 07/24/18 07/24/18 18:59 06:59 18:59 Intake Total 1550 / 1550 2080 / 0 Output Total 350 / 350 Balance 1550 / 1550 1730 / 1730 Weight 53.5 kg Intake: IV 1000 / 1000 1000 / 1000 NS Inj 1,000 ML @ 100 mls/hr IV 1000 / 1000 1000 / 1000 .CONT .Q10H [facility] Rx#:[id number] Oral 550 / 550 1080 / 1080 Output: Urine 350 / 350 Other: Date of Last Bowel Movement 07/21/18 Narrative: GENERAL: Well-developed, well-nourished, in no acute distress. alert and orientated HEENT: Head is normocephalic without any lesions or masses noted. Facial features are symmetric. Eyes: Extraocular muscles are intact. Conjunctivae were clear. NECK: Supple without any masses. Trachea midline no deviation. No JVD, CARDIAC: Regular rhythm, regular rate. S1/S2 are heard. No murmurs gallops or rubs. LUNGS: Clear to auscultation bilaterally. No wheeze, rhonchi or rales. No use of accessory muscles on inspiration or expiration. ABDOMEN: Soft, nontender. Nondistended. Bowel sounds heard in all 4 quadrants. No organomegaly or masses. Negative rebound, negative guarding. While talking to the patient I did do abdominal examination and there did any objective finding of pain. Patient was indicating there is subjective tenderness noted in the lower abdomen. However when palpating the epigastric region there was no flinching, guarding, rebound. EXTREMITIES: No edema, pulses are equal bilaterally. No cyanosis or clubbing NEUROLOGY: Mood and affect appear appropriate. Cranial nerves II through XII grossly intact. Moving all extremities, speech is clear Results Procedures completed during hospitalization: None Labs on day of discharge: Labs from last 24 hours 07/24/18 15:45 Lipase 262 - Impressions ITS Impressions Gallbladder Ultrasound 07/22/18 00:00 CONCLUSION: 1. Cholelithiasis. 2. Hepatomegaly. 3. Hepatic steatosis. 4. Peripancreatic edema. Abdomen/Pelvis CT 07/22/18 14:37 CONCLUSION: 1. Acute pancreatitis. 2. Cholelithiasis. Discharge Plan - Discharge Disposition Patient Disposition: 01 Discharge Home - Discharge Condition Condition: Stable - Discharge Order Discharge Orders: Discharge Order (Routine); Ordered 07/24/18 Ordered By: Angel James - Discharge Details Anticipated Discharge Date: 07/24/18 - Physicians Team Primary Care Provider: UNKNOWN, Attending Provider: Efren Hills Other Providers: Marleny Farmer - Rxs /Orders / Referrals /Forms Prescriptions: Continue albuterol sulfate 2.5 mg/0.5 mL Solution For Nebulization 2.5 mg Continuous Nebulization Q4H PRN (Reason: Shortness Of Breath) albuterol sulfate [Ventolin HFA] 90 mcg/actuation Hfa Aerosol Inhaler 2 puff INHALATION Q4-6H PRN (Reason: Shortness Of Breath) cyanocobalamin (vitamin B-12) 1,000 mcg/mL Solution 1,000 mcg IM QMONTH diazepam 10 mg Tablet 10 mg PO HS diphenoxylate-atropine 2.5-0.025 mg Tablet 1 tab PO Q6H PRN (Reason: Diarrhea) hydrocodone-acetaminophen 10-325 mg Tablet 1 tab PO QID PRN (Reason: Pain) melatonin 5 mg Tablet 5 mg PO HS omeprazole 40 mg Capsule,Delayed Release(Dr/Ec) 40 mg PO EVERY OTHER DAY prednisone 20 mg Tablet 20 mg PO DAILY Referrals: UNKNOWN, [Primary Care Provider] - See Instructions - Post Discharge Care Plan Care Plan Goals: Your Health Problems: Goals to Promote Your Health: * To prevent worsening of your condition * To maintain your health at the optimal level Directions to Meet Your Goals: * Take your medications as prescribed * Follow your dietary instruction * Follow activity as directed * Keep your appointments as scheduled * Take your immunizations and boosters as scheduled * If your symptoms worsen call your PCP * If no PCP go to Urgent Care or Emergency Room Smoking is dangerous to your health. Avoid second hand smoke. You may reach the 24-hour crisis hotline for domestic abuse at .
[2018-07-24 17:18] VITALS: BP 154/76; PULSE 86; RESP 18; TEMP 98.1; O2SAT 100
== END 2018-07-24 17:30 | disposition home or self-care (01) ==
LOC: PHED 14:21 → PHEDA 16:54 → PH3 17:28
PROVIDERS: ADMIT Internal Medicine; ATTEND Internal Medicine